=== PATIENT | female | born 1935 | race Caucasian/White ===

== ENCOUNTER 2022-10-01 07:19 | Inpatient (IN) ==
[2022-10-01] MEDS ORDERED: IOPAMIDOL 100 ML BOTTLE IV ONE (07:20)
--- NOTE | 2022-10-01 07:28 | Emergency Department Note ---
HPI General Chief complaint: Nausea/Vomiting/Diarrhea Stated complaint: n/v, abd pain Time Seen by Provider: 10/01/22 07:26 Source: patient, family and EMS Mode of arrival: wheelchair History of Present Illness HPI Narrative: Narrative: Patient is an 86-year-old female with a complex medical history who presents to the emergency department due to headache, nausea, vomiting, and abdominal pain. Patient's daughter is present and provides the majority of history. She states that she has had progressively worsening headaches. She states that she has had nausea, vomiting, and abdominal pain. She also states that she has not been eating very much. She has had generalized weakness as well. She also endorses some confusion. She denies any other symptoms. She states that she does not want any resuscitation, and they are looking just to help her be comfortable. Related Data Home Medications Medication Instructions Recorded Confirmed magnesium oxide 400 mg PO DAILY 03/22/18 10/01/22 timolol 0.25 % eye drops 5 ml OP BID 11/19/18 10/01/22 denosumab 60 mg/mL subcutaneous 60 mg subcut [id number] 11/11/19 09/27/22 syringe (Prolia) latanoprost 0.005 % eye drops 1 drp ophthalmic (eye) QPM 12/25/19 10/01/22 carvedilol 3.125 mg tablet 3.125 mg PO BID 09/27/22 10/01/22 lorazepam 0.5 mg tablet PO QD-BID PRN Anxiety 10/01/22 10/01/22 ondansetron 4 mg disintegrating mg PO 10/01/22 10/01/22 tablet Previous Rx's Medication Instructions Recorded furosemide 20 mg tablet 40 mg PO DAILY #60 tabs 01/05/21 spironolactone 25 mg tablet 25 mg PO .M W F #12 tabs 01/05/21 apixaban 5 mg tablet (Eliquis) 5 mg PO BID #180 tabs 11/22/21 pantoprazole 40 mg tablet,delayed 40 mg PO BIDAC #60 tabs 01/10/22 release lisinopril 5 mg tablet 5 mg PO QDAY #90 tabs 05/02/22 [id number]-evcdozurdxqmk-[id number] 1 cap PO Q4H PRN pain #100 caps 07/14/22 50 mg-325 mg-40 mg capsule epinephrine 0.3 mg/0.3 mL 0.3 mg (0.3 mL) IM Q5-15M PRN 08/29/22 injection, auto-injector (EpiPen anaphylaxis #2 ea 2-Nigel) lorazepam 0.5 mg tablet See Rx Instructions PO BID PRN 09/22/22 anxiety #20 tabs ondansetron 4 mg disintegrating 4 mg PO Q8H PRN nausea and 09/27/22 tablet vomiting 30 days #90 tabs oxycodone-acetaminophen 5 mg-325 1 tab PO Q6H PRN pain (scale score 09/27/22 mg tablet 4-6) 28 days #112 tabs sertraline 50 mg tablet 50 mg PO QDAY mood #30 tabs 09/27/22 Allergies Allergy/AdvReac Type Severity Reaction Status Date / Time amoxicillin [From Augmentin] AdvReac Lip Verified 10/01/22 07:20 swelling clavulanic acid AdvReac Lip Verified 10/01/22 07:20 [From Augmentin] swelling codeine AdvReac Vomiting Verified 10/01/22 07:20 Review of Systems ROS ROS Narrative: Narrative: Constitutional: Denies fever or weakness Eyes: Denies eye pain or vision change ENT ED: Denies throat pain, hearing loss or rhinorrhea Cardiovascular: Denies chest pain, dyspnea on exertion, orthopnea or edema Respiratory: Denies shortness of breath or cough Gastrointestinal: Reports abdominal pain, nausea and vomiting; Denies diarrhea, constipation, hematochezia or melena Musculoskeletal: Denies back pain or myalgia Integumentary: Denies rash or lesions Neurological: Reports headache and confusion; Denies weakness, numbness, abnormal gait or dizziness [facility] Narrative Patient History Narrative: Narrative: Medical/Surgical/Family History All Active Problems (Updated 10/01/22 @ 11:58 by Mick Mobley MD) Diverticulitis of intestine with abscess (Acute) Diverticulitis (Acute) Dysuria (Acute) Esophageal ulcer (Acute) Esophagitis (Acute) Hiatal hernia (Acute) Esophageal foreign body (Acute) Esophageal foreign body (Acute) Postmenopausal atrophic vaginitis (Acute) Urinary tract infection with hematuria (Acute) Hematuria (Acute) Yeast infection involving the vagina and surrounding area (Acute) Vaginal itching (Acute) UTI (urinary tract infection) (Acute) History of colonoscopy (Chronic 06/02/20) Status post ectopic (Chronic ~1955) Hx of right breast biopsy (Chronic ~05/2007) History of tonsillectomy (Chronic ~194) History of surgery (Chronic ~01/2006) 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) History of hysterectomy (Chronic ~1988) History of cholecystectomy (Chronic ~2003) History of appendectomy (Chronic ~1955) Organoaxial gastric volvulus (Chronic) Elevated parathyroid hormone (Chronic) Fungal rash of trunk (Chronic) Fatigue (Chronic) Pneumonia (Chronic) Allergies (Chronic) Encounter for long-term (current) use of other medications (Chronic) Hyperlipidemia (Chronic) Tension headache (Chronic) Rosacea (Chronic) Recently quit using tobacco (Chronic) Stress incontinence (Chronic) 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) Depression (Chronic) Vitamin D deficiency (Chronic) Ankle pain (Chronic) Congestive heart failure (Chronic) Melena (Chronic) Idiopathic cardiomyopathy (Chronic) Hypercalcemia (Chronic) Osteoporosis (Chronic) Smoker (Chronic) Anxiety (Chronic) Headache (Chronic) Benign neoplasm of sigmoid colon (Chronic) Diverticulosis of colon without hemorrhage (Chronic) Hemorrhoids (Chronic) Atrial fibrillation (Chronic) Screening breast examination (Chronic) Presence of cardiac pacemaker (Chronic) Knee joint pain (Chronic) Anemia, iron deficiency (Chronic) Shoulder strain (Chronic) Medical History Allergies Anemia, iron deficiency Ankle pain Anxiety Atrial fibrillation Benign neoplasm of sigmoid colon Congestive heart failure Depression start sertraline daily at 25 mg per day for 4 days, then increase to sertraline 50 mg per day as tolerated. Diverticulosis of colon without hemorrhage Elevated parathyroid hormone Encounter for long-term (current) use of other medications Fatigue Female proctocele without uterine prolapse Fungal rash of trunk Headache Hemorrhoids Hypercalcemia Hyperlipidemia Idiopathic cardiomyopathy Knee joint pain Melena Organoaxial gastric volvulus Osteoporosis Pneumonia Presence of cardiac pacemaker Recently quit using tobacco Rosacea Screening breast examination Shoulder strain Smoker Stress incontinence Tension headache Vitamin D deficiency Surgical History History of appendectomy (~1955) History of cholecystectomy (~2003) History of colonoscopy (06/02/20) 11/24/2016 - Dr. Rodríguez, Hemorrhoids, Diverticulitis, Sigmoid Colon Polyps 11/23/2016 - Dr. Rodríguez 07/10/2016 - Hyperplastic Polyp History of esophagogastroduodenoscopy (EGD) 01/09/2022 History of hysterectomy (~1988) History of permanent cardiac pacemaker placement (~06/2011) DEFIB, CHANGED TO BIVENTRICULAR PACEMAKER 07/30/17 History of squamous cell carcinoma excision (~05/2007) NOSE, DR MANCUSO History of surgery (~01/2006) EYE LIFT History of tonsillectomy (~1941) Hx of right breast biopsy (~05/2007) DR GERARDO, ATYPICAL DUCTAL HYPERLASIA WITH CALCIFICATIONS Status post ectopic (~1955) Family History Father , 88, [facility] Social History Smoking Status: Former smoker Exam Narrative Narrative: Narrative: General General appearance: Present alert and in no apparent distress; Absent anxious, appears intoxicated or sleepy Head Head: Present atraumatic and normocephalic Eye Eye: Present EOMI; Absent scleral icterus or nystagmus ENT ENT: Present mucous membranes moist; Absent nasal congestion Neck Neck: Present full ROM and trachea midline Chest Chest: Present normal inspection and symmetric chest wall rise Respiratory Respiratory: Present normal lung sounds bilaterally; Absent respiratory distress, rales/crackles, wheezes, stridor or accessory muscle use Cardiovascular Cardiovascular: Present regular rate, normal rhythm and normal heart sounds Adbominal Abdominal: Present soft, tenderness, guarding and normal bowel sounds; Absent distention, rebound or rigidity Extremities Extremities: Present normal inspection and full ROM Back Back: Present normal inspection and full ROM; Absent CVA tenderness (R) or CVA tenderness (L) Neurological Neurological: Present alert and oriented X3 Psychiatric Psychiatric: Present normal affect and normal mood Skin Skin: Present warm (WNL), dry and normal color Course Vital Signs Vital signs: Vital Signs Temperature 97.6 F 10/01/22 07:20 Pulse Rate 73 10/01/22 07:20 Respiratory Rate 18 10/01/22 07:20 Blood Pressure 132/64 10/01/22 07:20 Pulse Oximetry (%) 94 10/01/22 07:20 Oxygen Delivery Method Room Air 10/01/22 07:20 Temperature 97.6 F 10/01/22 11:42 Pulse Rate 78 10/01/22 11:42 Respiratory Rate 17 10/01/22 11:42 Blood Pressure 110/53 10/01/22 11:42 Pulse Oximetry (%) 96 10/01/22 11:42 Oxygen Delivery Method Room Air 10/01/22 07:20 MDM MDM Narrative Medical decision making narrative: Narrative: Patient is an 86-year-old female who presents to the emergency department due to abdominal pain, nausea, vomiting, decrease in appetite, and headache. Differential diagnosis for headache include intracranial bleed and headache syndrome. Differential diagnoses for nausea, vomiting, and abdominal pain include gastritis, peptic ulcer disease, gastroenteritis, colitis, diverticulitis, urinary tract infection. Patient's labs do demonstrate an elevated white blood cell count. CT scan shows diverticulitis with abscess. I spoke to Dr. Parnell who is agreed to see and evaluate patient but asked if I would speak to the hospitalist team to have them admit. I spoke to Dr. Rhoades who has agreed to see and evaluate patient for admission. Lab Data 10/01/22 07:35 Labs: Lab Results 10/01/22 10/01/22 10/01/22 Range/Units 07:35 07:35 07:35 WBC 16.4 H (4.5-11.0) K/mcL RBC 4.14 (3.59-5.38) M/mcL Hgb 13.2 (11.2-15.7) g/dL Hct 39.6 (34.1-44.9) % POC Hct 41.0 (36-48) MCV 95.7 (80.0-100.0) fL MCH 31.9 (26.0-34.0) pg MCHC 33.3 (31.0-36.0) g/dL RDW 12.1 (11.5-14.5) % Plt Count 490 H (140-440) K/mcL MPV 11.2 (8.8-12.5) fL Immature Gran % (Auto) 0.5 (0.0-0.5) % Neut % (Auto) 61.6 (38.0-78.0) % Lymph % (Auto) 29.6 (15.5-49.0) % [place] % (Auto) 6.4 (1.0-12.0) % Eos % (Auto) 1.5 (0.0-7.0) % Baso % (Auto) 0.4 (0.0-2.0) % Lymph # (Auto) 4.87 H (1.50-4.80) K/mcL [place] # (Auto) 1.05 H (0.10-0.90) K/mcL Eos # (Auto) 0.24 (0.00-0.70) K/mcL Baso # (Auto) 0.07 (0.00-0.30) K/mcL Immature Gran # 0.08 H (0.00-0.05) K/mcl Absolute Neutrophils 10.13 H (1.80-8.00) K/mcL POC Sodium 135 (133-145) POC Potassium 4.6 (3.3-5.1) POC Chloride 102 (96-108) POC Total CO2 25.0 (22-30) POC Anion Gap 13.0 (8.0-16.0) POC BUN 16 (6-20) POC Creatinine 1.1 (0.6-1.2) POC Glucose 100 (70-105) POC WB Ioniz Calcium 1.44 H (1.16-1.32) Total Bilirubin TNP Direct Bilirubin TNP AST TNP ALT TNP Alkaline Phosphatase TNP Total Protein TNP Albumin TNP Globulin TNP Lipase 20 (7-60) U/L 10/01/22 Range/Units 08:56 WBC (4.5-11.0) K/mcL RBC (3.59-5.38) M/mcL Hgb (11.2-15.7) g/dL Hct (34.1-44.9) % POC Hct (36-48) MCV (80.0-100.0) fL MCH (26.0-34.0) pg MCHC (31.0-36.0) g/dL RDW (11.5-14.5) % Plt Count (140-440) K/mcL MPV (8.8-12.5) fL Immature Gran % (Auto) (0.0-0.5) % Neut % (Auto) (38.0-78.0) % Lymph % (Auto) (15.5-49.0) % [place] % (Auto) (1.0-12.0) % Eos % (Auto) (0.0-7.0) % Baso % (Auto) (0.0-2.0) % Lymph # (Auto) (1.50-4.80) K/mcL [place] # (Auto) (0.10-0.90) K/mcL Eos # (Auto) (0.00-0.70) K/mcL Baso # (Auto) (0.00-0.30) K/mcL Immature Gran # (0.00-0.05) K/mcl Absolute Neutrophils (1.80-8.00) K/mcL POC Sodium (133-145) POC Potassium (3.3-5.1) POC Chloride (96-108) POC Total CO2 (22-30) POC Anion Gap (8.0-16.0) POC BUN (6-20) POC Creatinine (0.6-1.2) POC Glucose (70-105) POC WB Ioniz Calcium (1.16-1.32) Total Bilirubin 0.2 Direct Bilirubin < 0.2 AST 11 ALT 6 Alkaline Phosphatase 33 L Total Protein 6.5 Albumin 3.2 Globulin 3.3 Lipase (7-60) U/L Discharge Plan Patient/Caregiver Discharge Instructions Pt seen by BIOINFORMATICS ASSISTANT/PA only: No Clinical Impression: Diverticulitis of intestine with abscess Patient Disposition: Xfer As Inpt ([facility]) Condition: Good Discharge Date/Time: 10/01/22 11:35
[2022-10-01] MEDS ORDERED: 0.9 % SODIUM CHLORIDE 1,000 ML IV ONE (07:31)
[2022-10-01 07:39] LABS: POC Calcium, Ionized 1.44 (1.16-1.32); POC Creatinine 1.1 (0.6-1.2); POC Potassium 4.6 (3.3-5.1)
[2022-10-01] MEDS ORDERED: KETOROLAC 30 MG/ML VIAL IV ONE (07:41)
[2022-10-01] MEDS ORDERED: diphenhydrAMINE 50 MG/ML VIAL IV ONE (07:41)
[2022-10-01] MEDS ORDERED: METOCLOPRAMIDE 10 MG/2 ML VIAL IV ONE (07:41)
[2022-10-01 08:22] LABS: Basophils # (Auto) 0.07 K/mcL (0.00-0.30); Basophils % (Auto) 0.4 % (0.0-2.0); Eosinophils # (Auto) 0.24 K/mcL (0.00-0.70); Eosinophils % (Auto) 1.5 % (0.0-7.0); Hematocrit 39.6 % (34.1-44.9); Hemoglobin 13.2 g/dL (11.2-15.7); Lymphocytes # (Auto) 4.87 K/mcL (1.50-4.80); Lymphocytes % (Auto) 29.6 % (15.5-49.0); Mean Cell Volume 95.7 fL (80.0-100.0); Mean Corpuscular HGB Conc 33.3 g/dL (31.0-36.0); Mean Platelet Volume 11.2 fL (8.8-12.5); Monocytes # (Auto) 1.05 K/mcL (0.10-0.90); Monocytes % (Auto) 6.4 % (1.0-12.0); Neutrophils % (Auto) 61.6 % (38.0-78.0); Platelet Count 490 K/mcL (140-440); RBC 4.14 M/mcL (3.59-5.38); Red Cell Distribution Width 12.1 % (11.5-14.5); WBC 16.4 K/mcL (4.5-11.0)
--- NOTE | 2022-10-01 08:37 | Cat Scan Report ---
INDICATION: Worsening headaches COMPARISON: Previous CT scan dated 08/14/2016 TECHNIQUE: Axial noncontrast-enhanced images through the brain. Sagittally and coronally reformatted images. FINDINGS: Cerebral hemispheres:Negative. No intra-axial abnormality. No intra-axial hematoma. No localized mass effect. Brain volume is within normal limits for age. There is white matter abnormality consistent with small vessel ischemic change Brainstem and cerebellum:No intra-axial abnormality Extra-axial:No acute hemorrhage. No subdural or epidural hematoma. No subarachnoid hemorrhage. Basilar cisterns are normal Calvarial:No calvarial fracture. No lytic lesion Temporal bones are negative. No destructive lesions Soft tissue, orbits, sinuses:Mild mucosal thickening in a posterior left ethmoid sinus IMPRESSION: No acute abnormality. No intracranial hemorrhage The exam was performed using radiation dose optimization techniques including, but not limited to, automated exposure control, adjustment of the mA and/or kV according to patient size and use of iterative reconstruction technique. Interpreted and Authenticated by: Ray Tate 10/01/22
--- NOTE | 2022-10-01 08:58 | Cat Scan Report ---
INDICATION: R/L LLQ abdominal pain/tendernes COMPARISON: CT scan dated 09/05/2007 TECHNIQUE: Axial images were obtained through the abdomen and pelvis. Sagittally and coronally reformatted images. 80 mL Isovue 370 injected intravenously. Oral contrast material was not administered FINDINGS: Lung bases:Mild left basilar atelectasis or scarring. There is coronary artery calcification. No pleural fluid or pericardial fluid Liver:No focal hepatic mass. Liver contour is smooth. Gallbladder, bilary:Previous cholecystectomy. Dilated intra and extrahepatic bile ducts. Common bile duct measures approximately 16 mm maximally. No detectable choledocholithiasis Spleen:No splenomegaly. Normal enhancement of splenic and portal veins. Pancreas:No pancreatic mass. No peripancreatic abnormality Adrenal glands:Negative Kidneys,ureters,bladder:No solid renal mass. No hydronephrosis. No obstructing or nonobstructing calculi. No hydroureter. No ureteral calculus. No bladder stone. No detectable bladder mass. Gastrointestinal:Increased fecal material, especially in the cecum and ascending colon. Appearance is consistent with constipation. There is extensive sigmoid colon diverticulosis. There is wall thickening within the sigmoid colon and mild pericolonic inflammatory change. There is a low density abnormality which measures 16 x 16 x 14 mm and is consistent with a sigmoid colon wall diverticular abscess. There is no pneumoperitoneum. No intraperitoneal abscess. No significant free fluid. No detectable colonic mass Negative small bowel. No mechanical small bowel obstruction. No bowel wall thickening. No focal abnormality. There is a very large hiatal hernia with virtually the entire stomach with in the chest. This hiatal hernia has increased in size since 09/05/2007. There is mild dilatation of the esophagus. Appendix: The appendix is removed Vascular:There is atherosclerotic calcification. 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 There is calcification at the origins of the celiac trunk and superior mesenteric artery. There is no occlusion. No evidence for mesenteric ischemia. Lymphatic:No retroperitoneal or mesenteric adenopathy Mesentery, peritoneum: No free intraperitoneal fluid. No mesenteric or retroperitoneal mass. No intra-abdominal abscess. Reproductive:Previous hysterectomy and bilateral oophorectomy Musculoskeletal:No acute lumbar compression fracture. Bilateral L5 spondylolysis and grade 2 spondylolisthesis. Sacrum is negative. No insufficiency fracture. Pelvis and hips are negative No abdominal wall or inguinal hernia IMPRESSION: 1. Sigmoid colon diverticulitis. There is a small colonic wall abscess. 2. Prominent fecal material within the cecum and ascending colon consistent with constipation 3. Very large hiatal hernia with virtually the entire stomach in the chest. This has increased in size since 09/05/2007 4. Previous cholecystectomy. Intra and extrahepatic bile duct dilatation. No detectable choledocholithiasis 5. Previous appendectomy 6. Previous hysterectomy and bilateral oophorectomy 7. L5 spondylolysis and grade 2 spondylolisthesis The exam was performed using radiation dose optimization techniques including, but not limited to, automated exposure control, adjustment of the mA and/or kV according to patient size and use of iterative reconstruction technique. Interpreted and Authenticated by: Ray Tate 10/01/22
[2022-10-01] MEDS ORDERED: CIPROFLOXACIN 400 MG/200 ML BAG IV ONE (09:10)
[2022-10-01] MEDS ORDERED: metroNIDAZOLE 500 MG/100 ML BAG IV ONE (09:10)
[2022-10-01 09:59] LABS: ALT/SGPT 6 U/L (<40); AST/SGOT 11 U/L (<32); Albumin 3.2 gm/dL (3.2-5.2); Alkaline Phosphatase 33 U/L (39-117); Bilirubin,Direct < 0.2 mg/dL (0-0.3); Bilirubin,Total 0.2 mg/dL (0.1-1.0); Globulin 3.3 gm/dL (2.2-3.7)
--- NOTE | 2022-10-01 10:02 | Internal Med History&Physical ---
HPI History of Present Illness Patient information: Note initiated : 10/01/22 at 9:45 am Service Date, if different from initiated Date: [] Patient: Yadira Lemus a 86 y/o F admitted on for n/v, abd pain. Chief Complaint: [] History of present illness: Ms. Lemus is a 86 year old female with past medical history including hiatal hernia, sigmoid diverticulosis, migraine headaches, paroxysmal atrial fibrillation, idiopathic cardiomyopathy with preserved EF, CHF, LBBB status post biventricular pacemaker, anxiety and depression presented with constellation of symptoms which have been going on for about 2 to 3 weeks. Patient has chronic headaches due to migraine and chronic nausea and vomiting secondary to her big hiatal hernia. Her daughter is the main contributor to history. She convinced her today to present to ER. Patient presents with headache, nausea and vomiting with mild low abdominal pain and reduced appetite. Her daughter also reported generalized weakness. Patient reports no fever or chills. On presentation vitals are stable CT abdomen and pelvis with contrast showed acute sigmoid colon diverticulitis with a small around 2cm associated abscess. Prominent fecal matter within the cecum and ascending colon consistent with constipation. CBC with elevated WBC 16,000. Renal functions and electrolytes stable. Liver function pending. CT head without any acute finding. Review of system Constitutional: Denies fever or weakness, reports headache Eyes: Denies eye pain or vision change ENT ED: Denies throat pain, hearing loss or rhinorrhea Cardiovascular: Denies chest pain, dyspnea on exertion, orthopnea or edema Respiratory: Denies shortness of breath or cough Gastrointestinal: Reports abdominal pain, nausea, vomiting. No diarrhea, constipation, hematochezia or melena Musculoskeletal: Denies back pain or myalgia Integumentary: Denies rash or lesions Neurological: Positive for headache. No weakness, numbness, confusion, abnormal gait or dizziness Psychiatric: Denies anxiety, suicidal thoughts or homicidal thoughts Endocrine: Denies fatigue or polyuria Hematological/Lymphatic: Denies easy bleeding or easy bruising Physical examination General General appearance: Present alert and in no apparent distress; Absent anxious, appears intoxicated or sleepy Head Head: Present normocephalic; Absent atraumatic Eye Eye: Present PERRL, EOMI and visual erazo intact; Absent scleral icterus or nystagmus ENT ENT: Present mucous membranes moist; Absent nasal congestion Neck Neck: Present full ROM; Absent tenderness Chest Chest: Present normal inspection, symmetric chest wall rise and tenderness Respiratory Respiratory: Present normal lung sounds bilaterally; Absent respiratory distress or accessory muscle use Cardiovascular Cardiovascular: Present S1 and S2, regular rhythm, mild systolic murmur over mitral area, no JVD, no peripheral edema Adbominal Abdominal: Present soft and minimal lower abdominal tenderness, no rebound or rigidity, bowel sounds active Extremities Extremities: Present normal inspection and full ROM; Absent tenderness Back Back: Present normal inspection and full ROM; Absent tenderness Neurological Neurological: Present alert, oriented X3, CN II-XII intact, normal gait and reflexes normal; Absent motor sensory deficit Psychiatric Psychiatric: Present normal affect and normal mood Skin Skin: Present warm (WNL), dry and normal color Assessment and plan Acute sigmoid colon diverticulitis associated with small abscess. Dr Parnell consulted. IV ciprofloxacin and Flagyl. IV fluids. N.p.o. except meds as patient having nausea and vomiting Large hiatal hernia/GERD. Likely contributing to chronic nausea and vomiting. Very large hiatal hernia on CT scan which is increased from before. Change to IV Protonix. Severe migraine headaches continue home meds, fiorinal, also on Percocet, on topiramate CHF. Not in decompensated CHF. Hold Lasix and spironolactone today and aim to start from tomorrow, on Coreg, lisinopril Paroxysxamal A-fib. Rate controlled. Continue Eliquis Hypertension on lisinopril Anxiety and depression on Ativan as needed, on sertraline DVT prophylaxis, on Eliquis DNR/DNI Total time taken 75 minutes PFSH PFSH All Active Problems (Updated 10/01/22 @ 10:35 by Luis Antonio Parnell MD) Diverticulitis (Acute) Dysuria (Acute) Esophageal ulcer (Acute) Esophagitis (Acute) Hiatal hernia (Acute) Esophageal foreign body (Acute) Esophageal foreign body (Acute) Postmenopausal atrophic vaginitis (Acute) Urinary tract infection with hematuria (Acute) Hematuria (Acute) Yeast infection involving the vagina and surrounding area (Acute) Vaginal itching (Acute) UTI (urinary tract infection) (Acute) History of colonoscopy (Chronic 06/02/20) Status post ectopic (Chronic ~1955) Hx of right breast biopsy (Chronic ~05/2007) History of tonsillectomy (Chronic ~194) History of surgery (Chronic ~01/2006) 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) History of hysterectomy (Chronic ~1988) History of cholecystectomy (Chronic ~2003) History of appendectomy (Chronic ~1955) Organoaxial gastric volvulus (Chronic) Elevated parathyroid hormone (Chronic) Fungal rash of trunk (Chronic) Fatigue (Chronic) Pneumonia (Chronic) Allergies (Chronic) Encounter for long-term (current) use of other medications (Chronic) Hyperlipidemia (Chronic) Tension headache (Chronic) Rosacea (Chronic) Recently quit using tobacco (Chronic) Stress incontinence (Chronic) 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) Depression (Chronic) Vitamin D deficiency (Chronic) Ankle pain (Chronic) Congestive heart failure (Chronic) Melena (Chronic) Idiopathic cardiomyopathy (Chronic) Hypercalcemia (Chronic) Osteoporosis (Chronic) Smoker (Chronic) Anxiety (Chronic) Headache (Chronic) Benign neoplasm of sigmoid colon (Chronic) Diverticulosis of colon without hemorrhage (Chronic) Hemorrhoids (Chronic) Atrial fibrillation (Chronic) Screening breast examination (Chronic) Presence of cardiac pacemaker (Chronic) Knee joint pain (Chronic) Anemia, iron deficiency (Chronic) Shoulder strain (Chronic) Medical History Allergies Anemia, iron deficiency Ankle pain Anxiety Atrial fibrillation Benign neoplasm of sigmoid colon Congestive heart failure Depression Diverticulosis of colon without hemorrhage Elevated parathyroid hormone Encounter for long-term (current) use of other medications Fatigue Female proctocele without uterine prolapse Fungal rash of trunk Headache Hemorrhoids Hypercalcemia Hyperlipidemia Idiopathic cardiomyopathy Knee joint pain Melena Organoaxial gastric volvulus Osteoporosis Pneumonia Presence of cardiac pacemaker Recently quit using tobacco Rosacea Screening breast examination Shoulder strain Smoker Stress incontinence Tension headache Vitamin D deficiency Surgical History History of appendectomy (~1955) History of cholecystectomy (~2003) History of colonoscopy (06/02/20) 11/24/2016 - Dr. Rodríguez, Hemorrhoids, Diverticulitis, Sigmoid Colon Polyps 11/23/2016 - Dr. Rodríguez 07/10/2016 - Hyperplastic Polyp History of esophagogastroduodenoscopy (EGD) 01/09/2022 History of hysterectomy (~1988) History of permanent cardiac pacemaker placement (~06/2011) DEFIB, CHANGED TO BIVENTRICULAR PACEMAKER 07/30/17 History of squamous cell carcinoma excision (~05/2007) NOSE, DR MANCUSO History of surgery (~01/2006) EYE LIFT History of tonsillectomy (~194) Hx of right breast biopsy (~05/2007) DR GERARDO, ATYPICAL DUCTAL HYPERLASIA WITH CALCIFICATIONS Status post ectopic (~1955) Family History Father , 88, SHAE CELL CANCER Cancer Social History marital status: smoking status: Former smoker MEDS/ALLERGIES Home Medications and Allergies Home Medications Medication Instructions Recorded Confirmed Type magnesium oxide 400 mg PO DAILY 03/22/18 10/01/22 History timolol 0.25 % eye drops 5 ml OP BID 11/19/18 10/01/22 History denosumab 60 mg/mL subcutaneous 60 mg subcut [id number] 11/11/19 09/27/22 History syringe (Prolia) latanoprost 0.005 % eye drops 1 drp ophthalmic (eye) QPM 12/25/19 10/01/22 History furosemide 20 mg tablet 40 mg PO DAILY #60 tabs 01/05/21 10/01/22 Rx spironolactone 25 mg tablet 25 mg PO .M W F #12 tabs 01/05/21 10/01/22 Rx apixaban 5 mg tablet (Eliquis) 5 mg PO BID #180 tabs 11/22/21 10/01/22 Rx pantoprazole 40 mg tablet,delayed 40 mg PO BIDAC #60 tabs 01/10/22 10/01/22 Rx release lisinopril 5 mg tablet 5 mg PO QDAY #90 tabs 05/02/22 10/01/22 Rx zsfrrqwrjc-zkoludcqlxkzg-qdcptpso 1 cap PO Q4H PRN pain #100 caps 07/14/22 10/01/22 Rx 50 mg-325 mg-40 mg capsule epinephrine 0.3 mg/0.3 mL 0.3 mg (0.3 mL) IM Q5-15M PRN 08/29/22 10/01/22 Rx injection, auto-injector (EpiPen anaphylaxis #2 ea 2-Nigel) lorazepam 0.5 mg tablet See Rx Instructions PO BID PRN 09/22/22 10/01/22 Rx anxiety #20 tabs carvedilol 3.125 mg tablet 3.125 mg PO BID 09/27/22 10/01/22 History ondansetron 4 mg disintegrating 4 mg PO Q8H PRN nausea and 09/27/22 09/27/22 Rx tablet vomiting 30 days #90 tabs oxycodone-acetaminophen 5 mg-325 1 tab PO Q6H PRN pain (scale score 09/27/22 10/01/22 Rx mg tablet 4-6) 28 days #112 tabs sertraline 50 mg tablet 50 mg PO QDAY mood #30 tabs 09/27/22 09/27/22 Rx lorazepam 0.5 mg tablet PO QD-BID PRN Anxiety 10/01/22 10/01/22 History ondansetron 4 mg disintegrating mg PO 10/01/22 10/01/22 History tablet Allergies Allergy/AdvReac Type Severity Reaction Status Date / Time amoxicillin [From Augmentin] AdvReac Lip Verified 10/01/22 07:20 swelling clavulanic acid AdvReac Lip Verified 10/01/22 07:20 [From Augmentin] swelling codeine AdvReac Vomiting Verified 10/01/22 07:20 EXAM Constitutional Vitals: Temp Pulse Resp BP Pulse Ox O2 Del Method 97.6 F 78 17 117/51 96 Room Air 10/01/22 07:20 10/01/22 09:31 10/01/22 09:01 10/01/22 09:31 10/01/22 09:31 10/01/22 07:20 DATA Data Completed and Pending Labs: Labs from last 24 hours 10/01/22 10/01/22 10/01/22 08:56 07:35 07:35 WBC 16.4 H RBC 4.14 Hgb 13.2 Hct 39.6 POC Hct MCV 95.7 MCH 31.9 MCHC 33.3 RDW 12.1 Plt Count 490 H MPV 11.2 Immature Gran % (Auto) 0.5 Neut % (Auto) 61.6 Lymph % (Auto) 29.6 [place] % (Auto) 6.4 Eos % (Auto) 1.5 Baso % (Auto) 0.4 Lymph # (Auto) 4.87 H [place] # (Auto) 1.05 H Eos # (Auto) 0.24 Baso # (Auto) 0.07 Immature Gran # 0.08 H Absolute Neutrophils 10.13 H POC Sodium POC Potassium POC Chloride POC Total CO2 POC Anion Gap POC BUN POC Creatinine POC Glucose POC WB Ioniz Calcium Total Bilirubin Pending TNP Direct Bilirubin Pending TNP AST Pending TNP ALT Pending TNP Alkaline Phosphatase Pending TNP Total Protein Pending TNP Albumin Pending TNP Globulin Pending TNP Lipase 20 10/01/22 07:35 WBC RBC Hgb Hct POC Hct 41.0 MCV MCH MCHC RDW Plt Count MPV Immature Gran % (Auto) Neut % (Auto) Lymph % (Auto) [place] % (Auto) Eos % (Auto) Baso % (Auto) Lymph # (Auto) [place] # (Auto) Eos # (Auto) Baso # (Auto) Immature Gran # Absolute Neutrophils POC Sodium 135 POC Potassium 4.6 POC Chloride 102 POC Total CO2 25.0 POC Anion Gap 13.0 POC BUN 16 POC Creatinine 1.1 POC Glucose 100 POC WB Ioniz Calcium 1.44 H Total Bilirubin Direct Bilirubin AST ALT Alkaline Phosphatase Total Protein Albumin Globulin Lipase A/P Time Spent With Patient Time: Total time spent is greater than 50% in coordination of care (as documented) at patient's floor/unit and/or counseling patient:
--- NOTE | 2022-10-01 10:22 | General Surgery Consult Note ---
HPI Date of Consult Consult Date: 10/01/22 Requesting physician: Mick Mobley Primary Care Provider: TOMASZ Medina Consult Narrative Chief complaint: LLQ Pain Reason for consult: Sigmoid Diverticulitis History of present illness: Ms Lemus is seen in consultation after presenting to the ER today with a constellation of symptoms but predominantly a headache along with nausea, vomiting and a somewhat depressed appetite. An Abdominal CT was done which demonstrated extensive Sigmoid Diverticulosis with an area of inflammatory chowdhury e consistent with Sigmoid Diverticulitis and a what appears to be a small less than 2cm associated abscess. Her WBC was 16. She is accompanied by her daughter and really has very little complaint of lower abdominal pain but issues with nausea and regurgitation have been significant. 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 Per daughter, they have declined operative intervention for that in the past. She denies chest pain or any acute change in that area but always has issues with reflux, regurgitation, etc. She has a multitude of other medical issues well outlined in the EMR and is chronically anticoagulated on Eliquis. Most recent Colonoscopy was 06/13 cc:: CC: Constitutional Additional comments: see HPI EENT Additional comments: no recent changes Additional comments: no new issues Cardiovascular Additional comments: denies chest pain, history of A fib and on Eliquis Respiratory Additional comments: no cough or SOB Gastrointestinal Additional comments: see HPI Genitourinary Additional comments: no issues Neurological Additional comments: baseline cognitive issues Psychiatric Additional comments: no changes Hematologic/Lymphatic Additional comments: on eliquis PFSH PFSH All Active Problems (Updated 10/01/22 @ 11:58 by Mick Mobley MD) Diverticulitis of intestine with abscess (Acute) Diverticulitis (Acute) Dysuria (Acute) Esophageal ulcer (Acute) Esophagitis (Acute) Hiatal hernia (Acute) Esophageal foreign body (Acute) Esophageal foreign body (Acute) Postmenopausal atrophic vaginitis (Acute) Urinary tract infection with hematuria (Acute) Hematuria (Acute) Yeast infection involving the vagina and surrounding area (Acute) Vaginal itching (Acute) UTI (urinary tract infection) (Acute) History of colonoscopy (Chronic 06/02/20) Status post ectopic (Chronic ~1955) Hx of right breast biopsy (Chronic ~05/2007) History of tonsillectomy (Chronic ~194) History of surgery (Chronic ~01/2006) 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) History of hysterectomy (Chronic ~1988) History of cholecystectomy (Chronic ~2003) History of appendectomy (Chronic ~1955) Organoaxial gastric volvulus (Chronic) Elevated parathyroid hormone (Chronic) Fungal rash of trunk (Chronic) Fatigue (Chronic) Pneumonia (Chronic) Allergies (Chronic) Encounter for long-term (current) use of other medications (Chronic) Hyperlipidemia (Chronic) Tension headache (Chronic) Rosacea (Chronic) Recently quit using tobacco (Chronic) Stress incontinence (Chronic) 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) Depression (Chronic) Vitamin D deficiency (Chronic) Ankle pain (Chronic) Congestive heart failure (Chronic) Melena (Chronic) Idiopathic cardiomyopathy (Chronic) Hypercalcemia (Chronic) Osteoporosis (Chronic) Smoker (Chronic) Anxiety (Chronic) Headache (Chronic) Benign neoplasm of sigmoid colon (Chronic) Diverticulosis of colon without hemorrhage (Chronic) Hemorrhoids (Chronic) Atrial fibrillation (Chronic) Screening breast examination (Chronic) Presence of cardiac pacemaker (Chronic) Knee joint pain (Chronic) Anemia, iron deficiency (Chronic) Shoulder strain (Chronic) Medical History Allergies Anemia, iron deficiency Ankle pain Anxiety Atrial fibrillation Benign neoplasm of sigmoid colon Congestive heart failure Depression start sertraline daily at 25 mg per day for 4 days, then increase to sertraline 50 mg per day as tolerated. Diverticulosis of colon without hemorrhage Elevated parathyroid hormone Encounter for long-term (current) use of other medications Fatigue Female proctocele without uterine prolapse Fungal rash of trunk Headache Hemorrhoids Hypercalcemia Hyperlipidemia Idiopathic cardiomyopathy Knee joint pain Melena Organoaxial gastric volvulus Osteoporosis Pneumonia Presence of cardiac pacemaker Recently quit using tobacco Rosacea Screening breast examination Shoulder strain Smoker Stress incontinence Tension headache Vitamin D deficiency Surgical History History of appendectomy (~1955) History of cholecystectomy (~2003) History of colonoscopy (06/02/20) 11/24/2016 - Dr. Rodríguez, Hemorrhoids, Diverticulitis, Sigmoid Colon Polyps 11/23/2016 - Dr. Rodríguez 07/10/2016 - Hyperplastic Polyp History of esophagogastroduodenoscopy (EGD) 01/09/2022 History of hysterectomy (~1988) History of permanent cardiac pacemaker placement (~06/2011) DEFIB, CHANGED TO BIVENTRICULAR PACEMAKER 07/30/17 History of squamous cell carcinoma excision (~05/2007) NOSE, DR MANCUSO History of surgery (~01/2006) EYE LIFT History of tonsillectomy (~194) Hx of right breast biopsy (~05/2007) DR GERARDO, ATYPICAL DUCTAL HYPERLASIA WITH CALCIFICATIONS Status post ectopic (~1955) Family History Father , 88, SHAE CELL CANCER Cancer Social History marital status: smoking status: Never smoker MEDS/ALLERGIES Home Medications and Allergies Home Medications Medication Instructions Recorded Confirmed Type magnesium oxide 400 mg PO DAILY 03/22/18 10/01/22 History timolol 0.25 % eye drops 5 ml OP BID 11/19/18 10/01/22 History denosumab 60 mg/mL subcutaneous 60 mg subcut [id number] 11/11/19 09/27/22 History syringe (Prolia) latanoprost 0.005 % eye drops 1 drp ophthalmic (eye) QPM 12/25/19 10/01/22 History furosemide 20 mg tablet 40 mg PO DAILY #60 tabs 01/05/21 10/01/22 Rx spironolactone 25 mg tablet 25 mg PO .M W F #12 tabs 01/05/21 10/01/22 Rx apixaban 5 mg tablet (Eliquis) 5 mg PO BID #180 tabs 11/22/21 10/01/22 Rx pantoprazole 40 mg tablet,delayed 40 mg PO BIDAC #60 tabs 01/10/22 10/01/22 Rx release lisinopril 5 mg tablet 5 mg PO QDAY #90 tabs 05/02/22 10/01/22 Rx rqavmfumww-duhadjwjtwals-hcmqhtnj 1 cap PO Q4H PRN pain #100 caps 07/14/22 10/01/22 Rx 50 mg-325 mg-40 mg capsule epinephrine 0.3 mg/0.3 mL 0.3 mg (0.3 mL) IM Q5-15M PRN 08/29/22 10/01/22 Rx injection, auto-injector (EpiPen anaphylaxis #2 ea 2-Nigel) lorazepam 0.5 mg tablet See Rx Instructions PO BID PRN 09/22/22 10/01/22 Rx anxiety #20 tabs carvedilol 3.125 mg tablet 3.125 mg PO BID 09/27/22 10/01/22 History ondansetron 4 mg disintegrating 4 mg PO Q8H PRN nausea and 09/27/22 09/27/22 Rx tablet vomiting 30 days #90 tabs oxycodone-acetaminophen 5 mg-325 1 tab PO Q6H PRN pain (scale score 09/27/22 10/01/22 Rx mg tablet 4-6) 28 days #112 tabs sertraline 50 mg tablet 50 mg PO QDAY mood #30 tabs 09/27/22 09/27/22 Rx lorazepam 0.5 mg tablet PO QD-BID PRN Anxiety 10/01/22 10/01/22 History ondansetron 4 mg disintegrating mg PO 10/01/22 10/01/22 History tablet Allergies Allergy/AdvReac Type Severity Reaction Status Date / Time amoxicillin [From Augmentin] AdvReac Lip Verified 10/01/22 07:20 swelling clavulanic acid AdvReac Lip Verified 10/01/22 07:20 [From Augmentin] swelling codeine AdvReac Vomiting Verified 10/01/22 07:20 Physical Examination Vital Signs Vital signs: Temp Pulse Resp BP Pulse Ox O2 Del Method 97.6 F 77 17 120/55 97 Room Air 10/01/22 07:20 10/01/22 10:01 10/01/22 09:01 10/01/22 10:01 10/01/22 10:01 10/01/22 07:20 General physical appearance General physical exam: other (non toxic, NAD, conversant ) Eyes Eye exam: normal ocular movement; negative icteric ENT ENT exam: other (normal facial exam ) Head Head exam IM: Present atraumatic and normal inspection Cardiovascular Cardiovascular exam IM: Present normal rate and rhythm and RRR Respiratory Respiratory exam: normal respiratory effort Abdomen Abdomen: Present soft (belly is soft and overwhelmingly benign. She has minimal focal tenderness in the LLQ to deep palpation without peritoneal finding ) Integumentary Integumentary: Present other (normal appearing intact skin ) Neurologic Neurologic: Present other (grossly intact ) Psychiatric Psychiatric: Present oriented to time, oriented to person and oriented to place Results Labs 10/01/22 07:35 Labs: Abnormal lab results 10/01/22 10/01/22 10/01/22 Range/Units 07:35 07:35 08:56 WBC 16.4 H (4.5-11.0) K/mcL Plt Count 490 H (140-440) K/mcL Lymph # (Auto) 4.87 H (1.50-4.80) K/mcL [place] # (Auto) 1.05 H (0.10-0.90) K/mcL Immature Gran # 0.08 H (0.00-0.05) K/mcl Absolute Neutrophils 10.13 H (1.80-8.00) K/mcL POC WB Ioniz Calcium 1.44 H (1.16-1.32) Alkaline Phosphatase 33 L (39-117) U/L Diabetes panel 10/01/22 10/01/22 Range/Units 07:35 08:56 AST TNP 11 ALT TNP 6 Alkaline Phosphatase TNP 33 L Total Protein TNP 6.5 Albumin TNP 3.2 Calcium panel 10/01/22 10/01/22 Range/Units 07:35 08:56 Albumin TNP 3.2 Adrenal panel 10/01/22 10/01/22 Range/Units 07:35 08:56 Total Bilirubin TNP 0.2 AST TNP 11 ALT TNP 6 Alkaline Phosphatase TNP 33 L Total Protein TNP 6.5 Albumin TNP 3.2 All other labs normal. A/P Assessment and plan (1) Diverticulitis: Assessment and plan: Clinically mild Acute Sigmoid Diverticulitis with small associated abscess She looks very benign and could likely be discharged home on Oral ABs and follow up if they wished but certainly would be reasonable to bring her in for a period of IV ABs for 24-48 hours to assure she resolves Her other symptomatology is almost certainly related to the gastric herniation with exacerbation of chronic symptoms. There is no evidence on CT of any acute issue regarding her hiatal hernia although it is noted to have increased in size on comparison imaging Agree with Sierra IV, clears ok, recommending holding the Eliquis for now until clear no procedural intervention will be required Status: Acute Time Spent With Patient Time: Total time spent is greater than 50% in coordination of care (as documented) at patient's floor/unit and/or counseling patient:
[2022-10-01] MEDS ORDERED: LORazepam 0.5 MG TABLET PO PRN (11:50)
[2022-10-01] MEDS ORDERED: MAGNESIUM HYDROXIDE 30 ML ORAL.SUSP PO PRN (11:50)
[2022-10-01] MEDS: PANTOPRAZOLE 40 MG VIAL IV SCH (12:26)
[2022-10-01] MEDS: LACTATED RINGERS 1,000 ML IV SCH (12:26)
[2022-10-01] MEDS: 0.9 % SODIUM CHLORIDE 10 ML SYRINGE IV SCH ×2 (12:34→20:40)
--- NOTE | 2022-10-01 14:52 | Internal Med Progress Note ---
SUBJECTIVE Subjective Patient information: Note initiated : 10/01/22 at 2:42 pm Service Date, if different from initiated Date: [] Patient: Yadira Lemus a 86 y/o F admitted on 10/01/22 for n/v, abd pain. Chief Complaint: [] Interval history: History of present illness: Ms. Lemus is a 86 year old female with past medical history including hiatal hernia, sigmoid diverticulosis, migraine headaches, paroxysmal atrial fibrillation, idiopathic cardiomyopathy with preserved EF, CHF, LBBB status post biventricular pacemaker, anxiety and depression presented with constellation of symptoms which have been going on for about 2 to 3 weeks. Patient has chronic headaches due to migraine and chronic nausea and vomiting secondary to her big hiatal hernia. Her daughter is the main contributor to history. She convinced her today to present to ER. Patient presents with headache, nausea and vomiting with mild low abdominal pain and reduced appetite. Her daughter also reported generalized weakness. Patient reports no fever or chills. On presentation vitals are stable CT abdomen and pelvis with contrast showed acute sigmoid colon diverticulitis with a small around 2cm associated abscess. Prominent fecal matter within the cecum and ascending colon consistent with constipation. CBC with elevated WBC 16,000. Renal functions and electrolytes stable. Liver function pending. CT head without any acute finding. 10/02 Review of Systems: denies headache/fever/chills/nausea/vomiting/chest or abdominal pain/cough/dyspnea/diarrhea. Otherwise see above. PHYSICAL EXAM General: Alert, Awake, No acute Distress Eyes/N/T: EOMI, no scleral icterus, Head/Neck: neck supple, full ROM, CV: RRR, No murmurs, Pulm: Clear b/l, no wheezing/rhonchi/rales, no respiratory distress Abd: tender lower quads oft, nontender, +BS x4 Ext: no clubbing/cyanosis/edema, nontender Neuro: Alert, no focal deficits, moves all extremities, , sensations intact b/l upper/lower Psychiatric: Skin: warm/dry, normal color Constitutional Vitals: Vital Signs Temp Pulse Resp BP Pulse Ox O2 Del Method 97.1 F 72 16 121/64 96 Room Air 10/01/22 11:42 10/01/22 11:42 10/01/22 11:42 10/01/22 11:42 10/01/22 11:42 10/01/22 11:42 Period Temp Pulse Resp BP Sys/Regalado Pulse Ox O2 Del Method O2 Flow Rate Last 24 Hr 97.1 F-97.6 F 72-83 16-18 101-146/51-67 94-98 Room Air-Room Air Intake and Output 10/01/22 10/01/22 10/01/22 03:59 11:59 19:59 Intake Total 1300 Balance 1300 Weight 60.146 kg Patient Weight 10/02/22 03:59 Weight 60.146 kg Intake & Output: Intake & Output 10/01/22 10/01/22 10/01/22 03:59 11:59 19:59 Intake Total 1300 Balance 1300 Weight 60.146 kg Intake: IV 1300 Sodium Chloride 0.9% 1,000 ml @ 1000 Wide Open IV [facility] Rx#: [id number] Other: Urine Appearance Straight Clear Urine Color Straight Yellow OBJ DATA Labs 10/01/22 07:35 Labs: Abnormal Lab Results 10/01/22 10/01/22 10/01/22 08:56 07:35 07:35 WBC 16.4 H Plt Count 490 H Lymph # (Auto) 4.87 H [place] # (Auto) 1.05 H Immature Gran # 0.08 H Absolute Neutrophils 10.13 H POC WB Ioniz Calcium 1.44 H Alkaline Phosphatase 33 L Meds: Medications Acetaminophen/Butalbital/Caffeine (Butalb/Acetaminophen/Caffeine 1 Tablet) 1 tab PO Q4HP PRN PRN Reason: pain Apixaban (Apixaban 5 Mg Tablet) 5 mg PO BID [facility] Bisacodyl (Bisacodyl 10 Mg Supp.Rect) 10 mg [place] Q2-3DAYS PRN PRN Reason: Constipation Carvedilol (Carvedilol 3.125 Mg Tablet) 3.125 mg PO BID [facility] Furosemide (Furosemide 20 Mg Tablet) 40 mg PO DAILY [facility] Ciprofloxacin (Cipro) 400 mg in 200 mls @ 200 mls/hr IV Q12H [facility]; Protocol Metronidazole (Flagyl) 500 mg in 100 mls @ 100 mls/hr IV Q8H [facility]; Protocol Lactated Ringer's (Lactated Ringers) 1,000 mls @ 75 mls/hr IV .[id number] [facility] Last Admin: 10/01/22 12:26 Dose: 75 mls/hr Lisinopril (Lisinopril 5 Mg Tablet) 5 mg PO QDAY [facility] Lorazepam (Lorazepam 0.5 Mg Tablet) 0.5 mg PO BIDP PRN PRN Reason: Anxiety Magnesium Hydroxide (Magnesium Hydroxide 30 Ml Oral.Susp) 30 ml PO DAILYP PRN PRN Reason: Constipation Magnesium Oxide (Magnesium Oxide 400 Mg Tablet) 400 mg PO DAILY [facility] Ondansetron HCl (Ondansetron 4 Mg/2 Ml Vial) 4 mg IV Q6HP PRN PRN Reason: Nausea And Vomiting Oxycodone/Acetaminophen (Oxycodone/Apap 5/325mg Tablet) 1 tab PO Q6HP PRN; Protocol PRN Reason: pain (scale score 4-6) Pantoprazole Sodium (Pantoprazole 40 Mg Vial) 40 mg IV QAMAC [facility] Last Admin: 10/01/22 12:26 Dose: 40 mg Timolol 5 Ml Drops 1 dose OP BID [facility] Sodium Chloride (0.9 % Sodium Chloride 10 Ml Syringe) 10 ml IV Q8 [facility] Last Admin: 10/01/22 12:34 Dose: Not Given Spironolactone (Spironolactone 25 Mg Tablet) 25 mg PO MoWeFr [facility] A/P Narrative A/P Narrative: Assessment and plan: *Acute sigmoid colon diverticulitis w/abscess: -Dr Parnell following -IV ciprofloxacin and Flagyl -IV fluids -N.p.o. except meds as patient having nausea and vomiting *Large hiatal hernia/GERD: Likely contributing to chronic nausea and vomiting -Very large hiatal hernia on CT scan which is increased from before -Change to IV Protonix. *Severe migraine headaches: continue home meds, fiorinal, also on Percocet, on topiramate *h/o CHF: Not in decompensated CHF -Hold Lasix and spironolactone today and aim to start from tomorrow, on Coreg, lisinopril *Paroxysmal A-fib: Rate controlled. Continue Eliquis *Hypertension: on lisinopril *Anxiety/Depression: on Ativan as needed, on sertraline *DVT prophylaxis: on Eliquis DNR/DNI Time Spent With Patient Time: Total time spent is greater than 50% in coordination of care (as documented) at patient's floor/unit and/or counseling patient: QUALITY VTE Deep Vein Thrombosis/Pulmonary Embolism Present on Admission: No
[2022-10-01] MEDS: LORazepam 0.5 MG TABLET PO PRN (15:34)
[2022-10-01] MEDS: ONDANSETRON 4 MG/2 ML VIAL IV PRN ×2 (15:34→23:48)
[2022-10-01] MEDS: oxyCODONE/APAP 5/325MG TABLET PO PRN (16:35)
[2022-10-01] MEDS ORDERED: PROMETHAZINE 50 MG/ML AMPUL IM PRN (18:10)
[2022-10-01] MEDS: CIPROFLOXACIN 400 MG/200 ML BAG IV SCH (20:39)
[2022-10-01] MEDS: CARVEDILOL 3.125 MG TABLET PO SCH (20:39)
[2022-10-01] MEDS: TIMOLOL OP SCH (20:40)
[2022-10-01] MEDS ORDERED: APIXABAN 5 MG TABLET PO SCH (21:00)
[2022-10-02] MEDS: LACTATED RINGERS 1,000 ML IV SCH (01:53)
[2022-10-02] MEDS: PROCHLORPERAZINE 10 MG/2 ML VIAL IV PRN ×3 (03:25→19:25)
[2022-10-02] MEDS: oxyCODONE/APAP 5/325MG TABLET PO PRN ×3 (03:32→15:59)
[2022-10-02] MEDS: 0.9 % SODIUM CHLORIDE 10 ML SYRINGE IV SCH ×3 (04:01→20:22)
[2022-10-02] MEDS: LORazepam 0.5 MG TABLET PO PRN ×2 (06:11→13:45)
[2022-10-02 06:50] LABS: Basophils # (Auto) 0.05 K/mcL (0.00-0.30); Basophils % (Auto) 0.4 % (0.0-2.0); Eosinophils # (Auto) 0.18 K/mcL (0.00-0.70); Eosinophils % (Auto) 1.3 % (0.0-7.0); Hematocrit 35.2 % (34.1-44.9); Hemoglobin 11.5 g/dL (11.2-15.7); Mean Cell Volume 97.2 fL (80.0-100.0); Mean Corpuscular HGB Conc 32.7 g/dL (31.0-36.0); Mean Platelet Volume 10.3 fL (8.8-12.5); Monocytes # (Auto) 0.96 K/mcL (0.10-0.90); Monocytes % (Auto) 6.9 % (1.0-12.0); Platelet Count 343 K/mcL (140-440); RBC 3.62 M/mcL (3.59-5.38); Red Cell Distribution Width 12.4 % (11.5-14.5)
[2022-10-02] MEDS: PANTOPRAZOLE 40 MG VIAL IV SCH (07:27)
--- NOTE | 2022-10-02 07:27 | Internal Med Progress Note ---
SUBJECTIVE Subjective Patient information: Note initiated : 10/02/22 at 7:22 am Service Date, if different from initiated Date: [] Patient: Yadira Lemus 86 y/o F admitted on 10/01/22 for n/v, abd pain. Chief Complaint: [] Interval history: History of present illness: Ms. Lemus is a 86 year old female with past medical history including hiatal hernia, sigmoid diverticulosis, migraine headaches, paroxysmal atrial fibrillation, idiopathic cardiomyopathy with preserved EF, CHF, LBBB status post biventricular pacemaker, anxiety and depression presented with constellation of symptoms which have been going on for about 2 to 3 weeks. Patient has chronic headaches due to migraine and chronic nausea and vomiting secondary to her big hiatal hernia. Her daughter is the main contributor to history. She convinced her today to present to ER. Patient presents with headache, nausea and vomiting with mild low abdominal pain and reduced appetite. Her daughter also reported generalized weakness. Patient reports no fever or chills. On presentation vitals are stable CT abdomen and pelvis with contrast showed acute sigmoid colon diverticulitis with a small around 2cm associated abscess. Prominent fecal matter within the cecum and ascending colon consistent with constipation. CBC with elevated WBC 16,000. Renal functions and electrolytes stable. Liver function pending. CT head without any acute finding. 10/02 Patient states she slept okay. Abdominal pain present but improving, described as lower quadrants and crampy. She also feels constipated and says she does not have bowel movements at home unless she takes something. Leukocytosis present but mildly improved. Hypophosphatemia, trend and replete. Seen by surgery and will continue conservative management with antibiotics for now. Review of Systems: denies headache/fever/chills/nausea/vomiting/chest pain/cough/dyspnea/diarrhea. Otherwise see above. PHYSICAL EXAM General: Alert, Awake, No acute Distress Eyes/N/T: EOMI, no scleral icterus, Head/Neck: neck supple, full ROM, CV: irreg, 1/6SM, Pulm: Clear b/l, no wheezing/rhonchi/rales, no respiratory distress Abd: tender lower quads oft, nontender, +BS x4 Ext: no clubbing/cyanosis/edema, nontender Neuro: Alert, no focal deficits, moves all extremities, , sensations intact b/l upper/lower Psychiatric: Skin: warm/dry, normal color Constitutional Vitals: Vital Signs Temp Pulse Resp BP Pulse Ox O2 Del Method 98.7 F 75 22 126/55 97 Room Air 10/02/22 03:39 10/02/22 03:39 10/02/22 03:39 10/02/22 03:39 10/02/22 03:39 10/02/22 03:39 Period Temp Pulse Resp BP Sys/Regalado Pulse Ox O2 Del Method O2 Flow Rate Last 24 Hr 97.1 F-98.7 F 68-83 16-22 101-146/51-70 94-98 Room Air-Room Air Intake and Output 10/01/22 10/02/22 10/02/22 19:59 03:59 11:59 Intake Total 50 1260 Output Total 275 Balance 50 985 Weight 61.292 kg Intake & Output: Intake & Output 10/01/22 10/02/22 10/02/22 19:59 03:59 11:59 Intake Total 50 1260 Output Total 275 Balance 50 985 Weight 61.292 kg Intake: IV 1200 Lactated Ringers 1,000 ml @ 75 1000 mls/hr IV .[id number] [facility] Rx#: [id number] Oral 50 60 Output: Void Amount 275 Other: Urine Appearance Clear Clear Urine Color Yellow Yellow # Voids 1 1 OBJ DATA Labs 10/02/22 05:58 10/02/22 05:58 Labs: Abnormal Lab Results 10/02/22 10/01/22 10/01/22 05:58 08:56 07:35 WBC 14.0 H 16.4 H Plt Count 490 H Lymph % (Auto) 15.0 L Lymph # (Auto) 4.87 H [place] # (Auto) 0.96 H 1.05 H Immature Gran # 0.08 H Absolute Neutrophils 10.63 H 10.13 H POC WB Ioniz Calcium Alkaline Phosphatase 33 L 10/01/22 07:35 WBC Plt Count Lymph % (Auto) Lymph # (Auto) [place] # (Auto) Immature Gran # Absolute Neutrophils POC WB Ioniz Calcium 1.44 H Alkaline Phosphatase Meds: Medications Acetaminophen/Butalbital/Caffeine (Butalb/Acetaminophen/Caffeine 1 Tablet) 1 tab PO Q4HP PRN PRN Reason: pain Apixaban (Apixaban 5 Mg Tablet) 5 mg PO BID [facility] Last Admin: 10/01/22 20:39 Dose: 5 mg Bisacodyl (Bisacodyl 10 Mg Supp.Rect) 10 mg [place] Q2-3DAYS PRN PRN Reason: Constipation Carvedilol (Carvedilol 3.125 Mg Tablet) 3.125 mg PO BID [facility] Last Admin: 10/01/22 20:39 Dose: 3.125 mg Furosemide (Furosemide 20 Mg Tablet) 40 mg PO DAILY [facility] Ciprofloxacin (Cipro) 400 mg in 200 mls @ 200 mls/hr IV Q12H [facility]; Protocol Last Infusion: 10/01/22 21:45 Dose: Infused Metronidazole (Flagyl) 500 mg in 100 mls @ 100 mls/hr IV Q8H [facility]; Protocol Lactated Ringer's (Lactated Ringers) 1,000 mls @ 75 mls/hr IV .[id number] [facility] Last Admin: 10/02/22 01:53 Dose: 75 mls/hr Lisinopril (Lisinopril 5 Mg Tablet) 5 mg PO QDAY [facility] Lorazepam (Lorazepam 0.5 Mg Tablet) 0.5 mg PO BIDP PRN PRN Reason: Anxiety Last Admin: 10/02/22 06:11 Dose: 0.5 mg Magnesium Hydroxide (Magnesium Hydroxide 30 Ml Oral.Susp) 30 ml PO DAILYP PRN PRN Reason: Constipation Magnesium Oxide (Magnesium Oxide 400 Mg Tablet) 400 mg PO DAILY [facility] Ondansetron HCl (Ondansetron 4 Mg/2 Ml Vial) 4 mg IV Q6HP PRN PRN Reason: Nausea And Vomiting Last Admin: 10/01/22 23:48 Dose: 4 mg Oxycodone/Acetaminophen (Oxycodone/Apap 5/325mg Tablet) 1 tab PO Q6HP PRN; Protocol PRN Reason: pain (scale score 4-6) Last Admin: 10/02/22 03:32 Dose: 1 tab Pantoprazole Sodium (Pantoprazole 40 Mg Vial) 40 mg IV QAMAC [facility] Last Admin: 10/01/22 12:26 Dose: 40 mg Timolol 5 Ml Drops 1 dose OP BID [facility] Last Admin: 10/01/22 20:40 Dose: Not Given Prochlorperazine (Prochlorperazine 10 Mg/2 Ml Vial) 10 mg IV Q4-6HP PRN PRN Reason: Nausea And Vomiting Last Admin: 10/02/22 03:25 Dose: 10 mg Promethazine HCl (Promethazine 50 Mg/Ml Ampul) 12.5 mg IM Q6HP PRN PRN Reason: Nausea And Vomiting Sodium Chloride (0.9 % Sodium Chloride 10 Ml Syringe) 10 ml IV Q8 [facility] Last Admin: 10/02/22 04:01 Dose: Not Given Spironolactone (Spironolactone 25 Mg Tablet) 25 mg PO MoWeFr [facility] A/P Narrative A/P Narrative: Assessment and plan: *Acute sigmoid colon diverticulitis w/abscess: -Dr Parnell following, no need for surgery at this point -IV ciprofloxacin and Flagyl. Leukocytosis -IV fluids -start clear liquids *Large hiatal hernia/GERD: Likely contributing to chronic nausea and vomiting -Very large hiatal hernia on CT scan which is increased from before -Protonix. *Severe migraine headaches: continue home meds, fiorinal, also on Percocet, on topiramate *h/o CHF: Not in decompensated CHF -Hold Lasix and spironolactone today and aim to start from today, on Coreg, lisinopril *Paroxysmal A-fib: Rate controlled. Eliquis on hold until surgery ruled out *Hypertension: on lisinopril *Anxiety/Depression: on Ativan as needed, on sertraline *Hypophos: replete and trend *Constipation: takes meds at home to have a BM *DVT prophylaxis: lovenox (hold Eliquis until surgery r/o) DNR/DNI Time Spent With Patient Time: Total time spent is greater than 50% in coordination of care (as documented) at patient's floor/unit and/or counseling patient: Subsequent: Total time with patient: 50 - 65 Minutes QUALITY VTE Deep Vein Thrombosis/Pulmonary Embolism Present on Admission: No
[2022-10-02 07:36] LABS: ALT/SGPT 5 U/L (<40); AST/SGOT 11 U/L (<32); Albumin 2.8 gm/dL (3.2-5.2); Albumin/Globulin Ratio 0.9 (1.0-2.3); Alkaline Phosphatase 31 U/L (39-117); Bilirubin,Direct < 0.2 mg/dL (0-0.3); Bilirubin,Total 0.2 mg/dL (0.1-1.0); Blood Urea Nitrogen 12 mg/dL (8-23); Calcium 10.7 mg/dL (8.6-10.4); Carbon Dioxide 22 mmol/L (22-30); Chloride 102 mmol/L (96-108); Globulin 3.2 gm/dL (2.2-3.7); Glomerular Filtration Rate 57; Glucose 88 mg/dL (70-105); Lactate Dehydrogenase 146 U/L (135-225); Phosphorous 1.6 mg/dL (2.5-4.5); Triglycerides 99 mg/dL (<150); Uric Acid 5.9 mg/dL (2.5-8.0)
[2022-10-02] MEDS ORDERED: POTASSIUM PHOSPHATE 20 MEQ in DEXTROSE 5% IN WATER 250 ML IV ONE (08:02)
[2022-10-02] MEDS: LISINOPRIL 5 MG TABLET PO SCH (08:09)
[2022-10-02] MEDS: CARVEDILOL 3.125 MG TABLET PO SCH ×2 (08:10→20:21)
[2022-10-02] MEDS: FUROSEMIDE 20 MG TABLET PO SCH (08:12)
[2022-10-02] MEDS: ENOXAPARIN 60 MG/0.6 ML SYRINGE SQ SCH (08:12)
[2022-10-02] MEDS: PHOSPHORUS 250 MG TABLET PO SCH ×2 (08:13→20:21)
[2022-10-02] MEDS: MAGNESIUM OXIDE 400 MG TABLET PO SCH (08:13)
[2022-10-02] MEDS: TIMOLOL OP SCH ×2 (08:13→20:21)
[2022-10-02] MEDS: SPIRONOLACTONE 25 MG TABLET PO SCH (08:30)
[2022-10-02] MEDS: CIPROFLOXACIN 400 MG/200 ML BAG IV SCH ×2 (08:30→20:21)
[2022-10-02] MEDS ORDERED: SENNOSIDES 1 TABLET PO PRN (08:55)
[2022-10-02] MEDS ORDERED: SENNOSIDES 1 TABLET PO ONE (08:55)
[2022-10-02] MEDS ORDERED: POLYETHYLENE GLYCOL 3350 17 GM PACKET PO PRN (08:55)
[2022-10-02] MEDS: POLYETHYLENE GLYCOL 3350 17 GM PACKET PO SCH (09:14)
[2022-10-02] MEDS: ONDANSETRON 4 MG/2 ML VIAL IV PRN ×2 (12:53→22:25)
--- NOTE | 2022-10-02 23:43 | General Surgery Progress Note ---
SUBJECTIVE Subjective Patient information: Note initiated : 10/02/22 at 11:40 am Service Date, if different from initiated Date: [] Patient: Yadira Lemus 86 y/o F admitted on 10/01/22 for n/v, abd pain. Chief Complaint: [] Has some pain but seems overall well Constitutional Vitals: Vital Signs Temp Pulse Resp BP Pulse Ox O2 Del Method 98.2 F 75 16 130/63 96 Room Air 10/02/22 20:00 10/02/22 20:00 10/02/22 20:00 10/02/22 20:00 10/02/22 20:00 10/02/22 20:00 Period Temp Pulse Resp BP Sys/Regalado Pulse Ox O2 Del Method O2 Flow Rate Last 24 Hr 97.8 F-98.7 F 64-80 16-22 113-130/54-70 94-97 Room Air-Room Air Intake and Output 10/02/22 10/02/22 10/03/22 11:59 19:59 03:59 Intake Total 200 1834.5455 Output Total 400 1201 150 Balance -415 219.2729 -150 Weight 140 lb 8 oz Patient Weight 10/03/22 03:59 Weight 140 lb 8 oz Intake & Output: Intake & Output 10/02/22 10/02/22 10/03/22 11:59 19:59 03:59 Intake Total 200 1834.5455 Output Total 400 1201 150 Balance -818 214.4389 -150 Weight 140 lb 8 oz Intake: IV 200 1054.5455 Lactated Ringers 1,000 ml @ 75 800 mls/hr IV .[id number] [facility] Rx#: [id number] Potassium Phosphate 20 Meq In 254.5455 Dextrose 5% in Water 250 ml @ 127.273 mls/hr IV ONCE ONE Rx#: [id number] Oral 780 Output: Void Amount 400 1200 150 # of times incontinent of urine 1 Other: Meal Dinner Percent of Meal Consumed 25% Urine Appearance Clear Clear Urine Color Yellow Yellow Exam: looks nontoxic, NAD, no distress GI/Abdominal Additional comments: soft and non tender, non distended, no peritoneal findings A/P Assessment and plan (1) Diverticulitis of intestine with abscess: Assessment and plan: Acute Sigmoid Diverticulitis Seems clinically improved with WBC trending down and feeling ok Continue IV ABs for now and re check WBC in am Status: Acute Time Spent With Patient Time: Total time spent is greater than 50% in coordination of care (as documented) at patient's floor/unit and/or counseling patient:
[2022-10-03] MEDS: PROCHLORPERAZINE 10 MG/2 ML VIAL IV PRN ×4 (00:07→20:17)
[2022-10-03] MEDS: oxyCODONE/APAP 5/325MG TABLET PO PRN ×3 (00:07→20:18)
[2022-10-03] MEDS: 0.9 % SODIUM CHLORIDE 10 ML SYRINGE IV SCH ×3 (05:25→20:19)
[2022-10-03] MEDS: LORazepam 0.5 MG TABLET PO PRN ×2 (05:33→16:14)
[2022-10-03 06:35] LABS: Basophils # (Auto) 0.04 K/mcL (0.00-0.30); Basophils % (Auto) 0.3 % (0.0-2.0); Eosinophils # (Auto) 0.26 K/mcL (0.00-0.70); Eosinophils % (Auto) 1.8 % (0.0-7.0); Hematocrit 35.5 % (34.1-44.9); Hemoglobin 11.8 g/dL (11.2-15.7); Lymphocytes % (Auto) 19.9 % (15.5-49.0); Mean Cell Volume 93.7 fL (80.0-100.0); Mean Corpuscular HGB Conc 33.2 g/dL (31.0-36.0); Mean Platelet Volume 10.3 fL (8.8-12.5); Monocytes # (Auto) 0.96 K/mcL (0.10-0.90); Monocytes % (Auto) 6.8 % (1.0-12.0); Neutrophils % (Auto) 70.8 % (38.0-78.0); Platelet Count 379 K/mcL (140-440); RBC 3.79 M/mcL (3.59-5.38); Red Cell Distribution Width 12.2 % (11.5-14.5); WBC 14.1 K/mcL (4.5-11.0)
[2022-10-03 06:58] LABS: ALT/SGPT 6 U/L (<40); AST/SGOT 11 U/L (<32); Albumin 3.1 gm/dL (3.2-5.2); Alkaline Phosphatase 31 U/L (39-117); Bilirubin,Direct < 0.2 mg/dL (0-0.3); Bilirubin,Total 0.3 mg/dL (0.1-1.0); Blood Urea Nitrogen 10 mg/dL (8-23); Calcium 10.4 mg/dL (8.6-10.4); Carbon Dioxide 26 mmol/L (22-30); Chloride 97 mmol/L (96-108); Globulin 3.1 gm/dL (2.2-3.7); Glomerular Filtration Rate 57; Glucose 101 mg/dL (70-105); Lactate Dehydrogenase 173 U/L (135-225); Phosphorous 2.1 mg/dL (2.5-4.5); Triglycerides 117 mg/dL (<150); Uric Acid 6.2 mg/dL (2.5-8.0)
[2022-10-03] MEDS: PANTOPRAZOLE 40 MG VIAL IV SCH (07:11)
[2022-10-03] MEDS ORDERED: LACTULOSE 20 GM/30 ML ORAL.SOL PO ONE (07:28)
--- NOTE | 2022-10-03 07:29 | Internal Med Progress Note ---
SUBJECTIVE Subjective Patient information: Note initiated : 10/03/22 at 7:27 am Service Date, if different from initiated Date: [] Patient: Yadira Lemus 86 y/o F admitted on 10/01/22 for n/v, abd pain. Chief Complaint: [] Interval history: History of present illness: Ms. Lemus is a 86 year old female with past medical history including hiatal hernia, sigmoid diverticulosis, migraine headaches, paroxysmal atrial fibrillation, idiopathic cardiomyopathy with preserved EF, CHF, LBBB status post biventricular pacemaker, anxiety and depression presented with constellation of symptoms which have been going on for about 2 to 3 weeks. Patient has chronic headaches due to migraine and chronic nausea and vomiting secondary to her big hiatal hernia. Her daughter is the main contributor to history. She convinced her today to present to ER. Patient presents with headache, nausea and vomiting with mild low abdominal pain and reduced appetite. Her daughter also reported generalized weakness. Patient reports no fever or chills. On presentation vitals are stable CT abdomen and pelvis with contrast showed acute sigmoid colon diverticulitis with a small around 2cm associated abscess. Prominent fecal matter within the cecum and ascending colon consistent with constipation. CBC with elevated WBC 16,000. Renal functions and electrolytes stable. Liver function pending. CT head without any acute finding. 10/02 Patient states she slept okay. Abdominal pain present but improving, described as lower quadrants and crampy. She also feels constipated and says she does not have bowel movements at home unless she takes something. Leukocytosis present but mildly improved. Hypophosphatemia, trend and replete. Seen by surgery and will continue conservative management with antibiotics for now. 10/03 Patient sitting up in chair eating breakfast. Has abdominal pain but says it is slowly improving. Has some nausea but no vomiting. Persistent leukocytosis. Pending manual differential no fevers. Surgery following Review of Systems: denies headache/fever/chills/nausea/vomiting/chest pain/cough/dyspnea/diarrhea. Otherwise see above. PHYSICAL EXAM General: Alert, Awake, No acute Distress Eyes/N/T: EOMI, no scleral icterus, Head/Neck: neck supple, full ROM, CV: irreg, 2/6SM, Pulm: Clear b/l, no wheezing/rhonchi/rales, no respiratory distress Abd: tender lower quads mild, nontender, +BS x4 Ext: no clubbing/cyanosis/edema, nontender Neuro: Alert, no focal deficits, moves all extremities, , sensations intact b/l upper/lower Psychiatric: Skin: warm/dry, normal color Constitutional Vitals: Vital Signs Temp Pulse Resp BP Pulse Ox O2 Del Method 97.5 F 72 16 146/63 95 Room Air 10/03/22 04:00 10/03/22 04:00 10/03/22 04:00 10/03/22 04:00 10/03/22 04:00 10/03/22 04:00 Period Temp Pulse Resp BP Sys/Regalado Pulse Ox O2 Del Method O2 Flow Rate Last 24 Hr 97.5 F-98.2 F 64-80 16-20 113-146/54-70 94-98 Room Air-Room Air Intake and Output 10/02/22 10/03/22 10/03/22 19:59 03:59 11:59 Intake Total 1834.5455 200 250 Output Total 1201 575 325 Balance 633.5455 -375 -75 Weight 63.73 kg Intake & Output: Intake & Output 10/02/22 10/03/22 10/03/22 19:59 03:59 11:59 Intake Total 1834.5455 200 250 Output Total 1201 575 325 Balance 633.5455 -375 -75 Weight 63.73 kg Intake: IV 1054.5455 200 Lactated Ringers 1,000 ml @ 75 800 mls/hr IV .[id number] [facility] Rx#: [id number] Potassium Phosphate 20 Meq In 254.5455 Dextrose 5% in Water 250 ml @ 127.273 mls/hr IV ONCE ONE Rx#: [id number] Oral 780 250 Output: Void Amount 1200 575 325 # of times incontinent of urine 1 Other: Meal Dinner Percent of Meal Consumed 25% Urine Appearance Clear Clear Clear Urine Color Yellow Yellow Yellow OBJ DATA Labs 10/03/22 05:58 10/03/22 05:58 Labs: Abnormal Lab Results 10/03/22 10/03/22 10/02/22 05:58 05:58 05:58 WBC 14.1 H Plt Count Lymph % (Auto) Lymph # (Auto) [place] # (Auto) 0.96 H Immature Gran # 0.06 H Absolute Neutrophils 9.96 H Calcium 10.7 H POC WB Ioniz Calcium Phosphorus 2.1 L 1.6 L Alkaline Phosphatase 31 L 31 L Albumin 3.1 L 2.8 L Albumin/Globulin Ratio 0.9 L 10/02/22 10/01/22 10/01/22 05:58 08:56 07:35 WBC 14.0 H 16.4 H Plt Count 490 H Lymph % (Auto) 15.0 L Lymph # (Auto) 4.87 H [place] # (Auto) 0.96 H 1.05 H Immature Gran # 0.08 H Absolute Neutrophils 10.63 H 10.13 H Calcium POC WB Ioniz Calcium Phosphorus Alkaline Phosphatase 33 L Albumin Albumin/Globulin Ratio 10/01/22 07:35 WBC Plt Count Lymph % (Auto) Lymph # (Auto) [place] # (Auto) Immature Gran # Absolute Neutrophils Calcium POC WB Ioniz Calcium 1.44 H Phosphorus Alkaline Phosphatase Albumin Albumin/Globulin Ratio Meds: Medications Acetaminophen/Butalbital/Caffeine (Butalb/Acetaminophen/Caffeine 1 Tablet) 1 tab PO Q4HP PRN PRN Reason: pain Bisacodyl (Bisacodyl 10 Mg Supp.Rect) 10 mg [place] Q2-3DAYS PRN PRN Reason: Constipation Carvedilol (Carvedilol 3.125 Mg Tablet) 3.125 mg PO BID [facility] Last Admin: 10/02/22 20:21 Dose: 3.125 mg Enoxaparin Sodium (Enoxaparin 60 Mg/0.6 Ml Syringe) 60 mg SQ DAILY [facility] Last Admin: 10/02/22 08:12 Dose: 60 mg Furosemide (Furosemide 20 Mg Tablet) 40 mg PO DAILY [facility] Last Admin: 10/02/22 08:12 Dose: 40 mg Ciprofloxacin (Cipro) 400 mg in 200 mls @ 200 mls/hr IV Q12H [facility]; Protocol Last Infusion: 10/02/22 22:25 Dose: Infused Metronidazole (Flagyl) 500 mg in 100 mls @ 100 mls/hr IV Q8H [facility]; Protocol Lisinopril (Lisinopril 5 Mg Tablet) 5 mg PO QDAY [facility] Last Admin: 10/02/22 08:09 Dose: 5 mg Lorazepam (Lorazepam 0.5 Mg Tablet) 0.5 mg PO BIDP PRN PRN Reason: Anxiety Last Admin: 10/03/22 05:33 Dose: 0.5 mg Magnesium Hydroxide (Magnesium Hydroxide 30 Ml Oral.Susp) 30 ml PO DAILYP PRN PRN Reason: Constipation Magnesium Oxide (Magnesium Oxide 400 Mg Tablet) 400 mg PO DAILY [facility] Last Admin: 10/02/22 08:13 Dose: 400 mg Ondansetron HCl (Ondansetron 4 Mg/2 Ml Vial) 4 mg IV Q6HP PRN PRN Reason: Nausea And Vomiting Last Admin: 10/02/22 22:25 Dose: 4 mg Oxycodone/Acetaminophen (Oxycodone/Apap 5/325mg Tablet) 1 tab PO Q6HP [facility]; Protocol PRN Reason: pain (scale score 4-6) Last Admin: 10/03/22 00:07 Dose: 1 tab Pantoprazole Sodium (Pantoprazole 40 Mg Vial) 40 mg IV QAMAC [facility] Last Admin: 10/03/22 07:11 Dose: 40 mg Timolol 5 Ml Drops 1 dose OP BID [facility] Last Admin: 10/02/22 20:21 Dose: Not Given Polyethylene Glycol (Polyethylene Glycol 3350 17 Gm Packet) 17 gm PO DAILY [facility] Last Admin: 10/02/22 09:14 Dose: 17 gm Polyethylene Glycol (Polyethylene Glycol 3350 17 Gm Packet) 17 gm PO TIDP PRN PRN Reason: Constipation Prochlorperazine (Prochlorperazine 10 Mg/2 Ml Vial) 10 mg IV Q4-6HP PRN PRN Reason: Nausea And Vomiting Last Admin: 10/03/22 05:30 Dose: 10 mg Promethazine HCl (Promethazine 50 Mg/Ml Ampul) 12.5 mg IM Q6HP PRN PRN Reason: Nausea And Vomiting Senna (Sennosides 1 Tablet) 2 tab PO DAILY PRN PRN Reason: Constipation Sodium Chloride (0.9 % Sodium Chloride 10 Ml Syringe) 10 ml IV Q8 [facility] Last Admin: 10/03/22 05:25 Dose: 10 ml Spironolactone (Spironolactone 25 Mg Tablet) 25 mg PO MoWeFr [facility] Last Admin: 10/02/22 08:30 Dose: 25 mg A/P Narrative A/P Narrative: Assessment and plan: *Acute sigmoid colon diverticulitis w/abscess: -Dr Parnell following, no need for surgery at this point - continuing to monitor -IV ciprofloxacin and Flagyl. Leukocytosis persistent check diff -started clear liquids and tolerating *Large hiatal hernia/GERD: Likely contributing to chronic nausea and vomiting -Very large hiatal hernia on CT scan which is increased from before -Protonix. *Severe migraine headaches: continue home meds, fiorinal, also on Percocet, on topiramate *h/o CHF: Not in decompensated CHF -restarted home Lasix/spironolactone/Coreg/lisinopril *Paroxysmal A-fib: Rate controlled. Eliquis on hold until surgery ruled out *Hypertension: on lisinopril/coreg *Anxiety/Depression: on Ativan as needed, on sertraline *Hypophos: replete and trend *Constipation: takes meds at home to have a BM *DVT prophylaxis: lovenox (hold Eliquis until surgery r/o) DNR/DNI Time Spent With Patient Time: Total time spent is greater than 50% in coordination of care (as documented) at patient's floor/unit and/or counseling patient: Subsequent: Total time with patient: 50 - 65 Minutes QUALITY VTE Deep Vein Thrombosis/Pulmonary Embolism Present on Admission: No
[2022-10-03] MEDS: NEUTRA PHOS 1 PACKET PO SCH ×2 (08:07→20:17)
[2022-10-03] MEDS: ENOXAPARIN 60 MG/0.6 ML SYRINGE SQ SCH (08:07)
[2022-10-03] MEDS: POLYETHYLENE GLYCOL 3350 17 GM PACKET PO SCH (08:07)
[2022-10-03] MEDS: TIMOLOL OP SCH ×2 (08:08→20:18)
[2022-10-03] MEDS: PHOSPHORUS 250 MG TABLET PO SCH ×2 (08:08→20:18)
[2022-10-03] MEDS: MAGNESIUM OXIDE 400 MG TABLET PO SCH (08:08)
[2022-10-03] MEDS: CARVEDILOL 3.125 MG TABLET PO SCH ×2 (08:08→20:18)
[2022-10-03] MEDS: LISINOPRIL 5 MG TABLET PO SCH (08:08)
[2022-10-03] MEDS: FUROSEMIDE 20 MG TABLET PO SCH (08:08)
[2022-10-03] MEDS: CIPROFLOXACIN 400 MG/200 ML BAG IV SCH ×2 (08:16→20:25)
[2022-10-03 10:35] LABS: Band Neutrophils % 1 % (0-10); Eosinophils % (Manual) 2 % (0-7); Lymphocytes % 17 % (15-49); Monocytes % (Manual) 10 % (1-12); Platelet Estimate NORMAL (Normal); RBC Morphology NORMAL (Normal); Segmented Neutrophils % 70 % (38-78)
[2022-10-03] MEDS: ONDANSETRON 4 MG/2 ML VIAL IV PRN (10:46)
--- NOTE | 2022-10-03 10:55 | Discharge Summary ---
Discharge Provider Provider IMPORTANT FOLLOW-UP INFORMATION FOR PCP: Patient information: Note initiated : 10/03/22 at 10:52 am Service Date, if different from initiated Date: [] Patient: Yadira Lemus 86 y/o F admitted on 10/01/22 for n/v, abd pain. Chief Complaint: [] Date of admission: 10/01/22 11:42 Primary care physician: TOMASZ Medina Consults: 10/01/22 Consult to Physician [CONS] Stat Comment: Consulting Provider: Luis Antonio Parnell Reason For Exam: Physician to Consult 10/01/22 09:37 Consult to Physician [CONS] Stat Comment: Consulting Provider: Stefano Rhoades Reason For Exam: Physician to Consult COURSE Hospital Course Hospital course: History of present illness: Ms. Lemus is a 86 year old female with past medical history including hiatal hernia, sigmoid diverticulosis, migraine headaches, paroxysmal atrial fibrillation, idiopathic cardiomyopathy with preserved EF, CHF, LBBB status post biventricular pacemaker, anxiety and depression presented with constellation of symptoms which have been going on for about 2 to 3 weeks. Patient has chronic headaches due to migraine and chronic nausea and vomiting secondary to her big hiatal hernia. Her daughter is the main contributor to history. She convinced her today to present to ER. Patient presents with headache, nausea and vomiting with mild low abdominal pain and reduced appetite. Her daughter also reported generalized weakness. Patient reports no fever or chills. On presentation vitals are stable CT abdomen and pelvis with contrast showed acute sigmoid colon diverticulitis with a small around 2cm associated abscess. Prominent fecal matter within the cecum and ascending colon consistent with constipation. CBC with elevated WBC 16,000. Renal functions and electrolytes stable. Liver function pending. CT head without any acute finding. 10/02 Patient states she slept okay. Abdominal pain present but improving, described as lower quadrants and crampy. She also feels constipated and says she does not have bowel movements at home unless she takes something. Leukocytosis present but mildly improved. Hypophosphatemia, trend and replete. Seen by surgery and will continue conservative management with antibiotics for now. 10/03 Patient sitting up in chair eating breakfast. Has abdominal pain but says it is slowly improving. Has some nausea but no vomiting. Persistent leukocytosis. Pending manual differential > no bands, no fevers. Surgery following Assessment and plan: *Acute sigmoid colon diverticulitis w/abscess: -abx *Large hiatal hernia/GERD: Likely contributing to chronic nausea and vomiting -f/u with surgery *Severe migraine headaches: *h/o CHF: *Paroxysmal A-fib: *Hypertension: *Anxiety/Depression: *Hypophos: *Constipation: Discharge diagnosis: Acute sigmoid colon diverticulitis with small abscess Secondary discharge diagnosis: Large hiatal hernia GERD severe migraines history of heart failure paroxysmal A- fib hypertension depression anxiety hypophosphatemia constipation Time Spent with Patient Time attestation: Total time spent providing and/or coordinating discharge services: Time spent: Greater than 30 minutes EXAM Constitutional Vitals: Temp Pulse Resp BP Pulse Ox O2 Del Method 98.6 F 89 16 125/78 95 Room Air 10/03/22 08:00 10/03/22 08:00 10/03/22 08:00 10/03/22 08:00 10/03/22 08:00 10/03/22 08:00 Discharge Data Data Completed and Pending Labs on day of discharge: Labs from last 24 hours 10/03/22 10/03/22 10/03/22 05:58 05:58 05:58 WBC 14.1 H RBC 3.79 Hgb 11.8 Hct 35.5 MCV 93.7 MCH 31.1 MCHC 33.2 RDW 12.2 Plt Count 379 MPV 10.3 Immature Gran % (Auto) 0.4 Neut % (Auto) 70.8 Lymph % (Auto) 19.9 Tucker % (Auto) 6.8 Eos % (Auto) 1.8 Baso % (Auto) 0.3 Lymph # (Auto) 2.80 Tucker # (Auto) 0.96 H Eos # (Auto) 0.26 Baso # (Auto) 0.04 Seg Neutrophils % 70 Band Neutrophils % 1 Lymphocytes % 17 Monocytes % (Manual) 10 Eosinophils % (Manual) 2 Immature Gran # 0.06 H Absolute Neutrophils 9.96 H Platelet Estimate Normal RBC Morphology Normal Sodium 133 Potassium 3.5 Chloride 97 Carbon Dioxide 26 Anion Gap 10.0 BUN 10 Creatinine 0.9 GFR Calculation 57 Glucose 101 Uric Acid 6.2 Calcium 10.4 Phosphorus 2.1 L Magnesium 1.7 Total Bilirubin 0.3 Direct Bilirubin < 0.2 GGT 29 AST 11 ALT 6 Alkaline Phosphatase 31 L Lactate Dehydrogenase 173 Total Protein 6.2 Albumin 3.1 L Globulin 3.1 Albumin/Globulin Ratio 1.0 Triglycerides 117 Discharge Plan Patient/Caregiver Discharge Instructions Activity: increase activity as tolerated Diet: Regular Diet Prescriptions: Continued latanoprost 0.005 % drops 1 drp OPHTHALMIC QPM Prolia 60 mg/mL syringe 60 mg SUB-Q [id number] furosemide 20 mg tablet 40 mg PO DAILY Qty: 60 0RF spironolactone 25 mg tablet 25 mg PO .M W F Qty: 12 0RF Eliquis 5 mg tablet 5 mg PO BID Qty: 180 2RF lisinopril 5 mg tablet 5 mg PO QDAY Qty: 90 2RF ozmqdpljbn-qqjpoesglksjm-cxud 50-325-40 mg capsule 1 cap PO Q4H PRN (Reason: pain) Qty: 100 2RF epinephrine [EpiPen 2-Nigel] 0.3 mg/0.3 mL auto-injector 0.3 mg IM Q5-15M PRN (Reason: anaphylaxis) Qty: 2 0RF Rx Instructions: do not exceed 3 doses per episode lorazepam 0.5 mg tablet See Rx Instructions PO BID PRN (Reason: anxiety) Qty: 20 0RF Rx Instructions: take 1-2 PO twice a day PRN; carvedilol 3.125 mg tablet 3.125 mg PO BID Rx Instructions: must administer with a meal/food sertraline 50 mg tablet 50 mg PO QDAY Qty: 30 5RF ondansetron 4 mg tablet,disintegrating 4 mg PO Q8H PRN (Reason: nausea and vomiting) 30 Days Qty: 90 1RF oxycodone-acetaminophen 5-325 mg tablet 1 tab PO Q6H PRN (Reason: pain (scale score 4-6)) 28 Days Qty: 112 0RF magnesium oxide 400 MG tablet 400 mg PO DAILY timolol 5 ML drops 5 ml OP BID pantoprazole 40 mg tablet,delayed release (DR/EC) 40 mg PO BIDAC Qty: 60 3RF lorazepam 0.5 mg tablet PO QD-BID PRN (Reason: Anxiety) ondansetron 4 mg tablet,disintegrating PO Follow Up Plan Follow up with: Dalia Alvarez ARNP [Primary Care Provider] - Patient Disposition: Home, Self-Care Prognosis: Fair Overall status at discharge: patient is progressing back to baseline QUALITY VTE Deep Vein Thrombosis/Pulmonary Embolism Present on Admission: No
--- NOTE | 2022-10-03 11:23 | General Surgery Progress Note ---
SUBJECTIVE Subjective Patient information: Note initiated : 10/03/22 at 11:20 am Service Date, if different from initiated Date: [] Patient: Yadira Lemus 86 y/o F admitted on 10/01/22 for n/v, abd pain. Chief Complaint: [] States she feels significantly better than admission in terms of her lower abdominal pain and indicates she's hoping to be discharged today Constitutional Vitals: Vital Signs Temp Pulse Resp BP Pulse Ox O2 Del Method 98.6 F 89 16 125/78 95 Room Air 10/03/22 08:00 10/03/22 08:00 10/03/22 08:00 10/03/22 08:00 10/03/22 08:00 10/03/22 08:00 Period Temp Pulse Resp BP Sys/Regalado Pulse Ox O2 Del Method O2 Flow Rate Last 24 Hr 97.5 F-98.6 F 64-89 16-16 113-146/54-78 94-98 Room Air-Room Air Intake and Output 10/02/22 10/03/22 10/03/22 19:59 03:59 11:59 Intake Total 1834.5455 200 370 Output Total 1201 575 525 Balance 633.5455 -375 -155 Weight 140 lb 8 oz Intake & Output: Intake & Output 10/02/22 10/03/22 10/03/22 19:59 03:59 11:59 Intake Total 1834.5455 200 370 Output Total 1201 575 525 Balance 633.5455 -375 -155 Weight 140 lb 8 oz Intake: IV 1054.5455 200 Lactated Ringers 1,000 ml @ 75 800 mls/hr IV .[id number] [facility] Rx#: [id number] Potassium Phosphate 20 Meq In 254.5455 Dextrose 5% in Water 250 ml @ 127.273 mls/hr IV ONCE ONE Rx#: [id number] Oral 780 370 Output: Void Amount 1200 575 525 # of times incontinent of urine 1 Other: Meal Dinner Breakfast Percent of Meal Consumed 25% 0% Feeding Ability Independent Urine Appearance Clear Clear Clear Urine Color Yellow Yellow Yellow Exam: Looks well, non toxic, conversant GI/Abdominal Additional comments: belly seems soft and non distended with some mild tenderness remaining in the LLQ Extremities Exam Additional comments: well perfused A/P Assessment and plan (1) Sigmoid diverticulitis: Assessment and plan: Acute Sigmoid Diverticulitis Looks reasonably well from a clinical standpoint but she still has localized tenderness with an improved but still elevated WBC It remains uncertain if she'll resolve this episode with antibiotic management alone. Given that she feels better in general, it would be reasonable for her to go out on oral ABs but she will have to be watched very closely with prompt return to the ER if not doing well. Alternatively, she could stay in longer with AB adjustments as necessary along with follow up imaging to assure the abscess is resolving if tenderness worsens or does not resolve or if WBC remains elevated If she does elect to leave today, she would also need VERY close follow up I've attempted to reach her daughter Jack at her cell phone number and have left a VM asking her to call me back to discuss aforementioned issues prior to discharge Status: Acute Time Spent With Patient Time: Total time spent is greater than 50% in coordination of care (as documented) at patient's floor/unit and/or counseling patient:
[2022-10-04] MEDS: PROCHLORPERAZINE 10 MG/2 ML VIAL IV PRN ×2 (01:44→05:45)
[2022-10-04] MEDS: 0.9 % SODIUM CHLORIDE 10 ML SYRINGE IV SCH ×3 (04:42→20:40)
[2022-10-04] MEDS: LORazepam 0.5 MG TABLET PO PRN (04:44)
[2022-10-04 06:58] LABS: Basophils # (Auto) 0.03 K/mcL (0.00-0.30); Basophils % (Auto) 0.2 % (0.0-2.0); Eosinophils # (Auto) 0.05 K/mcL (0.00-0.70); Eosinophils % (Auto) 0.3 % (0.0-7.0); Hematocrit 40.2 % (34.1-44.9); Lymphocytes # (Auto) 4.76 K/mcL (1.50-4.80); Lymphocytes % (Auto) 24.5 % (15.5-49.0); Mean Cell Volume 90.5 fL (80.0-100.0); Mean Corpuscular HGB Conc 34.8 g/dL (31.0-36.0); Mean Platelet Volume 10.4 fL (8.8-12.5); Monocytes % (Auto) 4.1 % (1.0-12.0); Neutrophils % (Auto) 70.5 % (38.0-78.0); Platelet Count 472 K/mcL (140-440); RBC 4.44 M/mcL (3.59-5.38); Red Cell Distribution Width 12.3 % (11.5-14.5); WBC 19.4 K/mcL (4.5-11.0)
--- NOTE | 2022-10-04 07:37 | Internal Med Progress Note ---
SUBJECTIVE Subjective Patient information: Note initiated : 10/04/22 at 7:33 am Service Date, if different from initiated Date: [] Patient: Yadira Lemus a 86 y/o F admitted on 10/01/22 for n/v, abd pain. Chief Complaint: [] Interval history: History of present illness: Ms. Lemus is a 86 year old female with past medical history including hiatal hernia, sigmoid diverticulosis, migraine headaches, paroxysmal atrial fibrillation, idiopathic cardiomyopathy with preserved EF, CHF, LBBB status post biventricular pacemaker, anxiety and depression presented with constellation of symptoms which have been going on for about 2 to 3 weeks. Patient has chronic headaches due to migraine and chronic nausea and vomiting secondary to her big hiatal hernia. Her daughter is the main contributor to history. She convinced her today to present to ER. Patient presents with headache, nausea and vomiting with mild low abdominal pain and reduced appetite. Her daughter also reported generalized weakness. Patient reports no fever or chills. On presentation vitals are stable CT abdomen and pelvis with contrast showed acute sigmoid colon diverticulitis with a small around 2cm associated abscess. Prominent fecal matter within the cecum and ascending colon consistent with constipation. CBC with elevated WBC 16,000. Renal functions and electrolytes stable. Liver function pending. CT head without any acute finding. 10/02 Patient states she slept okay. Abdominal pain present but improving, described as lower quadrants and crampy. She also feels constipated and says she does not have bowel movements at home unless she takes something. Leukocytosis present but mildly improved. Hypophosphatemia, trend and replete. Seen by surgery and will continue conservative management with antibiotics for now. 10/03 Patient sitting up in chair eating breakfast. Has abdominal pain but says it is slowly improving. Has some nausea but no vomiting. Persistent leukocytosis. Pending manual differential no fevers. Surgery following 10/04 Patient states she feels similar to yesterday other than some continued nausea. And lower quadrant achy abdominal pain which she cannot relate whether it is worse or not from yesterday. Worsening leukocytosis. Repeat CT abdomen pelvis pending. Patient states she has not had a bowel movement yet. >>CT a/p did not demonstrate any abscess and did not note diverticulitis but did show a small bowel obstruction. Dr. barton aware and did order for NG tube placement and n.p.o. status for now. Review of Systems: denies headache/fever/chills/nausea/vomiting/chest pain/cough/dyspnea/diarrhea. Otherwise see above. PHYSICAL EXAM General: Alert, Awake, No acute Distress Eyes/N/T: EOMI, no scleral icterus, Head/Neck: neck supple, full ROM, CV: irreg, 2/6SM, Pulm: Clear b/l, no wheezing/rhonchi/rales, no respiratory distress Abd: tender lower quads mild, nontender, +BS x4 Ext: no clubbing/cyanosis/edema, nontender Neuro: Alert, no focal deficits, moves all extremities, , sensations intact b/l upper/lower Psychiatric: Skin: warm/dry, normal color Constitutional Vitals: Vital Signs Temp Pulse Resp BP Pulse Ox O2 Del Method 97.3 F 95 H 20 110/64 93 Room Air 10/04/22 03:08 10/04/22 03:08 10/04/22 03:08 10/04/22 03:08 10/04/22 03:08 10/04/22 03:08 Period Temp Pulse Resp BP Sys/Regalado Pulse Ox O2 Del Method O2 Flow Rate Last 24 Hr 97.0 F-98.6 F 82-95 16-24 107-130/59-79 93-96 Room Air-Room Air Intake and Output 10/03/22 10/04/22 10/04/22 19:59 03:59 11:59 Intake Total 480 680 Output Total 275 225 Balance 205 455 Weight 63.276 kg Intake & Output: Intake & Output 10/03/22 10/04/22 10/04/22 19:59 03:59 11:59 Intake Total 480 680 Output Total 275 225 Balance 205 455 Weight 63.276 kg Intake: IV 200 Oral 480 480 Output: Void Amount 275 225 Other: Meal Dinner Percent of Meal Consumed 25% Feeding Ability Independent Urine Appearance Clear Clear Urine Color Yellow Yellow Urine Odor Normal OBJ DATA Labs 10/04/22 06:04 10/04/22 06:03 Labs: Abnormal Lab Results 10/04/22 10/03/22 10/03/22 06:04 05:58 05:58 WBC 19.4 H 14.1 H Plt Count 472 H Lymph % (Auto) Lymph # (Auto) [place] # (Auto) 0.96 H Immature Gran # 0.08 H 0.06 H Absolute Neutrophils 13.67 H 9.96 H Calcium POC WB Ioniz Calcium Phosphorus 2.1 L Alkaline Phosphatase 31 L Albumin 3.1 L Albumin/Globulin Ratio 10/02/22 10/02/22 10/01/22 05:58 05:58 08:56 WBC 14.0 H Plt Count Lymph % (Auto) 15.0 L Lymph # (Auto) [place] # (Auto) 0.96 H Immature Gran # Absolute Neutrophils 10.63 H Calcium 10.7 H POC WB Ioniz Calcium Phosphorus 1.6 L Alkaline Phosphatase 31 L 33 L Albumin 2.8 L Albumin/Globulin Ratio 0.9 L 10/01/22 10/01/22 07:35 07:35 WBC 16.4 H Plt Count 490 H Lymph % (Auto) Lymph # (Auto) 4.87 H [place] # (Auto) 1.05 H Immature Gran # 0.08 H Absolute Neutrophils 10.13 H Calcium POC WB Ioniz Calcium 1.44 H Phosphorus Alkaline Phosphatase Albumin Albumin/Globulin Ratio Meds: Medications Acetaminophen/Butalbital/Caffeine (Butalb/Acetaminophen/Caffeine 1 Tablet) 1 tab PO Q4HP PRN PRN Reason: pain Bisacodyl (Bisacodyl 10 Mg Supp.Rect) 10 mg NC Q2-3DAYS PRN PRN Reason: Constipation Carvedilol (Carvedilol 3.125 Mg Tablet) 3.125 mg PO BID [facility] Last Admin: 10/03/22 20:18 Dose: 3.125 mg Enoxaparin Sodium (Enoxaparin 60 Mg/0.6 Ml Syringe) 60 mg SQ DAILY [facility] Last Admin: 10/03/22 08:07 Dose: 60 mg Furosemide (Furosemide 20 Mg Tablet) 40 mg PO DAILY [facility] Last Admin: 10/03/22 08:08 Dose: 40 mg Ciprofloxacin (Cipro) 400 mg in 200 mls @ 200 mls/hr IV Q12H [facility]; Protocol Last Infusion: 10/03/22 21:25 Dose: Infused Metronidazole (Flagyl) 500 mg in 100 mls @ 100 mls/hr IV Q8H [facility]; Protocol Lisinopril (Lisinopril 5 Mg Tablet) 5 mg PO QDAY [facility] Last Admin: 10/03/22 08:08 Dose: 5 mg Lorazepam (Lorazepam 0.5 Mg Tablet) 0.5 mg PO BIDP PRN PRN Reason: Anxiety Last Admin: 10/04/22 04:44 Dose: 0.5 mg Magnesium Hydroxide (Magnesium Hydroxide 30 Ml Oral.Susp) 30 ml PO DAILYP PRN PRN Reason: Constipation Magnesium Oxide (Magnesium Oxide 400 Mg Tablet) 400 mg PO DAILY [facility] Last Admin: 10/03/22 08:08 Dose: 400 mg Ondansetron HCl (Ondansetron 4 Mg/2 Ml Vial) 4 mg IV Q6HP PRN PRN Reason: Nausea And Vomiting Last Admin: 10/03/22 10:46 Dose: 4 mg Oxycodone/Acetaminophen (Oxycodone/Apap 5/325mg Tablet) 1 tab PO Q6HP PRN; Protocol PRN Reason: pain (scale score 4-6) Last Admin: 10/03/22 20:18 Dose: 1 tab Pantoprazole Sodium (Pantoprazole 40 Mg Vial) 40 mg IV QAMAC [facility] Last Admin: 10/03/22 07:11 Dose: 40 mg Timolol 5 Ml Drops 1 dose OP BID [facility] Last Admin: 10/03/22 20:18 Dose: Not Given Polyethylene Glycol (Polyethylene Glycol 3350 17 Gm Packet) 17 gm PO DAILY [facility] Last Admin: 10/03/22 08:07 Dose: 17 gm Polyethylene Glycol (Polyethylene Glycol 3350 17 Gm Packet) 17 gm PO TIDP PRN PRN Reason: Constipation Prochlorperazine (Prochlorperazine 10 Mg/2 Ml Vial) 10 mg IV Q4-6HP PRN PRN Reason: Nausea And Vomiting Last Admin: 10/04/22 05:45 Dose: 10 mg Promethazine HCl (Promethazine 50 Mg/Ml Ampul) 12.5 mg IM Q6HP PRN PRN Reason: Nausea And Vomiting Senna (Sennosides 1 Tablet) 2 tab PO DAILY PRN PRN Reason: Constipation Sodium Chloride (0.9 % Sodium Chloride 10 Ml Syringe) 10 ml IV Q8 [facility] Last Admin: 10/04/22 04:42 Dose: 10 ml Spironolactone (Spironolactone 25 Mg Tablet) 25 mg PO MoWeFr [facility] Last Admin: 10/02/22 08:30 Dose: 25 mg A/P Narrative A/P Narrative: Assessment and plan: *SBO: -NGT, npo, IVF's -serial imaging and diet per surgery *Acute sigmoid colon diverticulitis w/abscess: -Dr Barton following, no need for surgery at this point - continuing to monitor -IV ciprofloxacin and Flagyl. Leukocytosis worsened -f/u CT did not demonstrate an abscess *Large hiatal hernia/GERD: Likely contributing to chronic nausea and vomiting -Very large hiatal hernia on CT scan which is increased from before -Protonix. *Severe migraine headaches: continue home meds, fiorinal, also on Percocet, on topiramate *h/o CHF: Not in decompensated CHF -restarted home Lasix/spironolactone/Coreg/lisinopril *Paroxysmal A-fib: Rate controlled. Eliquis on hold until surgery ruled out *Hypertension: on lisinopril/coreg *Anxiety/Depression: on Ativan as needed, on sertraline *Hypophos: replete and trend *Constipation: takes meds at home to have a BM *DVT prophylaxis: lovenox (hold Eliquis until surgery r/o) DNR/DNI Time Spent With Patient Time: Total time spent is greater than 50% in coordination of care (as documented) at patient's floor/unit and/or counseling patient: Subsequent: Total time with patient: 50 - 65 Minutes QUALITY VTE Deep Vein Thrombosis/Pulmonary Embolism Present on Admission: No
[2022-10-04] MEDS: ONDANSETRON 4 MG/2 ML VIAL IV PRN ×2 (07:40→23:31)
[2022-10-04] MEDS: PANTOPRAZOLE 40 MG VIAL IV SCH (07:40)
[2022-10-04 07:43] LABS: ALT/SGPT 7 U/L (<40); AST/SGOT 14 U/L (<32); Albumin 3.2 gm/dL (3.2-5.2); Albumin/Globulin Ratio 0.9 (1.0-2.3); Alkaline Phosphatase 30 U/L (39-117); Bilirubin,Direct < 0.2 mg/dL (0-0.3); Bilirubin,Total 0.3 mg/dL (0.1-1.0); Blood Urea Nitrogen 17 mg/dL (8-23); Calcium 10.7 mg/dL (8.6-10.4); Carbon Dioxide 25 mmol/L (22-30); Chloride 93 mmol/L (96-108); Globulin 3.5 gm/dL (2.2-3.7); Glomerular Filtration Rate 44; Glucose 149 mg/dL (70-105); Lactate Dehydrogenase 234 U/L (135-225); Phosphorous 3.6 mg/dL (2.5-4.5); Triglycerides 134 mg/dL (<150)
[2022-10-04] MEDS ORDERED: 0.9 % SODIUM CHLORIDE 1,000 ML IV SCH (07:45)
[2022-10-04] MEDS ORDERED: IOPAMIDOL 100 ML BOTTLE IV ONE (08:53)
[2022-10-04] MEDS: CIPROFLOXACIN 400 MG/200 ML BAG IV SCH ×2 (10:18→20:23)
[2022-10-04] MEDS: morphine 2 MG/ML VIAL IV PRN ×3 (11:21→23:31)
--- NOTE | 2022-10-04 13:06 | Cat Scan Report ---
CLINICAL INFORMATION: Diverticulitis with abscess. Increasing white blood cell count COMPARISON: Abdomen and pelvic CT 09/08/2007 and 10/01/2022 TECHNIQUE: Following enteric contrast, 80 cc of Isovue-370 were injected intravenously, and 60 seconds later, 0.625 mm helical slices were obtained from the mid heart through the subtrochanteric regions. Following reconstruction, 2.5 mm sagittal, coronal and axial reformatted images were processed and reviewed at bone, lung and soft tissue windows. Five minutes later, 0.625 mm helical slices were obtained from the mid heart through the kidneys and viewed at soft tissue windows.The exam was performed using radiation dose optimization techniques including, but not limited to, automated exposure control, adjustment of the mA and/or kV according to patient size and use of iterative reconstruction technique. FINDINGS: The lung bases show subsegmental atelectasis in the left lower lobe due to a large hiatal hernia consisting of the entire stomach which has transmigrated into the middle mediastinum and undergone organoaxial volvulus. Heart is mildly enlarged with heavy calcific plaque in the coronary arteries. Pacemaker and leads in stable satisfactory position. Images through the abdomen show mild fatty change within the liver with scattered stable hepatic cysts. Cholecystectomy changes noted. Moderate dilatation of the common bile duct (9 mm) and also the pancreatic duct (4 mm) is compatible with post cholecystectomy papillary stenosis-no change. Pancreatic parenchyma is, otherwise, normal.. Both kidneys, adrenal glands, and spleen are normal in size, attenuation and configuration without focal lesion. Fusiform infrarenal abdominal aortic aneurysm diameter of 3 cm is unchanged. Scattered plaque seen within the aortic branches. No stenoses. Pelvic images show hysterectomy/oophorectomy changes. Urinary bladder is normal. The stomach and small bowel are moderately dilated to the level of the distal ileum where adhesions or stricture result in high-grade partial small bowel obstruction. The terminal ileum is the decompressed. The colon appears unremarkable with moderate stool. Multiple sigmoid diverticuli noted. Small of ascites is seen throughout the abdomen. There is no free air or adenopathy. Bone windows show chronic bilateral L5-S1 spondylolysis with grade 1 spondylolisthesis and broad disc protrusion resulting in severe IV foraminal narrowing. There is bilateral exiting L5 nerve root impingement. IMPRESSION: 1. Partial small bowel obstruction of the distal ileum due to adhesions or stricture. Small amount of ascites in the abdomen suggest early third spacing. 2. Large hiatal hernia consisting of the entire stomach which has transmigrated into the middle mediastinum and undergone organoaxial volvulus. 3. Moderate dilatation of the common bile and pancreatic ducts compatible with postcholecystectomy papillary stenosis-no change. 4. 3 cm fusiform infrarenal abdominal aortic aneurysm-stable. 5. Sigmoid diverticulosis no evidence of diverticulitis 6. Chronic bilateral L5-S1 spondylolysis and grade 1 spondylolisthesis resulting in severe IV foraminal narrowing and exiting L5 nerve root impingement Interpreted and Authenticated by: Ray Dotson 10/04/22
[2022-10-04] MEDS: FUROSEMIDE 20 MG TABLET PO SCH (13:57)
[2022-10-04] MEDS: SPIRONOLACTONE 25 MG TABLET PO SCH (13:57)
[2022-10-04] MEDS: ENOXAPARIN 60 MG/0.6 ML SYRINGE SQ SCH (13:57)
[2022-10-04] MEDS: CARVEDILOL 3.125 MG TABLET PO SCH ×2 (13:57→20:20)
[2022-10-04] MEDS: POLYETHYLENE GLYCOL 3350 17 GM PACKET PO SCH (13:58)
[2022-10-04] MEDS: TIMOLOL OP SCH ×2 (13:58→20:20)
[2022-10-04] MEDS: MAGNESIUM OXIDE 400 MG TABLET PO SCH (13:58)
[2022-10-04] MEDS: LISINOPRIL 5 MG TABLET PO SCH (13:58)
--- NOTE | 2022-10-04 15:58 | XRay Report ---
CLINICAL INFORMATION: Tube placement COMPARISON: None. FINDINGS: NG tube is seen in the large hiatal hernia. The hernia consistent of the entire stomach which has undergone organoaxial volvulus. The small bowel is moderately dilated bowel compatible with known distal small bowel obstruction. No free air. IMPRESSION: Malpositioned NG tube with the tip in the zafar hernia sac. Just copious insufflation with air and advance the tube Interpreted and Authenticated by: Ray Dtoson 10/04/22
--- NOTE | 2022-10-04 16:36 | XRay Report ---
CLINICAL INFORMATION: NG tube placement COMPARISON: None. FINDINGS: NG tube overlies the large hiatal hernia. Partial distal small bowel obstruction pattern again noted. IMPRESSION: NG tube overlying the large hiatal hernia. Interpreted and Authenticated by: Ray Dotson 10/04/22
[2022-10-04] MEDS: DEXTROSE 5%-1/2NS W/10MEQ KCL 1,000 ML IV SCH (18:07)
--- NOTE | 2022-10-04 19:57 | General Surgery Progress Note ---
SUBJECTIVE Subjective Patient information: Note initiated : 10/04/22 at 1400 pm Service Date, if different from initiated Date: [] Patient: Yadira Lemus a 86 y/o F admitted on 10/01/22 for n/v, abd pain. Chief Complaint: [] Yadira has had increasing abdominal distension with minimal pain and a WBC that's elevated to [address] scan demonstrates findings of partial SBO with resolution of the recent diverticulitis and associated small abscess. Constitutional Vitals: Vital Signs Temp Pulse Resp BP Pulse Ox O2 Del Method 98.4 F 93 H 14 113/61 93 Room Air 10/04/22 16:00 10/04/22 16:00 10/04/22 16:00 10/04/22 16:00 10/04/22 16:00 10/04/22 16:00 Period Temp Pulse Resp BP Sys/Regalado Pulse Ox O2 Del Method O2 Flow Rate Last 24 Hr 97.0 F-98.9 F 82-95 14-20 107-124/53-64 93-97 Room Air-Room Air Intake and Output 10/04/22 10/04/22 10/04/22 03:59 11:59 19:59 Intake Total 680 200 Output Total 225 300 Balance 455 200 -300 Intake & Output: Intake & Output 10/04/22 10/04/22 10/04/22 03:59 11:59 19:59 Intake Total 680 200 Output Total 225 300 Balance 455 200 -300 Intake: IV 200 200 Oral 480 Output: Gastric Drainage 150 Left Nare NG/OG 150 Void Amount 225 150 Other: Urine Appearance Clear Urine Color Yellow Urine Odor Normal Exam: awake and conversant GI/Abdominal Additional comments: soft but with mild distension and minimal tenderness A/P Assessment and plan (1) SBO (small bowel obstruction): Assessment and plan: Partial SBO in setting of resolving Acute Sigmoid Diverticulitis In all likelihood, she has an area of small bowel that has become adherent to the inflammatory change in and around the Sigmoid Colon Typically these will resolve as the Diverticulitis continues to improve with continued IV ABs, bowel rest, and ideally NGT decompression. Conservative management for now with hope that she won't require operative intervention - issues discussed and reviewed with her daughter by phone Status: Acute Time Spent With Patient Time: Total time spent is greater than 50% in coordination of care (as documented) at patient's floor/unit and/or counseling patient:
[2022-10-04] MEDS: metroNIDAZOLE 500 MG/100 ML BAG IV SCH (22:36)
[2022-10-05] MEDS: metroNIDAZOLE 500 MG/100 ML BAG IV SCH (05:03)
[2022-10-05] MEDS: 0.9 % SODIUM CHLORIDE 10 ML SYRINGE IV SCH ×3 (05:04→20:16)
[2022-10-05] MEDS: ONDANSETRON 4 MG/2 ML VIAL IV PRN ×2 (05:20→20:25)
[2022-10-05 06:36] LABS: Hematocrit 35.9 % (34.1-44.9); Hemoglobin 12.3 g/dL (11.2-15.7); Mean Cell Volume 92.3 fL (80.0-100.0); Mean Corpuscular HGB Conc 34.3 g/dL (31.0-36.0); Mean Platelet Volume 10.2 fL (8.8-12.5); Platelet Count 449 K/mcL (140-440); RBC 3.89 M/mcL (3.59-5.38); Red Cell Distribution Width 12.7 % (11.5-14.5); WBC 18.6 K/mcL (4.5-11.0)
[2022-10-05 06:55] LABS: ALT/SGPT 7 U/L (<40); AST/SGOT 13 U/L (<32); Albumin 2.8 gm/dL (3.2-5.2); Albumin/Globulin Ratio 0.9 (1.0-2.3); Alkaline Phosphatase 26 U/L (39-117); Bilirubin,Direct < 0.2 mg/dL (0-0.3); Bilirubin,Total 0.3 mg/dL (0.1-1.0); Blood Urea Nitrogen 18 mg/dL (8-23); Calcium 10.2 mg/dL (8.6-10.4); Carbon Dioxide 25 mmol/L (22-30); Chloride 96 mmol/L (96-108); Globulin 3.1 gm/dL (2.2-3.7); Glomerular Filtration Rate 50; Glucose 118 mg/dL (70-105); Lactate Dehydrogenase 192 U/L (135-225); Phosphorous 2.3 mg/dL (2.5-4.5); Triglycerides 113 mg/dL (<150); Uric Acid 7.4 mg/dL (2.5-8.0)
--- NOTE | 2022-10-05 07:25 | Internal Med Progress Note ---
SUBJECTIVE Subjective Patient information: Note initiated : 10/05/22 at 7:20 am Service Date, if different from initiated Date: [] Patient: Yadira Lemus a 86 y/o F admitted on 10/01/22 for n/v, abd pain. Chief Complaint: [] Interval history: History of present illness: Ms. Lemus is a 86 year old female with past medical history including hiatal hernia, sigmoid diverticulosis, migraine headaches, paroxysmal atrial fibrillation, idiopathic cardiomyopathy with preserved EF, CHF, LBBB status post biventricular pacemaker, anxiety and depression presented with constellation of symptoms which have been going on for about 2 to 3 weeks. Patient has chronic headaches due to migraine and chronic nausea and vomiting secondary to her big hiatal hernia. Her daughter is the main contributor to history. She convinced her today to present to ER. Patient presents with headache, nausea and vomiting with mild low abdominal pain and reduced appetite. Her daughter also reported generalized weakness. Patient reports no fever or chills. On presentation vitals are stable CT abdomen and pelvis with contrast showed acute sigmoid colon diverticulitis with a small around 2cm associated abscess. Prominent fecal matter within the cecum and ascending colon consistent with constipation. CBC with elevated WBC 16,000. Renal functions and electrolytes stable. Liver function pending. CT head without any acute finding. 10/02 Patient states she slept okay. Abdominal pain present but improving, described as lower quadrants and crampy. She also feels constipated and says she does not have bowel movements at home unless she takes something. Leukocytosis present but mildly improved. Hypophosphatemia, trend and replete. Seen by surgery and will continue conservative management with antibiotics for now. 10/03 Patient sitting up in chair eating breakfast. Has abdominal pain but says it is slowly improving. Has some nausea but no vomiting. Persistent leukocytosis. Pending manual differential no fevers. Surgery following 10/04 Patient states she feels similar to yesterday other than some continued nausea. And lower quadrant achy abdominal pain which she cannot relate whether it is worse or not from yesterday. Worsening leukocytosis. Repeat CT abdomen pelvis pending. Patient states she has not had a bowel movement yet. >>CT a/p did not demonstrate any abscess and did not note diverticulitis but did show a small bowel obstruction. Dr. barton aware and did order for NG tube placement and n.p.o. status for now. 10/05 Patient feels less nauseous than previously. Decreasing abdominal pain. She is not passing any gas or bowel movements yet however. NG tube in place. N.p.o. with IV fluids maintenance. Hyponatremia and change D5 half NS to D5 NS. Review of Systems: denies headache/fever/chills/nausea/vomiting/chest pain/cough/dyspnea/diarrhea. Otherwise see above. PHYSICAL EXAM General: Alert, Awake, No acute Distress Eyes/N/T: EOMI, no scleral icterus, Head/Neck: neck supple, full ROM, CV: regular today, 2/6SM, Pulm: Clear b/l, no wheezing/rhonchi/rales, no respiratory distress Abd: tender lower quads mild, decreased BS x4 Ext: no clubbing/cyanosis/edema, nontender Neuro: Alert, no focal deficits, moves all extremities, , sensations intact b/l upper/lower Psychiatric: Skin: warm/dry, normal color Constitutional Vitals: Vital Signs Temp Pulse Resp BP Pulse Ox O2 Del Method 97.7 F 84 16 126/62 94 Room Air 10/05/22 03:58 10/05/22 03:58 10/05/22 03:58 10/05/22 03:58 10/05/22 03:58 10/05/22 03:58 Period Temp Pulse Resp BP Sys/Regalado Pulse Ox O2 Del Method O2 Flow Rate Last 24 Hr 97.2 F-98.9 F 84-95 14-18 109-126/53-66 93-97 Room Air-Room Air Intake and Output 10/04/22 10/05/22 10/05/22 19:59 03:59 11:59 Intake Total 1300 100 Output Total 300 325 40 Balance -300 975 60 Weight 65.544 kg Intake & Output: Intake & Output 10/04/22 10/05/22 10/05/22 19:59 03:59 11:59 Intake Total 1300 100 Output Total 300 325 40 Balance -300 975 60 Weight 65.544 kg Intake: IV 1300 100 Sodium Chloride 0.9% 1,000 ml @ 1000 75 mls/hr IV .[id number] [facility] Rx#: [id number] Output: Gastric Drainage 150 40 Left Nare NG/OG 150 40 Void Amount 150 325 Other: Urine Appearance Clear Urine Color Yellow OBJ DATA Labs 10/05/22 05:57 10/05/22 05:57 Labs: Abnormal Lab Results 10/05/22 10/05/22 10/04/22 05:57 05:57 06:04 WBC 18.6 H 19.4 H Plt Count 449 H 472 H Person # (Auto) Immature Gran # 0.08 H Absolute Neutrophils 13.67 H Sodium 130 L Chloride Glucose 118 H Calcium Phosphorus 2.3 L Alkaline Phosphatase 26 L Lactate Dehydrogenase Albumin 2.8 L Albumin/Globulin Ratio 0.9 L 10/04/22 10/03/22 10/03/22 06:03 05:58 05:58 WBC 14.1 H Plt Count Person # (Auto) 0.96 H Immature Gran # 0.06 H Absolute Neutrophils 9.96 H Sodium Chloride 93 L Glucose 149 H Calcium 10.7 H Phosphorus 2.1 L Alkaline Phosphatase 30 L 31 L Lactate Dehydrogenase 234 H Albumin 3.1 L Albumin/Globulin Ratio 0.9 L 10/02/22 05:58 WBC Plt Count Person # (Auto) Immature Gran # Absolute Neutrophils Sodium Chloride Glucose Calcium 10.7 H Phosphorus 1.6 L Alkaline Phosphatase 31 L Lactate Dehydrogenase Albumin 2.8 L Albumin/Globulin Ratio 0.9 L Meds: Medications Acetaminophen/Butalbital/Caffeine (Butalb/Acetaminophen/Caffeine 1 Tablet) 1 tab PO Q4HP PRN PRN Reason: pain Bisacodyl (Bisacodyl 10 Mg Supp.Rect) 10 mg FL Q2-3DAYS PRN PRN Reason: Constipation Carvedilol (Carvedilol 3.125 Mg Tablet) 3.125 mg PO BID [facility] Last Admin: 10/04/22 20:20 Dose: Not Given Enoxaparin Sodium (Enoxaparin 60 Mg/0.6 Ml Syringe) 60 mg SQ DAILY [facility] Last Admin: 10/04/22 13:57 Dose: Not Given Furosemide (Furosemide 20 Mg Tablet) 40 mg PO DAILY [facility] Last Admin: 10/04/22 13:57 Dose: Not Given Ciprofloxacin (Cipro) 400 mg in 200 mls @ 200 mls/hr IV Q12H [facility]; Protocol Last Infusion: 10/04/22 21:28 Dose: Infused Metronidazole (Flagyl) 500 mg in 100 mls @ 100 mls/hr IV Q8H [facility]; Protocol Last Infusion: 10/05/22 06:06 Dose: Infused Potassium Chloride/Dextrose/Sod Cl (Dextrose 5%-1/2ns W/10meq Kcl) 1,000 mls @ 75 mls/hr IV .[id number] [facility] Last Admin: 10/04/22 18:07 Dose: 75 mls/hr Lisinopril (Lisinopril 5 Mg Tablet) 5 mg PO QDAY [facility] Last Admin: 10/04/22 13:58 Dose: Not Given Lorazepam (Lorazepam 0.5 Mg Tablet) 0.5 mg PO BIDP PRN PRN Reason: Anxiety Last Admin: 10/04/22 04:44 Dose: 0.5 mg Magnesium Hydroxide (Magnesium Hydroxide 30 Ml Oral.Susp) 30 ml PO DAILYP PRN PRN Reason: Constipation Magnesium Oxide (Magnesium Oxide 400 Mg Tablet) 400 mg PO DAILY [facility] Last Admin: 10/04/22 13:58 Dose: Not Given Morphine Sulfate (Morphine 2 Mg/Ml Vial) 0 mg IV Q3HP PRN; Protocol PRN Reason: Per Pain Protocol Last Admin: 10/04/22 23:31 Dose: 2 mg Ondansetron HCl (Ondansetron 4 Mg/2 Ml Vial) 4 mg IV Q6HP PRN PRN Reason: Nausea And Vomiting Last Admin: 10/05/22 05:20 Dose: 4 mg Oxycodone/Acetaminophen (Oxycodone/Apap 5/325mg Tablet) 1 tab PO Q6HP PRN; Protocol PRN Reason: pain (scale score 4-6) Last Admin: 10/03/22 20:18 Dose: 1 tab Pantoprazole Sodium (Pantoprazole 40 Mg Vial) 40 mg IV QAMAC [facility] Last Admin: 10/04/22 07:40 Dose: 40 mg Timolol 5 Ml Drops 1 dose OP BID [facility] Last Admin: 10/04/22 20:20 Dose: Not Given Polyethylene Glycol (Polyethylene Glycol 3350 17 Gm Packet) 17 gm PO DAILY [facility] Last Admin: 10/04/22 13:58 Dose: Not Given Polyethylene Glycol (Polyethylene Glycol 3350 17 Gm Packet) 17 gm PO TIDP PRN PRN Reason: Constipation Prochlorperazine (Prochlorperazine 10 Mg/2 Ml Vial) 10 mg IV Q4-6HP PRN PRN Reason: Nausea And Vomiting Last Admin: 10/04/22 05:45 Dose: 10 mg Promethazine HCl (Promethazine 50 Mg/Ml Ampul) 12.5 mg IM Q6HP PRN PRN Reason: Nausea And Vomiting Senna (Sennosides 1 Tablet) 2 tab PO DAILY PRN PRN Reason: Constipation Sodium Chloride (0.9 % Sodium Chloride 10 Ml Syringe) 10 ml IV Q8 [facility] Last Admin: 10/05/22 05:04 Dose: Not Given Spironolactone (Spironolactone 25 Mg Tablet) 25 mg PO MoWeFr [facility] Last Admin: 10/04/22 13:57 Dose: Not Given A/P Narrative A/P Narrative: Assessment and plan: *SBO: -NGT, npo, IVF's -serial imaging and diet per surgery *Acute sigmoid colon diverticulitis w/abscess: -Dr Barotn following, no need for surgery at this point - continuing to monitor -IV ciprofloxacin and Flagyl. -f/u CT did not demonstrate an abscess *Large hiatal hernia/GERD: Likely contributing to chronic nausea and vomiting -Very large hiatal hernia on CT scan which is increased from before -Protonix *Severe migraine headaches: continue home meds, fiorinal, also on Percocet, on topiramate *h/o CHF: Not in decompensated CHF -restarted home Lasix/spironolactone/Coreg/lisinopril *Paroxysmal A-fib: Rate controlled. Eliquis on hold until surgery ruled out *Hypertension: on lisinopril/coreg *Anxiety/Depression: on Ativan as needed, on sertraline *Hypophos/Hyponatremmia: replete and trend -change IVF maintenance to NS *Constipation: takes meds at home to have a BM *DVT prophylaxis: lovenox (hold Eliquis until surgery r/o) DNR/DNI Time Spent With Patient Time: Total time spent is greater than 50% in coordination of care (as documented) at patient's floor/unit and/or counseling patient: Subsequent: Total time with patient: 50 - 65 Minutes QUALITY VTE Deep Vein Thrombosis/Pulmonary Embolism Present on Admission: No
[2022-10-05] MEDS: PROCHLORPERAZINE 10 MG/2 ML VIAL IV PRN (07:34)
[2022-10-05 07:37] LABS: Lymphocytes % 22 % (15-49); Monocytes % (Manual) 7 % (1-12); Platelet Estimate INCREASED (Normal); RBC Morphology NORMAL (Normal); Segmented Neutrophils % 71 % (38-78)
[2022-10-05] MEDS: DEXTROSE 5%-1/2NS W/10MEQ KCL 1,000 ML IV SCH (07:48)
[2022-10-05] MEDS: CIPROFLOXACIN 400 MG/200 ML BAG IV SCH ×2 (09:06→20:12)
[2022-10-05] MEDS: PANTOPRAZOLE 40 MG VIAL IV SCH (09:07)
[2022-10-05] MEDS: oxyCODONE/APAP 5/325MG TABLET PO PRN ×3 (09:07→21:28)
[2022-10-05] MEDS: FUROSEMIDE 20 MG TABLET PO SCH (09:07)
[2022-10-05] MEDS: LISINOPRIL 5 MG TABLET PO SCH (09:07)
[2022-10-05] MEDS: LORazepam 0.5 MG TABLET PO PRN ×2 (09:07→21:28)
[2022-10-05] MEDS: morphine 2 MG/ML VIAL IV PRN ×5 (09:08→23:41)
[2022-10-05] MEDS: CARVEDILOL 3.125 MG TABLET PO SCH ×2 (09:08→20:13)
[2022-10-05] MEDS: ENOXAPARIN 60 MG/0.6 ML SYRINGE SQ SCH (09:08)
[2022-10-05] MEDS: TIMOLOL OP SCH ×2 (09:30→20:16)
[2022-10-05] MEDS: DEXTROSE 5%-NS W/20MEQ KCL 1,000 ML IV SCH (11:16)
--- NOTE | 2022-10-05 13:18 | General Surgery Progress Note ---
SUBJECTIVE Subjective Patient information: Note initiated : 10/05/22 at 1:13 pm Service Date, if different from initiated Date: [] Patient: Yadira Lemus 86 y/o F admitted on 10/01/22 for n/v, abd pain. Chief Complaint: [] Continues with some distension, denies any significant pain, has not had gas or stool Constitutional Vitals: Vital Signs Temp Pulse Resp BP Pulse Ox O2 Del Method 98.1 F 73 16 109/55 93 Room Air 10/05/22 12:00 10/05/22 12:00 10/05/22 12:00 10/05/22 12:00 10/05/22 12:00 10/05/22 12:00 Period Temp Pulse Resp BP Sys/Regalado Pulse Ox O2 Del Method O2 Flow Rate Last 24 Hr 97.2 F-98.4 F 73-95 14-16 109-128/55-66 91-94 Room Air-Room Air Intake and Output 10/05/22 10/05/22 10/05/22 03:59 11:59 19:59 Intake Total 1300 1300 Output Total 325 40 Balance 975 1260 Intake & Output: Intake & Output 10/05/22 10/05/22 10/05/22 03:59 11:59 19:59 Intake Total 1300 1300 Output Total 325 40 Balance 975 1260 Intake: IV 1300 1300 Sodium Chloride 0.9% 1,000 ml @ 1000 75 mls/hr IV .[id number] [facility] Rx#: [id number] Dextrose 5%-1/2Ns W/10Meq KCl 1 1000 ,000 ml @ 75 mls/hr IV .[id number] [facility] Rx#:[id number] Output: Gastric Drainage 40 Left Nare NG/OG 40 Void Amount 325 Other: Urine Appearance Clear Urine Color Yellow Exam: fully conversant, non toxic Respiratory Respiratory exam: Present normal respiratory exam GI/Abdominal Additional comments: soft, non tender, mild distension NGT in place but scant drainage A/P Assessment and plan (1) SBO (small bowel obstruction): Assessment and plan: Acute Sigmoid Diverticulitis with small associated Abscess Interval development of a partial SBO - these will typically resolve as the Diverticulitis subsides but possible surgery will be needed Continue NGT for now with attempts to advance further if able Re check plain films in AM Change to Meropenem given persistently elevated WBC Agree with PICC line and TPN as operative intervention may yet be needed Status: Acute (2) Sigmoid diverticulitis: Status: Acute Time Spent With Patient Time: Total time spent is greater than 50% in coordination of care (as documented) at patient's floor/unit and/or counseling patient:
[2022-10-05] MEDS: BISACODYL 10 MG SUPP.RECT PR ONE ×2 (16:17→16:28)
[2022-10-05] MEDS: MEROPENEM 0.5 GM in 0.9 % SODIUM CHLORIDE 50 ML IV SCH ×2 (16:18→21:29)
[2022-10-05] MEDS: BISACODYL 10 MG SUPP.RECT PR PRN (21:05)
[2022-10-06] MEDS: PROCHLORPERAZINE 10 MG/2 ML VIAL IV PRN ×2 (00:44→14:59)
[2022-10-06] MEDS: DEXTROSE 5%-NS W/20MEQ KCL 1,000 ML IV SCH ×2 (02:17→17:00)
[2022-10-06] MEDS: morphine 2 MG/ML VIAL IV PRN ×6 (02:49→23:30)
[2022-10-06] MEDS: ONDANSETRON 4 MG/2 ML VIAL IV PRN ×2 (03:03→09:55)
[2022-10-06] MEDS: oxyCODONE/APAP 5/325MG TABLET PO PRN ×3 (04:14→23:30)
[2022-10-06] MEDS: 0.9 % SODIUM CHLORIDE 10 ML SYRINGE IV SCH ×4 (04:15→23:05)
[2022-10-06] MEDS: MEROPENEM 0.5 GM in 0.9 % SODIUM CHLORIDE 50 ML IV SCH ×3 (05:19→23:04)
[2022-10-06 06:25] LABS: Basophils # (Auto) 0.07 K/mcL (0.00-0.30); Basophils % (Auto) 0.4 % (0.0-2.0); Eosinophils # (Auto) 0.18 K/mcL (0.00-0.70); Eosinophils % (Auto) 0.9 % (0.0-7.0); Hematocrit 35.8 % (34.1-44.9); Hemoglobin 11.6 g/dL (11.2-15.7); Lymphocytes # (Auto) 3.45 K/mcL (1.50-4.80); Lymphocytes % (Auto) 18.1 % (15.5-49.0); Mean Cell Volume 94.7 fL (80.0-100.0); Mean Corpuscular HGB Conc 32.4 g/dL (31.0-36.0); Mean Platelet Volume 10.1 fL (8.8-12.5); Monocytes % (Auto) 8.9 % (1.0-12.0); Neutrophils % (Auto) 71.3 % (38.0-78.0); Platelet Count 420 K/mcL (140-440); RBC 3.78 M/mcL (3.59-5.38); Red Cell Distribution Width 12.7 % (11.5-14.5); WBC 19.1 K/mcL (4.5-11.0)
[2022-10-06 07:01] LABS: ALT/SGPT 9 U/L (<40); AST/SGOT 16 U/L (<32); Albumin 2.7 gm/dL (3.2-5.2); Alkaline Phosphatase 24 U/L (39-117); Bilirubin,Direct < 0.2 mg/dL (0-0.3); Bilirubin,Total 0.3 mg/dL (0.1-1.0); Blood Urea Nitrogen 13 mg/dL (8-23); Calcium 9.4 mg/dL (8.6-10.4); Carbon Dioxide 25 mmol/L (22-30); Chloride 102 mmol/L (96-108); Globulin 2.8 gm/dL (2.2-3.7); Glomerular Filtration Rate 57; Glucose 120 mg/dL (70-105); Lactate Dehydrogenase 247 U/L (135-225); Phosphorous 1.5 mg/dL (2.5-4.5); Triglycerides 127 mg/dL (<150); Uric Acid 6.5 mg/dL (2.5-8.0)
[2022-10-06] MEDS: PANTOPRAZOLE 40 MG VIAL IV SCH (07:10)
--- NOTE | 2022-10-06 07:35 | Internal Med Progress Note ---
SUBJECTIVE Subjective Patient information: Note initiated : 10/06/22 at 7:32 am Service Date, if different from initiated Date: [] Patient: Yadira Lemus a 86 y/o F admitted on 10/01/22 for n/v, abd pain. Chief Complaint: [] Interval history: History of present illness: Ms. Lemus is a 86 year old female with past medical history including hiatal hernia, sigmoid diverticulosis, migraine headaches, paroxysmal atrial fibrillation, idiopathic cardiomyopathy with preserved EF, CHF, LBBB status post biventricular pacemaker, anxiety and depression presented with constellation of symptoms which have been going on for about 2 to 3 weeks. Patient has chronic headaches due to migraine and chronic nausea and vomiting secondary to her big hiatal hernia. Her daughter is the main contributor to history. She convinced her today to present to ER. Patient presents with headache, nausea and vomiting with mild low abdominal pain and reduced appetite. Her daughter also reported generalized weakness. Patient reports no fever or chills. On presentation vitals are stable CT abdomen and pelvis with contrast showed acute sigmoid colon diverticulitis with a small around 2cm associated abscess. Prominent fecal matter within the cecum and ascending colon consistent with constipation. CBC with elevated WBC 16,000. Renal functions and electrolytes stable. Liver function pending. CT head without any acute finding. 10/02 Patient states she slept okay. Abdominal pain present but improving, described as lower quadrants and crampy. She also feels constipated and says she does not have bowel movements at home unless she takes something. Leukocytosis present but mildly improved. Hypophosphatemia, trend and replete. Seen by surgery and will continue conservative management with antibiotics for now. 10/03 Patient sitting up in chair eating breakfast. Has abdominal pain but says it is slowly improving. Has some nausea but no vomiting. Persistent leukocytosis. Pending manual differential no fevers. Surgery following 10/04 Patient states she feels similar to yesterday other than some continued nausea. And lower quadrant achy abdominal pain which she cannot relate whether it is worse or not from yesterday. Worsening leukocytosis. Repeat CT abdomen pelvis pending. Patient states she has not had a bowel movement yet. >>CT a/p did not demonstrate any abscess and did not note diverticulitis but did show a small bowel obstruction. Dr. barton aware and did order for NG tube placement and n.p.o. status for now. 10/05 Patient feels less nauseous than previously. Decreasing abdominal pain. She is not passing any gas or bowel movements yet however. NG tube in place. N.p.o. with IV fluids maintenance. Hyponatremia and change D5 half NS to D5 NS. 10/06 Patient feels worse today with increased nausea abdominal pain and distention. No BMs or flatus overnight. Abdominal film follow-up pending. Hypophosphatemia will replace through IV. Surgery following. Review of Systems: denies headache/fever/chills/vomiting/chest pain/cough/dyspnea/diarrhea. Otherwise see above. PHYSICAL EXAM General: Alert, Awake, No acute Distress Eyes/N/T: EOMI, no scleral icterus, Head/Neck: neck supple, full ROM, CV: regular today, 2/6SM, Pulm: Clear b/l, no wheezing/rhonchi/rales, no respiratory distress Abd: tender throughout, distended, decreased BS x4 Ext: no clubbing/cyanosis/edema, nontender Neuro: Alert, no focal deficits, moves all extremities, sensations intact b/l upper/lower Psychiatric: Skin: warm/dry, normal color Constitutional Vitals: Vital Signs Temp Pulse Resp BP Pulse Ox O2 Del Method 98.6 F 86 14 122/61 92 Room Air 10/06/22 07:16 10/06/22 07:16 10/06/22 07:16 10/06/22 07:16 10/06/22 07:16 10/06/22 07:16 Period Temp Pulse Resp BP Sys/Regalado Pulse Ox O2 Del Method O2 Flow Rate Last 24 Hr 97.7 F-98.6 F 73-86 14-18 109-128/55-72 91-98 Room Air-Room Air Intake and Output 10/05/22 10/06/22 10/06/22 19:59 03:59 11:59 Intake Total 50 1250 50 Output Total 825 400 400 Balance -775 850 -350 Weight 65.544 kg Intake & Output: Intake & Output 10/05/22 10/06/22 10/06/22 19:59 03:59 11:59 Intake Total 50 1250 50 Output Total 825 400 400 Balance -775 850 -350 Weight 65.544 kg Intake: IV 50 1250 50 Dextrose 5%-Ns W/20Meq KCl 1, 1000 000 ml @ 75 mls/hr IV .[id number] [facility] Rx#:[id number] Merrem 0.5 gm In Sodium 50 50 50 Chloride 0.9% 50 ml @ 100 mls/ hr IV Q8H [facility] Rx#:[id number] Output: Void Amount 825 400 400 Other: Urine Appearance Clear Clear Clear Urine Color Yellow Yellow Yellow Urine Odor Normal Normal OBJ DATA Labs 10/06/22 05:50 10/06/22 14:11 Labs: Abnormal Lab Results 10/06/22 10/06/22 10/05/22 05:50 05:49 05:57 WBC 19.1 H Plt Count [place] # (Auto) 1.70 H Immature Gran # 0.08 H Absolute Neutrophils 13.58 H Platelet Estimate Sodium 130 L Chloride Glucose 120 H 118 H Calcium Phosphorus 1.5 L 2.3 L Alkaline Phosphatase 24 L 26 L Lactate Dehydrogenase 247 H Total Protein 5.5 L Albumin 2.7 L 2.8 L Albumin/Globulin Ratio 0.9 L 10/05/22 10/04/22 10/04/22 05:57 06:04 06:03 WBC 18.6 H 19.4 H Plt Count 449 H 472 H [place] # (Auto) Immature Gran # 0.08 H Absolute Neutrophils 13.67 H Platelet Estimate Increased A Sodium Chloride 93 L Glucose 149 H Calcium 10.7 H Phosphorus Alkaline Phosphatase 30 L Lactate Dehydrogenase 234 H Total Protein Albumin Albumin/Globulin Ratio 0.9 L Meds: Medications Acetaminophen/Butalbital/Caffeine (Butalb/Acetaminophen/Caffeine 1 Tablet) 1 tab PO Q4HP PRN PRN Reason: pain Bisacodyl (Bisacodyl 10 Mg Supp.Rect) 10 mg ID Q2-3DAYS PRN PRN Reason: Constipation Last Admin: 10/05/22 21:05 Dose: 10 mg Carvedilol (Carvedilol 3.125 Mg Tablet) 3.125 mg PO BID [facility] Last Admin: 10/05/22 20:13 Dose: 3.125 mg Enoxaparin Sodium (Enoxaparin 60 Mg/0.6 Ml Syringe) 60 mg SQ DAILY [facility] Last Admin: 10/05/22 09:08 Dose: 60 mg Furosemide (Furosemide 20 Mg Tablet) 40 mg PO DAILY [facility] Last Admin: 10/05/22 09:07 Dose: 40 mg Ciprofloxacin (Cipro) 400 mg in 200 mls @ 200 mls/hr IV Q12H [facility]; Protocol Last Infusion: 10/05/22 21:20 Dose: Infused Potassium Chloride/Dextrose/Sod Cl (Dextrose 5%-Ns W/20meq Kcl) 1,000 mls @ 75 mls/hr IV .[id number] [facility] Last Admin: 10/06/22 02:17 Dose: 75 mls/hr Meropenem 0.5 gm/ Sodium (Chloride) 50 mls @ 100 mls/hr IV Q8H [facility]; Protocol Last Infusion: 10/06/22 06:43 Dose: Infused Lisinopril (Lisinopril 5 Mg Tablet) 5 mg PO QDAY [facility] Last Admin: 10/05/22 09:07 Dose: 5 mg Lorazepam (Lorazepam 0.5 Mg Tablet) 0.5 mg PO BIDP PRN PRN Reason: Anxiety Last Admin: 10/05/22 21:28 Dose: 0.5 mg Magnesium Hydroxide (Magnesium Hydroxide 30 Ml Oral.Susp) 30 ml PO DAILYP PRN PRN Reason: Constipation Morphine Sulfate (Morphine 2 Mg/Ml Vial) 0 mg IV Q3HP PRN; Protocol PRN Reason: Per Pain Protocol Last Admin: 10/06/22 02:49 Dose: 2 mg Ondansetron HCl (Ondansetron 4 Mg/2 Ml Vial) 4 mg IV Q6HP PRN PRN Reason: Nausea And Vomiting Last Admin: 10/06/22 03:03 Dose: 4 mg Oxycodone/Acetaminophen (Oxycodone/Apap 5/325mg Tablet) 1 tab PO Q6HP PRN; Protocol PRN Reason: pain (scale score 4-6) Last Admin: 10/06/22 04:14 Dose: 1 tab Pantoprazole Sodium (Pantoprazole 40 Mg Vial) [facility] Last Admin: 10/06/22 07:10 Dose: 40 mg Timolol 5 Ml Drops 1 dose OP BID [facility] Last Admin: 10/05/22 20:16 Dose: Not Given Polyethylene Glycol (Polyethylene Glycol 3350 17 Gm Packet) 17 gm PO TIDP PRN PRN Reason: Constipation Prochlorperazine (Prochlorperazine 10 Mg/2 Ml Vial) 10 mg IV Q4-6HP PRN PRN Reason: Nausea And Vomiting Last Admin: 10/06/22 00:44 Dose: 10 mg Promethazine HCl (Promethazine 50 Mg/Ml Ampul) 12.5 mg IM Q6HP PRN PRN Reason: Nausea And Vomiting Last Admin: 10/06/22 04:38 Dose: 12.5 mg Senna (Sennosides 1 Tablet) 2 tab PO DAILY PRN PRN Reason: Constipation Sodium Chloride (0.9 % Sodium Chloride 10 Ml Syringe) 10 ml IV Q8 [facility] Last Admin: 10/06/22 04:15 Dose: Not Given A/P Narrative A/P Narrative: Assessment and plan: *SBO: no improvement yet -NGT, npo, IVF's -serial imaging and diet per surgery -discussed with Dr. Barton, will place picc and start TPN. *Acute sigmoid colon diverticulitis w/abscess: -Dr Barton following, no need for surgery at this point - continuing to monitor -abx per surgery -f/u CT did not demonstrate an abscess -leukocytosis suspect reactive from sbo, check bands *Large hiatal hernia/GERD: Likely contributing to chronic nausea and vomiting -Very large hiatal hernia on CT scan which is increased from before -Protonix *Severe migraine headaches: continue home meds, fiorinal, also on Percocet, on topiramate *h/o CHF: Not in decompensated CHF -restarted home Lasix/spironolactone/Coreg/lisinopril *Paroxysmal A-fib: Rate controlled. Eliquis on hold until surgery ruled out *Hypertension: on lisinopril/coreg *Anxiety/Depression: on Ativan as needed, on sertraline *Hypophos/Hyponatremmia: replete and trend -changed IVF maintenance to NS *Constipation: takes meds at home to have a BM *DVT prophylaxis: lovenox (hold Eliquis until surgery r/o) DNR/DNI Time Spent With Patient Time: Total time spent is greater than 50% in coordination of care (as documented) at patient's floor/unit and/or counseling patient: Subsequent: Total time with patient: 50 - 65 Minutes QUALITY VTE Deep Vein Thrombosis/Pulmonary Embolism Present on Admission: No
[2022-10-06] MEDS ORDERED: POTASSIUM PHOSPHATE 40 MEQ in DEXTROSE 5% IN WATER 500 ML IV SCH (08:00)
[2022-10-06] MEDS: CARVEDILOL 3.125 MG TABLET PO SCH ×2 (09:12→20:32)
[2022-10-06] MEDS: LISINOPRIL 5 MG TABLET PO SCH (09:12)
[2022-10-06] MEDS: FUROSEMIDE 20 MG TABLET PO SCH (09:12)
[2022-10-06] MEDS: ENOXAPARIN 60 MG/0.6 ML SYRINGE SQ SCH (09:13)
[2022-10-06] MEDS: BUTALB/ACETAMINOPHEN/CAFFEINE 1 TABLET PO PRN (09:17)
[2022-10-06 09:34] LABS: Eosinophils % (Manual) 1 % (0-7); Lymphocytes % 15 % (15-49); Monocytes % (Manual) 4 % (1-12); Platelet Estimate NORMAL (Normal); RBC Morphology NORMAL (Normal); Segmented Neutrophils % 80 % (38-78)
[2022-10-06] MEDS: CIPROFLOXACIN 400 MG/200 ML BAG IV SCH ×2 (10:09→20:17)
[2022-10-06] MEDS: TIMOLOL OP SCH ×2 (10:10→20:33)
--- NOTE | 2022-10-06 11:07 | XRay Report ---
CLINICAL INFORMATION: eval partial SBO COMPARISON: Abdomen and pelvic CT two days prior 10/04/2022 FINDINGS: NG tube tip overlies the gastric fundus. Moderate hiatal hernia noted. The stomach and small bowel are better decompressed and contain only modest gas. There is large amount of gas seen within the colon. IMPRESSION: Provement in the distal small bowel obstruction pattern. There is now a large amount of colonic gas. Moderate hiatal hernia Interpreted and Authenticated by: Ray Dotson 10/06/22
--- NOTE | 2022-10-06 12:34 | General Surgery Progress Note ---
SUBJECTIVE Subjective Patient information: Note initiated : 10/06/22 at 8:45am Service Date, if different from initiated Date: [] Patient: Yadira Lemus 86 y/o F admitted on 10/01/22 for n/v, abd pain. Chief Complaint: [] No obvious return of bowel function yet but has had good pain control and NGT has been functional, confused at time, pulling at things Constitutional Vitals: Vital Signs Temp Pulse Resp BP Pulse Ox O2 Del Method 98.6 F 86 14 122/61 92 Room Air 10/06/22 07:16 10/06/22 07:16 10/06/22 07:16 10/06/22 07:16 10/06/22 07:16 10/06/22 07:16 Period Temp Pulse Resp BP Sys/Regalado Pulse Ox O2 Del Method O2 Flow Rate Last 24 Hr 97.7 F-98.6 F 73-86 14-18 120-123/61-72 92-98 Room Air-Room Air Intake and Output 10/06/22 10/06/22 10/06/22 03:59 11:59 19:59 Intake Total 1250 641 200 Output Total 400 400 Balance 850 241 200 Weight 144 lb 8 oz 144 lb 8 oz Patient Weight 10/07/22 03:59 Weight 144 lb 8 oz Intake & Output: Intake & Output 10/06/22 10/06/22 10/06/22 03:59 11:59 19:59 Intake Total 1250 641 200 Output Total 400 400 Balance 850 241 200 Weight 144 lb 8 oz 144 lb 8 oz Intake: IV 1250 641 200 Dextrose 5%-Ns W/20Meq KCl 1, 1000 591 000 ml @ 75 mls/hr IV .[id number] [facility] Rx#:[id number] Merrem 0.5 gm In Sodium 50 50 Chloride 0.9% 50 ml @ 100 mls/ hr IV Q8H [facility] Rx#:[id number] Output: Void Amount 400 400 Other: Urine Appearance Clear Clear Urine Color Yellow Yellow Urine Odor Normal Exam: appears non toxic, NAD, some confusion GI/Abdominal Additional comments: belly soft, mild distension remains, some localized LLQ tenderness remains NGT in place A/P Assessment and plan (1) SBO (small bowel obstruction): Assessment and plan: Acute Sigmoid Diverticulitis with Interval partial SBO Plain films show improving bowel gas pattern with markedly improving amounts of colonic gas Continue IV ABs and NGT decompression for now. No operative indications at this time as SBO appears to be resolving but continued close observation for now Agree with plans for PICC line for TPN and plan to re check CT next 24-48 hours to assure no drainable abscess given persistently elevated WBC Status: Acute (2) Sigmoid diverticulitis: Status: Acute Time Spent With Patient Time: Total time spent is greater than 50% in coordination of care (as documented) at patient's floor/unit and/or counseling patient:
--- NOTE | 2022-10-06 13:26 | XRay Report ---
CLINICAL INFORMATION: PICC PLACEMENT COMPARISON: 10/04/2022 FINDINGS: Moderate cardiomegaly is unchanged. NG tube overlies the gastric fundus. Implantable cardioverter defibrillator in stable satisfactory position. PICC line tip is bent in the superior vena cava and right brachiocephalic vein. Fluid-filled moderate hiatal hernia hernia noted.. Lungs are clear effusions. IMPRESSION: Malpositioned right PICC line bed in the SVC/right brachiocephalic vein. Moderate hiatal hernia Moderate cardiomegaly. No acute disease Interpreted and Authenticated by: Ray Dotson 10/06/22
--- NOTE | 2022-10-06 13:27 | XRay Report ---
CLINICAL INFORMATION: PICC PLACEMENT COMPARISON: 10/04/2022 FINDINGS: Moderate cardiomegaly is unchanged. NG tube overlies the gastric fundus. Implantable cardioverter defibrillator in stable satisfactory position. PICC line tip is is now overlying the right atrium.Fluid-filled moderate hiatal hernia hernia noted.. Lungs are clear effusions. IMPRESSION: Right PICC line tip now overlies the right atrium. Moderate hiatal hernia Moderate cardiomegaly. No acute disease Interpreted and Authenticated by: Ray Dotson 10/06/22
[2022-10-06] MEDS ORDERED: TPN PER PHARMACY IV SCH (14:04)
[2022-10-06] MEDS ORDERED: MAGNESIUM SULFATE IV SCH (15:00)
[2022-10-06] MEDS ORDERED: [UNRECOGNIZED DRUG - OTHER] IV SCH (15:00)
[2022-10-06] MEDS ORDERED: SODIUM CHLORIDE IV SCH (15:00)
[2022-10-06] MEDS ORDERED: POTASSIUM CHLORIDE IV SCH (15:00)
[2022-10-06] MEDS ORDERED: FAT EMULSION 20% 250 ML IV SCH (16:00)
[2022-10-06 16:05] LABS: ALT/SGPT 9 U/L (<40); AST/SGOT 15 U/L (<32); Albumin 2.8 gm/dL (3.2-5.2); Albumin/Globulin Ratio 0.9 (1.0-2.3); Alkaline Phosphatase 27 U/L (39-117); Bilirubin,Direct < 0.2 mg/dL (0-0.3); Bilirubin,Total 0.4 mg/dL (0.1-1.0); Blood Urea Nitrogen 13 mg/dL (8-23); Calcium 9.6 mg/dL (8.6-10.4); Carbon Dioxide 27 mmol/L (22-30); Chloride 101 mmol/L (96-108); Glomerular Filtration Rate 57; Glucose 117 mg/dL (70-105); Lactate Dehydrogenase 244 U/L (135-225); Phosphorous 2.6 mg/dL (2.5-4.5); Triglycerides 108 mg/dL (<150); Uric Acid 6.6 mg/dL (2.5-8.0)
[2022-10-07] MEDS: BISACODYL 10 MG SUPP.RECT PR PRN (03:13)
[2022-10-07] MEDS: morphine 2 MG/ML VIAL IV PRN ×2 (03:13→11:28)
[2022-10-07] MEDS: ONDANSETRON 4 MG/2 ML VIAL IV PRN (03:18)
[2022-10-07] MEDS: 0.9 % SODIUM CHLORIDE 10 ML SYRINGE IV SCH ×5 (04:58→20:19)
[2022-10-07] MEDS: INSULIN LISPRO 1 UNIT/0.01 ML UNIT SQ SCH ×5 (04:58→20:18)
[2022-10-07] MEDS: oxyCODONE/APAP 5/325MG TABLET PO PRN ×3 (05:28→20:18)
[2022-10-07] MEDS: MEROPENEM 0.5 GM in 0.9 % SODIUM CHLORIDE 50 ML IV SCH ×2 (05:28→15:15)
[2022-10-07 06:48] LABS: Basophils # (Auto) 0.07 K/mcL (0.00-0.30); Basophils % (Auto) 0.3 % (0.0-2.0); Eosinophils % (Auto) 1.3 % (0.0-7.0); Hematocrit 39.1 % (34.1-44.9); Hemoglobin 12.8 g/dL (11.2-15.7); Lymphocytes # (Auto) 4.53 K/mcL (1.50-4.80); Lymphocytes % (Auto) 20.3 % (15.5-49.0); Mean Cell Volume 96.8 fL (80.0-100.0); Mean Corpuscular HGB Conc 32.7 g/dL (31.0-36.0); Mean Platelet Volume 10.3 fL (8.8-12.5); Monocytes % (Auto) 8.5 % (1.0-12.0); Neutrophils % (Auto) 69.1 % (38.0-78.0); Platelet Count 382 K/mcL (140-440); RBC 4.04 M/mcL (3.59-5.38); Red Cell Distribution Width 12.9 % (11.5-14.5); WBC 22.3 K/mcL (4.5-11.0)
[2022-10-07 07:16] LABS: ALT/SGPT 9 U/L (<40); AST/SGOT 16 U/L (<32); Albumin 2.7 gm/dL (3.2-5.2); Albumin/Globulin Ratio 0.8 (1.0-2.3); Alkaline Phosphatase 31 U/L (39-117); Bilirubin,Direct 0.3 mg/dL (<0.3); Bilirubin,Total 0.5 mg/dL (0.1-1.0); Blood Urea Nitrogen 12 mg/dL (8-23); Calcium 9.7 mg/dL (8.6-10.4); Carbon Dioxide 25 mmol/L (22-30); Chloride 99 mmol/L (96-108); Globulin 3.3 gm/dL (2.2-3.7); Glomerular Filtration Rate 57; Glucose 127 mg/dL (70-105); Lactate Dehydrogenase 276 U/L (135-225); Phosphorous 1.6 mg/dL (2.5-4.5); Triglycerides 102 mg/dL (<150); Uric Acid 5.5 mg/dL (2.5-8.0)
--- NOTE | 2022-10-07 07:49 | Internal Med Progress Note ---
SUBJECTIVE Subjective Patient information: Note initiated : 10/07/22 at 7:45 am Service Date, if different from initiated Date: [] Patient: Yadira Lemus a 86 y/o F admitted on 10/01/22 for n/v, abd pain. Chief Complaint: [] Interval history: History of present illness: Ms. Lemus is a 86 year old female with past medical history including hiatal hernia, sigmoid diverticulosis, migraine headaches, paroxysmal atrial fibrillation, idiopathic cardiomyopathy with preserved EF, CHF, LBBB status post biventricular pacemaker, anxiety and depression presented with constellation of symptoms which have been going on for about 2 to 3 weeks. Patient has chronic headaches due to migraine and chronic nausea and vomiting secondary to her big hiatal hernia. Her daughter is the main contributor to history. She convinced her today to present to ER. Patient presents with headache, nausea and vomiting with mild low abdominal pain and reduced appetite. Her daughter also reported generalized weakness. Patient reports no fever or chills. On presentation vitals are stable CT abdomen and pelvis with contrast showed acute sigmoid colon diverticulitis with a small around 2cm associated abscess. Prominent fecal matter within the cecum and ascending colon consistent with constipation. CBC with elevated WBC 16,000. Renal functions and electrolytes stable. Liver function pending. CT head without any acute finding. 10/02 Patient states she slept okay. Abdominal pain present but improving, described as lower quadrants and crampy. She also feels constipated and says she does not have bowel movements at home unless she takes something. Leukocytosis present but mildly improved. Hypophosphatemia, trend and replete. Seen by surgery and will continue conservative management with antibiotics for now. 10/03 Patient sitting up in chair eating breakfast. Has abdominal pain but says it is slowly improving. Has some nausea but no vomiting. Persistent leukocytosis. Pending manual differential no fevers. Surgery following 10/04 Patient states she feels similar to yesterday other than some continued nausea. And lower quadrant achy abdominal pain which she cannot relate whether it is worse or not from yesterday. Worsening leukocytosis. Repeat CT abdomen pelvis pending. Patient states she has not had a bowel movement yet. >>CT a/p did not demonstrate any abscess and did not note diverticulitis but did show a small bowel obstruction. Dr. barton aware and did order for NG tube placement and n.p.o. status for now. 10/05 Patient feels less nauseous than previously. Decreasing abdominal pain. She is not passing any gas or bowel movements yet however. NG tube in place. N.p.o. with IV fluids maintenance. Hyponatremia and change D5 half NS to D5 NS. 10/06 Patient feels worse today with increased nausea abdominal pain and distention. No BMs or flatus overnight. Abdominal film follow-up pending. Hypophosphatemia will replace through IV. Surgery following. 10/07 Patient states she thinks she feels a little bit better today but then says her nausea is the same as yesterday and her abdominal pain is same as yesterday. She has not had any bowel movements or flatus. Follow-up CT per surgery is pending. White blood cell count is elevated again. Review of Systems: denies headache/fever/chills/vomiting/chest pain/cough/dyspnea/diarrhea. Otherwise see above. PHYSICAL EXAM General: Alert, Awake, No acute Distress Eyes/N/T: EOMI, no scleral icterus, Head/Neck: neck supple, full ROM, CV: regular today, 2/6SM, Pulm: Clear b/l, no wheezing/rhonchi/rales, no respiratory distress Abd: tender throughout, distended, decreased BS x4 and a few tympanic sounds Ext: no clubbing/cyanosis/edema, nontender Neuro: Alert, no focal deficits, moves all extremities, sensations intact b/l upper/lower Psychiatric: Skin: warm/dry, normal color Constitutional Vitals: Vital Signs Temp Pulse Resp BP Pulse Ox O2 Del Method 97.1 F 89 18 123/65 93 Room Air 10/07/22 03:28 10/07/22 03:28 10/07/22 03:28 10/07/22 03:28 10/07/22 03:28 10/07/22 03:28 Period Temp Pulse Resp BP Sys/Regalado Pulse Ox O2 Del Method O2 Flow Rate Last 24 Hr 97.1 F-98.8 F 76-96 16-18 102-123/55-70 91-98 Room Air-Room Air Intake and Output 10/06/22 10/07/22 10/07/22 19:59 03:59 11:59 Intake Total 915.0909 317 Output Total 250 300 Balance 665.0909 317 -300 Weight 65.998 kg Intake & Output: Intake & Output 10/06/22 10/07/22 10/07/22 19:59 03:59 11:59 Intake Total 915.0909 317 Output Total 250 300 Balance 665.0909 317 -300 Weight 65.998 kg Intake: IV 915.0909 317 Dextrose 5%-Ns W/20Meq KCl 1, 156 000 ml @ 75 mls/hr IV .[id number] [facility] Rx#:[id number] Intralipid 20% 250 ml @ 20.833 67 mls/hr IV MoWeFr [facility] Rx#: [id number] Merrem 0.5 gm In Sodium 50 50 Chloride 0.9% 50 ml @ 100 mls/ hr IV Q8H [facility] Rx#:[id number] Potassium Phosphate 40 Meq In 509.0909 Dextrose 5% in Water 500 ml @ 127.273 mls/hr IV ONCE [facility] Rx#: [id number] Output: Gastric Drainage 100 Left Nare NG/OG 100 Void Amount 150 300 Other: Urine Appearance Clear Clear Urine Color Dark Yellow Dark Yellow OBJ DATA Labs 10/07/22 05:50 10/07/22 05:50 Labs: Abnormal Lab Results 10/07/22 10/07/22 10/06/22 05:50 05:50 14:11 WBC 22.3 H Plt Count Blaine # (Auto) 1.90 H Seg Neutrophils % Immature Gran # 0.11 H Absolute Neutrophils 15.36 H Platelet Estimate Sodium 131 L Anion Gap 7.0 L 7.0 L Glucose 127 H 117 H Phosphorus 1.6 L Direct Bilirubin 0.3 H GGT 40 H Alkaline Phosphatase 31 L 27 L Lactate Dehydrogenase 276 H 244 H Total Protein 5.8 L Albumin 2.7 L 2.8 L Albumin/Globulin Ratio 0.8 L 0.9 L 10/06/22 10/06/22 10/06/22 05:50 05:49 05:49 WBC 19.1 H Plt Count Blaine # (Auto) 1.70 H Seg Neutrophils % 80 H Immature Gran # 0.08 H Absolute Neutrophils 13.58 H Platelet Estimate Sodium Anion Gap Glucose 120 H Phosphorus 1.5 L Direct Bilirubin GGT Alkaline Phosphatase 24 L Lactate Dehydrogenase 247 H Total Protein 5.5 L Albumin 2.7 L Albumin/Globulin Ratio 10/05/22 10/05/22 05:57 05:57 WBC 18.6 H Plt Count 449 H Blaine # (Auto) Seg Neutrophils % Immature Gran # Absolute Neutrophils Platelet Estimate Increased A Sodium 130 L Anion Gap Glucose 118 H Phosphorus 2.3 L Direct Bilirubin GGT Alkaline Phosphatase 26 L Lactate Dehydrogenase Total Protein Albumin 2.8 L Albumin/Globulin Ratio 0.9 L Meds: Medications Acetaminophen/Butalbital/Caffeine (Butalb/Acetaminophen/Caffeine 1 Tablet) 1 tab PO Q4HP PRN PRN Reason: pain Last Admin: 10/06/22 09:17 Dose: 1 tab Bisacodyl (Bisacodyl 10 Mg Supp.Rect) 10 mg SD Q2-3DAYS PRN PRN Reason: Constipation Last Admin: 10/07/22 03:13 Dose: 10 mg Carvedilol (Carvedilol 3.125 Mg Tablet) 3.125 mg PO BID [facility] Last Admin: 10/06/22 20:32 Dose: 3.125 mg Diagnostic Test (Pha) (Accu-Chek 1 Each Strip) 1 each FS Q4 [facility]; Protocol Last Admin: 10/07/22 04:57 Dose: 1 each Enoxaparin Sodium (Enoxaparin 60 Mg/0.6 Ml Syringe) 60 mg SQ DAILY [facility] Last Admin: 10/06/22 09:13 Dose: 60 mg Furosemide (Furosemide 20 Mg Tablet) 40 mg PO DAILY [facility] Last Admin: 10/06/22 09:12 Dose: 40 mg Heparin Sodium (Porcine) (Heparin Flush 10 Units/Ml 5 Ml Syringe) 2 ml IV Q12 [facility] Last Admin: 10/06/22 20:33 Dose: 2 ml Ciprofloxacin (Cipro) 400 mg in 200 mls @ 200 mls/hr IV Q12H [facility]; Protocol Last Infusion: 10/06/22 21:40 Dose: Infused Meropenem 0.5 gm/ Sodium (Chloride) 50 mls @ 100 mls/hr IV Q8H [facility]; Protocol Last Admin: 10/07/22 05:28 Dose: 100 mls/hr Magnesium Sulfate 10 meq/Sodium Chloride 40 meq/Potassium Chloride 20 meq/Potassium Phosphate 20 meq/Multivitamins/Minerals 10 ml/Amino Acids 1,037.0085 mls @ 25 mls/hr IV DAILY@1500 [facility] Last Admin: 10/06/22 20:30 Dose: 25 mls/hr Fat Emulsion Intravenous (Intralipid 20%) 250 mls @ 20.833 mls/hr IV MoWeFr [facility] Last Infusion: 10/06/22 20:30 Dose: Infused Insulin Human Lispro (Insulin Lispro 1 Unit/0.01 Ml Unit) 0 unit SQ Q4 [facility]; Protocol Last Admin: 10/07/22 04:58 Dose: Not Given Lisinopril (Lisinopril 5 Mg Tablet) 5 mg PO QDAY [facility] Last Admin: 10/06/22 09:12 Dose: 5 mg Lorazepam (Lorazepam 0.5 Mg Tablet) 0.5 mg PO BIDP PRN PRN Reason: Anxiety Last Admin: 10/05/22 21:28 Dose: 0.5 mg Magnesium Hydroxide (Magnesium Hydroxide 30 Ml Oral.Susp) 30 ml PO DAILYP PRN PRN Reason: Constipation Morphine Sulfate (Morphine 2 Mg/Ml Vial) 0 mg IV Q3HP PRN; Protocol PRN Reason: Per Pain Protocol Last Admin: 10/07/22 03:13 Dose: 2 mg Ondansetron HCl (Ondansetron 4 Mg/2 Ml Vial) 4 mg IV Q6HP PRN PRN Reason: Nausea And Vomiting Last Admin: 10/07/22 03:18 Dose: 4 mg Oxycodone/Acetaminophen (Oxycodone/Apap 5/325mg Tablet) 1 tab PO Q6HP PRN; Protocol PRN Reason: pain (scale score 4-6) Last Admin: 10/07/22 05:28 Dose: 1 tab Pantoprazole Sodium (Pantoprazole 40 Mg Vial) [facility] Last Admin: 10/06/22 07:10 Dose: 40 mg Timolol 5 Ml Drops 1 dose OP BID [facility] Last Admin: 10/06/22 20:33 Dose: Not Given Polyethylene Glycol (Polyethylene Glycol 3350 17 Gm Packet) 17 gm PO TIDP PRN PRN Reason: Constipation Prochlorperazine (Prochlorperazine 10 Mg/2 Ml Vial) 10 mg IV Q4-6HP PRN PRN Reason: Nausea And Vomiting Last Admin: 10/06/22 14:59 Dose: 10 mg Promethazine HCl (Promethazine 50 Mg/Ml Ampul) 12.5 mg IM Q6HP PRN PRN Reason: Nausea And Vomiting Last Admin: 10/06/22 04:38 Dose: 12.5 mg Senna (Sennosides 1 Tablet) 2 tab PO DAILY PRN PRN Reason: Constipation Sodium Chloride (0.9 % Sodium Chloride 10 Ml Syringe) 10 ml IV Q8 [facility] Last Admin: 10/07/22 04:58 Dose: 10 ml Sodium Chloride (0.9 % Sodium Chloride 10 Ml Syringe) 10 ml IV UD PRN PRN Reason: FLUSH Sodium Chloride (0.9 % Sodium Chloride 10 Ml Syringe) 10 ml IV Q12 [facility] Last Admin: 10/06/22 20:33 Dose: 10 ml A/P Narrative A/P Narrative: Assessment and plan: *SBO: no improvement yet -NGT, npo, IVF's -serial imaging and diet per surgery -discussed with Dr. Barton, will place picc and started TPN. pending f/u CT *Acute sigmoid colon diverticulitis w/abscess: -Dr Barton following, no need for surgery at this point - continuing to monitor -abx per surgery -f/u CT did not demonstrate an abscess -leukocytosis worsening, on broad abx, ?reactive *Large hiatal hernia/GERD: Likely contributing to chronic nausea and vomiting -Very large hiatal hernia on CT scan which is increased from before -Protonix *Severe migraine headaches: continue home meds, fiorinal, also on Percocet, on topiramate *h/o CHF: Not in decompensated CHF -restarted home Lasix/spironolactone/Coreg/lisinopril *Paroxysmal A-fib: Rate controlled. Eliquis on hold until surgery ruled out *Hypertension: on lisinopril/coreg *Anxiety/Depression: on Ativan as needed, on sertraline *Hypophos/Hyponatremmia: replete and trend - *Constipation: takes meds at home to have a BM *DVT prophylaxis: lovenox (hold Eliquis until surgery r/o) DNR/DNI Time Spent With Patient Time: Total time spent is greater than 50% in coordination of care (as documented) at patient's floor/unit and/or counseling patient: Subsequent: Total time with patient: 50 - 65 Minutes QUALITY VTE Deep Vein Thrombosis/Pulmonary Embolism Present on Admission: No
[2022-10-07] MEDS: PANTOPRAZOLE 40 MG VIAL IV SCH (08:04)
[2022-10-07] MEDS: DEXTROSE 5%-NS 1,000 ML IV SCH (08:04)
[2022-10-07] MEDS ORDERED: POTASSIUM PHOSPHATE 40 MEQ in DEXTROSE 5% IN WATER 500 ML IV SCH (09:00)
[2022-10-07] MEDS ORDERED: IOPAMIDOL 100 ML BOTTLE IV ONE (09:33)
[2022-10-07] MEDS: CARVEDILOL 3.125 MG TABLET PO SCH ×2 (09:59→20:19)
[2022-10-07] MEDS: FUROSEMIDE 20 MG TABLET PO SCH (09:59)
[2022-10-07] MEDS: ENOXAPARIN 60 MG/0.6 ML SYRINGE SQ SCH (10:00)
[2022-10-07] MEDS: TIMOLOL OP SCH ×2 (10:01→20:00)
[2022-10-07] MEDS: LISINOPRIL 5 MG TABLET PO SCH (10:03)
[2022-10-07] MEDS: CIPROFLOXACIN 400 MG/200 ML BAG IV SCH ×2 (11:29→20:18)
--- NOTE | 2022-10-07 13:45 | Cat Scan Report ---
CLINICAL INFORMATION: Diverticulitis COMPARISON: 10/04/2022 TECHNIQUE: Following enteric contrast, 80 cc of Isovue-370 were injected intravenously, and 60 seconds later, 0.625 mm helical slices were obtained from the mid heart through the subtrochanteric regions. Following reconstruction, 2.5 mm sagittal, coronal and axial reformatted images were processed and reviewed at bone, lung and soft tissue windows. Five minutes later, 0.625 mm helical slices were obtained from the mid heart through the kidneys and viewed at soft tissue windows.The exam was performed using radiation dose optimization techniques including, but not limited to, automated exposure control, adjustment of the mA and/or kV according to patient size and use of iterative reconstruction technique. FINDINGS: Lung bases show small left and tiny right pleural effusions with atelectasis in the medial posterior basilar segment left lower lobe which are new since the comparison exam three days ago. NG tube is been placed and extends through the hernia sac into the distal gastric body. The large hiatal hernia consisting of the gastric fundus and body was undergone organoaxial volvulus is partially decompressed. Heart is mildly enlarged with heavy calcific plaque in the coronary arteries. Pacemaker and leads in stable satisfactory position. Images through the abdomen show mild fatty change within the liver with scattered stable hepatic cysts. Cholecystectomy changes noted. Moderate dilatation of the common bile duct (9 mm) and also the pancreatic duct (4 mm) is compatible with post cholecystectomy papillary stenosis-no change. Pancreatic parenchyma is, otherwise, normal.. Both kidneys, adrenal glands, and spleen are normal in size, attenuation and configuration without focal lesion. Fusiform infrarenal abdominal aortic aneurysm diameter of 3 cm is unchanged. Scattered plaque seen within the aortic branches. No stenoses. Pelvic images show hysterectomy/oophorectomy changes. Urinary bladder is normal. Following NG decompression, the stomach and small bowel are now decompressed and normal caliber. Sigmoid diverticulitis appreciated. The wall thickening of the sigmoid colon perisigmoid phlegmon. There is a 3.7 cm abscess in the left mid stomach sigmoid colon which traverses into the extracolonic fat. This is increased from 2 cm since the previous examination. The colon is moderately dilated suggesting partial distal colonic obstruction related to diverticulitis. Moderate ascites has increased from the previous examination now seen in the perisplenic perihepatic and the peripelvic region. There is no free air or adenopathy. Bone windows show chronic bilateral L5-S1 spondylolysis with grade 1 spondylolisthesis and broad disc protrusion resulting in severe IV foraminal narrowing. There is bilateral exiting L5 nerve root impingement. IMPRESSION: 1. Interval resolution of distal partial small bowel obstruction following NG decompression. 2. Large hiatal hernia consisting of the gastric fundus and body. It is decompressed following NG decompression. 3. Moderate dilatation of the common bile and pancreatic ducts compatible with postcholecystectomy papillary stenosis-no change. 4. 3 cm fusiform infrarenal abdominal aortic aneurysm-stable. 5. Moderate sigmoid diverticulitis with a 3.7 cm abscess in the posterior wall the mid sigmoid colon extending intracolonic fat. This is worsened from prior exam and now resulted in partial distal colonic obstruction Moderate ascites has increased 6. Chronic bilateral L5-S1 spondylolysis and grade 1 spondylolisthesis resulting in severe IV foraminal narrowing and exiting L5 nerve root impingement Interpreted and Authenticated by: Ray Dotson 10/07/22
--- NOTE | 2022-10-07 14:48 | General Surgery Progress Note ---
SUBJECTIVE Subjective Patient information: Note initiated : 10/07/22 at 2:39 pm Service Date, if different from initiated Date: [] Patient: Yadira Lemus 86 y/o F admitted on 10/01/22 for n/v, abd pain. 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 She has crampy abdominal pain and has more distention. She denies having any passage of gas over the past [address] performed earlier today shows high-grade inflammatory stricture in the distal sigmoid colon associated with increased in size of the previous abscess. She has some improvement in decompression of the small bowel with repositioning of the NG tube. It is likely that she will need primary resection but was procedure. Her antibiotics are increased to meropenem 1 g every 8 hours because of significant intraperitoneal infection. Constitutional Vitals: Vital Signs Temp Pulse Resp BP Pulse Ox O2 Del Method 98.6 F 74 20 97/49 94 Room Air 10/07/22 12:45 10/07/22 12:45 10/07/22 12:45 10/07/22 12:45 10/07/22 12:45 10/07/22 12:45 Period Temp Pulse Resp BP Sys/Regalado Pulse Ox O2 Del Method O2 Flow Rate Last 24 Hr 97.1 F-98.8 F 74-96 16-20 97-123/48-70 91-98 Room Air-Room Air Intake and Output 10/07/22 10/07/22 10/07/22 03:59 11:59 19:59 Intake Total 317 200 Output Total 500 700 Balance 317 -500 -500 Weight 145 lb 8 oz Intake & Output: Intake & Output 10/07/22 10/07/22 10/07/22 03:59 11:59 19:59 Intake Total 317 200 Output Total 500 700 Balance 317 -500 -500 Weight 145 lb 8 oz Intake: IV 317 200 Intralipid 20% 250 ml @ 20.833 67 mls/hr IV MoWeFr [facility] Rx#: [id number] Merrem 0.5 gm In Sodium 50 Chloride 0.9% 50 ml @ 100 mls/ hr IV Q8H [facility] Rx#:[id number] Output: Void Amount 500 700 Other: Urine Appearance Clear Clear Urine Color Yellow Yellow Urine Odor Normal Normal # Voids 1 Neck Neck exam: Present normal inspection; Absent lymphadenopathy Respiratory Respiratory exam: Present normal respiratory exam and CTAB Cardiovascular Cardiovascular exam: Present normal rate and rhythm, RRR, +S1 and +S2; Absent gallop GI/Abdominal GI/Abdominal exam: Present normal bowel sounds (Colitis bowel sounds), distended (Distended tenderness; lower abdominal tenderness and left lower quadrant tenderness are prominent) and guarding Extremities Exam Extremities exam: Present full ROM, normal inspection and neurovascular intact; Absent calf tenderness Neurological Exam Neurological exam: Present oriented X3; Absent motor sensory deficit A/P Assessment and plan (1) Diverticulitis of intestine with abscess: Status: Acute (2) Stricture of sigmoid colon: Status: Acute Plan Patient has not clinically improved in the past 2 days. Increased white blood count is worsening. Antibiotics are increased to more effective dose. It is probable that she is going to need Khalil's procedure for decompression of the colon. I will discuss this with Dr. Parnell. Time Spent With Patient Time: Total time spent is greater than 50% in coordination of care (as documented) at patient's floor/unit and/or counseling patient:
[2022-10-07] MEDS ORDERED: MAGNESIUM SULFATE IV SCH ×2 (15:00)
[2022-10-07] MEDS ORDERED: [UNRECOGNIZED DRUG - OTHER] IV SCH (15:00)
[2022-10-07] MEDS ORDERED: SODIUM CHLORIDE IV SCH ×2 (15:00)
[2022-10-07] MEDS ORDERED: [UNRECOGNIZED DRUG - OTHER] IV SCH (15:00)
[2022-10-07] MEDS ORDERED: POTASSIUM CHLORIDE IV SCH ×2 (15:00)
[2022-10-07] MEDS: MEROPENEM 1 GM in 0.9 % SODIUM CHLORIDE 50 ML IV SCH ×2 (15:33→21:43)
[2022-10-07] MEDS: FAT EMULSION 20% 250 ML IV SCH (16:08)
[2022-10-07] MEDS ORDERED: BENZOCAINE 20% 1 SPRAY EACH TOPICAL ONE (17:12)
[2022-10-07] MEDS ORDERED: LIDOCAINE 2% URO-JET 10 ML JEL.PF.APP UR ONE (17:12)
--- NOTE | 2022-10-07 18:58 | XRay Report ---
CLINICAL INFORMATION: NG tube placement COMPARISON: None. FINDINGS: NG tube overlies gastric body. Multiple loops of moderately dilated colon are compatible with partial distal clonic obstruction from known sigmoid diverticulitis. Stomach and small bowel grossly normal. No free air. Moderate hiatal hernia is seen as before. IMPRESSION: NG tube overlying the gastric body. Moderate colonic dilatation bowel compatible with partial distal colonic obstruction due to diverticulitis Interpreted and Authenticated by: Ray Dotson 10/07/22
[2022-10-08] MEDS: INSULIN LISPRO 1 UNIT/0.01 ML UNIT SQ SCH ×6 (01:20→21:09)
[2022-10-08] MEDS: morphine 2 MG/ML VIAL IV PRN ×3 (05:10→21:07)
[2022-10-08] MEDS: MEROPENEM 1 GM in 0.9 % SODIUM CHLORIDE 50 ML IV SCH ×3 (05:10→22:18)
[2022-10-08] MEDS: 0.9 % SODIUM CHLORIDE 10 ML SYRINGE IV SCH ×5 (05:13→20:55)
--- NOTE | 2022-10-08 05:17 | XRay Report ---
CLINICAL INFORMATION: NGT placement confirmation COMPARISON: 10/07/2022 FINDINGS: NG tube overlies the gastric body. Multiple loops of moderately dilated colon show slight decrease in caliber. Stomach and small bowel are decompressed. No free air. IMPRESSION: NG tube overlies the gastric body. Partial distal colonic obstruction pattern slight improvement Interpreted and Authenticated by: Ray Dotson 10/08/22
--- NOTE | 2022-10-08 05:18 | XRay Report ---
CLINICAL INFORMATION: NGT placement COMPARISON: 10/07/2022 FINDINGS: NG tube overlies the gastric body. Stomach and small bowel are decompressed. The colon is mildly dilated to the sigmoid level compatible with partial obstruction due to sigmoid diverticulitis and abscess. No free air. IMPRESSION: Partial distal colonic obstruction due to severe sigmoid diverticulitis no change. NG tube in satisfactory position Interpreted and Authenticated by: Ray Dotson 10/08/22
[2022-10-08] MEDS: DEXTROSE 5%-NS 1,000 ML IV SCH (05:37)
[2022-10-08 06:27] LABS: Basophils # (Auto) 0.05 K/mcL (0.00-0.30); Basophils % (Auto) 0.3 % (0.0-2.0); Eosinophils # (Auto) 0.48 K/mcL (0.00-0.70); Eosinophils % (Auto) 2.8 % (0.0-7.0); Hematocrit 33.5 % (34.1-44.9); Hemoglobin 11.2 g/dL (11.2-15.7); Lymphocytes # (Auto) 2.97 K/mcL (1.50-4.80); Lymphocytes % (Auto) 17.4 % (15.5-49.0); Mean Cell Volume 94.6 fL (80.0-100.0); Mean Corpuscular HGB Conc 33.4 g/dL (31.0-36.0); Mean Platelet Volume 10.4 fL (8.8-12.5); Monocytes # (Auto) 1.55 K/mcL (0.10-0.90); Monocytes % (Auto) 9.1 % (1.0-12.0); Platelet Count 305 K/mcL (140-440); RBC 3.54 M/mcL (3.59-5.38); WBC 17.1 K/mcL (4.5-11.0)
[2022-10-08 07:02] LABS: ALT/SGPT 10 U/L (<40); AST/SGOT 16 U/L (<32); Albumin 2.5 gm/dL (3.2-5.2); Albumin/Globulin Ratio 0.9 (1.0-2.3); Alkaline Phosphatase 29 U/L (39-117); Bilirubin,Direct < 0.2 mg/dL (0-0.3); Bilirubin,Total 0.2 mg/dL (0.1-1.0); Blood Urea Nitrogen 13 mg/dL (8-23); Calcium 8.9 mg/dL (8.6-10.4); Carbon Dioxide 24 mmol/L (22-30); Chloride 101 mmol/L (96-108); Globulin 2.8 gm/dL (2.2-3.7); Glomerular Filtration Rate 65; Glucose 143 mg/dL (70-105); Lactate Dehydrogenase 240 U/L (135-225); Triglycerides 93 mg/dL (<150); Uric Acid 5.1 mg/dL (2.5-8.0)
[2022-10-08] MEDS: PANTOPRAZOLE 40 MG VIAL IV SCH (07:13)
--- NOTE | 2022-10-08 07:24 | Internal Med Progress Note ---
SUBJECTIVE Subjective Patient information: Note initiated : 10/08/22 at 7:21 am Service Date, if different from initiated Date: [] Patient: Yadira Lemus a 86 y/o F admitted on 10/01/22 for n/v, abd pain. 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 Lemus is a 86 year old female with past medical history including hiatal hernia, sigmoid diverticulosis, migraine headaches, paroxysmal atrial fibrillation, idiopathic cardiomyopathy with preserved EF, CHF, LBBB status post biventricular pacemaker, anxiety and depression presented with constellation of symptoms which have been going on for about 2 to 3 weeks. Patient has chronic headaches due to migraine and chronic nausea and vomiting secondary to her big hiatal hernia. Her daughter is the main contributor to history. She convinced her today to present to ER. Patient presents with headache, nausea and vomiting with mild low abdominal pain and reduced appetite. Her daughter also reported generalized weakness. Patient reports no fever or chills. On presentation vitals are stable CT abdomen and pelvis with contrast showed acute sigmoid colon diverticulitis with a small around 2cm associated abscess. Prominent fecal matter within the cecum and ascending colon consistent with constipation. CBC with elevated WBC 16,000. Renal functions and electrolytes stable. Liver function pending. CT head without any acute finding. 10/02 Patient states she slept okay. Abdominal pain present but improving, described as lower quadrants and crampy. She also feels constipated and says she does not have bowel movements at home unless she takes something. Leukocytosis present but mildly improved. Hypophosphatemia, trend and replete. Seen by surgery and will continue conservative management with antibiotics for now. 10/03 Patient sitting up in chair eating breakfast. Has abdominal pain but says it is slowly improving. Has some nausea but no vomiting. Persistent leukocytosis. Pending manual differential no fevers. Surgery following 10/04 Patient states she feels similar to yesterday other than some continued nausea. And lower quadrant achy abdominal pain which she cannot relate whether it is worse or not from yesterday. Worsening leukocytosis. Repeat CT abdomen pelvis pending. Patient states she has not had a bowel movement yet. >>CT a/p did not demonstrate any abscess and did not note diverticulitis but did show a small bowel obstruction. Dr. barton aware and did order for NG tube placement and n.p.o. status for now. 10/05 Patient feels less nauseous than previously. Decreasing abdominal pain. She is not passing any gas or bowel movements yet however. NG tube in place. N.p.o. with IV fluids maintenance. Hyponatremia and change D5 half NS to D5 NS. 10/06 Patient feels worse today with increased nausea abdominal pain and distention. No BMs or flatus overnight. Abdominal film follow-up pending. Hypophosphatemia will replace through IV. Surgery following. 10/07 Patient states she thinks she feels a little bit better today but then says her nausea is the same as yesterday and her abdominal pain is same as yesterday. She has not had any bowel movements or flatus. Follow-up CT per surgery is pending. White blood cell count is elevated again. 10/08 Patient complains of nausea and feeling crummy abdominal pain but no worse than yesterday. Patient n.p.o. on maintenance fluids for likely surgical repair tomorrow. Daughter at bedside. Review of Systems: denies headache/fever/chills/vomiting/chest pain/cough/dyspnea/diarrhea. Otherwise see above. PHYSICAL EXAM General: Alert, Awake, No acute Distress Eyes/N/T: EOMI, no scleral icterus, Head/Neck: neck supple, full ROM, CV: regular today, 2/6SM, Pulm: Clear b/l, no wheezing/rhonchi/rales, no respiratory distress Abd: tender throughout, distended, decreased BS x4 but tympanic sounds Ext: no clubbing/cyanosis, mild b/l LE edema, nontender Neuro: Alert, no focal deficits, moves all extremities, sensations intact b/l upper/lower Psychiatric: Skin: warm/dry, normal color Constitutional Vitals: Vital Signs Temp Pulse Resp BP Pulse Ox O2 Del Method 97.3 F 83 18 111/52 94 Room Air 10/08/22 04:00 10/08/22 04:00 10/08/22 04:00 10/08/22 04:00 10/08/22 04:00 10/08/22 04:00 Period Temp Pulse Resp BP Sys/Regalado Pulse Ox O2 Del Method O2 Flow Rate Last 24 Hr 97.3 F-98.6 F 74-94 18-20 97-111/48-60 92-94 Room Air-Room Air Intake and Output 10/07/22 10/08/22 10/08/22 19:59 03:59 11:59 Intake Total 809.0909 300 250 Output Total 1700 350 20 Balance -890.9091 -50 230 Weight 65.998 kg Intake & Output: Intake & Output 10/07/22 10/08/22 10/08/22 19:59 03:59 11:59 Intake Total 809.0909 300 250 Output Total 1700 350 20 Balance -890.9091 -50 230 Weight 65.998 kg Intake: IV 759.0909 300 250 Intralipid 20% 250 ml @ 20.833 250 mls/hr IV Tu[facility]Sa [facility] Rx#: [id number] Merrem 0.5 gm In Sodium 50 100 Chloride 0.9% 50 ml @ 100 mls/ hr IV Q8H [facility] Rx#:[id number] Potassium Phosphate 40 Meq In 509.0909 Dextrose 5% in Water 500 ml @ 127.273 mls/hr IV ONCE [facility] Rx#: [id number] GI Tube Flush 50 Output: Void Amount 1700 350 20 Other: Meal npo Urine Appearance Clear Clear Clear Urine Color Yellow Yellow Yellow Urine Odor Normal OBJ DATA Labs 10/08/22 05:32 10/08/22 05:32 Labs: Abnormal Lab Results 10/08/22 10/08/22 10/07/22 05:32 05:32 05:50 WBC 17.1 H RBC 3.54 L Hct 33.5 L [place] # (Auto) 1.55 H Seg Neutrophils % Immature Gran # 0.06 H Absolute Neutrophils 11.99 H Platelet Estimate Sodium 131 L Anion Gap 7.0 L Glucose 143 H 127 H Phosphorus 2.0 L 1.6 L Direct Bilirubin 0.3 H GGT 40 H Alkaline Phosphatase 29 L 31 L Lactate Dehydrogenase 240 H 276 H Total Protein 5.3 L Albumin 2.5 L 2.7 L Albumin/Globulin Ratio 0.9 L 0.8 L 10/07/22 10/06/22 10/06/22 05:50 14:11 05:50 WBC 22.3 H 19.1 H RBC Hct [place] # (Auto) 1.90 H 1.70 H Seg Neutrophils % Immature Gran # 0.11 H 0.08 H Absolute Neutrophils 15.36 H 13.58 H Platelet Estimate Sodium Anion Gap 7.0 L Glucose 117 H Phosphorus Direct Bilirubin GGT Alkaline Phosphatase 27 L Lactate Dehydrogenase 244 H Total Protein 5.8 L Albumin 2.8 L Albumin/Globulin Ratio 0.9 L 10/06/22 10/06/22 10/05/22 05:49 05:49 05:57 WBC RBC Hct [place] # (Auto) Seg Neutrophils % 80 H Immature Gran # Absolute Neutrophils Platelet Estimate Increased A Sodium Anion Gap Glucose 120 H Phosphorus 1.5 L Direct Bilirubin GGT Alkaline Phosphatase 24 L Lactate Dehydrogenase 247 H Total Protein 5.5 L Albumin 2.7 L Albumin/Globulin Ratio Meds: Medications Acetaminophen/Butalbital/Caffeine (Butalb/Acetaminophen/Caffeine 1 Tablet) 1 tab PO Q4HP PRN PRN Reason: pain Last Admin: 10/06/22 09:17 Dose: 1 tab Bisacodyl (Bisacodyl 10 Mg Supp.Rect) 10 mg DE Q2-3DAYS PRN PRN Reason: Constipation Last Admin: 10/07/22 03:13 Dose: 10 mg Carvedilol (Carvedilol 3.125 Mg Tablet) 3.125 mg PO BID [facility] Last Admin: 10/07/22 20:19 Dose: 3.125 mg Diagnostic Test (Pha) (Accu-Chek 1 Each Strip) 1 each FS Q4 [facility]; Protocol Last Admin: 10/08/22 07:13 Dose: 1 each Furosemide (Furosemide 20 Mg Tablet) 40 mg PO DAILY [facility] Last Admin: 10/07/22 09:59 Dose: 40 mg Heparin Sodium (Porcine) (Heparin Flush 10 Units/Ml 5 Ml Syringe) 2 ml IV Q12 [facility] Last Admin: 10/07/22 19:47 Dose: Not Given Ciprofloxacin (Cipro) 400 mg in 200 mls @ 200 mls/hr IV Q12H [facility]; Protocol Last Infusion: 10/07/22 21:43 Dose: Infused Dextrose/Sodium Chloride (Dextrose 5%-Ns Iv Solution) 1,000 mls @ 50 mls/hr IV .Q20H [facility] Last Admin: 10/08/22 05:37 Dose: Not Given Fat Emulsion Intravenous (Intralipid 20%) 250 mls @ 20.833 mls/hr IV [facility] Last Infusion: 10/08/22 04:10 Dose: Infused Meropenem 1 gm/ Sodium (Chloride) 50 mls @ 100 mls/hr IV Q8H [facility]; Protocol Last Admin: 10/08/22 05:10 Dose: 100 mls/hr Magnesium Sulfate 10 meq/Sodium Chloride 40 meq/Potassium Chloride 20 meq/Potassium Phosphate 20 meq/Multivitamins/Minerals 10 ml/Amino Acids 1,037.0085 mls @ 40 mls/hr IV DAILY@1500 [facility] Last Admin: 10/07/22 15:34 Dose: 40 mls/hr Insulin Human Lispro (Insulin Lispro 1 Unit/0.01 Ml Unit) 0 unit SQ Q4 [facility]; Protocol Last Admin: 10/08/22 07:13 Dose: 1 unit Lisinopril (Lisinopril 5 Mg Tablet) 5 mg PO QDAY [facility] Last Admin: 10/07/22 10:03 Dose: 5 mg Lorazepam (Lorazepam 0.5 Mg Tablet) 0.5 mg PO BIDP PRN PRN Reason: Anxiety Last Admin: 10/05/22 21:28 Dose: 0.5 mg Magnesium Hydroxide (Magnesium Hydroxide 30 Ml Oral.Susp) 30 ml PO DAILYP PRN PRN Reason: Constipation Morphine Sulfate (Morphine 2 Mg/Ml Vial) 0 mg IV Q3HP PRN; Protocol PRN Reason: Per Pain Protocol Last Admin: 10/08/22 05:10 Dose: 2 mg Ondansetron HCl (Ondansetron 4 Mg/2 Ml Vial) 4 mg IV Q6HP PRN PRN Reason: Nausea And Vomiting Last Admin: 10/07/22 03:18 Dose: 4 mg Oxycodone/Acetaminophen (Oxycodone/Apap 5/325mg Tablet) 1 tab PO Q6HP PRN; Protocol PRN Reason: pain (scale score 4-6) Last Admin: 10/07/22 20:18 Dose: 1 tab Pantoprazole Sodium (Pantoprazole 40 Mg Vial) 40 mg IV QAMAC [facility] Last Admin: 10/08/22 07:13 Dose: 40 mg Timolol 5 Ml Drops 1 dose OP BID [facility] Last Admin: 10/07/22 20:00 Dose: Not Given Polyethylene Glycol (Polyethylene Glycol 3350 17 Gm Packet) 17 gm PO TIDP PRN PRN Reason: Constipation Prochlorperazine (Prochlorperazine 10 Mg/2 Ml Vial) 10 mg IV Q4-6HP PRN PRN Reason: Nausea And Vomiting Last Admin: 10/06/22 14:59 Dose: 10 mg Promethazine HCl (Promethazine 50 Mg/Ml Ampul) 12.5 mg IM Q6HP PRN PRN Reason: Nausea And Vomiting Last Admin: 10/06/22 04:38 Dose: 12.5 mg Senna (Sennosides 1 Tablet) 2 tab PO DAILY PRN PRN Reason: Constipation Sodium Chloride (0.9 % Sodium Chloride 10 Ml Syringe) 10 ml IV Q8 [facility] Last Admin: 10/08/22 05:13 Dose: Not Given Sodium Chloride (0.9 % Sodium Chloride 10 Ml Syringe) 10 ml IV UD PRN PRN Reason: FLUSH Sodium Chloride (0.9 % Sodium Chloride 10 Ml Syringe) 10 ml IV Q12 [facility] Last Admin: 10/07/22 20:19 Dose: Not Given A/P Narrative A/P Narrative: Assessment and plan: *SBO(?resolved) & now LBO: no improvement yet -NGT, npo, IVF's / TPN -serial imaging and diet per surgery -Surgery following, -possibly to OR today vs tomorrow *Acute sigmoid colon diverticulitis w/abscess: -Dr Barton following, no need for surgery at this point - continuing to monitor -abx per surgery -f/u CT with 3.7cm abscess -leukocytosis *Large hiatal hernia/GERD: Likely contributing to chronic nausea and vomiting -Very large hiatal hernia on CT scan which is increased from before -Protonix *Severe migraine headaches: continue home meds, fiorinal, also on Percocet, on topiramate *h/o CHF: Not in decompensated CHF -restarted home Lasix/spironolactone/Coreg/lisinopril *Paroxysmal A-fib: Rate controlled. Eliquis on hold until surgery ruled out *Hypertension: on lisinopril/coreg *Anxiety/Depression: on Ativan as needed, on sertraline *Hypophos/Hyponatremmia: replete and trend - *Constipation: takes meds at home to have a BM *DVT prophylaxis: SCD (chemical on hold for potential surgery) DNR/DNI Time Spent With Patient Time: Total time spent is greater than 50% in coordination of care (as documented) at patient's floor/unit and/or counseling patient: Subsequent: Total time with patient: 50 - 65 Minutes QUALITY VTE Deep Vein Thrombosis/Pulmonary Embolism Present on Admission: No
[2022-10-08] MEDS ORDERED: BENZOCAINE 20% 1 SPRAY EACH TOPICAL ONE (07:38)
[2022-10-08] MEDS ORDERED: LIDOCAINE 2% URO-JET 10 ML JEL.PF.APP UR ONE (07:38)
[2022-10-08] MEDS: 0.9 % SODIUM CHLORIDE 1,000 ML IV SCH (08:50)
[2022-10-08] MEDS: CARVEDILOL 3.125 MG TABLET PO SCH ×2 (09:00→20:53)
[2022-10-08] MEDS: CIPROFLOXACIN 400 MG/200 ML BAG IV SCH ×2 (09:00→20:58)
[2022-10-08] MEDS: FUROSEMIDE 20 MG TABLET PO SCH (09:01)
[2022-10-08] MEDS: LISINOPRIL 5 MG TABLET PO SCH (09:01)
[2022-10-08] MEDS: TIMOLOL OP SCH ×2 (09:01→20:55)
[2022-10-08] MEDS ORDERED: POTASSIUM PHOSPHATE 40 MEQ in DEXTROSE 5% IN WATER 500 ML IV SCH (13:45)
--- NOTE | 2022-10-08 14:12 | General Surgery Progress Note ---
SUBJECTIVE Subjective Patient information: Note initiated : 10/08/22 at 2:08 pm Service Date, if different from initiated Date: [] Patient: Yadira Lemus 86 y/o F admitted on 10/01/22 for n/v, abd pain. 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 Nasogastric tube output is minimal. She had misinterpretation of her x-rays last evening and nasogastric tube was removed because the reading radiologist stated that the nasogastric tube was in the lung. In retrospect the nasogastric tube was in her stomach that is part of hiatal hernia in the left chest. Patient is clinically stable otherwise. White blood count 17.1 hemoglobin 11.2 hematocrit 33.5. BUN/creatinine and potassium are normal. Phosphorus is mildly decreased at 2. Constitutional Vitals: Vital Signs Temp Pulse Resp BP Pulse Ox O2 Del Method 98.8 F 82 16 116/52 93 Room Air 10/08/22 12:00 10/08/22 12:00 10/08/22 12:00 10/08/22 12:00 10/08/22 12:00 10/08/22 12:00 Period Temp Pulse Resp BP Sys/Regalado Pulse Ox O2 Del Method O2 Flow Rate Last 24 Hr 97.3 F-99.2 F 82-94 16-20 99-116/52-62 92-94 Room Air-Room Air Intake and Output 10/08/22 10/08/22 10/08/22 03:59 11:59 19:59 Intake Total 300 1200 Output Total 350 370 Balance -50 830 Weight 145 lb 8 oz Intake & Output: Intake & Output 10/08/22 10/08/22 10/08/22 03:59 11:59 19:59 Intake Total 300 1200 Output Total 350 370 Balance -50 830 Weight 145 lb 8 oz Intake: IV 300 1200 Dextrose 5%-Ns IV Solution 1, 700 000 ml @ 50 mls/hr IV .Q20H [facility] Rx#:[id number] Intralipid 20% 250 ml @ 20.833 250 mls/hr IV TuThSa [facility] Rx#: [id number] Merrem 1 gm In Sodium Chloride 100 50 0.9% 50 ml @ 100 mls/hr IV Q8H [facility] Rx#:[id number] Output: Urine Catheter Amount 350 Void Amount 350 20 Other: Urine Appearance Clear Clear Uretheral (Peña) Clear Urine Color Yellow Yellow Uretheral (Peña) Yellow Neck Neck exam: Present normal inspection; Absent lymphadenopathy Respiratory Respiratory exam: Present normal respiratory exam and CTAB Cardiovascular Cardiovascular exam: Present normal rate and rhythm, RRR, +S1 and +S2; Absent gallop GI/Abdominal GI/Abdominal exam: Present normal bowel sounds (Colitis bowel sounds), distended (Distended tenderness; lower abdominal tenderness and left lower quadrant tenderness are prominent) and guarding Extremities Exam Extremities exam: Present full ROM, normal inspection and neurovascular intact; Absent calf tenderness Neurological Exam Neurological exam: Present oriented X3; Absent motor sensory deficit A/P Assessment and plan (1) Stricture of sigmoid colon: Status: Acute (2) Diverticulitis of intestine with abscess: Status: Acute (3) Hiatal hernia: Status: Acute Plan Patient is not clinically improved and will need to have Khalil's procedure during this admission. I will leave final decision up to Dr. Parnell will see her tomorrow. She is informed that she will probably need to have surgery. Potassium phosphate is replaced Sepsis Sepsis Identified: No Time Spent With Patient Time: Total time spent is greater than 50% in coordination of care (as documented) at patient's floor/unit and/or counseling patient:
--- NOTE | 2022-10-08 14:12 | XRay Report ---
CLINICAL INFORMATION: check placement of NG tube COMPARISON: 10/07/2022 FINDINGS: NG tube appears to traverse the known hiatal hernia within the tip within the expected gastric antral region below the diaphragm. The colon is moderately dilated compatible with partial obstruction due to sigmoid diverticulitis and/or ileus. Stomach and small bowel are decompressed. No free air. IMPRESSION: NG tube in satisfactory position in the expected location of the gastric antrum the subdiaphragmatic region. Mild colonic dilatation bowel compatible with partial colonic obstruction due to sigmoid diverticulitis and/ or ileus Interpreted and Authenticated by: Ray Dotson 10/08/22
[2022-10-08] MEDS ORDERED: MAGNESIUM SULFATE IV SCH (15:00)
[2022-10-08] MEDS ORDERED: [UNRECOGNIZED DRUG - OTHER] IV SCH (15:00)
[2022-10-08] MEDS ORDERED: POTASSIUM CHLORIDE IV SCH (15:00)
[2022-10-08] MEDS ORDERED: SODIUM CHLORIDE IV SCH (15:00)
--- NOTE | 2022-10-08 20:39 | EKG ---
[facility] Test Date: 2022-10-07 Pat Name: Yadira Lemus Department: [facility] Room: 111 Gender: Female Video Production Coordinator: : [id number] Requested By: Jon Pedraza Order Number: [id number] Reading MD: Louis Tapia Measurements Intervals [place] Rate: 84 P: 0 MN: 62 QRS: -5 QRSD: 153 T: 213 QT: 400 QTc: 472 Interpretive Statements Ventricular-paced rhythm No further analysis attempted due to paced rhythm Electronically Signed On 10-08-2022 20:38:51 PDT by Louis Tapia /store/[email or web address]/[id number]
[2022-10-09] MEDS: morphine 2 MG/ML VIAL IV PRN ×4 (00:56→22:44)
[2022-10-09] MEDS: INSULIN LISPRO 1 UNIT/0.01 ML UNIT SQ SCH ×6 (01:03→20:23)
[2022-10-09] MEDS: BUTALB/ACETAMINOPHEN/CAFFEINE 1 TABLET PO PRN (03:47)
[2022-10-09] MEDS: BISACODYL 10 MG SUPP.RECT PR PRN (04:10)
[2022-10-09] MEDS: ONDANSETRON 4 MG/2 ML VIAL IV PRN ×2 (04:17→22:01)
[2022-10-09] MEDS: 0.9 % SODIUM CHLORIDE 1,000 ML IV SCH ×3 (04:18→22:54)
[2022-10-09] MEDS: 0.9 % SODIUM CHLORIDE 10 ML SYRINGE IV SCH ×5 (04:18→20:10)
[2022-10-09] MEDS: MEROPENEM 1 GM in 0.9 % SODIUM CHLORIDE 50 ML IV SCH ×3 (05:19→21:58)
[2022-10-09 06:45] LABS: Basophils # (Auto) 0.06 K/mcL (0.00-0.30); Basophils % (Auto) 0.3 % (0.0-2.0); Eosinophils # (Auto) 0.31 K/mcL (0.00-0.70); Eosinophils % (Auto) 1.6 % (0.0-7.0); Hematocrit 34.8 % (34.1-44.9); Hemoglobin 11.5 g/dL (11.2-15.7); Lymphocytes # (Auto) 2.98 K/mcL (1.50-4.80); Lymphocytes % (Auto) 15.4 % (15.5-49.0); Mean Cell Volume 94.1 fL (80.0-100.0); Mean Platelet Volume 10.2 fL (8.8-12.5); Monocytes # (Auto) 1.75 K/mcL (0.10-0.90); Monocytes % (Auto) 9.1 % (1.0-12.0); Neutrophils % (Auto) 73.2 % (38.0-78.0); Platelet Count 320 K/mcL (140-440); Red Cell Distribution Width 12.8 % (11.5-14.5); WBC 19.3 K/mcL (4.5-11.0)
[2022-10-09 07:04] LABS: Prealbumin 9.1 mg/dL (20.0-40.0)
[2022-10-09 07:05] LABS: ALT/SGPT 11 U/L (<40); AST/SGOT 16 U/L (<32); Albumin 2.5 gm/dL (3.2-5.2); Albumin/Globulin Ratio 0.8 (1.0-2.3); Alkaline Phosphatase 34 U/L (39-117); Bilirubin,Direct < 0.2 mg/dL (0-0.3); Bilirubin,Total 0.4 mg/dL (0.1-1.0); Blood Urea Nitrogen 14 mg/dL (8-23); Carbon Dioxide 23 mmol/L (22-30); Chloride 100 mmol/L (96-108); Glomerular Filtration Rate 81; Glucose 154 mg/dL (70-105); Lactate Dehydrogenase 277 U/L (135-225); Phosphorous 2.1 mg/dL (2.5-4.5); Triglycerides 102 mg/dL (<150); Uric Acid 3.3 mg/dL (2.5-8.0)
[2022-10-09] MEDS: PANTOPRAZOLE 40 MG VIAL IV SCH (07:22)
[2022-10-09] MEDS: CIPROFLOXACIN 400 MG/200 ML BAG IV SCH ×2 (08:34→20:23)
[2022-10-09] MEDS: PROCHLORPERAZINE 10 MG/2 ML VIAL IV PRN (08:35)
--- NOTE | 2022-10-09 09:08 | XRay Report ---
HISTORY: Dental pain, nausea, vomiting, distended bowel FINDINGS: There is large amount of gas throughout the large intestine with dilatation of the cecum, which measures close to 15 cm in diameter. This does not have the appearance of a cecal volvulus. There is also gas in small intestine which is upper limits of normal caliber. There is some air and stool in the rectum. No gross free intra-abdominal air is seen on this supine study. Nasogastric tube is positioned within a decompressed stomach. There are clips in the gallbladder fossa. Comparison with the prior x-ray done on 10/08/22 shows little change. IMPRESSION: Distended large bowel and mildly distended small bowel. The pattern is more likely due to ileus rather than a distal large bowel obstruction. Interpreted and Authenticated by: Tirso Cannon 10/09/22
[2022-10-09] MEDS: FUROSEMIDE 20 MG TABLET PO SCH (09:28)
[2022-10-09] MEDS: CARVEDILOL 3.125 MG TABLET PO SCH ×2 (09:28→19:55)
[2022-10-09] MEDS: TIMOLOL OP SCH ×2 (09:29→19:55)
[2022-10-09] MEDS: LISINOPRIL 5 MG TABLET PO SCH (09:34)
--- NOTE | 2022-10-09 09:52 | General Surgery Progress Note ---
SUBJECTIVE Subjective Patient information: Note initiated : 10/09/22 at 9:48 am Service Date, if different from initiated Date: [] Patient: Yadira Lemus 86 y/o F admitted on 10/01/22 for n/v, abd pain. 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 Constitutional Vitals: Vital Signs Temp Pulse Resp BP Pulse Ox O2 Del Method 98.4 F 95 H 22 132/64 93 Room Air 10/09/22 07:56 10/09/22 07:56 10/09/22 07:56 10/09/22 07:56 10/09/22 07:56 10/09/22 07:56 Period Temp Pulse Resp BP Sys/Regalado Pulse Ox O2 Del Method O2 Flow Rate Last 24 Hr 97.9 F-99.5 F 82-100 16-22 114-132/52-69 91-93 Room Air-Room Air Intake and Output 10/08/22 10/09/22 10/09/22 19:59 03:59 11:59 Intake Total 1487.0085 250 Output Total 600 1100 Balance 887.0085 -850 Weight 144 lb 8 oz Intake & Output: Intake & Output 10/08/22 10/09/22 10/09/22 19:59 03:59 11:59 Intake Total 1487.0085 250 Output Total 600 1100 Balance 887.0085 -850 Weight 144 lb 8 oz Intake: IV 1087.0085 250 Magnesium Sulfate 10 Meq Sodium 1037.0085 Chloride 40 Meq Potassium Chloride 20 Meq Potassium Phosphate 20 Meq Infuvite Adult 10 ml In Clinimix 5%-20% Solution 1,000 ml @ 40 mls/hr IV DAILY@1500 [facility] Rx#:[id number] Merrem 1 gm In Sodium Chloride 50 50 0.9% 50 ml @ 100 mls/hr IV Q8H [facility] Rx#:[id number] TPN/PPN 400 Output: Gastric Drainage 125 Left Nare NG/OG 125 Urine Catheter Amount 475 1100 Other: Meal npo Percent of Meal Consumed npo Urine Appearance Clear Clear Uretheral (Peña) Clear Urine Color Yellow Yellow Uretheral (Peña) Yellow Urine Odor Normal Uretheral (Peña) Normal Exam: awake, conversant, NAD Respiratory Respiratory exam: Present normal respiratory exam Cardiovascular Cardiovascular exam: Present normal rate and rhythm and RRR GI/Abdominal Additional comments: distended, minimally tender, NGT in place Extremities Exam Additional comments: well perfused A/P Assessment and plan (1) Sigmoid diverticulitis: Assessment and plan: Sigmoid Diverticulitis with Abscess and associated Partial High Grade Colonic Obstruction In the absence of timely percutaneous abscess drainage options, I recommend proceeding to the OR [facility] today for Abdominal Exploration, Drainage, and Diverting Colostomy with or without Sigmoid Resection Risks, benefits, potential complications and alternative treatment options are all reviewed at length with her daughter today including need for almost certain permanent End Colostomy in this situation along with other issues such as bleeding, infection, injury to surrounding structures, possible need for additional procedures, drain placement and others as well along with option for transfer to a higher level of care but uncertainty with how expeditiously that might be able to happen They would like to proceed and we will alert the OR right away this AM Status: Acute Time Spent With Patient Time: Total time spent is greater than 50% in coordination of care (as documented) at patient's floor/unit and/or counseling patient:
[2022-10-09] MEDS ORDERED: 0.9 % SODIUM CHLORIDE 250 ML IV SCH (10:45)
--- NOTE | 2022-10-09 11:47 | Internal Med Progress Note ---
SUBJECTIVE Subjective Patient information: Note initiated : 10/09/22 at 11:44 am Service Date, if different from initiated Date: [] Patient: Yadira Lemus a 86 y/o F admitted on 10/01/22 for n/v, abd pain. 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 Lemus is a 86 year old female with past medical history including hiatal hernia, sigmoid diverticulosis, migraine headaches, paroxysmal atrial fibrillation, idiopathic cardiomyopathy with preserved EF, CHF, LBBB status post biventricular pacemaker, anxiety and depression presented with constellation of symptoms which have been going on for about 2 to 3 weeks. Patient has chronic headaches due to migraine and chronic nausea and vomiting secondary to her big hiatal hernia. Her daughter is the main contributor to history. She convinced her today to present to ER. Patient presents with headache, nausea and vomiting with mild low abdominal pain and reduced appetite. Her daughter also reported generalized weakness. Patient reports no fever or chills. On presentation vitals are stable CT abdomen and pelvis with contrast showed acute sigmoid colon diverticulitis with a small around 2cm associated abscess. Prominent fecal matter within the cecum and ascending colon consistent with constipation. CBC with elevated WBC 16,000. Renal functions and electrolytes stable. Liver function pending. CT head without any acute finding. 10/02 Patient states she slept okay. Abdominal pain present but improving, described as lower quadrants and crampy. She also feels constipated and says she does not have bowel movements at home unless she takes something. Leukocytosis present but mildly improved. Hypophosphatemia, trend and replete. Seen by surgery and will continue conservative management with antibiotics for now. 10/03 Patient sitting up in chair eating breakfast. Has abdominal pain but says it is slowly improving. Has some nausea but no vomiting. Persistent leukocytosis. Pending manual differential no fevers. Surgery following 10/04 Patient states she feels similar to yesterday other than some continued nausea. And lower quadrant achy abdominal pain which she cannot relate whether it is worse or not from yesterday. Worsening leukocytosis. Repeat CT abdomen pelvis pending. Patient states she has not had a bowel movement yet. >>CT a/p did not demonstrate any abscess and did not note diverticulitis but did show a small bowel obstruction. Dr. barton aware and did order for NG tube placement and n.p.o. status for now. 10/05 Patient feels less nauseous than previously. Decreasing abdominal pain. She is not passing any gas or bowel movements yet however. NG tube in place. N.p.o. with IV fluids maintenance. Hyponatremia and change D5 half NS to D5 NS. 10/06 Patient feels worse today with increased nausea abdominal pain and distention. No BMs or flatus overnight. Abdominal film follow-up pending. Hypophosphatemia will replace through IV. Surgery following. 10/07 Patient states she thinks she feels a little bit better today but then says her nausea is the same as yesterday and her abdominal pain is same as yesterday. She has not had any bowel movements or flatus. Follow-up CT per surgery is pending. White blood cell count is elevated again. 10/08 Patient complains of nausea and feeling crummy abdominal pain but no worse than yesterday. Patient n.p.o. on maintenance fluids for likely surgical repair frieda rrow. Daughter at bedside. 10/09 Patient reported she was waiting for surgery. She reported she has not had a bowel movement or passing gas since she is in the hospital. She reports no nausea or vomiting she does have NG tube in. Review of Systems: Reports constipation, denies headache/fever/chills/vomiting/chest pain/cough/dyspnea/diarrhea. Otherwise see above. PHYSICAL EXAM General: Alert, awake, sitting up, nontoxic appearance Eyes/N/T: EOMI, no scleral icterus, Head/Neck: neck supple, full ROM, CV: regular today, 2/6SM, Pulm: Clear b/l, no wheezing/rhonchi/rales, no respiratory distress Abd: Mild to moderately distended, mild diffuse tenderness, no rebound or rigidity, some bowel sounds present Ext: no clubbing/cyanosis, mild b/l LE edema, nontender Neuro: Alert, no focal deficits, moves all extremities, sensations intact b/l upper/lower Psychiatric: Appropriate mood and affect Skin: warm/dry, normal color *SBO(?resolved) & now LBO: no improvement yet -NGT, npo, IVF's / TPN -serial imaging and diet per surgery -Surgery following, possible OR today or tomorrow - *Acute sigmoid colon diverticulitis w/abscess: -Dr Barton following, no need for surgery at this point - continuing to monitor -abx per surgery -f/u CT with 3.7cm abscess -leukocytosis *Large hiatal hernia/GERD: Likely contributing to chronic nausea and vomiting -Very large hiatal hernia on CT scan which is increased from before -Protonix *Severe migraine headaches: continue home meds, fiorinal, also on Percocet, on topiramate *h/o CHF: Not in decompensated CHF -restarted home Lasix/spironolactone/Coreg/lisinopril *Paroxysmal A-fib: Rate controlled. Eliquis on hold until surgery ruled out *Hypertension: on lisinopril/coreg *Anxiety/Depression: on Ativan as needed, on sertraline *Hypophos/Hyponatremmia: replete and trend - *Constipation: takes meds at home to have a BM *DVT prophylaxis: SCD (chemical on hold for potential surgery) DNR/DNI Total time taken > 50 minutes Constitutional Vitals: Vital Signs Temp Pulse Resp BP Pulse Ox O2 Del Method 98.4 F 95 H 22 132/64 93 Room Air 10/09/22 07:56 10/09/22 07:56 10/09/22 07:56 10/09/22 07:56 10/09/22 07:56 10/09/22 07:56 Period Temp Pulse Resp BP Sys/Regalado Pulse Ox O2 Del Method O2 Flow Rate Last 24 Hr 97.9 F-99.5 F 82-100 16-22 114-132/52-69 91-93 Room Air-Room Air Intake and Output 10/08/22 10/09/22 10/09/22 19:59 03:59 11:59 Intake Total 1487.0085 250 250 Output Total 600 1100 Balance 887.0085 -850 250 Weight 65.544 kg Intake & Output: Intake & Output 10/08/22 10/09/22 10/09/22 19:59 03:59 11:59 Intake Total 1487.0085 250 250 Output Total 600 1100 Balance 887.0085 -850 250 Weight 65.544 kg Intake: IV 1087.0085 250 250 Magnesium Sulfate 10 Meq Sodium 1037.0085 Chloride 40 Meq Potassium Chloride 20 Meq Potassium Phosphate 20 Meq Infuvite Adult 10 ml In Clinimix 5%-20% Solution 1,000 ml @ 40 mls/hr IV DAILY@1500 [facility] Rx#:[id number] Merrem 1 gm In Sodium Chloride 50 50 50 0.9% 50 ml @ 100 mls/hr IV Q8H [facility] Rx#:[id number] TPN/PPN 400 Output: Gastric Drainage 125 Left Nare NG/OG 125 Urine Catheter Amount 475 1100 Other: Meal npo Percent of Meal Consumed npo Urine Appearance Clear Clear Uretheral (Peña) Clear Urine Color Yellow Yellow Uretheral (Peña) Yellow Urine Odor Normal Uretheral (Peña) Normal OBJ DATA Labs 10/09/22 05:29 10/09/22 05:29 Labs: Abnormal Lab Results 10/09/22 10/09/22 10/08/22 05:29 05:29 05:32 WBC 19.3 H 17.1 H RBC 3.54 L Hct 33.5 L Lymph % (Auto) 15.4 L Talbot # (Auto) 1.75 H 1.55 H Immature Gran # 0.08 H 0.06 H Absolute Neutrophils 14.11 H 11.99 H Sodium 130 L Anion Gap 7.0 L Glucose 154 H Phosphorus 2.1 L Direct Bilirubin GGT 43 H Alkaline Phosphatase 34 L Lactate Dehydrogenase 277 H Total Protein 5.5 L Albumin 2.5 L Albumin/Globulin Ratio 0.8 L Prealbumin 9.1 L 10/08/22 10/07/22 10/07/22 05:32 05:50 05:50 WBC 22.3 H RBC Hct Lymph % (Auto) Talbot # (Auto) 1.90 H Immature Gran # 0.11 H Absolute Neutrophils 15.36 H Sodium 131 L Anion Gap 7.0 L Glucose 143 H 127 H Phosphorus 2.0 L 1.6 L Direct Bilirubin 0.3 H GGT 40 H Alkaline Phosphatase 29 L 31 L Lactate Dehydrogenase 240 H 276 H Total Protein 5.3 L Albumin 2.5 L 2.7 L Albumin/Globulin Ratio 0.9 L 0.8 L Prealbumin 10/06/22 14:11 WBC RBC Hct Lymph % (Auto) Talbot # (Auto) Immature Gran # Absolute Neutrophils Sodium Anion Gap 7.0 L Glucose 117 H Phosphorus Direct Bilirubin GGT Alkaline Phosphatase 27 L Lactate Dehydrogenase 244 H Total Protein 5.8 L Albumin 2.8 L Albumin/Globulin Ratio 0.9 L Prealbumin Meds: Medications Acetaminophen/Butalbital/Caffeine (Butalb/Acetaminophen/Caffeine 1 Tablet) 1 tab PO Q4HP PRN PRN Reason: pain Last Admin: 10/09/22 03:47 Dose: 1 tab Bisacodyl (Bisacodyl 10 Mg Supp.Rect) 10 mg PA Q2-3DAYS PRN PRN Reason: Constipation Last Admin: 10/09/22 04:10 Dose: 10 mg Carvedilol (Carvedilol 3.125 Mg Tablet) 3.125 mg PO BID [facility] Last Admin: 10/09/22 09:28 Dose: Not Given Diagnostic Test (Pha) (Accu-Chek 1 Each Strip) 1 each FS Q4 [facility]; Protocol Last Admin: 10/09/22 11:05 Dose: 1 each Furosemide (Furosemide 20 Mg Tablet) 40 mg PO DAILY [facility] Last Admin: 10/09/22 09:28 Dose: Not Given Heparin Sodium (Porcine) (Heparin Flush 10 Units/Ml 5 Ml Syringe) 2 ml IV Q12 [facility] Last Admin: 10/09/22 08:34 Dose: 2 ml Ciprofloxacin (Cipro) 400 mg in 200 mls @ 200 mls/hr IV Q12H [facility]; Protocol Last Infusion: 10/09/22 10:47 Dose: Infused Fat Emulsion Intravenous (Intralipid 20%) 250 mls @ 20.833 mls/hr IV TuThSa [facility] Last Infusion: 10/08/22 04:10 Dose: Infused Meropenem 1 gm/ Sodium (Chloride) 50 mls @ 100 mls/hr IV Q8H [facility]; Protocol Last Infusion: 10/09/22 10:47 Dose: Infused Magnesium Sulfate 15 meq/Sodium Chloride 75 meq/Potassium Chloride 30 meq/Potassium Phosphate 45 meq/Multivitamins/Minerals 10 ml/Amino Acids 2,057 .6718 mls @ 55 mls/hr IV DAILY@1500 [facility] Stop: 10/09/22 13:00 Last Admin: 10/08/22 15:09 Dose: 55 mls/hr Sodium Chloride (Sodium Chloride 0.9%) 1,000 mls @ 50 mls/hr IV .Q20H [facility] Last Admin: 10/09/22 04:18 Dose: Not Given Magnesium Sulfate 15 meq/Sodium Chloride 80 meq/Potassium Chloride 22 meq/Potassium Phosphate 53 meq/Multivitamins/Minerals 10 ml/Amino Acids 2,056.74 mls @ 55 mls/hr IV DAILY@1500 [facility] Sodium Chloride (Sodium Chloride 0.9%) 250 mls @ 20 mls/hr IV .[id number] [facility] Stop: 10/09/22 23:14 Last Admin: 10/09/22 11:05 Dose: Not Given Insulin Human Lispro (Insulin Lispro 1 Unit/0.01 Ml Unit) 0 unit SQ Q4 [facility]; Protocol Last Admin: 10/09/22 11:04 Dose: Not Given Lisinopril (Lisinopril 5 Mg Tablet) 5 mg PO QDAY [facility] Last Admin: 10/09/22 09:34 Dose: Not Given Lorazepam (Lorazepam 0.5 Mg Tablet) 0.5 mg PO BIDP PRN PRN Reason: Anxiety Last Admin: 10/05/22 21:28 Dose: 0.5 mg Magnesium Hydroxide (Magnesium Hydroxide 30 Ml Oral.Susp) 30 ml PO DAILYP PRN PRN Reason: Constipation Morphine Sulfate (Morphine 2 Mg/Ml Vial) 0 mg IV Q3HP PRN; Protocol PRN Reason: Per Pain Protocol Last Admin: 10/09/22 08:35 Dose: 2 mg Ondansetron HCl (Ondansetron 4 Mg/2 Ml Vial) 4 mg IV Q6HP PRN PRN Reason: Nausea And Vomiting Last Admin: 10/09/22 04:17 Dose: 4 mg Oxycodone/Acetaminophen (Oxycodone/Apap 5/325mg Tablet) 1 tab PO Q6HP PRN; Protocol PRN Reason: pain (scale score 4-6) Last Admin: 10/07/22 20:18 Dose: 1 tab Pantoprazole Sodium ([facility] 40 Mg Vial) [facility] Last Admin: 10/09/22 07:22 Dose: 40 mg Timolol 5 Ml Drops 1 dose OP BID [facility] Last Admin: 10/09/22 09:29 Dose: Not Given Polyethylene Glycol (Polyethylene Glycol 3350 17 Gm Packet) 17 gm PO TIDP PRN PRN Reason: Constipation Prochlorperazine (Prochlorperazine 10 Mg/2 Ml Vial) 10 mg IV Q4-6HP PRN PRN Reason: Nausea And Vomiting Last Admin: 10/09/22 08:35 Dose: 10 mg Promethazine HCl (Promethazine 50 Mg/Ml Ampul) 12.5 mg IM Q6HP PRN PRN Reason: Nausea And Vomiting Last Admin: 10/06/22 04:38 Dose: 12.5 mg Senna (Sennosides 1 Tablet) 2 tab PO DAILY PRN PRN Reason: Constipation Sodium Chloride (0.9 % Sodium Chloride 10 Ml Syringe) 10 ml IV Q8 [facility] Last Admin: 10/09/22 04:18 Dose: Not Given Sodium Chloride (0.9 % Sodium Chloride 10 Ml Syringe) 10 ml IV UD PRN PRN Reason: FLUSH Sodium Chloride (0.9 % Sodium Chloride 10 Ml Syringe) 10 ml IV Q12 [facility] Last Admin: 10/09/22 10:47 Dose: Not Given A/P Time Spent With Patient Time: Total time spent is greater than 50% in coordination of care (as documented) at patient's floor/unit and/or counseling patient: QUALITY VTE Deep Vein Thrombosis/Pulmonary Embolism Present on Admission: No
[2022-10-09] MEDS ORDERED: fentaNYL 250 MCG/5 ML VIAL IV ONE (13:07)
[2022-10-09] MEDS ORDERED: PHENYLephrine 1 MG/10 ML SYRINGE (ANEST) ONE (13:07)
[2022-10-09] MEDS ORDERED: PROPOFOL 200 MG/20 ML VIAL IV ONE (13:07)
[2022-10-09] MEDS ORDERED: ePHEDrine 50 MG/5 ML SYRINGE (ANEST) IV ONE (13:07)
[2022-10-09] MEDS ORDERED: SUGAMMADEX SODIUM 200 MG/2 ML VIAL IV ONE (13:07)
[2022-10-09] MEDS ORDERED: ROCURONIUM 10 MG/ML ML IV ONE (13:07)
[2022-10-09] MEDS ORDERED: HYDROmorphone 1 MG/ML SYRINGE ONE (13:07)
[2022-10-09] MEDS ORDERED: MAGNESIUM SULFATE IV SCH (15:00)
[2022-10-09] MEDS ORDERED: POTASSIUM CHLORIDE IV SCH (15:00)
[2022-10-09] MEDS ORDERED: SODIUM CHLORIDE IV SCH (15:00)
[2022-10-09] MEDS ORDERED: [UNRECOGNIZED DRUG - OTHER] IV SCH (15:00)
[2022-10-09] MEDS ORDERED: HYDROmorphone 0.5 MG/0.5 ML SYRINGE IV PRN (15:15)
[2022-10-09] MEDS ORDERED: fentaNYL 100 MCG/2 ML VIAL IV PRN (15:15)
[2022-10-09] MEDS ORDERED: ONDANSETRON 4 MG/2 ML VIAL IV PRN (15:15)
[2022-10-09] MEDS ORDERED: IPRATROPIUM/ALBUTEROL 3 ML AMPUL.NEB NEB PRN (15:15)
[2022-10-09] MEDS ORDERED: BACITRACIN TOPICAL OINT 15 GM TUBE TOPICAL ONE (16:36)
[2022-10-09] MEDS ORDERED: MIDAZOLAM 2 MG/2 ML VIAL IV PRN (18:12)
[2022-10-09] MEDS ORDERED: DIAZEPAM 10 MG/2 ML SYRINGE ONE (18:13)
[2022-10-09] MEDS ORDERED: METOPROLOL TARTRATE 5 MG/5 ML VIAL IV PRN (19:49)
--- NOTE | 2022-10-09 20:48 | Brief Operative Note ---
Brief Operative Note Date of procedure: 10/09/22 Pre-op diagnosis: Sigmoid Diverticulitis with High Grade Colonic Obstruction Post-op diagnosis: other (Gangrenous but Non Perforated Right and Transverse Colon Necessitating Resection ) Procedure: 1. Exploratory Laparotomy with Extended Right Hemicolectomy 2. End Ileostomy 3. Mucous Fistula - Splenic Flexure LUQ Grafts/Implants: No (19 FR JPD LLQ ) Anesthesia: GETA Findings: High Grade Colonic Obstruction with Gangrenous Change throughout the Right and Transverse Colon with Severe Serosal splitting throughout the entire area with greatest severity in the Cecum necessitating resection - there was no perforation. The area of Sigmoid Diverticulitis was indurated and fully walled off without any evidence of visible abscess, active leak or intra peritoneal contamination and a 19FR JPD was left in the pelvis after extensive irrigation as an added precaution Complications: none Surgeon: Luis Antonio Parnell Estimated blood loss (cc): 25 Specimens Removed/Pathology: other (Right and Transverse Colon ) Condition: stable Disposition: PACU
[2022-10-09] MEDS ORDERED: VANCOMYCIN PER PHARMACY IV ONE (21:01)
[2022-10-09] MEDS ORDERED: 0.9 % SODIUM CHLORIDE 1,000 ML IV SCH (21:07)
[2022-10-09] MEDS ORDERED: VANCOMYCIN 1,000 MG in 0.9 % SODIUM CHLORIDE 250 ML IV SCH (21:45)
[2022-10-10] MEDS: INSULIN LISPRO 1 UNIT/0.01 ML UNIT SQ SCH ×7 (00:14→23:55)
[2022-10-10] MEDS: morphine 2 MG/ML VIAL IV PRN ×3 (03:17→10:37)
[2022-10-10] MEDS: MEROPENEM 1 GM in 0.9 % SODIUM CHLORIDE 50 ML IV SCH ×3 (05:11→21:56)
[2022-10-10] MEDS: 0.9 % SODIUM CHLORIDE 10 ML SYRINGE IV SCH ×5 (05:11→21:57)
[2022-10-10 06:24] LABS: Basophils # (Auto) 0.06 K/mcL (0.00-0.30); Basophils % (Auto) 0.3 % (0.0-2.0); Eosinophils # (Auto) 0.01 K/mcL (0.00-0.70); Eosinophils % (Auto) 0.1 % (0.0-7.0); Hemoglobin 10.7 g/dL (11.2-15.7); Lymphocytes # (Auto) 4.24 K/mcL (1.50-4.80); Lymphocytes % (Auto) 21.9 % (15.5-49.0); Mean Cell Volume 95.2 fL (80.0-100.0); Mean Corpuscular HGB Conc 33.4 g/dL (31.0-36.0); Mean Platelet Volume 10.3 fL (8.8-12.5); Monocytes # (Auto) 2.15 K/mcL (0.10-0.90); Monocytes % (Auto) 11.1 % (1.0-12.0); Neutrophils % (Auto) 66.1 % (38.0-78.0); Platelet Count 272 K/mcL (140-440); RBC 3.36 M/mcL (3.59-5.38); WBC 19.3 K/mcL (4.5-11.0)
[2022-10-10 06:37] LABS: ALT/SGPT 13 U/L (<40); AST/SGOT 17 U/L (<32); Albumin 1.8 gm/dL (3.2-5.2); Albumin/Globulin Ratio 0.8 (1.0-2.3); Alkaline Phosphatase 29 U/L (39-117); Bilirubin,Direct 0.2 mg/dL (<0.3); Bilirubin,Total 0.4 mg/dL (0.1-1.0); Blood Urea Nitrogen 19 mg/dL (8-23); Calcium 8.3 mg/dL (8.6-10.4); Carbon Dioxide 24 mmol/L (22-30); Chloride 105 mmol/L (96-108); Globulin 2.3 gm/dL (2.2-3.7); Glomerular Filtration Rate 81; Glucose 149 mg/dL (70-105); Lactate Dehydrogenase 248 U/L (135-225); Phosphorous 1.5 mg/dL (2.5-4.5); Triglycerides 67 mg/dL (<150); Uric Acid 2.4 mg/dL (2.5-8.0)
[2022-10-10] MEDS: PANTOPRAZOLE 40 MG VIAL IV SCH (06:44)
[2022-10-10] MEDS: 0.9 % SODIUM CHLORIDE 1,000 ML IV SCH ×3 (06:51→18:46)
[2022-10-10] MEDS ORDERED: VANCOMYCIN PER PHARMACY IV SCH (07:15)
[2022-10-10] MEDS: ONDANSETRON 4 MG/2 ML VIAL IV PRN (07:45)
--- NOTE | 2022-10-10 07:49 | Internal Med Progress Note ---
SUBJECTIVE Subjective Patient information: Note initiated : 10/10/22 at 7:49 am Service Date, if different from initiated Date: [] Patient: Yadira Lemus a 86 y/o F admitted on 10/01/22 for n/v, abd pain. 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 Lemus is a 86 year old female with past medical history including hiatal hernia, sigmoid diverticulosis, migraine headaches, paroxysmal atrial fibrillation, idiopathic cardiomyopathy with preserved EF, CHF, LBBB status post biventricular pacemaker, anxiety and depression presented with constellation of symptoms which have been going on for about 2 to 3 weeks. Patient has chronic headaches due to migraine and chronic nausea and vomiting secondary to her big hiatal hernia. Her daughter is the main contributor to history. She convinced her today to present to ER. Patient presents with headache, nausea and vomiting with mild low abdominal pain and reduced appetite. Her daughter also reported generalized weakness. Patient reports no fever or chills. On presentation vitals are stable CT abdomen and pelvis with contrast showed acute sigmoid colon diverticulitis with a small around 2cm associated abscess. Prominent fecal matter within the cecum and ascending colon consistent with constipation. CBC with elevated WBC 16,000. Renal functions and electrolytes stable. Liver function pending. CT head without any acute finding. 10/02 Patient states she slept okay. Abdominal pain present but improving, described as lower quadrants and crampy. She also feels constipated and says she does not have bowel movements at home unless she takes something. Leukocytosis present but mildly improved. Hypophosphatemia, trend and replete. Seen by surgery and will continue conservative management with antibiotics for now. 10/03 Patient sitting up in chair eating breakfast. Has abdominal pain but says it is slowly improving. Has some nausea but no vomiting. Persistent leukocytosis. Pending manual differential no fevers. Surgery following 10/04 Patient states she feels similar to yesterday other than some continued nausea. And lower quadrant achy abdominal pain which she cannot relate whether it is worse or not from yesterday. Worsening leukocytosis. Repeat CT abdomen pelvis pending. Patient states she has not had a bowel movement yet. >>CT a/p did not demonstrate any abscess and did not note diverticulitis but did show a small bowel obstruction. Dr. barton aware and did order for NG tube placement and n.p.o. status for now. 10/05 Patient feels less nauseous than previously. Decreasing abdominal pain. She is not passing any gas or bowel movements yet however. NG tube in place. N.p.o. with IV fluids maintenance. Hyponatremia and change D5 half NS to D5 NS. 10/06 Patient feels worse today with increased nausea abdominal pain and distention. No BMs or flatus overnight. Abdominal film follow-up pending. Hypophosphatemia will replace through IV. Surgery following. 10/07 Patient states she thinks she feels a little bit better today but then says her nausea is the same as yesterday and her abdominal pain is same as yesterday. She has not had any bowel movements or flatus. Follow-up CT per surgery is pending. White blood cell count is elevated again. 10/08 Patient complains of nausea and feeling crummy abdominal pain but no worse than yesterday. Patient n.p.o. on maintenance fluids for likely surgical repair tomorrow. Daughter at bedside. 10/09 Patient reported she was waiting for surgery. She reported she has not had a bowel movement or passing gas since she is in the hospital. She reports no nausea or vomiting she does have NG tube in. 10/10. Patient is status post exploratory laparotomy with extended right hemicolectomy, end ileostomy, mucous fistula-splenic flexure LUQ. She was found to have high-grade colonic obstruction with gangrenous change throughout the right and transverse colon including cecum necessitating resection. There was no perforation. The area of sigmoid diverticulitis was indurated and fully walled off without any evidence of visible abscess active leak or contamination. A KODY drain has been left in which is draining. Patient reports she is feeling nauseous and received Zofran. No vomiting. She has output in her ileostomy. PHYSICAL EXAM General: Alert, awake, sitting up, nontoxic appearance Eyes/N/T: EOMI, no scleral icterus, Head/Neck: neck supple, full ROM, CV: regular today, 2/6SM, Pulm: Clear b/l, no wheezing/rhonchi/rales, no respiratory distress Abd: Mild tenderness expected following surgery. Surgical midline incision is covered in dressing which is clean, dry and intact. Serosanguineous KODY drainage. No rebound or rigidity, diminished bowel sounds Ext: no clubbing/cyanosis, mild b/l LE edema, nontender Neuro: Alert, no focal deficits, moves all extremities, sensations intact b/l upper/lower Psychiatric: Appropriate mood and affect Skin: warm/dry, normal color High-grade colonic obstruction status post exploratory laparotomy, with extended right hemicolectomy, end ileostomy, mucous fistula- splenic flexure LUQ. Patient on TPN. Surgery is following. KODY drain in place. Hypophosphatemia. We will replace *Acute sigmoid colon diverticulitis w/abscess: -f/u CT with 3.7cm abscess -During laparotomy the area of sigmoid diverticulitis was indurated and fully walled off without any evidence of visible abscess active leak or contamination. *Large hiatal hernia/GERD: Likely contributing to chronic nausea and vomiting -Very large hiatal hernia on CT scan which is increased from before -Protonix *Severe migraine headaches: continue home meds, fiorinal, also on Percocet, on topiramate *h/o CHF: Not in decompensated CHF -restarted home Lasix/spironolactone/Coreg/lisinopril *Paroxysmal A-fib: Rate controlled. Eliquis on hold until surgery ruled out *Hypertension: on lisinopril/coreg *Anxiety/Depression: on Ativan as needed, on sertraline *Hypophos/Hyponatremmia: replete and trend - *Constipation: takes meds at home to have a BM *DVT prophylaxis: SCD DNR/DNI Total time taken > 50 minutes Constitutional Vitals: Vital Signs Temp Pulse Resp BP Pulse Ox O2 Del Method 96.7 F L 100 H 20 99/47 93 Room Air 10/10/22 07:01 10/10/22 07:01 10/10/22 07:01 10/10/22 07:01 10/10/22 07:01 10/10/22 06:54 Period Temp Pulse Resp BP Sys/Regalado Pulse Ox O2 Del Method O2 Flow Rate Last 24 Hr 96.7 F-99.3 F 88-125 12-25 79-132/47-89 92-96 Room Air-Room Air Intake and Output 10/09/22 10/10/22 10/10/22 19:59 03:59 11:59 Intake Total 4832 633 917 Output Total 1045 980 Balance 3787 633 -63 Weight 69.4 kg Intake & Output: Intake & Output 10/09/22 10/10/22 10/10/22 19:59 03:59 11:59 Intake Total 4832 633 917 Output Total 1045 980 Balance 3787 633 -63 Weight 69.4 kg Intake: IV 1532 633 917 Sodium Chloride 0.9% 1,000 ml @ 133 867 50 mls/hr IV .Q20H [facility] Rx#: [id number] Magnesium Sulfate 15 Meq Sodium 1532 Chloride 75 Meq Potassium Chloride 30 Meq Potassium Phosphate 45 Meq Infuvite Adult 10 ml In Clinimix 5%-20% Solution 2,000 ml @ 55 mls/hr IV DAILY@1500 [facility] Rx#:[id number] Merrem 1 gm In Sodium Chloride 50 50 0.9% 50 ml @ 100 mls/hr IV Q8H [facility] Rx#:[id number] Vancomycin 1,000 mg In Sodium 250 Chloride 0.9% 250 ml @ 250 mls/ hr IV ONCE [facility] Rx#:[id number] IV - Manual Only 3300 Output: Gastric Drainage 200 Left Nare NG/OG 200 Drainage 295 30 Left KODY Drain 295 30 Urine Catheter Amount 500 550 Stool 100 200 Estimated Blood Loss 150 Other: Urine Appearance Clear Clear Clear Urine Color Light Sailaja Light Sailaja Light Sailaja Uretheral (Peña) Light Sailaja Stool Color Brown Brown Stool Consistency Liquid Liquid OBJ DATA Labs 10/10/22 05:23 10/10/22 05:23 Labs: Abnormal Lab Results 10/10/22 10/10/22 10/10/22 05:23 05:23 05:23 WBC 19.3 H RBC 3.36 L Hgb 10.7 L Hct 32.0 L Lymph % (Auto) Bartholomew # (Auto) 2.15 H Immature Gran # 0.10 H Absolute Neutrophils 12.78 H Sodium Anion Gap 4.0 L Glucose 149 H Uric Acid 2.4 L Calcium 8.3 L Phosphorus 1.5 L GGT 45 H Alkaline Phosphatase 29 L Lactate Dehydrogenase 248 H Total Protein 4.1 L Albumin 1.8 L Albumin/Globulin Ratio 0.8 L Prealbumin 5.6 L 10/09/22 10/09/22 10/08/22 05:29 05:29 05:32 WBC 19.3 H 17.1 H RBC 3.54 L Hgb Hct 33.5 L Lymph % (Auto) 15.4 L Bartholomew # (Auto) 1.75 H 1.55 H Immature Gran # 0.08 H 0.06 H Absolute Neutrophils 14.11 H 11.99 H Sodium 130 L Anion Gap 7.0 L Glucose 154 H Uric Acid Calcium Phosphorus 2.1 L GGT 43 H Alkaline Phosphatase 34 L Lactate Dehydrogenase 277 H Total Protein 5.5 L Albumin 2.5 L Albumin/Globulin Ratio 0.8 L Prealbumin 9.1 L 10/08/22 05:32 WBC RBC Hgb Hct Lymph % (Auto) Bartholomew # (Auto) Immature Gran # Absolute Neutrophils Sodium Anion Gap Glucose 143 H Uric Acid Calcium Phosphorus 2.0 L GGT Alkaline Phosphatase 29 L Lactate Dehydrogenase 240 H Total Protein 5.3 L Albumin 2.5 L Albumin/Globulin Ratio 0.9 L Prealbumin Meds: Medications Acetaminophen/Butalbital/Caffeine (Butalb/Acetaminophen/Caffeine 1 Tablet) 1 tab PO Q4HP PRN PRN Reason: pain Last Admin: 10/09/22 03:47 Dose: 1 tab Bisacodyl (Bisacodyl 10 Mg Supp.Rect) 10 mg SD Q2-3DAYS PRN PRN Reason: Constipation Last Admin: 10/09/22 04:10 Dose: 10 mg Carvedilol (Carvedilol 3.125 Mg Tablet) 3.125 mg PO BID [facility] Last Admin: 10/09/22 19:55 Dose: Not Given Diagnostic Test (Pha) (Accu-Chek 1 Each Strip) 1 each FS Q4 [facility]; Protocol Last Admin: 10/10/22 04:35 Dose: 1 each Furosemide (Furosemide 20 Mg Tablet) 40 mg PO DAILY [facility] Last Admin: 10/09/22 09:28 Dose: Not Given Heparin Sodium (Porcine) (Heparin Flush 10 Units/Ml 5 Ml Syringe) 2 ml IV Q12 [facility] Last Admin: 10/09/22 20:10 Dose: Not Given Ciprofloxacin (Cipro) 400 mg in 200 mls @ 200 mls/hr IV Q12H [facility]; Protocol Last Infusion: 10/09/22 22:15 Dose: Infused Fat Emulsion Intravenous (Intralipid 20%) 250 mls @ 20.833 mls/hr IV TuThSa [facility] Last Infusion: 10/08/22 04:10 Dose: Infused Meropenem 1 gm/ Sodium (Chloride) 50 mls @ 100 mls/hr IV Q8H [facility]; Protocol Last Infusion: 10/10/22 06:15 Dose: Infused Magnesium Sulfate 15 meq/Sodium Chloride 80 meq/Potassium Chloride 22 meq/Potassium Phosphate 53 meq/Multivitamins/Minerals 10 ml/Amino Acids 2,056.74 mls @ 55 mls/hr IV DAILY@1500 [facility] Stop: 10/10/22 13:00 Last Admin: 10/09/22 18:54 Dose: 55 mls/hr Sodium Chloride (Sodium Chloride 0.9%) 1,000 mls @ 125 mls/hr IV .Q8H [facility] Last Admin: 10/10/22 06:51 Dose: 125 mls/hr Vancomycin HCl 1,000 mg/ (Sodium Chloride) 250 mls @ 250 mls/hr IV Q24H [facility] Magnesium Sulfate 15 meq/Sodium Chloride 75 meq/Potassium Chloride 7.5 meq/ Potassium Phosphate 53 meq/Multivitamins/Minerals 10 ml/Sodium Phosphate 15 mmol/Amino Acids 2,053.24 mls @ 55 mls/hr IV DAILY@1500 [facility] Insulin Human Lispro (Insulin Lispro 1 Unit/0.01 Ml Unit) 0 unit SQ Q4 [facility]; Protocol Last Admin: 10/10/22 04:35 Dose: 1 unit Lisinopril (Lisinopril 5 Mg Tablet) 5 mg PO QDAY [facility] Last Admin: 10/09/22 09:34 Dose: Not Given Lorazepam (Lorazepam 0.5 Mg Tablet) 0.5 mg PO BIDP PRN PRN Reason: Anxiety Last Admin: 10/05/22 21:28 Dose: 0.5 mg Magnesium Hydroxide (Magnesium Hydroxide 30 Ml Oral.Susp) 30 ml PO DAILYP PRN PRN Reason: Constipation Metoprolol Tartrate (Metoprolol Tartrate 5 Mg/5 Ml Vial) 5 mg IV Q6HP PRN PRN Reason: Tachyarrhythmias Morphine Sulfate (Morphine 2 Mg/Ml Vial) 0 mg IV Q3HP PRN; Protocol PRN Reason: Per Pain Protocol Last Admin: 10/10/22 06:44 Dose: 2 mg Ondansetron HCl (Ondansetron 4 Mg/2 Ml Vial) 4 mg IV Q6HP PRN PRN Reason: Nausea And Vomiting Last Admin: 10/09/22 22:01 Dose: 4 mg Oxycodone/Acetaminophen (Oxycodone/Apap 5/325mg Tablet) 1 tab PO Q6HP PRN; Protocol PRN Reason: pain (scale score 4-6) Last Admin: 10/07/22 20:18 Dose: 1 tab Pantoprazole Sodium (Pantoprazole 40 Mg Vial) 40 mg IV QAMAC [facility] Last Admin: 10/10/22 06:44 Dose: 40 mg Timolol 5 Ml Drops 1 dose OP BID [facility] Last Admin: 10/09/22 19:55 Dose: Not Given Polyethylene Glycol (Polyethylene Glycol 3350 17 Gm Packet) 17 gm PO TIDP PRN PRN Reason: Constipation Prochlorperazine (Prochlorperazine 10 Mg/2 Ml Vial) 10 mg IV Q4-6HP PRN PRN Reason: Nausea And Vomiting Last Admin: 10/09/22 08:35 Dose: 10 mg Promethazine HCl (Promethazine 50 Mg/Ml Ampul) 12.5 mg IM Q6HP PRN PRN Reason: Nausea And Vomiting Last Admin: 10/06/22 04:38 Dose: 12.5 mg Senna (Sennosides 1 Tablet) 2 tab PO DAILY PRN PRN Reason: Constipation Sodium Chloride (0.9 % Sodium Chloride 10 Ml Syringe) 10 ml IV Q8 [facility] Last Admin: 10/10/22 05:11 Dose: 10 ml Sodium Chloride (0.9 % Sodium Chloride 10 Ml Syringe) 10 ml IV UD PRN PRN Reason: FLUSH Sodium Chloride (0.9 % Sodium Chloride 10 Ml Syringe) 10 ml IV Q12 [facility] Last Admin: 10/09/22 20:10 Dose: Not Given Vancomycin HCl (Vancomycin Per Pharmacy) 1 order IV UD [facility]; Protocol A/P Time Spent With Patient Time: Total time spent is greater than 50% in coordination of care (as documented) at patient's floor/unit and/or counseling patient: QUALITY VTE Deep Vein Thrombosis/Pulmonary Embolism Present on Admission: No
[2022-10-10] MEDS: PROCHLORPERAZINE 10 MG/2 ML VIAL IV PRN (08:27)
[2022-10-10] MEDS: ACETAMINOPHEN 1,000 MG/100 ML BAG IV PRN ×2 (08:28→13:55)
[2022-10-10] MEDS: TIMOLOL OP SCH ×2 (08:37→20:37)
[2022-10-10] MEDS: FUROSEMIDE 20 MG TABLET PO SCH (08:45)
[2022-10-10] MEDS: CARVEDILOL 3.125 MG TABLET PO SCH ×2 (08:46→20:37)
[2022-10-10] MEDS: CIPROFLOXACIN 400 MG/200 ML BAG IV SCH ×2 (09:42→20:37)
[2022-10-10] MEDS ORDERED: PROMETHAZINE 25 MG/ML VIAL ONE (10:21)
[2022-10-10] MEDS: LISINOPRIL 5 MG TABLET PO SCH (10:25)
[2022-10-10] MEDS ORDERED: PROMETHAZINE 25 MG/ML VIAL IM PRN (10:30)
[2022-10-10] MEDS: SODIUM PHOSPHATE 30 MMOL in DEXTROSE 5% IN WATER 500 ML IV SCH ×2 (10:54→16:33)
[2022-10-10] MEDS ORDERED: SODIUM CHLORIDE IV SCH (15:00)
[2022-10-10] MEDS ORDERED: [UNRECOGNIZED DRUG - OTHER] IV SCH (15:00)
[2022-10-10] MEDS ORDERED: POTASSIUM CHLORIDE IV SCH (15:00)
[2022-10-10] MEDS ORDERED: MAGNESIUM SULFATE IV SCH (15:00)
[2022-10-10] MEDS: FAT EMULSION 20% 250 ML IV SCH (15:31)
[2022-10-10] MEDS: VANCOMYCIN 1,000 MG in 0.9 % SODIUM CHLORIDE 250 ML IV SCH (16:37)
--- NOTE | 2022-10-10 19:04 | General Surgery Progress Note ---
SUBJECTIVE Subjective Patient information: Note initiated : 10/10/22 at 1030 am Service Date, if different from initiated Date: [] Patient: Yadira Lemus 86 y/o F admitted on 10/01/22 for n/v, abd pain. 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 Constitutional Vitals: Vital Signs Temp Pulse Resp BP Pulse Ox O2 Del Method 98.2 F 81 16 104/48 94 Room Air 10/10/22 16:01 10/10/22 18:01 10/10/22 18:01 10/10/22 18:01 10/10/22 18:01 10/10/22 17:01 Period Temp Pulse Resp BP Sys/Regalado Pulse Ox O2 Del Method O2 Flow Rate Last 24 Hr 96.7 F-99.3 F 78-125 15-25 80-115/40-78 90-96 Room Air-Room Air Intake and Output 10/10/22 10/10/22 10/10/22 03:59 11:59 19:59 Intake Total 633 1217 1880 Output Total 1080 2570 Balance 633 137 -690 Intake & Output: Intake & Output 10/10/22 10/10/22 10/10/22 03:59 11:59 19:59 Intake Total 633 1217 1880 Output Total 1080 2570 Balance 633 137 -690 Intake: IV 633 1217 1880 Sodium Chloride 0.9% 1,000 ml @ 348 619 6916 125 mls/hr IV .Q8H [facility] Rx#: [id number] Merrem 1 gm In Sodium Chloride 50 50 50 0.9% 50 ml @ 100 mls/hr IV Q8H [facility] Rx#:[id number] Sodium Phosphate 30 Mmol In 480 Dextrose 5% in Water 500 ml @ 85 mls/hr IV Q6H [facility] Rx#: [id number] Vancomycin 1,000 mg In Sodium 250 250 Chloride 0.9% 250 ml @ 250 mls/ hr IV Q24H [facility] Rx#:[id number] Output: Gastric Drainage 200 110 Left Nare NG/OG 200 110 Drainage 130 180 Left KODY Drain 130 180 Urine Catheter Amount 550 2230 Stool 200 50 Other: Urine Appearance Clear Clear Clear Urine Color Light Sailaja Light Sailaja Yellow Green Stool Color Brown Brown Stool Consistency Liquid Liquid Exam: awake, conversant, non toxic Respiratory Respiratory exam: Present normal respiratory exam Cardiovascular Cardiovascular exam: Present normal rate and rhythm GI/Abdominal Additional comments: soft and non distended, dressing dry, drain in place, NGT functional ostomies both well perfused with some drainage Additional comments: fry in place Extremities Exam Additional comments: well perfused A/P Assessment and plan (1) Sigmoid diverticulitis: Assessment and plan: POD #1 Ex Lap with Extended Right Colectomy, End Ileostomy, and Mucous Fistula Doing Well at this time Continue current IV ABs and TPN NGT out once has stomal function Check drain fluid for gram stain and culture Re check labs in AM Status: Acute Time Spent With Patient Time: Total time spent is greater than 50% in coordination of care (as documented) at patient's floor/unit and/or counseling patient:
[2022-10-10] MEDS: 0.9 % SODIUM CHLORIDE 10 ML SYRINGE IV PRN (21:56)
[2022-10-11] MEDS: 0.9 % SODIUM CHLORIDE 1,000 ML IV SCH ×4 (01:35→13:45)
[2022-10-11] MEDS: ONDANSETRON 4 MG/2 ML VIAL IV PRN ×3 (02:25→14:27)
[2022-10-11] MEDS: ACETAMINOPHEN 1,000 MG/100 ML BAG IV PRN ×3 (03:54→17:00)
[2022-10-11] MEDS: PROCHLORPERAZINE 10 MG/2 ML VIAL IV PRN ×2 (04:05→16:00)
[2022-10-11] MEDS: INSULIN LISPRO 1 UNIT/0.01 ML UNIT SQ SCH ×5 (04:24→19:59)
[2022-10-11] MEDS: MEROPENEM 1 GM in 0.9 % SODIUM CHLORIDE 50 ML IV SCH ×3 (05:29→22:11)
[2022-10-11] MEDS: 0.9 % SODIUM CHLORIDE 10 ML SYRINGE IV SCH ×5 (05:30→21:00)
[2022-10-11 06:30] LABS: Hematocrit 28.2 % (34.1-44.9); Hemoglobin 9.2 g/dL (11.2-15.7); Mean Cell Volume 95.9 fL (80.0-100.0); Mean Corpuscular HGB Conc 32.6 g/dL (31.0-36.0); Mean Platelet Volume 10.3 fL (8.8-12.5); Platelet Count 227 K/mcL (140-440); RBC 2.94 M/mcL (3.59-5.38); Red Cell Distribution Width 13.2 % (11.5-14.5); WBC 15.3 K/mcL (4.5-11.0)
[2022-10-11 07:02] LABS: ALT/SGPT 11 U/L (<40); AST/SGOT 16 U/L (<32); Albumin 1.7 gm/dL (3.2-5.2); Albumin/Globulin Ratio 0.7 (1.0-2.3); Alkaline Phosphatase 36 U/L (39-117); Bilirubin,Direct < 0.2 mg/dL (0-0.3); Bilirubin,Total 0.3 mg/dL (0.1-1.0); Blood Urea Nitrogen 15 mg/dL (8-23); Calcium 8.4 mg/dL (8.6-10.4); Carbon Dioxide 24 mmol/L (22-30); Chloride 105 mmol/L (96-108); Globulin 2.4 gm/dL (2.2-3.7); Glomerular Filtration Rate 86; Glucose 128 mg/dL (70-105); Lactate Dehydrogenase 211 U/L (135-225); Phosphorous 3.2 mg/dL (2.5-4.5); Triglycerides 76 mg/dL (<150); Uric Acid 2.2 mg/dL (2.5-8.0)
[2022-10-11] MEDS: PANTOPRAZOLE 40 MG VIAL IV SCH (07:17)
[2022-10-11] MEDS: morphine 2 MG/ML VIAL IV PRN ×2 (08:26→15:52)
[2022-10-11] MEDS: CARVEDILOL 3.125 MG TABLET PO SCH ×2 (10:05→20:59)
[2022-10-11] MEDS: FUROSEMIDE 20 MG TABLET PO SCH (10:05)
[2022-10-11] MEDS: SERTRALINE 50 MG TABLET PO SCH (10:05)
[2022-10-11] MEDS: CIPROFLOXACIN 400 MG/200 ML BAG IV SCH ×2 (10:20→20:59)
[2022-10-11] MEDS: TIMOLOL OP SCH (10:37)
[2022-10-11] MEDS: LISINOPRIL 5 MG TABLET PO SCH (11:42)
--- NOTE | 2022-10-11 11:48 | Operative Note ---
DATE OF OPERATION: 10/09/2022 DATE OF PROCEDURE: 10/09/2022 PREOPERATIVE DIAGNOSIS: Acute sigmoid diverticulitis with associated high-grade colonic obstruction. POSTOPERATIVE DIAGNOSIS: Acute sigmoid diverticulitis with associated high-grade colonic obstruction. PROCEDURES: 1. Exploratory laparotomy. 2. Extended right hemicolectomy with removal of the right and transverse colon. 3. End Ileostomy 4. Mucous Fistula SURGEON: Luis Antonio Parnell M.D. ANESTHESIA: General. PREOPERATIVE MEDICATIONS: Cipro 400 mg IV and meropenem 1 gram IV. INDICATIONS: The patient is an 86-year-old female who presented to the ER roughly a week ago with what initially appeared to be relatively mild case of sigmoid diverticulitis. She had some localized tenderness in the left lower quadrant and a CT scan finding that demonstrated perhaps a small, roughly 1 to 1.5 cm intracolonic abscess. At that time, she was locally tender. She had normal vital signs and looked otherwise completely well. Options were discussed with her and her daughter at length and ultimately we elected to bring her in for IV antibiotics and observational management. No attempt was made to send her for drainage, given the small size of the potential abscess. She initially improved on IV Cipro and Flagyl, but then began to develop some distention. Initial imaging suggested partial small-bowel obstruction with perhaps some adhesions of the small bowel down to the area of inflammation. This was treated with NG tube placement and bowel rest and resolved. She once again seemed to be subsequently improving, but then began recurrently distended again and follow-up CT 48 hours ago demonstrated findings consistent with fairly high-grade colonic obstruction, presumably from the diverticulitis. When I saw her on rounds this morning, she was extremely distended. Her white count remained elevated and I recommended we proceed to the operating room for exploration with plans at that time for a probable sigmoid resection and colostomy based on what we knew in terms of her preprocedural imaging. Risks, benefits, potential complications, and alternative treatment options were all discussed at length and they wished to proceed. We discussed issues of infection, bleeding, and drain placement, potential for need for additional surgeries, potential for bowel resection, stoma placement and other concerns. They gave full informed consent and wished to proceed. DESCRIPTION OF PROCEDURE: The patient was taken to the OR and placed supine on the OR table, placed under general anesthesia and intubated. A Peña catheter was already in place as was a nasogastric tube. Her arms were positioned comfortably on arm boards under the direction of the OR team and all pressure sensitive areas were carefully padded. The abdomen was then widely prepped and draped in a sterile fashion. Procedure began with a vertical midline incision extending from the mid epigastric region down to just above the pubic symphysis. We then dissected down to the abdominal wall fascia, which was opened along the full length of the incision. We entered the peritoneum sharply and then carefully extended this along the entire length of the incision as well. We then obtained exposure with handheld retraction to begin with and immediately identified a massively distended cecum that was roughly 18 cm in maximal dimension and appeared to be markedly distended with gangrenous change and occupying not only the cecum but the entire right and transverse colons as well with multiple areas of serosal splitting down to mucosa. There was no perforation. There was no gross contamination, but the right and transverse colons did not look viable or suitable for salvage and therefore, we proceeded with an extended right colectomy. We identified the terminal ileum coursing into the markedly distended cecum and roughly 5 cm proximal to this transected the distal small bowel with a single firing of the NELLY-75 stapler. Much of the right colon was already mobilized up off the retroperitoneum due to the distention, but we went ahead and completed this and mobilized the colon further up into the wound. We took down the hepatic flexure and mobilized this further as well. Also, of note, we brought in the Omni self-retaining retractor to provide better exposure as we worked along and ultimately delivered the entire right and transverse colons up and out of the abdomen. I then identified the ileocolic artery and vein and transected these with a single firing of the 35 mm endovascular NELLY stapler and then we took down the remaining mesentery, including the right and middle colic vessels with firings of the LigaSure device. Great care was taken to identify the duodenum, sweep it down and away. We identified the bare area in the colonic mesentery just above this and proceeded through this in a proximal and distal fashion to mobilize the entire colon. We then chose a point on the distal transverse colon past the area of what appeared to be gangrenous change and serosal splitting and transected the colon here distally with a single firing once again the NELLY-75 stapler. This liberated the specimen in its entirety and was sent to pathology as right and transverse colon extended right colectomy. We then irrigated the area out extensively to make sure there was no active bleeding or hemorrhage; none was seen. I then examined her options for reconstruction. The pelvis was examined carefully after retracting the small bowel up and out of the way. There was no contamination here. There was a tremendous amount of induration of the sigmoid colon, but the entire area appeared to be sufficiently walled off without any intraperitoneal contamination and no evidence of any visible abscess. given the fact that we just had to resect her entire proximal two-thirds of her colon and potential desire later on for reestablishment of intestinal continuity, which I felt would not be possible for her if she were just left with the rectal stump, I elected to bring up a left upper quadrant mucous fistula along with the end ileostomy that she would clearly need as it was not safe to proceed with any anastomoses, and in this urgent setting in my opinion, given the amount of edema present throughout both the proximal and distal enteric limbs. We irrigated out. I brought a drain in through one of the left lower quadrant stab incision and positioned in the pelvis for any future contamination, although again, none was seen. We then made an opening in the left upper quadrant to accommodate a mucous fistula in standard fashion. A circular section of skin and underlying adipose tissue were removed and taken down to the fascia, which was opened with an anterior cruciate incision and we then retracted the rectus musculature one side or the other open up the posterior sheath behind of the peritoneal cavity and then delivered the mucous fistula up through this without difficulty. Likewise, we then proceeded to the right lower quadrant and once again identified a location that I felt was suitable for the end ileostomy and once again a circular paddle of skin and underlying adipose tissue removed en bloc down to the level of the fascia, which was opened. Once again, it with an anterior cruciate incision. The rectus musculature was once again retracted out of sight to permit entry into the posterior fascia and peritoneum and delivery of the terminal ileum up through this opening without difficulty. We then irrigated out a final time and made sure all of our sponge, needle and instrument counts were correct. We secured our drain in place with 3-0 silk stitch and then preparations for fascial closure. Just prior to this, I checked all of our vascular pedicles on the mesocolon to make sure there was no evidence of active bleeding, none was seen. Finally, prior to closure, we positioned the NG tube back down in the distal stomach that had previously been up above the diaphragm in the upper stomach and up in the hiatal hernia, but the stomach was manually delivered back down to the peritoneal cavity and I was able to bring the NG tube down into the mid to distal gastric location that appeared to be residing firmly below the diaphragm. Next, we closed the fascia with a running looped 0 PDS suture from above and below and tied in the midline. Great care was taken to make sure that the underlying bowel was protected at all times. The FISH retractor was utilized and then removed without difficulty and, again, sponge, needle and instrument counts were correct multiple times to assure that they were correct and we were sure they were. A cursory inspection of the peritoneal cavity failed to reveal any retained laparotomy pads or other findings. Next, we irrigated out the subcutaneous tissues extending extensively and closed the skin with josselyn. Bacitracin ointment and a sterile silver-impregnated dressing was applied. Next, we directed our attention towards maturation of the stoma. We began with the end ileostomy. The transected staple line was oversewn with lemberted 3-0 silk sutures and then after delivering of an adequate amount of small bowel up to the anterior abdominal wall we opened this up in a somewhat longitudinal antimesenteric fashion and then matured this to the surrounding mucocutaneous junction with a combination of interrupted 3-0 silk and 3-0 Vicryl sutures. We then digitally probed the area to make sure that the afferent limb was wide open below the level of fascia, which appeared to be. Once this was completed, a stomal appliance was situated in standard fashion utilizing standard technique. We then directed our attention towards maturation of the mucous fistula in the left upper abdomen. Again, I oversewed the staple line with lemberted 3-0 silk sutures and then opened up the antimesenteric surface of the bowel with cautery, without difficulty and matured the mucocutaneous junction with again a combination of interrupted 3-0 silk and 3-0 Vicryl sutures and then utilized suction to decompress as much of the colon as we could on the left side, utilizing suction to aspirate out as much liquid stools as we were able to. A stomal appliance was applied here. This completed the procedure. FINDINGS: As discussed above, extremely distended cecum, right colon, transverse colon with a gangrenous edematous change and cirrhosis, bleeding throughout and impending perforation, although no jimmy perforation was encountered. No other significant findings to report. Beyond indurated walled off sigmoid colon with no evidence of abscess that was left undisturbed based on the discussion mentioned above. COMPLICATIONS: None apparent. BLOOD LOSS: Roughly 50-100 mL. DRAINS: A single 19-Wallisian round Sandeep. BW:judie Job ID: [id number] Doc ID: [id number] Luis Antonio Parnell M.D. MTDGlenn
--- NOTE | 2022-10-11 12:19 | General Surgery Progress Note ---
SUBJECTIVE Subjective Patient information: Note initiated : 10/11/22 at 1045am Service Date, if different from initiated Date: [] Patient: Yadira Lemus 86 y/o F admitted on 10/01/22 for n/v, abd pain. 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 Constitutional Vitals: Vital Signs Temp Pulse Resp BP Pulse Ox O2 Del Method O2 Flow Rate 97.2 F 77 22 112/50 95 Nasal Cannula 2 10/11/22 07:00 10/11/22 11:01 10/11/22 11:01 10/11/22 11:01 10/11/22 11:01 10/11/22 11:01 10/11/22 11:01 Period Temp Pulse Resp BP Sys/Regalado Pulse Ox O2 Del Method O2 Flow Rate Last 24 Hr 97.1 F-98.7 F 77-103 15-25 81-115/40-89 90-96 Nasal Cannula- Room Air 2 Intake and Output 10/11/22 10/11/22 10/11/22 03:59 11:59 19:59 Intake Total 2009 1371 Output Total 1520 1585 Balance 490 -214 Intake & Output: Intake & Output 10/11/22 10/11/22 10/11/22 03:59 11:59 19:59 Intake Total 2009 1371 Output Total 1520 1585 Balance 490 -214 Intake: IV 2009 1371 Sodium Chloride 0.9% 1,000 ml @ 1000 921 125 mls/hr IV .Q8H [facility] Rx#: [id number] Intralipid 20% 250 ml @ 20.833 250 mls/hr IV TuThSa [facility] Rx#: [id number] Merrem 1 gm In Sodium Chloride 50 50 0.9% 50 ml @ 100 mls/hr IV Q8H [facility] Rx#:[id number] Sodium Phosphate 30 Mmol In 510 Dextrose 5% in Water 500 ml @ 85 mls/hr IV Q6H [facility] Rx#: [id number] Output: Gastric Drainage 250 Left Nare NG/OG 250 Drainage 0 Left KODY Drain 0 Drainage 70 210 Left KODY Drain 70 210 Urine Catheter Amount 1450 1000 Stool 125 Other: Urine Appearance Clear Clear Urine Color Yellow Yellow Bright Yellow Urine Odor Normal Stool Size Smear Stool Color Brown Brown Stool Consistency Liquid Exam: awake, conversant, NAD GI/Abdominal Additional comments: soft, non distended, dressing dry and in place, JPD light pink, increasing ileostomy output, NGT in place and functional A/P Assessment and plan (1) Sigmoid diverticulitis: Assessment and plan: POD #2 Extended Right Colectomy, End Ileostomy and Mucous Fistula Doing Well Continue IV ABs and TPN Continue NGT for now but can likely d/c soon Would recommend staying in ICU another night Status: Acute Time Spent With Patient Time: Total time spent is greater than 50% in coordination of care (as documented) at patient's floor/unit and/or counseling patient:
--- NOTE | 2022-10-11 14:06 | Internal Med Progress Note ---
SUBJECTIVE Subjective Patient information: Note initiated : 10/11/22 at 2:02 pm Service Date, if different from initiated Date: [] Patient: Yadira Lemus a 86 y/o F admitted on 10/01/22 for n/v, abd pain. 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 Lemus is a 86 year old female with past medical history including hiatal hernia, sigmoid diverticulosis, migraine headaches, paroxysmal atrial fibrillation, idiopathic cardiomyopathy with preserved EF, CHF, LBBB status post biventricular pacemaker, anxiety and depression presented with constellation of symptoms which have been going on for about 2 to 3 weeks. Patient has chronic headaches due to migraine and chronic nausea and vomiting secondary to her big hiatal hernia. Her daughter is the main contributor to history. She convinced her today to present to ER. Patient presents with headache, nausea and vomiting with mild low abdominal pain and reduced appetite. Her daughter also reported generalized weakness. Patient reports no fever or chills. On presentation vitals are stable CT abdomen and pelvis with contrast showed acute sigmoid colon diverticulitis with a small around 2cm associated abscess. Prominent fecal matter within the cecum and ascending colon consistent with constipation. CBC with elevated WBC 16,000. Renal functions and electrolytes stable. Liver function pending. CT head without any acute finding. 10/02 Patient states she slept okay. Abdominal pain present but improving, described as lower quadrants and crampy. She also feels constipated and says she does not have bowel movements at home unless she takes something. Leukocytosis present but mildly improved. Hypophosphatemia, trend and replete. Seen by surgery and will continue conservative management with antibiotics for now. 10/03 Patient sitting up in chair eating breakfast. Has abdominal pain but says it is slowly improving. Has some nausea but no vomiting. Persistent leukocytosis. Pending manual differential no fevers. Surgery following 10/04 Patient states she feels similar to yesterday other than some continued nausea. And lower quadrant achy abdominal pain which she cannot relate whether it is worse or not from yesterday. Worsening leukocytosis. Repeat CT abdomen pelvis pending. Patient states she has not had a bowel movement yet. >>CT a/p did not demonstrate any abscess and did not note diverticulitis but did show a small bowel obstruction. Dr. barton aware and did order for NG tube placement and n.p.o. status for now. 10/05 Patient feels less nauseous than previously. Decreasing abdominal pain. She is not passing any gas or bowel movements yet however. NG tube in place. N.p.o. with IV fluids maintenance. Hyponatremia and change D5 half NS to D5 NS. 10/06 Patient feels worse today with increased nausea abdominal pain and distention. No BMs or flatus overnight. Abdominal film follow-up pending. Hypophosphatemia will replace through IV. Surgery following. 10/07 Patient states she thinks she feels a little bit better today but then says her nausea is the same as yesterday and her abdominal pain is same as yesterday. She has not had any bowel movements or flatus. Follow-up CT per surgery is pending. White blood cell count is elevated again. 10/08 Patient complains of nausea and feeling crummy abdominal pain but no worse than yesterday. Patient n.p.o. on maintenance fluids for likely surgical repair tomorrow. Daughter at bedside. 10/09 Patient reported she was waiting for surgery. She reported she has not had a bowel movement or passing gas since she is in the hospital. She reports no nausea or vomiting she does have NG tube in. 10/10. Patient is status post exploratory laparotomy with extended right hemicolectomy, end ileostomy, mucous fistula-splenic flexure LUQ. She was found to have high-grade colonic obstruction with gangrenous change throughout the right and transverse colon including cecum necessitating resection. There was no perforation. The area of sigmoid diverticulitis was indurated and fully walled off without any evidence of visible abscess active leak or contamination. A KODY drain has been left in which is draining. Patient reports she is feeling nauseous and received Zofran. No vomiting. She has output in her ileostomy. 10/11. Feels better. No nausea or vomiting. Pain is controlled. She had some ostomy output. Surgery note was reviewed. PHYSICAL EXAM General: Alert, awake, sitting up, nontoxic appearance Eyes/N/T: EOMI, no scleral icterus, Head/Neck: neck supple, full ROM, CV: regular today, 2/6SM, Pulm: Clear b/l, no wheezing/rhonchi/rales, no respiratory distress Abd: Soft with mild tenderness. Surgical dressing C/d/I 0Serosanguineous KODY drainage. No rebound or rigidity, diminished bowel sounds Ext: no clubbing/cyanosis, mild b/l LE edema, nontender Neuro: Alert, no focal deficits, moves all extremities, sensations intact b/l upper/lower Psychiatric: Appropriate mood and affect Skin: warm/dry, normal color Assessment and plan High-grade colonic obstruction status post exploratory laparotomy, with extended right hemicolectomy, end ileostomy, mucous fistula- splenic flexure LUQ. Continue IV antibiotics. Continue TPN. Continue NGT and if bowel functions return can DC soon. Hypophosphatemia. Replaced *Acute sigmoid colon diverticulitis w/abscess: -f/u CT with 3.7cm abscess -During laparotomy the area of sigmoid diverticulitis was indurated and fully walled off without any evidence of visible abscess active leak or contamination. -Continue antibiotics *Large hiatal hernia/GERD: Likely contributing to chronic nausea and vomiting -Very large hiatal hernia on CT scan which is increased from before -Protonix *Severe migraine headaches: continue home meds, fiorinal, also on Percocet, on topiramate *h/o CHF: Not in decompensated CHF -restarted home Lasix/spironolactone/Coreg/lisinopril *Paroxysmal A-fib: Rate controlled. Eliquis on hold until surgery ruled out *Hypertension: on lisinopril/coreg *Anxiety/Depression: on Ativan as needed, on sertraline *Hypophos/Hyponatremmia: replete and trend - *Constipation: takes meds at home to have a BM *DVT prophylaxis: SCD DNR/DNI supervisor shaving and splitting informed me that surgery is okay to downgrade patient to PCU status but can stay in the same room. Total time taken > 50 minutes Constitutional Vitals: Vital Signs Temp Pulse Resp BP Pulse Ox O2 Del Method O2 Flow Rate 97.2 F 76 20 97/53 92 Nasal Cannula 2 10/11/22 12:01 10/11/22 12:01 10/11/22 12:01 10/11/22 12:01 10/11/22 12:01 10/11/22 11:01 10/11/22 11:01 Period Temp Pulse Resp BP Sys/Regalado Pulse Ox O2 Del Method O2 Flow Rate Last 24 Hr 97.1 F-98.7 F 76-103 16-22 90-115/40-89 92-96 Nasal Cannula- Room Air 2 Intake and Output 10/11/22 10/11/22 10/11/22 03:59 11:59 19:59 Intake Total 2009 1371 79 Output Total 1520 1585 Balance 490 -214 79 Intake & Output: Intake & Output 10/11/22 10/11/22 10/11/22 03:59 11:59 19:59 Intake Total 2009 1370 79 Output Total 1520 1585 Balance 490 -214 79 Intake: IV 2009 1370 79 Sodium Chloride 0.9% 1,000 ml @ 1000 921 79 125 mls/hr IV .Q8H [facility] Rx#: [id number] Intralipid 20% 250 ml @ 20.833 250 mls/hr IV TuThSa [facility] Rx#: [id number] Merrem 1 gm In Sodium Chloride 50 50 0.9% 50 ml @ 100 mls/hr IV Q8H [facility] Rx#:[id number] Sodium Phosphate 30 Mmol In 510 Dextrose 5% in Water 500 ml @ 85 mls/hr IV Q6H [facility] Rx#: [id number] Output: Gastric Drainage 250 Left Nare NG/OG 250 Drainage 0 Left KODY Drain 0 Drainage 70 210 Left KODY Drain 70 210 Urine Catheter Amount 1450 1000 Stool 125 Other: Urine Appearance Clear Clear Urine Color Yellow Yellow Bright Yellow Urine Odor Normal Stool Size Smear Stool Color Brown Brown Stool Consistency Liquid OBJ DATA Labs 10/11/22 05:24 10/11/22 05:34 Labs: Abnormal Lab Results 10/11/22 10/11/22 10/11/22 05:34 05:24 05:24 WBC 15.3 H RBC 2.94 L Hgb 9.2 L Hct 28.2 L Lymph % (Auto) Worth # (Auto) Immature Gran # Absolute Neutrophils Sodium Anion Gap 6.0 L Creatinine 0.5 L Glucose 128 H Uric Acid 2.2 L Calcium 8.4 L Phosphorus GGT Alkaline Phosphatase 36 L Lactate Dehydrogenase Total Protein 4.1 L Albumin 1.7 L Albumin/Globulin Ratio 0.7 L Prealbumin 5.2 L 10/10/22 10/10/22 10/10/22 05:23 05:23 05:23 WBC 19.3 H RBC 3.36 L Hgb 10.7 L Hct 32.0 L Lymph % (Auto) Worth # (Auto) 2.15 H Immature Gran # 0.10 H Absolute Neutrophils 12.78 H Sodium Anion Gap 4.0 L Creatinine Glucose 149 H Uric Acid 2.4 L Calcium 8.3 L Phosphorus 1.5 L GGT 45 H Alkaline Phosphatase 29 L Lactate Dehydrogenase 248 H Total Protein 4.1 L Albumin 1.8 L Albumin/Globulin Ratio 0.8 L Prealbumin 5.6 L 10/09/22 10/09/22 05:29 05:29 WBC 19.3 H RBC Hgb Hct Lymph % (Auto) 15.4 L Worth # (Auto) 1.75 H Immature Gran # 0.08 H Absolute Neutrophils 14.11 H Sodium 130 L Anion Gap 7.0 L Creatinine Glucose 154 H Uric Acid Calcium Phosphorus 2.1 L GGT 43 H Alkaline Phosphatase 34 L Lactate Dehydrogenase 277 H Total Protein 5.5 L Albumin 2.5 L Albumin/Globulin Ratio 0.8 L Prealbumin 9.1 L Meds: Medications Acetaminophen/Butalbital/Caffeine (Butalb/Acetaminophen/Caffeine 1 Tablet) 1 tab PO Q4HP PRN PRN Reason: pain Last Admin: 10/09/22 03:47 Dose: 1 tab Bisacodyl (Bisacodyl 10 Mg Supp.Rect) 10 mg ND Q2-3DAYS PRN PRN Reason: Constipation Last Admin: 10/09/22 04:10 Dose: 10 mg Carvedilol (Carvedilol 3.125 Mg Tablet) 3.125 mg PO BID [facility] Last Admin: 10/11/22 10:05 Dose: 3.125 mg Diagnostic Test (Pha) (Accu-Chek 1 Each Strip) 1 each FS Q4 [facility]; Protocol Last Admin: 10/11/22 12:16 Dose: 1 each Furosemide (Furosemide 20 Mg Tablet) 40 mg PO DAILY [facility] Last Admin: 10/11/22 10:05 Dose: 40 mg Heparin Sodium (Porcine) (Heparin Flush 10 Units/Ml 5 Ml Syringe) 2 ml IV Q12 [facility] Last Admin: 10/11/22 09:35 Dose: Not Given Ciprofloxacin (Cipro) 400 mg in 200 mls @ 200 mls/hr IV Q12H [facility]; Protocol Last Infusion: 10/11/22 11:25 Dose: Infused Fat Emulsion Intravenous (Intralipid 20%) 250 mls @ 20.833 mls/hr IV TuThSa [facility] Last Infusion: 10/11/22 03:53 Dose: Infused Meropenem 1 gm/ Sodium (Chloride) 50 mls @ 100 mls/hr IV Q8H [facility]; Protocol Last Admin: 10/11/22 14:01 Dose: 100 mls/hr Vancomycin HCl 1,000 mg/ (Sodium Chloride) 250 mls @ 250 mls/hr IV Q24H [facility] Last Infusion: 10/10/22 17:53 Dose: Infused Magnesium Sulfate 15 meq/Sodium Chloride 75 meq/Potassium Chloride 7.5 meq/Potassium Phosphate 53 meq/Multivitamins/Minerals 10 ml/Sodium Phosphate 15 mmol/Amino Acids 2,053.24 mls @ 55 mls/hr IV DAILY@1500 [facility] Stop: 10/11/22 14:59 Last Admin: 10/10/22 15:31 Dose: 55 mls/hr Acetaminophen (Ofirmev) 1,000 mg in 100 mls @ 200 mls/hr IV Q6HP PRN; Protocol PRN Reason: PAIN/FEVER > 101 Last Infusion: 10/11/22 11:20 Dose: Infused Magnesium Sulfate 16.24 meq/Sodium Chloride 75 meq/Potassium Chloride 20 meq/Potassium Phosphate 60 meq/Multivitamins/Minerals 10 ml/Sodium Phosphate 60 mmol/Amino Acids 2,076.3864 mls @ 55 mls/hr IV DAILY@1500 [facility] Sodium Chloride (Sodium Chloride 0.9%) 1,000 mls @ 100 mls/hr IV .Q10H [facility] Last Admin: 10/11/22 13:45 Dose: 100 mls/hr Insulin Human Lispro (Insulin Lispro 1 Unit/0.01 Ml Unit) 0 unit SQ Q4 [facility]; Protocol Last Admin: 10/11/22 12:16 Dose: 1 unit Latanoprost (Latanoprost Ophth Drops 2.5ml Bottle) 1 gtt OU HS [facility] Lisinopril (Lisinopril 5 Mg Tablet) 5 mg PO QDAY [facility] Last Admin: 10/11/22 11:42 Dose: 5 mg Lorazepam (Lorazepam 0.5 Mg Tablet) 0.5 mg PO BIDP PRN PRN Reason: Anxiety Last Admin: 10/05/22 21:28 Dose: 0.5 mg Magnesium Hydroxide (Magnesium Hydroxide 30 Ml Oral.Susp) 30 ml PO DAILYP PRN PRN Reason: Constipation Metoprolol Tartrate (Metoprolol Tartrate 5 Mg/5 Ml Vial) 5 mg IV Q6HP PRN PRN Reason: Tachyarrhythmias Morphine Sulfate (Morphine 2 Mg/Ml Vial) 0 mg IV Q3HP PRN; Protocol PRN Reason: Per Pain Protocol Last Admin: 10/11/22 08:26 Dose: 2 mg Ondansetron HCl (Ondansetron 4 Mg/2 Ml Vial) 4 mg IV Q6HP PRN PRN Reason: Nausea And Vomiting Last Admin: 10/11/22 08:54 Dose: 4 mg Oxycodone/Acetaminophen (Oxycodone/Apap 5/325mg Tablet) 1 tab PO Q6HP PRN; Protocol PRN Reason: pain (scale score 4-6) Last Admin: 10/07/22 20:18 Dose: 1 tab Pantoprazole Sodium (Pantoprazole 40 Mg Vial) 40 mg IV QAMAC [facility] Last Admin: 10/11/22 07:17 Dose: 40 mg Timolol 5 Ml Drops 1 dose OP BID [facility] Last Admin: 10/11/22 10:37 Dose: Not Given Polyethylene Glycol (Polyethylene Glycol 3350 17 Gm Packet) 17 gm PO TIDP PRN PRN Reason: Constipation Prochlorperazine (Prochlorperazine 10 Mg/2 Ml Vial) 10 mg IV Q4-6HP PRN PRN Reason: Nausea And Vomiting Last Admin: 10/11/22 04:05 Dose: 10 mg Promethazine HCl (Promethazine 25 Mg/Ml Vial) 12.5 mg IM Q6HP PRN PRN Reason: Nausea And Vomiting Last Admin: 10/10/22 10:37 Dose: 12.5 mg Senna (Sennosides 1 Tablet) 2 tab PO DAILY PRN PRN Reason: Constipation Sertraline HCl (Sertraline 50 Mg Tablet) 50 mg PO DAILY [facility] Last Admin: 10/11/22 10:05 Dose: 50 mg Sodium Chloride (0.9 % Sodium Chloride 10 Ml Syringe) 10 ml IV Q8 [facility] Last Admin: 10/11/22 13:59 Dose: Not Given Sodium Chloride (0.9 % Sodium Chloride 10 Ml Syringe) 10 ml IV UD PRN PRN Reason: FLUSH Last Admin: 10/10/22 21:56 Dose: 10 ml Sodium Chloride (0.9 % Sodium Chloride 10 Ml Syringe) 10 ml IV Q12 [facility] Last Admin: 10/11/22 10:06 Dose: Not Given Vancomycin HCl (Vancomycin Per Pharmacy) 1 order IV UD [facility]; Protocol A/P Time Spent With Patient Time: Total time spent is greater than 50% in coordination of care (as documented) at patient's floor/unit and/or counseling patient: QUALITY VTE Deep Vein Thrombosis/Pulmonary Embolism Present on Admission: No
[2022-10-11] MEDS: BUTALB/ACETAMINOPHEN/CAFFEINE 1 TABLET PO PRN (14:27)
[2022-10-11] MEDS: MAGNESIUM SULFATE IV SCH (15:33)
[2022-10-11] MEDS: [UNRECOGNIZED DRUG - OTHER] IV SCH (15:33)
[2022-10-11] MEDS: POTASSIUM CHLORIDE IV SCH (15:33)
[2022-10-11] MEDS: SODIUM CHLORIDE IV SCH (15:33)
[2022-10-11] MEDS: VANCOMYCIN 1,000 MG in 0.9 % SODIUM CHLORIDE 250 ML IV SCH (16:31)
[2022-10-11] MEDS: oxyCODONE/APAP 5/325MG TABLET PO PRN (20:02)
[2022-10-11] MEDS: LATANOPROST OPHTH DROPS 2.5ML BOTTLE OU SCH (20:59)
[2022-10-11] MEDS: TIMOLOL 0.5% OPHTH DROPS BOTTLE 5ML OU SCH (21:00)
[2022-10-12] MEDS: ACETAMINOPHEN 1,000 MG/100 ML BAG IV PRN ×2 (00:32→12:36)
[2022-10-12] MEDS: INSULIN LISPRO 1 UNIT/0.01 ML UNIT SQ SCH ×6 (00:38→20:22)
[2022-10-12] MEDS: 0.9 % SODIUM CHLORIDE 1,000 ML IV SCH ×3 (00:39→21:41)
[2022-10-12] MEDS: MEROPENEM 1 GM in 0.9 % SODIUM CHLORIDE 50 ML IV SCH ×3 (05:32→23:02)
[2022-10-12] MEDS: 0.9 % SODIUM CHLORIDE 10 ML SYRINGE IV PRN (05:33)
[2022-10-12] MEDS: 0.9 % SODIUM CHLORIDE 10 ML SYRINGE IV SCH ×5 (06:20→21:51)
[2022-10-12 06:39] LABS: Hematocrit 28.7 % (34.1-44.9); Hemoglobin 9.3 g/dL (11.2-15.7); Mean Cell Volume 95.7 fL (80.0-100.0); Mean Corpuscular HGB Conc 32.4 g/dL (31.0-36.0); Mean Platelet Volume 10.6 fL (8.8-12.5); Platelet Count 248 K/mcL (140-440); Red Cell Distribution Width 13.2 % (11.5-14.5)
[2022-10-12 07:13] LABS: Blood Urea Nitrogen 13 mg/dL (8-23); Calcium 8.8 mg/dL (8.6-10.4); Carbon Dioxide 27 mmol/L (22-30); Chloride 106 mmol/L (96-108); Glomerular Filtration Rate 81; Glucose 124 mg/dL (70-105)
[2022-10-12] MEDS: IPRATROPIUM/ALBUTEROL 3 ML AMPUL.NEB NEB PRN ×2 (08:50→20:33)
[2022-10-12] MEDS: CARVEDILOL 3.125 MG TABLET PO SCH ×2 (08:52→21:46)
[2022-10-12] MEDS: PANTOPRAZOLE 40 MG VIAL IV SCH (08:52)
[2022-10-12] MEDS: SERTRALINE 50 MG TABLET PO SCH (08:52)
[2022-10-12] MEDS: TIMOLOL 0.5% OPHTH DROPS BOTTLE 5ML OU SCH ×2 (08:52→20:51)
[2022-10-12] MEDS: FUROSEMIDE 20 MG TABLET PO SCH (08:52)
[2022-10-12] MEDS: oxyCODONE/APAP 5/325MG TABLET PO PRN (08:52)
[2022-10-12] MEDS: LISINOPRIL 5 MG TABLET PO SCH (08:52)
[2022-10-12] MEDS: CIPROFLOXACIN 400 MG/200 ML BAG IV SCH (08:53)
--- NOTE | 2022-10-12 09:17 | XRay Report ---
HISTORY: Short of breath FINDINGS: There is consolidation of the lung parenchyma medially in the left lung base, behind the left heart border. Subtle increased interstitial lung markings are present above the right diaphragm. There is minor blunting of the right costophrenic sulcus. Heart size is normal. There is a dual-chamber pacemaker. NG tube passes through the esophagus into the stomach. Patient has a hiatus hernia which is better seen on prior chest CT. Right side PICC line is positioned in the superior vena cava. Comparison with the prior exam from 10/06/22 shows relatively little change. IMPRESSION: Atelectasis or pneumonia in the left lower lobe and subtle interstitial lung disease in the right lower lobe Interpreted and Authenticated by: Tirso Cannon 10/12/22
[2022-10-12] MEDS: morphine 2 MG/ML VIAL IV PRN ×2 (10:08→20:12)
[2022-10-12] MEDS: ENOXAPARIN 80 MG/0.8 ML SYRINGE SQ SCH ×2 (10:42→20:46)
--- NOTE | 2022-10-12 11:10 | General Surgery Progress Note ---
SUBJECTIVE Subjective Patient information: Note initiated : 10/12/22 at 11:04 am Service Date, if different from initiated Date: [] Patient: Yadira Lemus 86 y/o F admitted on 10/01/22 for Diverticulitis. 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 Constitutional Vitals: Vital Signs Temp Pulse Resp BP Pulse Ox O2 Del Method O2 Flow Rate 98 F 65 19 108/50 91 Room Air 2 10/12/22 08:01 10/12/22 10:01 10/12/22 10:01 10/12/22 10:01 10/12/22 10:01 10/12/22 10:01 10/11/22 11:01 Period Temp Pulse Resp BP Sys/Regalado Pulse Ox O2 Del Method O2 Flow Rate Last 24 Hr 97.2 F-98.5 F 65-79 15-22 94-126/41-55 91-95 Room Air-Room Air Intake and Output 10/11/22 10/12/22 10/12/22 19:59 03:59 11:59 Intake Total 479 1350 1210 Output Total 3455 980 305 Balance -2976 370 905 Weight 155 lb 3.2 oz Intake & Output: Intake & Output 10/11/22 10/12/22 10/12/22 19:59 03:59 11:59 Intake Total 479 1350 1210 Output Total 3455 980 305 Balance -2976 370 905 Weight 155 lb 3.2 oz Intake: IV 479 1350 1210 Sodium Chloride 0.9% 1,000 ml @ 79 1000 960 100 mls/hr IV .Q10H [facility] Rx#: [id number] Merrem 1 gm In Sodium Chloride 50 50 50 0.9% 50 ml @ 100 mls/hr IV Q8H [facility] Rx#:[id number] Vancomycin 1,000 mg In Sodium 250 Chloride 0.9% 250 ml @ 250 mls/ hr IV Q24H [facility] Rx#:[id number] Tube Feeding 0 Output: Gastric Drainage 375 200 5 Left Nare NG/OG 375 200 5 Drainage 130 230 50 Left KODY Drain 130 230 50 Urine Catheter Amount 2250 550 250 Stool 700 Other: Urine Appearance Clear Clear Clear Urine Color Yellow Yellow Yellow Urine Odor Normal Normal Stool Color Brown Stool Consistency Liquid Exam: looks well, nontoxic, NAD Respiratory Respiratory exam: Present normal respiratory exam Cardiovascular Cardiovascular exam: Present normal rate and rhythm GI/Abdominal Additional comments: soft and non distended, drain is clear, ostomy's working well, dressing dry and in place Extremities Exam Additional comments: well perfused A/P Assessment and plan (1) Stricture of sigmoid colon: Assessment and plan: POD #3 Extended Right Colectomy with End Ileostomy and Mucous Fistula Doing Well Ok for Unit Transfer from Surgical Standpoint Clamp NGT and remove tomorrow if tolerating well Continue TPN and IV ABs for now Continue to hold Eliquis - will defer Lovenox usage to Medicine Status: Acute Time Spent With Patient Time: Total time spent is greater than 50% in coordination of care (as documented) at patient's floor/unit and/or counseling patient:
--- NOTE | 2022-10-12 11:29 | Internal Med Progress Note ---
SUBJECTIVE Subjective Patient information: Note initiated : 10/12/22 at 11:26 am Service Date, if different from initiated Date: [] Patient: Yadira Lemus a 86 y/o F admitted on 10/01/22 for Diverticulitis. 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 Lemus is a 86 year old female with past medical history including hiatal hernia, sigmoid diverticulosis, migraine headaches, paroxysmal atrial fibrillation, idiopathic cardiomyopathy with preserved EF, CHF, LBBB status post biventricular pacemaker, anxiety and depression presented with constellation of symptoms which have been going on for about 2 to 3 weeks. Patient has chronic headaches due to migraine and chronic nausea and vomiting secondary to her big hiatal hernia. Her daughter is the main contributor to history. She convinced her today to present to ER. Patient presents with headache, nausea and vomiting with mild low abdominal pain and reduced appetite. Her daughter also reported generalized weakness. Patient reports no fever or chills. On presentation vitals are stable CT abdomen and pelvis with contrast showed acute sigmoid colon diverticulitis with a small around 2cm associated abscess. Prominent fecal matter within the cecum and ascending colon consistent with constipation. CBC with elevated WBC 16,000. Renal functions and electrolytes stable. Liver function pending. CT head without any acute finding. 10/02 Patient states she slept okay. Abdominal pain present but improving, described as lower quadrants and crampy. She also feels constipated and says she does not have bowel movements at home unless she takes something. Leukocytosis present but mildly improved. Hypophosphatemia, trend and replete. Seen by surgery and will continue conservative management with antibiotics for now. 10/03 Patient sitting up in chair eating breakfast. Has abdominal pain but says it is slowly improving. Has some nausea but no vomiting. Persistent leukocytosis. Pending manual differential no fevers. Surgery following 10/04 Patient states she feels similar to yesterday other than some continued nausea. And lower quadrant achy abdominal pain which she cannot relate whether it is worse or not from yesterday. Worsening leukocytosis. Repeat CT abdomen pelvis pending. Patient states she has not had a bowel movement yet. >>CT a/p did not demonstrate any abscess and did not note diverticulitis but did show a small bowel obstruction. Dr. barton aware and did order for NG tube placement and n.p.o. status for now. 10/05 Patient feels less nauseous than previously. Decreasing abdominal pain. She is not passing any gas or bowel movements yet however. NG tube in place. N.p.o. with IV fluids maintenance. Hyponatremia and change D5 half NS to D5 NS. 10/06 Patient feels worse today with increased nausea abdominal pain and distention. No BMs or flatus overnight. Abdominal film follow-up pending. Hypophosphatemia will replace through IV. Surgery following. 10/07 Patient states she thinks she feels a little bit better today but then says her nausea is the same as yesterday and her abdominal pain is same as yesterday. She has not had any bowel movements or flatus. Follow-up CT per surgery is pending. White blood cell count is elevated again. 10/08 Patient complains of nausea and feeling crummy abdominal pain but no worse than yesterday. Patient n.p.o. on maintenance fluids for likely surgical repair acacia orrow. Daughter at bedside. 10/09 Patient reported she was waiting for surgery. She reported she has not had a bowel movement or passing gas since she is in the hospital. She reports no nausea or vomiting she does have NG tube in. 10/10. Patient is status post exploratory laparotomy with extended right hemicolectomy, end ileostomy, mucous fistula-splenic flexure LUQ. She was found to have high-grade colonic obstruction with gangrenous change throughout the right and transverse colon including cecum necessitating resection. There was no perforation. The area of sigmoid diverticulitis was indurated and fully walled off without any evidence of visible abscess active leak or contamination. A KODY drain has been left in which is draining. Patient reports she is feeling nauseous and received Zofran. No vomiting. She has output in her ileostomy. 10/11. Feels better. No nausea or vomiting. Pain is controlled. She had some ostomy output. Surgery note was reviewed. 10/12. Continues to improve, some expected abdominal pain, no nausea or vomiting. Surgery note reviewed PHYSICAL EXAM General: Alert, awake, appears comfortable Eyes/N/T: EOMI, no scleral icterus, Head/Neck: neck supple, full ROM, CV: regular today, 2/6SM, Pulm: Clear b/l, no wheezing/rhonchi/rales, no respiratory distress Abd: Soft with mild tenderness. Surgical dressing in place, no peritoneal signs Ext: no clubbing/cyanosis, mild b/l LE edema, nontender Neuro: Alert, no focal deficits, moves all extremities, sensations intact b/l upper/lower Psychiatric: Appropriate mood and affect Skin: warm/dry, normal color Assessment and plan High-grade colonic obstruction status post exploratory laparotomy, extended right hemicolectomy, end ileostomy, mucous fistula- splenic flexure LUQ. Doing well. Continue IV antibiotics. Continue TPN. Clamp NGT and if tolerating will be removed tomorrow. Downgrade to MedSurg. Surgery okay with resuming anticoagulation with Lovenox Hypophosphatemia. Replaced *Acute sigmoid colon diverticulitis w/abscess: -f/u CT with 3.7cm abscess -During laparotomy the area of sigmoid diverticulitis was indurated and fully walled off without any evidence of visible abscess active leak or contamination. -Continue antibiotics *Large hiatal hernia/GERD: Likely contributing to chronic nausea and vomiting -Very large hiatal hernia on CT scan which is increased from before -Protonix *Severe migraine headaches: continue home meds, fiorinal, also on Percocet, on topiramate *h/o CHF: Not in decompensated CHF -restarted home Lasix/spironolactone/Coreg/lisinopril *Paroxysmal A-fib: Rate controlled. Eliquis on hold, will start Lovenox 1 mg/kg, surgery okay with resuming anticoagulation *Hypertension: on lisinopril/coreg *Anxiety/Depression: on Ativan as needed, on sertraline *Hypophos/Hyponatremmia: replete and trend - *Constipation: takes meds at home to have a BM *DVT prophylaxis: SCD DNR/DNI Increase ambulation Downgrade to MedSurg Total time taken > 50 minutes Constitutional Vitals: Vital Signs Temp Pulse Resp BP Pulse Ox O2 Del Method O2 Flow Rate 98 F 65 19 108/50 91 Room Air 2 10/12/22 08:01 10/12/22 10:01 10/12/22 10:01 10/12/22 10:01 10/12/22 10:01 10/12/22 10:01 10/11/22 11:01 Period Temp Pulse Resp BP Sys/[place] Pulse Ox O2 Del Method O2 Flow Rate Last 24 Hr 97.2 F-98.5 F 65-79 15-22 94-126/41-55 91-95 Room Air-Room Air Intake and Output 10/11/22 10/12/22 10/12/22 19:59 03:59 11:59 Intake Total 479 1350 1210 Output Total 3455 980 305 Balance -2976 370 905 Weight 70.398 kg Intake & Output: Intake & Output 10/11/22 10/12/22 10/12/22 19:59 03:59 11:59 Intake Total 479 1350 1210 Output Total 3455 980 305 Balance -2976 370 905 Weight 70.398 kg Intake: IV 479 1350 1210 Sodium Chloride 0.9% 1,000 ml @ 79 1000 960 100 mls/hr IV .Q10H [facility] Rx#: [id number] Merrem 1 gm In Sodium Chloride 50 50 50 0.9% 50 ml @ 100 mls/hr IV Q8H [facility] Rx#:[id number] Vancomycin 1,000 mg In Sodium 250 Chloride 0.9% 250 ml @ 250 mls/ hr IV Q24H [facility] Rx#:[id number] Tube Feeding 0 Output: Gastric Drainage 375 200 5 Left Nare NG/OG 375 200 5 Drainage 130 230 50 Left KODY Drain 130 230 50 Urine Catheter Amount 2250 550 250 Stool 700 Other: Urine Appearance Clear Clear Clear Urine Color Yellow Yellow Yellow Urine Odor Normal Normal Stool Color Brown Stool Consistency Liquid OBJ DATA Labs 10/12/22 05:30 10/12/22 05:30 Labs: Abnormal Lab Results 10/12/22 10/12/22 10/11/22 05:30 05:30 05:34 WBC 12.0 H RBC 3.00 L Hgb 9.3 L Hct 28.7 L [place] # (Auto) Immature Gran # Absolute Neutrophils Anion Gap 5.0 L 6.0 L Creatinine 0.5 L Glucose 124 H 128 H Uric Acid 2.2 L Calcium 8.4 L Phosphorus GGT Alkaline Phosphatase 36 L Lactate Dehydrogenase Total Protein 4.1 L Albumin 1.7 L Albumin/Globulin Ratio 0.7 L Prealbumin 10/11/22 10/11/22 10/10/22 05:24 05:24 05:23 WBC 15.3 H 19.3 H RBC 2.94 L 3.36 L Hgb 9.2 L 10.7 L Hct 28.2 L 32.0 L [place] # (Auto) 2.15 H Immature Gran # 0.10 H Absolute Neutrophils 12.78 H Anion Gap Creatinine Glucose Uric Acid Calcium Phosphorus GGT Alkaline Phosphatase Lactate Dehydrogenase Total Protein Albumin Albumin/Globulin Ratio Prealbumin 5.2 L 10/10/22 10/10/22 05:23 05:23 WBC RBC Hgb Hct [place] # (Auto) Immature Gran # Absolute Neutrophils Anion Gap 4.0 L Creatinine Glucose 149 H Uric Acid 2.4 L Calcium 8.3 L Phosphorus 1.5 L GGT 45 H Alkaline Phosphatase 29 L Lactate Dehydrogenase 248 H Total Protein 4.1 L Albumin 1.8 L Albumin/Globulin Ratio 0.8 L Prealbumin 5.6 L Meds: Medications Acetaminophen/Butalbital/Caffeine (Butalb/Acetaminophen/Caffeine 1 Tablet) 1 tab PO Q4HP PRN PRN Reason: pain Last Admin: 10/11/22 14:27 Dose: 1 tab Albuterol/Ipratropium (Ipratropium/Albuterol 3 Ml Ampul.Neb) 3 ml NEB Q4HRT PRN PRN Reason: Shortness of breath/wheezing Last Admin: 10/12/22 08:50 Dose: 3 ml Bisacodyl (Bisacodyl 10 Mg Supp.Rect) 10 mg FL Q2-3DAYS PRN PRN Reason: Constipation Last Admin: 10/09/22 04:10 Dose: 10 mg Carvedilol (Carvedilol 3.125 Mg Tablet) 3.125 mg PO BID [facility] Last Admin: 10/12/22 08:52 Dose: 3.125 mg Diagnostic Test (Pha) (Accu-Chek 1 Each Strip) 1 each FS Q4 [facility]; Protocol Last Admin: 10/12/22 08:38 Dose: 1 each Enoxaparin Sodium (Enoxaparin 80 Mg/0.8 Ml Syringe) 70 mg SQ BID [facility] Last Admin: 10/12/22 10:42 Dose: 70 mg Furosemide (Furosemide 20 Mg Tablet) 40 mg PO DAILY [facility] Last Admin: 10/12/22 08:52 Dose: 40 mg Heparin Sodium (Porcine) (Heparin Flush 10 Units/Ml 5 Ml Syringe) 2 ml IV Q12 [facility] Last Admin: 10/12/22 08:53 Dose: Not Given Ciprofloxacin (Cipro) 400 mg in 200 mls @ 200 mls/hr IV Q12H [facility]; Protocol Last Infusion: 10/12/22 10:00 Dose: Infused Fat Emulsion Intravenous (Intralipid 20%) 250 mls @ 20.833 mls/hr IV TuThSa [facility] Last Infusion: 10/11/22 03:53 Dose: Infused Meropenem 1 gm/ Sodium (Chloride) 50 mls @ 100 mls/hr IV Q8H [facility]; Protocol Last Infusion: 10/12/22 06:05 Dose: Infused Vancomycin HCl 1,000 mg/ (Sodium Chloride) 250 mls @ 250 mls/hr IV Q24H [facility] Last Infusion: 10/11/22 17:48 Dose: Infused Acetaminophen (Ofirmev) 1,000 mg in 100 mls @ 200 mls/hr IV Q6HP PRN; Protocol PRN Reason: PAIN/FEVER > 101 Last Infusion: 10/12/22 01:09 Dose: Infused Magnesium Sulfate 16.24 meq/Sodium Chloride 75 meq/Potassium Chloride 20 meq/Potassium Phosphate 60 meq/Multivitamins/Minerals 10 ml/Sodium Phosphate 60 mmol/Amino Acids 2,076.3864 mls @ 55 mls/hr IV DAILY@1500 [facility] Last Admin: 10/11/22 15:33 Dose: 55 mls/hr Sodium Chloride (Sodium Chloride 0.9%) 1,000 mls @ 100 mls/hr IV .Q10H [facility] Last Admin: 10/12/22 10:15 Dose: 100 mls/hr Insulin Human Lispro (Insulin Lispro 1 Unit/0.01 Ml Unit) 0 unit SQ Q4 [facility]; Protocol Last Admin: 10/12/22 08:39 Dose: Not Given Latanoprost (Latanoprost Ophth Drops 2.5ml Bottle) 1 gtt OU HS [facility] Last Admin: 10/11/22 20:59 Dose: 1 gtt Lisinopril (Lisinopril 5 Mg Tablet) 5 mg PO QDAY [facility] Last Admin: 10/12/22 08:52 Dose: 5 mg Lorazepam (Lorazepam 0.5 Mg Tablet) 0.5 mg PO BIDP PRN PRN Reason: Anxiety Last Admin: 10/05/22 21:28 Dose: 0.5 mg Magnesium Hydroxide (Magnesium Hydroxide 30 Ml Oral.Susp) 30 ml PO DAILYP PRN PRN Reason: Constipation Metoprolol Tartrate (Metoprolol Tartrate 5 Mg/5 Ml Vial) 5 mg IV Q6HP PRN PRN Reason: Tachyarrhythmias Morphine Sulfate (Morphine 2 Mg/Ml Vial) 0 mg IV Q3HP PRN; Protocol PRN Reason: Per Pain Protocol Last Admin: 10/12/22 10:08 Dose: 2 mg Ondansetron HCl (Ondansetron 4 Mg/2 Ml Vial) 4 mg IV Q6HP PRN PRN Reason: Nausea And Vomiting Last Admin: 10/11/22 14:27 Dose: 4 mg Oxycodone/Acetaminophen (Oxycodone/Apap 5/325mg Tablet) 1 tab PO Q6HP PRN; Protocol PRN Reason: pain (scale score 4-6) Last Admin: 10/12/22 08:52 Dose: 1 tab Pantoprazole Sodium (Pantoprazole 40 Mg Vial) 40 mg IV QAMAC [facility] Last Admin: 10/12/22 08:52 Dose: 40 mg Polyethylene Glycol (Polyethylene Glycol 3350 17 Gm Packet) 17 gm PO TIDP PRN PRN Reason: Constipation Prochlorperazine (Prochlorperazine 10 Mg/2 Ml Vial) 10 mg IV Q4-6HP PRN PRN Reason: Nausea And Vomiting Last Admin: 10/11/22 16:00 Dose: 10 mg Promethazine HCl (Promethazine 25 Mg/Ml Vial) 12.5 mg IM Q6HP PRN PRN Reason: Nausea And Vomiting Last Admin: 10/10/22 10:37 Dose: 12.5 mg Senna (Sennosides 1 Tablet) 2 tab PO DAILY PRN PRN Reason: Constipation Sertraline HCl (Sertraline 50 Mg Tablet) 50 mg PO DAILY [facility] Last Admin: 10/12/22 08:52 Dose: 50 mg Sodium Chloride (0.9 % Sodium Chloride 10 Ml Syringe) 10 ml IV Q8 [facility] Last Admin: 10/12/22 06:20 Dose: Not Given Sodium Chloride (0.9 % Sodium Chloride 10 Ml Syringe) 10 ml IV UD PRN PRN Reason: FLUSH Last Admin: 10/12/22 05:33 Dose: 10 ml Sodium Chloride (0.9 % Sodium Chloride 10 Ml Syringe) 10 ml IV Q12 [facility] Last Admin: 10/12/22 08:53 Dose: Not Given Timolol Maleate (Timolol 0.5% Ophth Drops Bottle 5ml) 1 gtt OU BID [facility] Last Admin: 10/12/22 08:52 Dose: 1 gtt Vancomycin HCl (Vancomycin Per Pharmacy) 1 order IV UD [facility]; Protocol A/P Time Spent With Patient Time: Total time spent is greater than 50% in coordination of care (as documented) at patient's floor/unit and/or counseling patient: QUALITY VTE Deep Vein Thrombosis/Pulmonary Embolism Present on Admission: No
[2022-10-12] MEDS: PROCHLORPERAZINE 10 MG/2 ML VIAL IV PRN (12:36)
[2022-10-12] MEDS: SODIUM CHLORIDE IV SCH (15:16)
[2022-10-12] MEDS: POTASSIUM CHLORIDE IV SCH (15:16)
[2022-10-12] MEDS: [UNRECOGNIZED DRUG - OTHER] IV SCH (15:16)
[2022-10-12] MEDS: MAGNESIUM SULFATE IV SCH (15:16)
[2022-10-12] MEDS: FAT EMULSION 20% 250 ML IV SCH (16:16)
[2022-10-12] MEDS: ONDANSETRON 4 MG/2 ML VIAL IV PRN (16:48)
--- NOTE | 2022-10-12 17:40 | Internal Med Progress Note ---
SUBJECTIVE Subjective Patient information: Note initiated : 10/12/22 at 5:40 pm Service Date, if different from initiated Date: [] Patient: Yadira Lemus a 86 y/o F admitted on 10/01/22 for Diverticulitis. 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 Lemus is a 86 year old female with past medical history including hiatal hernia, sigmoid diverticulosis, migraine headaches, paroxysmal atrial fibrillation, idiopathic cardiomyopathy with preserved EF, CHF, LBBB status post biventricular pacemaker, anxiety and depression presented with constellation of symptoms which have been going on for about 2 to 3 weeks. Patient has chronic headaches due to migraine and chronic nausea and vomiting secondary to her big hiatal hernia. Her daughter is the main contributor to history. She convinced her today to present to ER. Patient presents with headache, nausea and vomiting with mild low abdominal pain and reduced appetite. Her daughter also reported generalized weakness. Patient reports no fever or chills. On presentation vitals are stable CT abdomen and pelvis with contrast showed acute sigmoid colon diverticulitis with a small around 2cm associated abscess. Prominent fecal matter within the cecum and ascending colon consistent with constipation. CBC with elevated WBC 16,000. Renal functions and electrolytes stable. Liver function pending. CT head without any acute finding. 10/02 Patient states she slept okay. Abdominal pain present but improving, described as lower quadrants and crampy. She also feels constipated and says she does not have bowel movements at home unless she takes something. Leukocytosis present but mildly improved. Hypophosphatemia, trend and replete. Seen by surgery and will continue conservative management with antibiotics for now. 10/03 Patient sitting up in chair eating breakfast. Has abdominal pain but says it is slowly improving. Has some nausea but no vomiting. Persistent leukocytosis. Pending manual differential no fevers. Surgery following 10/04 Patient states she feels similar to yesterday other than some continued nausea. And lower quadrant achy abdominal pain which she cannot relate whether it is worse or not from yesterday. Worsening leukocytosis. Repeat CT abdomen pelvis pending. Patient states she has not had a bowel movement yet. >>CT a/p did not demonstrate any abscess and did not note diverticulitis but did show a small bowel obstruction. Dr. barton aware and did order for NG tube placement and n.p.o. status for now. 10/05 Patient feels less nauseous than previously. Decreasing abdominal pain. She is not passing any gas or bowel movements yet however. NG tube in place. N.p.o. with IV fluids maintenance. Hyponatremia and change D5 half NS to D5 NS. 10/06 Patient feels worse today with increased nausea abdominal pain and distention. No BMs or flatus overnight. Abdominal film follow-up pending. Hypophosphatemia will replace through IV. Surgery following. 10/07 Patient states she thinks she feels a little bit better today but then says her nausea is the same as yesterday and her abdominal pain is same as yesterday. She has not had any bowel movements or flatus. Follow-up CT per surgery is pending. White blood cell count is elevated again. 10/08 Patient complains of nausea and feeling crummy abdominal pain but no worse than yesterday. Patient n.p.o. on maintenance fluids for likely surgical repair frieda rrow. Daughter at bedside. 10/09 Patient reported she was waiting for surgery. She reported she has not had a bowel movement or passing gas since she is in the hospital. She reports no nausea or vomiting she does have NG tube in. 10/10. Patient is status post exploratory laparotomy with extended right hemicolectomy, end ileostomy, mucous fistula-splenic flexure LUQ. She was found to have high-grade colonic obstruction with gangrenous change throughout the right and transverse colon including cecum necessitating resection. There was no perforation. The area of sigmoid diverticulitis was indurated and fully walled off without any evidence of visible abscess active leak or contamination. A KODY drain has been left in which is draining. Patient reports she is feeling nauseous and received Zofran. No vomiting. She has output in her ileostomy. 10/11. Feels better. No nausea or vomiting. Pain is controlled. She had some ostomy output. Surgery note was reviewed. 10/12. Continues to improve, some expected abdominal pain, no nausea or vomiting. Surgery note reviewed 10/13. Patient feeling tired today. Reports no nausea or vomiting, abdominal pain improving. Vitals are stable, no fever. Labs reviewed. Sodium 131, potassium 3.3 creatinine 0.4. CBC not available this morning. Patient tolerating meropenem and Lovenox which was resumed for anticoagulation in the context of A-fib, reports no hematuria, hematemesis or hematochezia PHYSICAL EXAM General: 86 years old female, resting in bed, appears tired Eyes/N/T: EOMI, no scleral icterus, Head/Neck: neck supple, full ROM, CV: S1 and S2, regular rate and rhythm, 2/6 systolic murmur, Pulm: Clear b/l, no wheezing/rhonchi/rales, no respiratory distress Abd: Soft with mild tenderness. Surgical dressing in place, no peritoneal signs Ext: no clubbing/cyanosis, mild b/l LE edema, nontender Neuro: No new findings, no focal deficits, moves all extremities, sensations intact b/l upper/lower Psychiatric: Appropriate mood and affect Skin: warm/dry, normal color Assessment and plan High-grade colonic obstruction status post exploratory laparotomy, extended right hemicolectomy, end ileostomy, mucous fistula- splenic flexure LUQ. Doing well. Continue IV antibiotics. Continue TPN. NG tube in place. Diet advancement per surgery Hypophosphatemia. Replaced *Acute sigmoid colon diverticulitis w/abscess: -f/u CT with 3.7cm abscess -During laparotomy the area of sigmoid diverticulitis was indurated and fully walled off without any evidence of visible abscess active leak or contamination. -Continue antibiotics *Large hiatal hernia/GERD: Likely contributing to chronic nausea and vomiting -Very large hiatal hernia on CT scan which is increased from before -Protonix *Severe migraine headaches: continue home meds, fiorinal, also on Percocet, on topiramate *h/o CHF: Not in decompensated CHF -restarted home Lasix/spironolactone/Coreg/lisinopril *Paroxysmal A-fib: Rate controlled. Eliquis on hold, will start Lovenox 1 mg/kg, surgery okay with resuming anticoagulation *Hypertension: on lisinopril/coreg *Anxiety/Depression: on Ativan as needed, on sertraline *Hypophos/Hyponatremmia: replete and trend - *Constipation: takes meds at home to have a BM *DVT prophylaxis: SCD DNR/DNI Increase ambulation Downgrade to MedSur Total time taken > 50 minutes Constitutional Vitals: Vital Signs Temp Pulse Resp BP Pulse Ox O2 Del Method O2 Flow Rate 98.1 F 75 18 115/56 92 Room Air 2 10/12/22 16:01 10/12/22 16:01 10/12/22 16:01 10/12/22 16:01 10/12/22 16:01 10/12/22 16:01 10/11/22 11:01 Period Temp Pulse Resp BP Sys/Regalado Pulse Ox O2 Del Method O2 Flow Rate Last 24 Hr 97.2 F-98.1 F 65-79 - 94-126/41-56 91-95 Room Air-Room Air Intake and Output 10/12/22 10/12/22 10/12/22 03:59 11:59 19:59 Intake Total 1350 1210 1454 Output Total 258 003 9256 Balance 370 905 -971 Weight 70.398 kg 70.398 kg Patient Weight 10/13/22 03:59 Weight 70.398 kg Intake & Output: Intake & Output 10/12/22 10/12/22 10/12/22 03:59 11:59 19:59 Intake Total 1350 1210 1454 Output Total 055 619 5360 Balance 370 905 -971 Weight 70.398 kg 70.398 kg Intake: IV 1350 1210 1454 Sodium Chloride 0.9% 1,000 ml @ 1000 960 100 mls/hr IV .Q10H [facility] Rx#: [id number] Magnesium Sulfate 16.24 Meq 1304 Sodium Chloride 75 Meq Potassium Chloride 20 Meq Potassium Phosphate 60 Meq Infuvite Adult 10 ml Sodium Phosphate 60 Mmol In Clinimix 5 %-20% Solution 2,000 ml @ 55 mls/hr IV DAILY@1500 [facility] Rx#: [id number] Merrem 1 gm In Sodium Chloride 50 50 50 0.9% 50 ml @ 100 mls/hr IV Q8H [facility] Rx#:[id number] Tube Feeding 0 0 Output: Gastric Drainage 200 5 275 Left Nare NG/OG 200 5 275 Drainage 230 50 200 Left KODY Drain 230 50 200 Urine Catheter Amount 610 392 0589 Stool 150 Other: Urine Appearance Clear Clear Clear Urine Color Yellow Yellow Yellow Pale Urine Odor Normal Normal Stool Color Brown Stool Consistency Liquid OBJ DATA Labs 10/12/22 05:30 10/13/22 05:58 Labs: Abnormal Lab Results 10/12/22 10/12/22 10/11/22 05:30 05:30 05:34 WBC 12.0 H RBC 3.00 L Hgb 9.3 L Hct 28.7 L [place] # (Auto) Immature Gran # Absolute Neutrophils Anion Gap 5.0 L 6.0 L Creatinine 0.5 L Glucose 124 H 128 H Uric Acid 2.2 L Calcium 8.4 L Phosphorus GGT Alkaline Phosphatase 36 L Lactate Dehydrogenase Total Protein 4.1 L Albumin 1.7 L Albumin/Globulin Ratio 0.7 L Prealbumin 10/11/22 10/11/22 10/10/22 05:24 05:24 05:23 WBC 15.3 H 19.3 H RBC 2.94 L 3.36 L Hgb 9.2 L 10.7 L Hct 28.2 L 32.0 L [place] # (Auto) 2.15 H Immature Gran # 0.10 H Absolute Neutrophils 12.78 H Anion Gap Creatinine Glucose Uric Acid Calcium Phosphorus GGT Alkaline Phosphatase Lactate Dehydrogenase Total Protein Albumin Albumin/Globulin Ratio Prealbumin 5.2 L 10/10/22 10/10/22 05:23 05:23 WBC RBC Hgb Hct [place] # (Auto) Immature Gran # Absolute Neutrophils Anion Gap 4.0 L Creatinine Glucose 149 H Uric Acid 2.4 L Calcium 8.3 L Phosphorus 1.5 L GGT 45 H Alkaline Phosphatase 29 L Lactate Dehydrogenase 248 H Total Protein 4.1 L Albumin 1.8 L Albumin/Globulin Ratio 0.8 L Prealbumin 5.6 L Meds: Medications Acetaminophen/Butalbital/Caffeine (Butalb/Acetaminophen/Caffeine 1 Tablet) 1 tab PO Q4HP PRN PRN Reason: pain Last Admin: 10/11/22 14:27 Dose: 1 tab Albuterol/Ipratropium (Ipratropium/Albuterol 3 Ml Ampul.Neb) 3 ml NEB Q4HRT PRN PRN Reason: Shortness of breath/wheezing Last Admin: 10/12/22 08:50 Dose: 3 ml Bisacodyl (Bisacodyl 10 Mg Supp.Rect) 10 mg OH Q2-3DAYS PRN PRN Reason: Constipation Last Admin: 10/09/22 04:10 Dose: 10 mg Carvedilol (Carvedilol 3.125 Mg Tablet) 3.125 mg PO BID [facility] Last Admin: 10/12/22 08:52 Dose: 3.125 mg Diagnostic Test (Pha) (Accu-Chek 1 Each Strip) 1 each FS Q4 [facility]; Protocol Last Admin: 10/12/22 16:41 Dose: 1 each Enoxaparin Sodium (Enoxaparin 80 Mg/0.8 Ml Syringe) 70 mg SQ BID [facility] Last Admin: 10/12/22 10:42 Dose: 70 mg Furosemide (Furosemide 20 Mg Tablet) 40 mg PO DAILY [facility] Last Admin: 10/12/22 08:52 Dose: 40 mg Heparin Sodium (Porcine) (Heparin Flush 10 Units/Ml 5 Ml Syringe) 2 ml IV Q12 [facility] Last Admin: 10/12/22 08:53 Dose: Not Given Fat Emulsion Intravenous (Intralipid 20%) 250 mls @ 20.833 mls/hr IV TuThSa [facility] Last Admin: 10/12/22 16:16 Dose: 20.833 mls/hr Meropenem 1 gm/ Sodium (Chloride) 50 mls @ 100 mls/hr IV Q8H [facility]; Protocol Last Infusion: 10/12/22 15:35 Dose: Infused Acetaminophen (Ofirmev) 1,000 mg in 100 mls @ 200 mls/hr IV Q6HP PRN; Protocol PRN Reason: PAIN/FEVER > 101 Last Infusion: 10/12/22 13:09 Dose: Infused Magnesium Sulfate 16.24 meq/Sodium Chloride 75 meq/Potassium Chloride 20 meq/Potassium Phosphate 60 meq/Multivitamins/Minerals 10 ml/Sodium Phosphate 60 mmol/Amino Acids 2,076.3864 mls @ 55 mls/hr IV DAILY@1500 [facility] Last Admin: 10/12/22 15:16 Dose: 55 mls/hr Sodium Chloride (Sodium Chloride 0.9%) 1,000 mls @ 100 mls/hr IV .Q10H [facility] Last Admin: 10/12/22 10:15 Dose: 100 mls/hr Insulin Human Lispro (Insulin Lispro 1 Unit/0.01 Ml Unit) 0 unit SQ Q4 [facility]; Protocol Last Admin: 10/12/22 16:42 Dose: Not Given Latanoprost (Latanoprost Ophth Drops 2.5ml Bottle) 1 gtt OU HS [facility] Last Admin: 10/11/22 20:59 Dose: 1 gtt Lorazepam (Lorazepam 0.5 Mg Tablet) 0.5 mg PO BIDP PRN PRN Reason: Anxiety Last Admin: 10/05/22 21:28 Dose: 0.5 mg Magnesium Hydroxide (Magnesium Hydroxide 30 Ml Oral.Susp) 30 ml PO DAILYP PRN PRN Reason: Constipation Metoprolol Tartrate (Metoprolol Tartrate 5 Mg/5 Ml Vial) 5 mg IV Q6HP PRN PRN Reason: Tachyarrhythmias Morphine Sulfate (Morphine 2 Mg/Ml Vial) 0 mg IV Q3HP PRN; Protocol PRN Reason: Per Pain Protocol Last Admin: 10/12/22 10:08 Dose: 2 mg Ondansetron HCl (Ondansetron 4 Mg/2 Ml Vial) 4 mg IV Q6HP PRN PRN Reason: Nausea And Vomiting Last Admin: 10/12/22 16:48 Dose: 4 mg Oxycodone/Acetaminophen (Oxycodone/Apap 5/325mg Tablet) 1 tab PO Q6HP PRN; Protocol PRN Reason: pain (scale score 4-6) Last Admin: 10/12/22 08:52 Dose: 1 tab Pantoprazole Sodium (Pantoprazole 40 Mg Vial) 40 mg IV QAMAC [facility] Last Admin: 10/12/22 08:52 Dose: 40 mg Polyethylene Glycol (Polyethylene Glycol 3350 17 Gm Packet) 17 gm PO TIDP PRN PRN Reason: Constipation Prochlorperazine (Prochlorperazine 10 Mg/2 Ml Vial) 10 mg IV Q4-6HP PRN PRN Reason: Nausea And Vomiting Last Admin: 10/12/22 12:36 Dose: 10 mg Promethazine HCl (Promethazine 25 Mg/Ml Vial) 12.5 mg IM Q6HP PRN PRN Reason: Nausea And Vomiting Last Admin: 10/10/22 10:37 Dose: 12.5 mg Senna (Sennosides 1 Tablet) 2 tab PO DAILY PRN PRN Reason: Constipation Sertraline HCl (Sertraline 50 Mg Tablet) 50 mg PO DAILY [facility] Last Admin: 10/12/22 08:52 Dose: 50 mg Sodium Chloride (0.9 % Sodium Chloride 10 Ml Syringe) 10 ml IV Q8 [facility] Last Admin: 10/12/22 14:54 Dose: Not Given Sodium Chloride (0.9 % Sodium Chloride 10 Ml Syringe) 10 ml IV UD PRN PRN Reason: FLUSH Last Admin: 10/12/22 05:33 Dose: 10 ml Sodium Chloride (0.9 % Sodium Chloride 10 Ml Syringe) 10 ml IV Q12 [facility] Last Admin: 10/12/22 08:53 Dose: Not Given Timolol Maleate (Timolol 0.5% Ophth Drops Bottle 5ml) 1 gtt OU BID [facility] Last Admin: 10/12/22 08:52 Dose: 1 gtt A/P Time Spent With Patient Time: Total time spent is greater than 50% in coordination of care (as documented) at patient's floor/unit and/or counseling patient: QUALITY VTE Deep Vein Thrombosis/Pulmonary Embolism Present on Admission: No
[2022-10-12] MEDS: LATANOPROST OPHTH DROPS 2.5ML BOTTLE OU SCH (20:47)
[2022-10-13] MEDS: INSULIN LISPRO 1 UNIT/0.01 ML UNIT SQ SCH ×7 (00:50→23:52)
[2022-10-13] MEDS: BUTALB/ACETAMINOPHEN/CAFFEINE 1 TABLET PO PRN (02:05)
[2022-10-13] MEDS: MEROPENEM 1 GM in 0.9 % SODIUM CHLORIDE 50 ML IV SCH ×3 (06:30→22:31)
[2022-10-13] MEDS: ONDANSETRON 4 MG/2 ML VIAL IV PRN (07:20)
[2022-10-13] MEDS: PANTOPRAZOLE 40 MG VIAL IV SCH (07:20)
[2022-10-13 07:28] LABS: ALT/SGPT 12 U/L (<40); AST/SGOT 17 U/L (<32); Albumin 1.7 gm/dL (3.2-5.2); Albumin/Globulin Ratio 0.6 (1.0-2.3); Alkaline Phosphatase 42 U/L (39-117); Bilirubin,Direct < 0.2 mg/dL (0-0.3); Bilirubin,Total < 0.2 mg/dL (0.1-1.0); Blood Urea Nitrogen 11 mg/dL (8-23); Calcium 8.6 mg/dL (8.6-10.4); Carbon Dioxide 28 mmol/L (22-30); Chloride 100 mmol/L (96-108); Globulin 2.7 gm/dL (2.2-3.7); Glomerular Filtration Rate 92; Glucose 205 mg/dL (70-105); Lactate Dehydrogenase 180 U/L (135-225); Phosphorous 4.2 mg/dL (2.5-4.5); Triglycerides 98 mg/dL (<150)
[2022-10-13] MEDS: 0.9 % SODIUM CHLORIDE 10 ML SYRINGE IV SCH ×5 (09:13→21:04)
[2022-10-13] MEDS: SERTRALINE 50 MG TABLET PO SCH (09:13)
[2022-10-13] MEDS: FUROSEMIDE 20 MG TABLET PO SCH (09:13)
[2022-10-13] MEDS: CARVEDILOL 3.125 MG TABLET PO SCH ×2 (09:13→20:52)
[2022-10-13] MEDS: 0.9 % SODIUM CHLORIDE 1,000 ML IV SCH ×4 (09:19→22:24)
[2022-10-13 09:22] LABS: Basophils # (Auto) 0.05 K/mcL (0.00-0.30); Basophils % (Auto) 0.4 % (0.0-2.0); Eosinophils # (Auto) 0.46 K/mcL (0.00-0.70); Eosinophils % (Auto) 3.7 % (0.0-7.0); Hematocrit 28.5 % (34.1-44.9); Hemoglobin 9.2 g/dL (11.2-15.7); Lymphocytes # (Auto) 3.11 K/mcL (1.50-4.80); Lymphocytes % (Auto) 25.2 % (15.5-49.0); Mean Cell Volume 96.9 fL (80.0-100.0); Mean Corpuscular HGB Conc 32.3 g/dL (31.0-36.0); Mean Platelet Volume 10.5 fL (8.8-12.5); Monocytes # (Auto) 0.87 K/mcL (0.10-0.90); Neutrophils % (Auto) 63.2 % (38.0-78.0); Platelet Count 277 K/mcL (140-440); RBC 2.94 M/mcL (3.59-5.38); Red Cell Distribution Width 13.3 % (11.5-14.5); WBC 12.4 K/mcL (4.5-11.0)
[2022-10-13] MEDS: ENOXAPARIN 80 MG/0.8 ML SYRINGE SQ SCH ×2 (09:30→20:52)
[2022-10-13] MEDS: TIMOLOL 0.5% OPHTH DROPS BOTTLE 5ML OU SCH ×2 (09:46→20:53)
[2022-10-13] MEDS: morphine 2 MG/ML VIAL IV PRN (10:49)
[2022-10-13] MEDS: PROCHLORPERAZINE 10 MG/2 ML VIAL IV PRN (10:49)
[2022-10-13] MEDS: LORazepam 0.5 MG TABLET PO PRN (10:50)
--- NOTE | 2022-10-13 11:04 | General Surgery Progress Note ---
SUBJECTIVE Subjective Patient information: Note initiated : 10/13/22 at 10:58 am Service Date, if different from initiated Date: [] Patient: Yadira Lemus 86 y/o F admitted on 10/01/22 for Diverticulitis. Chief Complaint: [] Some nausea with NGT clamped - will return to suction to see if this improves. 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 Constitutional Vitals: Vital Signs Temp Pulse Resp BP Pulse Ox O2 Del Method O2 Flow Rate 98.1 F 85 18 133/57 92 Room Air 2 10/13/22 08:02 10/13/22 08:02 10/13/22 08:02 10/13/22 08:02 10/13/22 08:02 10/13/22 08:02 10/11/22 11:01 Period Temp Pulse Resp BP Sys/Regalado Pulse Ox O2 Del Method O2 Flow Rate Last 24 Hr 97.5 F-98.4 F 71-88 16- 97-133/44-66 91-95 Room Air-Room Air Intake and Output 10/12/22 10/13/22 10/13/22 19:59 03:59 11:59 Intake Total 3507.24 1050 1250 Output Total 2425 1130 820 Balance 1082.24 -80 430 Weight 155 lb 3.2 oz 159 lb 2 oz Intake & Output: Intake & Output 10/12/22 10/13/22 10/13/22 19:59 03:59 11:59 Intake Total 3507.24 1050 1250 Output Total 2425 1130 820 Balance 1082.24 -80 430 Weight 155 lb 3.2 oz 159 lb 2 oz Intake: IV 3507.24 1050 1250 Sodium Chloride 0.9% 1,000 ml @ 1000 1000 100 mls/hr IV .Q10H [facility] Rx#: [id number] Intralipid 20% 250 ml @ 20.833 250 mls/hr IV TuThSa [facility] Rx#: [id number] Magnesium Sulfate 16.24 Meq 3357.24 Sodium Chloride 75 Meq Potassium Chloride 20 Meq Potassium Phosphate 60 Meq Infuvite Adult 10 ml Sodium Phosphate 60 Mmol In Clinimix 5 %-20% Solution 2,000 ml @ 55 mls/hr IV DAILY@1500 [facility] Rx#: [id number] Merrem 1 gm In Sodium Chloride 50 50 0.9% 50 ml @ 100 mls/hr IV Q8H [facility] Rx#:[id number] Tube Feeding 0 0 0 Output: Gastric Drainage 275 Left Nare NG/OG 275 Drainage 200 180 170 Left KODY Drain 200 180 170 Urine Catheter Amount 1800 950 425 Stool 150 225 Other: Urine Appearance Clear Clear Clear Urine Color Yellow Yellow Yellow Pale Pale Uretheral (Peña) Yellow Urine Odor Normal Stool Size Small Stool Color Green Stool Consistency Liquid Exam: Looks non toxic, sitting up, no distress GI/Abdominal Additional comments: soft and non distended, dressings in place, stoma function present, JPD is light serosang and non enteric A/P Assessment and plan (1) Sigmoid diverticulitis: Status: Acute Plan POD #4 Extended Right Colectomy, End Ileostomy, Mucous Fistula Will return NGT to suction, likely has ileus still, continue TPN, IV ABs, and otherwise NPO Continues to do well overall but sluggish recovery thus far - will re check CT scan to rule out drainable abscess in the coming days if does not continue to improve Time Spent With Patient Time: Total time spent is greater than 50% in coordination of care (as documented) at patient's floor/unit and/or counseling patient:
[2022-10-13] MEDS ORDERED: MAGNESIUM SULFATE IV SCH (15:00)
[2022-10-13] MEDS ORDERED: [UNRECOGNIZED DRUG - OTHER] IV SCH (15:00)
[2022-10-13] MEDS ORDERED: POTASSIUM CHLORIDE IV SCH (15:00)
[2022-10-13] MEDS ORDERED: SODIUM CHLORIDE IV SCH (15:00)
[2022-10-13] MEDS: LATANOPROST OPHTH DROPS 2.5ML BOTTLE OU SCH (20:53)
[2022-10-14] MEDS: INSULIN LISPRO 1 UNIT/0.01 ML UNIT SQ SCH ×5 (03:55→20:20)
[2022-10-14] MEDS: MEROPENEM 1 GM in 0.9 % SODIUM CHLORIDE 50 ML IV SCH ×3 (06:10→22:41)
[2022-10-14 06:39] LABS: Basophils # (Auto) 0.04 K/mcL (0.00-0.30); Basophils % (Auto) 0.4 % (0.0-2.0); Eosinophils # (Auto) 0.47 K/mcL (0.00-0.70); Eosinophils % (Auto) 4.1 % (0.0-7.0); Hemoglobin 9.3 g/dL (11.2-15.7); Lymphocytes # (Auto) 3.45 K/mcL (1.50-4.80); Lymphocytes % (Auto) 30.5 % (15.5-49.0); Mean Cell Volume 95.4 fL (80.0-100.0); Mean Corpuscular HGB Conc 32.1 g/dL (31.0-36.0); Mean Platelet Volume 10.4 fL (8.8-12.5); Monocytes # (Auto) 0.85 K/mcL (0.10-0.90); Monocytes % (Auto) 7.5 % (1.0-12.0); Platelet Count 306 K/mcL (140-440); RBC 3.04 M/mcL (3.59-5.38); Red Cell Distribution Width 13.2 % (11.5-14.5); WBC 11.3 K/mcL (4.5-11.0)
[2022-10-14 07:00] LABS: ALT/SGPT 24 U/L (<40); AST/SGOT 38 U/L (<32); Albumin 1.7 gm/dL (3.2-5.2); Albumin/Globulin Ratio 0.6 (1.0-2.3); Alkaline Phosphatase 53 U/L (39-117); Bilirubin,Direct < 0.2 mg/dL (0-0.3); Bilirubin,Total 0.2 mg/dL (0.1-1.0); Blood Urea Nitrogen 12 mg/dL (8-23); Calcium 8.7 mg/dL (8.6-10.4); Carbon Dioxide 28 mmol/L (22-30); Chloride 108 mmol/L (96-108); Globulin 2.7 gm/dL (2.2-3.7); Glomerular Filtration Rate 92; Glucose 108 mg/dL (70-105); Lactate Dehydrogenase 207 U/L (135-225); Phosphorous 2.2 mg/dL (2.5-4.5); Triglycerides 124 mg/dL (<150); Uric Acid 1.9 mg/dL (2.5-8.0)
[2022-10-14] MEDS: FUROSEMIDE 20 MG TABLET PO SCH (08:20)
[2022-10-14] MEDS: ENOXAPARIN 80 MG/0.8 ML SYRINGE SQ SCH ×2 (08:21→20:53)
[2022-10-14] MEDS: CARVEDILOL 3.125 MG TABLET PO SCH ×2 (08:21→20:53)
[2022-10-14] MEDS: 0.9 % SODIUM CHLORIDE 10 ML SYRINGE IV SCH ×5 (08:21→20:21)
[2022-10-14] MEDS: PANTOPRAZOLE 40 MG VIAL IV SCH (08:21)
[2022-10-14] MEDS: TIMOLOL 0.5% OPHTH DROPS BOTTLE 5ML OU SCH ×2 (08:21→20:21)
[2022-10-14] MEDS: SERTRALINE 50 MG TABLET PO SCH (08:21)
[2022-10-14] MEDS: oxyCODONE/APAP 5/325MG TABLET PO PRN (09:14)
[2022-10-14] MEDS: 0.9 % SODIUM CHLORIDE 1,000 ML IV SCH (12:08)
--- NOTE | 2022-10-14 13:22 | Internal Med Progress Note ---
SUBJECTIVE Subjective Patient information: Note initiated : 10/14/22 at 1:20 pm Service Date, if different from initiated Date: [] Patient: Yadira Lemus a 86 y/o F admitted on 10/01/22. 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 Lemus is a 86 year old female with past medical history including hiatal hernia, sigmoid diverticulosis, migraine headaches, paroxysmal atrial fibrillation, idiopathic cardiomyopathy with preserved EF, CHF, LBBB status post biventricular pacemaker, anxiety and depression presented with constellation of symptoms which have been going on for about 2 to 3 weeks. Patient has chronic headaches due to migraine and chronic nausea and vomiting secondary to her big hiatal hernia. Her daughter is the main contributor to history. She convinced her today to present to ER. Patient presents with headache, nausea and vomiting with mild low abdominal pain and reduced appetite. Her daughter also reported generalized weakness. Patient reports no fever or chills. On presentation vitals are stable CT abdomen and pelvis with contrast showed acute sigmoid colon diverticulitis with a small around 2cm associated abscess. Prominent fecal matter within the cecum and ascending colon consistent with constipation. CBC with elevated WBC 16,000. Renal functions and electrolytes stable. Liver function pending. CT head without any acute finding. 10/02 Patient states she slept okay. Abdominal pain present but improving, described as lower quadrants and crampy. She also feels constipated and says she does not have bowel movements at home unless she takes something. Leukocytosis present but mildly improved. Hypophosphatemia, trend and replete. Seen by surgery and will continue conservative management with antibiotics for now. 10/03 Patient sitting up in chair eating breakfast. Has abdominal pain but says it is slowly improving. Has some nausea but no vomiting. Persistent leukocytosis. Pending manual differential no fevers. Surgery following 10/04 Patient states she feels similar to yesterday other than some continued nausea. And lower quadrant achy abdominal pain which she cannot relate whether it is worse or not from yesterday. Worsening leukocytosis. Repeat CT abdomen pelvis pending. Patient states she has not had a bowel movement yet. >>CT a/p did not demonstrate any abscess and did not note diverticulitis but did show a small bowel obstruction. Dr. barton aware and did order for NG tube placement and n.p.o. status for now. 10/05 Patient feels less nauseous than previously. Decreasing abdominal pain. She is not passing any gas or bowel movements yet however. NG tube in place. N.p.o. with IV fluids maintenance. Hyponatremia and change D5 half NS to D5 NS. 10/06 Patient feels worse today with increased nausea abdominal pain and distention. No BMs or flatus overnight. Abdominal film follow-up pending. Hypophosphatemia will replace through IV. Surgery following. 10/07 Patient states she thinks she feels a little bit better today but then says her nausea is the same as yesterday and her abdominal pain is same as yesterday. She has not had any bowel movements or flatus. Follow-up CT per surgery is pending. White blood cell count is elevated again. 10/08 Patient complains of nausea and feeling crummy abdominal pain but no worse than yesterday. Patient n.p.o. on maintenance fluids for likely surgical repair tomorrow. Daughter at bedside. 10/09 Patient reported she was waiting for surgery. She reported she has not had a bowel movement or passing gas since she is in the hospital. She reports no nausea or vomiting she does have NG tube in. 10/10. Patient is status post exploratory laparotomy with extended right hemicolectomy, end ileostomy, mucous fistula-splenic flexure LUQ. She was found to have high-grade colonic obstruction with gangrenous change throughout the right and transverse colon including cecum necessitating resection. There was no perforation. The area of sigmoid diverticulitis was indurated and fully walled off without any evidence of visible abscess active leak or contamination. A KODY drain has been left in which is draining. Patient reports she is feeling nauseous and received Zofran. No vomiting. She has output in her ileostomy. 10/11. Feels better. No nausea or vomiting. Pain is controlled. She had some ostomy output. Surgery note was reviewed. 10/12. Continues to improve, some expected abdominal pain, no nausea or vomiting. Surgery note reviewed 10/13. Patient feeling tired today. Reports no nausea or vomiting, abdominal pain improving. Vitals are stable, no fever. Labs reviewed. Sodium 131, potassium 3.3 creatinine 0.4. CBC not available this morning. Patient tolerating meropenem and Lovenox which was resumed for anticoagulation in the context of A-fib, reports no hematuria, hematemesis or hematochezia 10/14 No significant events reported overnight. Vitals stable. Morning labs show sodium 140. Labs otherwise similar to yesterday. Patient continues on TPN, n.p.o. status. There is gas in the ileostomy bag, no bowel movement yet. Pain control satisfactory. Physical exam Head: Atraumatic, normal inspection. Eyes: normal appearance, no scleral icterus. Neck: full ROM Respiratory: no respiratory distress. Cardiovascular: normal rate and rhythm, S1, S2. GI/Abdominal: Ileostomy present, mucous fistula bag,laparotomy incision covered with clean bandage, abdominal drain present, mild tenderness, no guarding. Extremities: PICC line present, full range of motion, nontender. Neurological: CN II-XII intact, intact motor, intact sensation. Psychiatric: normal mood. Skin: warm, normal color Constitutional Vitals: Vital Signs Temp Pulse Resp BP Pulse Ox O2 Del Method O2 Flow Rate 97.5 F 70 16 118/55 90 Room Air 2 10/14/22 12:10/14/22 12:10/14/22 12:10/14/22 12:10/14/22 12:10/14/22 12:10/11/22 11:01 Period Temp Pulse Resp BP Sys/Regalado Pulse Ox O2 Del Method O2 Flow Rate Last 24 Hr 97.5 F-99.2 F 70-82 12-24 112-142/46-68 90-92 Room Air-Room Air Intake and Output 10/14/22 10/14/22 10/14/22 03:59 11:59 19:59 Intake Total 352 1000 Output Total 1550 200 Balance -1198 800 Weight 72.206 kg Intake & Output: Intake & Output 10/14/22 10/14/22 10/14/22 03:59 11:59 19:59 Intake Total 352 1000 Output Total 1550 200 Balance -1198 800 Weight 72.206 kg Intake: IV 352 1000 Sodium Chloride 0.9% 1,000 ml @ 302 1000 75 mls/hr IV .[id number] [facility] Rx#: [id number] Merrem 1 gm In Sodium Chloride 50 0.9% 50 ml @ 100 mls/hr IV Q8H [facility] Rx#:[id number] Tube Feeding 0 0 Output: Gastric Drainage 300 Left Nare NG/OG 300 Drainage 150 100 Left KODY Drain 150 100 Urine Catheter Amount 900 Stool 200 100 Other: Urine Appearance Clear Uretheral (Peña) Clear Urine Color Yellow Uretheral (Peña) Yellow Yellow Urine Odor Normal Stool Size Large Stool Color Brown Stool Consistency Loose # Bowel Movements 1 # of times incontinent of 1 Bowels OBJ DATA Labs 10/14/22 05:21 10/14/22 05:22 Labs: Abnormal Lab Results 10/14/22 10/14/22 10/13/22 05:22 05:21 05:58 WBC 11.3 H 12.4 H RBC 3.04 L 2.94 L Hgb 9.3 L 9.2 L Hct 29.0 L 28.5 L Immature Gran # 0.06 H 0.06 H Sodium Anion Gap 4.0 L Creatinine 0.4 L Glucose 108 H Uric Acid 1.9 L Phosphorus 2.2 L GGT 93 H AST 38 H Total Protein 4.4 L Albumin 1.7 L Albumin/Globulin Ratio 0.6 L 10/13/22 10/12/22 10/12/22 05:58 05:30 05:30 WBC 12.0 H RBC 3.00 L Hgb 9.3 L Hct 28.7 L Immature Gran # Sodium 131 L Anion Gap 3.0 L 5.0 L Creatinine 0.4 L Glucose 205 H 124 H Uric Acid 2.0 L Phosphorus GGT 52 H AST Total Protein 4.4 L Albumin 1.7 L Albumin/Globulin Ratio 0.6 L Meds: Medications Acetaminophen/Butalbital/Caffeine (Butalb/Acetaminophen/Caffeine 1 Tablet) 1 tab PO Q4HP PRN PRN Reason: pain Last Admin: 10/13/22 02:05 Dose: 1 tab Albuterol/Ipratropium (Ipratropium/Albuterol 3 Ml Ampul.Neb) 3 ml NEB Q4HRT PRN PRN Reason: Shortness of breath/wheezing Last Admin: 10/12/22 20:33 Dose: 3 ml Bisacodyl (Bisacodyl 10 Mg Supp.Rect) 10 mg VT Q2-3DAYS PRN PRN Reason: Constipation Last Admin: 10/09/22 04:10 Dose: 10 mg Carvedilol (Carvedilol 3.125 Mg Tablet) 3.125 mg PO BID [facility] Last Admin: 10/14/22 08:21 Dose: 3.125 mg Diagnostic Test (Pha) (Accu-Chek 1 Each Strip) 1 each FS Q4 [facility]; Protocol Last Admin: 10/14/22 12:00 Dose: 1 each Enoxaparin Sodium (Enoxaparin 80 Mg/0.8 Ml Syringe) 70 mg SQ BID [facility] Last Admin: 10/14/22 08:21 Dose: 70 mg Furosemide (Furosemide 20 Mg Tablet) 40 mg PO DAILY [facility] Last Admin: 10/14/22 08:20 Dose: 40 mg Heparin Sodium (Porcine) (Heparin Flush 10 Units/Ml 5 Ml Syringe) 2 ml IV Q12 [facility] Last Admin: 10/14/22 08:21 Dose: Not Given Fat Emulsion Intravenous (Intralipid 20%) 250 mls @ 20.833 mls/hr IV TuThSa [facility] Last Infusion: 10/13/22 04:20 Dose: Infused Meropenem 1 gm/ Sodium (Chloride) 50 mls @ 100 mls/hr IV Q8H [facility]; Protocol Last Admin: 10/14/22 06:10 Dose: 100 mls/hr Acetaminophen (Ofirmev) 1,000 mg in 100 mls @ 200 mls/hr IV Q6HP PRN; Protocol PRN Reason: PAIN/FEVER > 101 Last Infusion: 10/12/22 13:09 Dose: Infused Magnesium Sulfate 16.24 meq/Sodium Chloride 100 meq/Potassium Chloride 80 meq/Potassium Phosphate 30 meq/Multivitamins/Minerals 10 ml/Sodium Phosphate 30 mmol/Amino Acids 2,095.8182 mls @ 55 mls/hr IV DAILY@1500 [facility] Stop: 10/14/22 14:59 Last Admin: 10/13/22 15:33 Dose: 55 mls/hr Sodium Chloride (Sodium Chloride 0.9%) 1,000 mls @ 75 mls/hr IV .[id number] [facility] Last Admin: 10/14/22 12:08 Dose: 75 mls/hr Magnesium Sulfate 16.24 meq/Sodium Chloride 80 meq/Potassium Chloride 80 meq/Po tassium Phosphate 40 meq/Multivitamins/Minerals 10 ml/Sodium Phosphate 40 mmol/Amino Acids 2,096.4242 mls @ 55 mls/hr IV DAILY@1500 [facility] Insulin Human Lispro (Insulin Lispro 1 Unit/0.01 Ml Unit) 0 unit SQ Q4 [facility]; Protocol Last Admin: 10/14/22 12:43 Dose: Not Given Latanoprost (Latanoprost Ophth Drops 2.5ml Bottle) 1 gtt OU HS [facility] Last Admin: 10/13/22 20:53 Dose: 1 gtt Lorazepam (Lorazepam 0.5 Mg Tablet) 0.5 mg PO BIDP PRN PRN Reason: Anxiety Last Admin: 10/13/22 10:50 Dose: 0.5 mg Magnesium Hydroxide (Magnesium Hydroxide 30 Ml Oral.Susp) 30 ml PO DAILYP PRN PRN Reason: Constipation Metoprolol Tartrate (Metoprolol Tartrate 5 Mg/5 Ml Vial) 5 mg IV Q6HP PRN PRN Reason: Tachyarrhythmias Morphine Sulfate (Morphine 2 Mg/Ml Vial) 0 mg IV Q3HP PRN; Protocol PRN Reason: Per Pain Protocol Last Admin: 10/13/22 10:49 Dose: 2 mg Ondansetron HCl (Ondansetron 4 Mg/2 Ml Vial) 4 mg IV Q6HP PRN PRN Reason: Nausea And Vomiting Last Admin: 10/13/22 07:20 Dose: 4 mg Oxycodone/Acetaminophen (Oxycodone/Apap 5/325mg Tablet) 1 tab PO Q6HP PRN; Protocol PRN Reason: pain (scale score 4-6) Last Admin: 10/14/22 09:14 Dose: 1 tab Pantoprazole Sodium (Pantoprazole 40 Mg Vial) [facility] Last Admin: 10/14/22 08:21 Dose: 40 mg Polyethylene Glycol (Polyethylene Glycol 3350 17 Gm Packet) 17 gm PO TIDP PRN PRN Reason: Constipation Prochlorperazine (Prochlorperazine 10 Mg/2 Ml Vial) 10 mg IV Q4-6HP PRN PRN Reason: Nausea And Vomiting Last Admin: 10/13/22 10:49 Dose: 10 mg Promethazine HCl (Promethazine 25 Mg/Ml Vial) 12.5 mg IM Q6HP PRN PRN Reason: Nausea And Vomiting Last Admin: 10/10/22 10:37 Dose: 12.5 mg Senna (Sennosides 1 Tablet) 2 tab PO DAILY PRN PRN Reason: Constipation Sertraline HCl (Sertraline 50 Mg Tablet) 50 mg PO DAILY [facility] Last Admin: 10/14/22 08:21 Dose: 50 mg Sodium Chloride (0.9 % Sodium Chloride 10 Ml Syringe) 10 ml IV Q8 [facility] Last Admin: 10/14/22 08:21 Dose: Not Given Sodium Chloride (0.9 % Sodium Chloride 10 Ml Syringe) 10 ml IV UD PRN PRN Reason: FLUSH Last Admin: 10/12/22 05:33 Dose: 10 ml Sodium Chloride (0.9 % Sodium Chloride 10 Ml Syringe) 10 ml IV Q12 [facility] Last Admin: 10/14/22 08:22 Dose: Not Given Timolol Maleate (Timolol 0.5% Ophth Drops Bottle 5ml) 1 gtt OU BID [facility] Last Admin: 10/14/22 08:21 Dose: 1 gtt A/P Narrative A/P Narrative: Assessment: Acute sigmoid colon diverticulitis complicated by abscess and high- grade colonic obstruction status post exploratory laparotomy, extended right hemicolectomy, end ileostomy, colonic mucous fistula at the splenic flexure. Postoperative course complicated by ileus. Continues on TPN, antibiotics, NG tube for decompression. Diet per surgery. Acute sigmoid colon diverticulitis w/abscess: -f/u CT with 3.7cm abscess -During laparotomy the area of sigmoid diverticulitis was indurated and fully walled off without any evidence of visible abscess active leak or contamination . -Antibiotics per general surgery. *Large hiatal hernia/GERD: Likely contributing to chronic nausea and vomiting -Very large hiatal hernia on CT scan which is increased from before -Protonix *Severe migraine headaches: continue home meds, fiorinal, also on Percocet, on topiramate *h/o CHF: Not in decompensated CHF -home Lasix/spironolactone/Coreg/lisinopril *Paroxysmal A-fib: Rate controlled. Eliquis on hold, on Lovenox 1 mg/kg for now. Surgery okay with resuming anticoagulation *Hypertension: on lisinopril/coreg *Anxiety/Depression: on Ativan as needed, on sertraline *DVT prophylaxis: Lovenox *CODE STATUS: DNR/DNI Time Spent With Patient Time: Total time spent is greater than 50% in coordination of care (as documented) at patient's floor/unit and/or counseling patient: QUALITY VTE Deep Vein Thrombosis/Pulmonary Embolism Present on Admission: No
[2022-10-14] MEDS: POTASSIUM CHLORIDE IV SCH (15:04)
[2022-10-14] MEDS: MAGNESIUM SULFATE IV SCH (15:04)
[2022-10-14] MEDS: FAT EMULSION 20% 250 ML IV SCH (15:04)
[2022-10-14] MEDS: [UNRECOGNIZED DRUG - OTHER] IV SCH (15:04)
[2022-10-14] MEDS: SODIUM CHLORIDE IV SCH (15:04)
[2022-10-14] MEDS: morphine 2 MG/ML VIAL IV PRN (16:06)
--- NOTE | 2022-10-14 16:55 | General Surgery Progress Note ---
SUBJECTIVE Subjective Patient information: Note initiated : 10/14/22 at 745am pm Service Date, if different from initiated Date: [] Patient: Yadira Lemus 86 y/o F admitted on 10/01/22. Chief Complaint: [] Fatigued but otherwise feels ok, quiet night, no major issues. Constitutional Vitals: Vital Signs Temp Pulse Resp BP Pulse Ox O2 Del Method O2 Flow Rate 98.2 F 69 16 136/62 90 Room Air 2 10/14/22 16:00 10/14/22 16:00 10/14/22 12:00 10/14/22 16:00 10/14/22 16:00 10/14/22 16:00 10/11/22 11:01 Period Temp Pulse Resp BP Sys/Regalado Pulse Ox O2 Del Method O2 Flow Rate Last 24 Hr 97.9 F-99.2 F 69-82 12-20 112-142/46-68 90-92 Room Air-Room Air Intake and Output 10/14/22 10/14/22 10/14/22 03:59 11:59 19:59 Intake Total 352 1050 50 Output Total 8414 455 2694 Balance -1198 790 -1260 Weight 159 lb 3 oz Intake & Output: Intake & Output 10/14/22 10/14/22 10/14/22 03:59 11:59 19:59 Intake Total 352 1050 50 Output Total 7199 069 7790 Balance -1198 790 -1260 Weight 159 lb 3 oz Intake: IV 352 1050 50 Sodium Chloride 0.9% 1,000 ml @ 302 1000 75 mls/hr IV .[id number] [facility] Rx#: [id number] Merrem 1 gm In Sodium Chloride 50 50 50 0.9% 50 ml @ 100 mls/hr IV Q8H [facility] Rx#:[id number] Tube Feeding 0 0 0 Output: Gastric Drainage 300 400 Left Nare NG/OG 300 400 Drainage 150 160 60 Left KODY Drain 150 160 60 Urine Catheter Amount 900 600 Stool 200 100 250 Other: Urine Appearance Clear Uretheral (Peña) Clear Urine Color Yellow Yellow Uretheral (Peña) Yellow Yellow Urine Odor Normal Stool Size Large Small Stool Color Brown Brown Stool Consistency Loose Loose # Bowel Movements 1 # of times incontinent of 1 1 Bowels Exam: non toxic, no distress GI/Abdominal Additional comments: belly seems soft, non distended, non tender, dressing intact, ostomies functional drain is serosang, non enteric A/P Assessment and plan (1) Stricture of sigmoid colon: Assessment and plan: POD #5 Extended Right Colectomy, End Ileostomy and Mucous Fistula with washout and drain placement Continues slow improvement overall - did not tolerate NGT clamping earlier, will check SBFT in coming days to assure patency to ileostomy prior to NGT removal Continue IV ABs, TPN and NGT for now Status: Acute Time Spent With Patient Time: Total time spent is greater than 50% in coordination of care (as documented) at patient's floor/unit and/or counseling patient:
[2022-10-14] MEDS: ONDANSETRON 4 MG/2 ML VIAL IV PRN (19:02)
[2022-10-14] MEDS: LATANOPROST OPHTH DROPS 2.5ML BOTTLE OU SCH (20:53)
[2022-10-15] MEDS: INSULIN LISPRO 1 UNIT/0.01 ML UNIT SQ SCH ×6 (00:25→19:42)
[2022-10-15] MEDS: ONDANSETRON 4 MG/2 ML VIAL IV PRN (00:32)
[2022-10-15] MEDS: 0.9 % SODIUM CHLORIDE 1,000 ML IV SCH ×2 (02:01→14:58)
[2022-10-15] MEDS: BUTALB/ACETAMINOPHEN/CAFFEINE 1 TABLET PO PRN ×2 (05:17→15:16)
[2022-10-15] MEDS: MEROPENEM 1 GM in 0.9 % SODIUM CHLORIDE 50 ML IV SCH ×3 (05:52→21:48)
[2022-10-15] MEDS: 0.9 % SODIUM CHLORIDE 10 ML SYRINGE IV SCH ×5 (06:12→21:49)
[2022-10-15 06:38] LABS: Basophils # (Auto) 0.03 K/mcL (0.00-0.30); Basophils % (Auto) 0.2 % (0.0-2.0); Eosinophils % (Auto) 5.6 % (0.0-7.0); Hematocrit 28.6 % (34.1-44.9); Hemoglobin 9.3 g/dL (11.2-15.7); Lymphocytes # (Auto) 3.51 K/mcL (1.50-4.80); Lymphocytes % (Auto) 28.3 % (15.5-49.0); Mean Corpuscular HGB Conc 32.5 g/dL (31.0-36.0); Mean Platelet Volume 10.4 fL (8.8-12.5); Monocytes # (Auto) 0.89 K/mcL (0.10-0.90); Monocytes % (Auto) 7.2 % (1.0-12.0); Neutrophils % (Auto) 58.2 % (38.0-78.0); Platelet Count 321 K/mcL (140-440); RBC 2.98 M/mcL (3.59-5.38); Red Cell Distribution Width 13.4 % (11.5-14.5); WBC 12.4 K/mcL (4.5-11.0)
[2022-10-15 06:57] LABS: ALT/SGPT 51 U/L (<40); AST/SGOT 53 U/L (<32); Albumin/Globulin Ratio 0.8 (1.0-2.3); Alkaline Phosphatase 58 U/L (39-117); Bilirubin,Direct < 0.2 mg/dL (0-0.3); Bilirubin,Total < 0.2 mg/dL (0.1-1.0); Blood Urea Nitrogen 14 mg/dL (8-23); Calcium 8.8 mg/dL (8.6-10.4); Carbon Dioxide 29 mmol/L (22-30); Chloride 107 mmol/L (96-108); Globulin 2.6 gm/dL (2.2-3.7); Glomerular Filtration Rate 86; Glucose 112 mg/dL (70-105); Lactate Dehydrogenase 185 U/L (135-225); Phosphorous 2.4 mg/dL (2.5-4.5); Triglycerides 105 mg/dL (<150); Uric Acid 2.1 mg/dL (2.5-8.0)
[2022-10-15] MEDS: FUROSEMIDE 20 MG TABLET PO SCH (08:30)
[2022-10-15] MEDS: PANTOPRAZOLE 40 MG VIAL IV SCH (08:30)
[2022-10-15] MEDS: SERTRALINE 50 MG TABLET PO SCH (08:30)
[2022-10-15] MEDS: CARVEDILOL 3.125 MG TABLET PO SCH ×2 (08:30→20:47)
[2022-10-15] MEDS: TIMOLOL 0.5% OPHTH DROPS BOTTLE 5ML OU SCH ×2 (08:31→20:48)
[2022-10-15] MEDS: ENOXAPARIN 80 MG/0.8 ML SYRINGE SQ SCH ×2 (08:31→20:46)
--- NOTE | 2022-10-15 09:06 | General Surgery Progress Note ---
SUBJECTIVE Subjective Patient information: Note initiated : 10/15/22 at 9:03 am Service Date, if different from initiated Date: [] Patient: Yadira Lemus 86 y/o F admitted on 10/01/22. 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 Constitutional Vitals: Vital Signs Temp Pulse Resp BP Pulse Ox O2 Del Method O2 Flow Rate 99.5 F H 71 16 111/59 91 Room Air 2 10/15/22 08:40 10/15/22 08:40 10/15/22 08:40 10/15/22 08:40 10/15/22 08:40 10/15/22 08:40 10/11/22 11:01 Period Temp Pulse Resp BP Sys/Regalado Pulse Ox O2 Del Method O2 Flow Rate Last 24 Hr 97.5 F-99.5 F 69-79 16-20 111-136/47-62 90-91 Room Air-Room Air Intake and Output 10/14/22 10/15/22 10/15/22 19:59 03:59 11:59 Intake Total 50 1300 0 Output Total 1310 1665 600 Balance -1260 -365 -600 Weight 154 lb 9.6 oz Intake & Output: Intake & Output 10/14/22 10/15/22 10/15/22 19:59 03:59 11:59 Intake Total 50 1300 0 Output Total 1310 1665 600 Balance -1260 -365 -600 Weight 154 lb 9.6 oz Intake: IV 50 1300 Sodium Chloride 0.9% 1,000 ml @ 1000 75 mls/hr IV .[id number] [facility] Rx#: [id number] Intralipid 20% 250 ml @ 20.833 250 mls/hr IV TuThSa [facility] Rx#: [id number] Merrem 1 gm In Sodium Chloride 50 50 0.9% 50 ml @ 100 mls/hr IV Q8H [facility] Rx#:[id number] Tube Feeding 0 0 0 Output: Gastric Drainage 400 600 Left Nare NG/OG 400 600 Drainage 60 150 Left KODY Drain 60 150 Urine Catheter Amount 600 1000 Stool 250 515 Other: Urine Appearance Clear Uretheral (Peña) Clear Urine Color Yellow Yellow Uretheral (Peña) Yellow Stool Size Small Moderate Stool Color Brown Brown Stool Consistency Loose Soft # of times incontinent of 1 Bowels Exam: looks well, non toxic, no distress GI/Abdominal Additional comments: belly soft and non tender, seems non distended, stomal function good, drain benign and non enteric A/P Assessment and plan (1) Stricture of sigmoid colon: Status: Acute Plan POD #6 post Right Extended Colectomy with End Ileostomy and Mucous Fistula Continues to slowly improve and looks better overall this am Will Clamp NGT and start clears today Change midline dressing tomorrow to assure no evidence of infection Time Spent With Patient Time: Total time spent is greater than 50% in coordination of care (as documented) at patient's floor/unit and/or counseling patient:
--- NOTE | 2022-10-15 10:42 | Internal Med Progress Note ---
SUBJECTIVE Subjective Patient information: Note initiated : 10/15/22 at 10:40 am Service Date, if different from initiated Date: [] Patient: Yadira Lemus a 86 y/o F admitted on 10/01/22. 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 Lemus is a 86 year old female with past medical history including hiatal hernia, sigmoid diverticulosis, migraine headaches, paroxysmal atrial fibrillation, idiopathic cardiomyopathy with preserved EF, CHF, LBBB status post biventricular pacemaker, anxiety and depression presented with constellation of symptoms which have been going on for about 2 to 3 weeks. Patient has chronic headaches due to migraine and chronic nausea and vomiting secondary to her big hiatal hernia. Her daughter is the main contributor to history. She convinced her today to present to ER. Patient presents with headache, nausea and vomiting with mild low abdominal pain and reduced appetite. Her daughter also reported generalized weakness. Patient reports no fever or chills. On presentation vitals are stable CT abdomen and pelvis with contrast showed acute sigmoid colon diverticulitis with a small around 2cm associated abscess. Prominent fecal matter within the cecum and ascending colon consistent with constipation. CBC with elevated WBC 16,000. Renal functions and electrolytes stable. Liver function pending. CT head without any acute finding. 10/02 Patient states she slept okay. Abdominal pain present but improving, described as lower quadrants and crampy. She also feels constipated and says she does not have bowel movements at home unless she takes something. Leukocytosis present but mildly improved. Hypophosphatemia, trend and replete. Seen by surgery and will continue conservative management with antibiotics for now. 10/03 Patient sitting up in chair eating breakfast. Has abdominal pain but says it is slowly improving. Has some nausea but no vomiting. Persistent leukocytosis. Pending manual differential no fevers. Surgery following 10/04 Patient states she feels similar to yesterday other than some continued nausea. And lower quadrant achy abdominal pain which she cannot relate whether it is worse or not from yesterday. Worsening leukocytosis. Repeat CT abdomen pelvis pending. Patient states she has not had a bowel movement yet. >>CT a/p did not demonstrate any abscess and did not note diverticulitis but did show a small bowel obstruction. Dr. barton aware and did order for NG tube placement and n.p.o. status for now. 10/05 Patient feels less nauseous than previously. Decreasing abdominal pain. She is not passing any gas or bowel movements yet however. NG tube in place. N.p.o. with IV fluids maintenance. Hyponatremia and change D5 half NS to D5 NS. 10/06 Patient feels worse today with increased nausea abdominal pain and distention. No BMs or flatus overnight. Abdominal film follow-up pending. Hypophosphatemia will replace through IV. Surgery following. 10/07 Patient states she thinks she feels a little bit better today but then says her nausea is the same as yesterday and her abdominal pain is same as yesterday. She has not had any bowel movements or flatus. Follow-up CT per surgery is pending. White blood cell count is elevated again. 10/08 Patient complains of nausea and feeling crummy abdominal pain but no worse than yesterday. Patient n.p.o. on maintenance fluids for likely surgical repair tomorrow. Daughter at bedside. 10/09 Patient reported she was waiting for surgery. She reported she has not had a bowel movement or passing gas since she is in the hospital. She reports no nausea or vomiting she does have NG tube in. 10/10. Patient is status post exploratory laparotomy with extended right hemicolectomy, end ileostomy, mucous fistula-splenic flexure LUQ. She was found to have high-grade colonic obstruction with gangrenous change throughout the right and transverse colon including cecum necessitating resection. There was no perforation. The area of sigmoid diverticulitis was indurated and fully walled off without any evidence of visible abscess active leak or contamination. A KODY drain has been left in which is draining. Patient reports she is feeling nauseous and received Zofran. No vomiting. She has output in her ileostomy. 10/11. Feels better. No nausea or vomiting. Pain is controlled. She had some ostomy output. Surgery note was reviewed. 10/12. Continues to improve, some expected abdominal pain, no nausea or vomiting. Surgery note reviewed 10/13. Patient feeling tired today. Reports no nausea or vomiting, abdominal pain improving. Vitals are stable, no fever. Labs reviewed. Sodium 131, potassium 3.3 creatinine 0.4. CBC not available this morning. Patient tolerating meropenem and Lovenox which was resumed for anticoagulation in the context of A-fib, reports no hematuria, hematemesis or hematochezia 10/14 No significant events reported overnight. Vitals stable. Morning labs show sodium 140. Labs otherwise similar to yesterday. Patient continues on TPN, n.p.o. status. There is gas in the ileostomy bag, no bowel movement yet. Pain control satisfactory. 10/15 General surgery starting a clear liquid diet, clamped NG tube. Patient is having some bowel movements. Overall seems to have improved somewhat since yesterday. LFTs have increased mildly, will continue to monitor. Physical exam Head: Atraumatic, normal inspection. Eyes: normal appearance, no scleral icterus. Neck: full ROM Respiratory: no respiratory distress. Cardiovascular: normal rate and rhythm, S1, S2. GI/Abdominal: Ileostomy present, mucous fistula bag,laparotomy incision covered with clean bandage, abdominal drain present, mild tenderness, no guarding. Extremities: PICC line present, full range of motion, nontender. Neurological: CN II-XII intact, intact motor, intact sensation. Psychiatric: normal mood. Skin: warm, normal color Constitutional Vitals: Vital Signs Temp Pulse Resp BP Pulse Ox O2 Del Method O2 Flow Rate 99.5 F H 71 16 111/59 91 Room Air 2 10/15/22 08:40 10/15/22 08:40 10/15/22 08:40 10/15/22 08:40 10/15/22 08:40 10/15/22 08:40 10/11/22 11:01 Period Temp Pulse Resp BP Sys/Regalado Pulse Ox O2 Del Method O2 Flow Rate Last 24 Hr 97.5 F-99.5 F 69-79 16-20 111-136/47-62 90-91 Room Air-Room Air Intake and Output 10/14/22 10/15/22 10/15/22 19:59 03:59 11:59 Intake Total 50 1300 50 Output Total 1310 1665 600 Balance -1260 365 -550 Weight 70.125 kg Intake & Output: Intake & Output 10/14/22 10/15/22 10/15/22 19:59 03:59 11:59 Intake Total 50 1300 50 Output Total 1310 1665 600 Balance -1260 -365 -550 Weight 70.125 kg Intake: IV 50 1300 50 Sodium Chloride 0.9% 1,000 ml @ 1000 75 mls/hr IV .[id number] [facility] Rx#: [id number] Intralipid 20% 250 ml @ 20.833 250 mls/hr IV TuThSa [facility] Rx#: [id number] Merrem 1 gm In Sodium Chloride 50 50 50 0.9% 50 ml @ 100 mls/hr IV Q8H [facility] Rx#:[id number] Tube Feeding 0 0 0 Output: Gastric Drainage 400 600 Left Nare NG/OG 400 600 Drainage 60 150 Left KODY Drain 60 150 Urine Catheter Amount 600 1000 Stool 250 515 Other: Urine Appearance Clear Uretheral (Peña) Clear Clear Urine Color Yellow Yellow Uretheral (Peña) Yellow Yellow Stool Size Small Moderate Stool Color Brown Brown Stool Consistency Loose Soft # of times incontinent of 1 Bowels OBJ DATA Labs 10/15/22 05:08 10/15/22 05:08 Labs: Abnormal Lab Results 10/15/22 10/15/22 10/14/22 05:08 05:08 05:22 WBC 12.4 H RBC 2.98 L Hgb 9.3 L Hct 28.6 L Immature Gran # 0.06 H Sodium Anion Gap 4.0 L 4.0 L Creatinine 0.5 L 0.4 L Glucose 112 H 108 H Uric Acid 2.1 L 1.9 L Phosphorus 2.4 L 2.2 L GGT 114 H 93 H AST 53 H 38 H ALT 51 H Total Protein 4.6 L 4.4 L Albumin 2.0 L 1.7 L Albumin/Globulin Ratio 0.8 L 0.6 L 10/14/22 10/13/22 10/13/22 05:21 05:58 05:58 WBC 11.3 H 12.4 H RBC 3.04 L 2.94 L Hgb 9.3 L 9.2 L Hct 29.0 L 28.5 L Immature Gran # 0.06 H 0.06 H Sodium 131 L Anion Gap 3.0 L Creatinine 0.4 L Glucose 205 H Uric Acid 2.0 L Phosphorus GGT 52 H AST ALT Total Protein 4.4 L Albumin 1.7 L Albumin/Globulin Ratio 0.6 L Meds: Medications Acetaminophen/Butalbital/Caffeine (Butalb/Acetaminophen/Caffeine 1 Tablet) 1 tab PO Q4HP PRN PRN Reason: pain Last Admin: 10/15/22 05:17 Dose: 1 tab Albuterol/Ipratropium (Ipratropium/Albuterol 3 Ml Ampul.Neb) 3 ml NEB Q4HRT PRN PRN Reason: Shortness of breath/wheezing Last Admin: 10/12/22 20:33 Dose: 3 ml Bisacodyl (Bisacodyl 10 Mg Supp.Rect) 10 mg WV Q2-3DAYS PRN PRN Reason: Constipation Last Admin: 10/09/22 04:10 Dose: 10 mg Carvedilol (Carvedilol 3.125 Mg Tablet) 3.125 mg PO BID [facility] Last Admin: 10/15/22 08:30 Dose: 3.125 mg Diagnostic Test (Pha) (Accu-Chek 1 Each Strip) 1 each FS Q4 [facility]; Protocol Last Admin: 10/15/22 08:40 Dose: 1 each Enoxaparin Sodium (Enoxaparin 80 Mg/0.8 Ml Syringe) 70 mg SQ BID [facility] Last Admin: 10/15/22 08:31 Dose: 70 mg Furosemide (Furosemide 20 Mg Tablet) 40 mg PO DAILY [facility] Last Admin: 10/15/22 08:30 Dose: 40 mg Heparin Sodium (Porcine) (Heparin Flush 10 Units/Ml 5 Ml Syringe) 2 ml IV Q12 [facility] Last Admin: 10/15/22 08:30 Dose: Not Given Fat Emulsion Intravenous (Intralipid 20%) 250 mls @ 20.833 mls/hr IV TuThSa [facility] Last Infusion: 10/15/22 03:21 Dose: Infused Meropenem 1 gm/ Sodium (Chloride) 50 mls @ 100 mls/hr IV Q8H [facility]; Protocol Last Infusion: 10/15/22 06:22 Dose: Infused Acetaminophen (Ofirmev) 1,000 mg in 100 mls @ 200 mls/hr IV Q6HP PRN; Protocol PRN Reason: PAIN/FEVER > 101 Last Infusion: 10/12/22 13:09 Dose: Infused Sodium Chloride (Sodium Chloride 0.9%) 1,000 mls @ 75 mls/hr IV .[id number] [facility] Last Admin: 10/15/22 02:01 Dose: 75 mls/hr Magnesium Sulfate 16.24 meq/Sodium Chloride 80 meq/Potassium Chloride 80 meq/Potassium Phosphate 40 meq/Multivitamins/Minerals 10 ml/Sodium Phosphate 40 mmol/Amino Acids 2,096.4242 mls @ 55 mls/hr IV DAILY@1500 [facility] Last Admin: 10/14/22 15:04 Dose: 55 mls/hr Insulin Human Lispro (Insulin Lispro 1 Unit/0.01 Ml Unit) 0 unit SQ Q4 [facility]; Protocol Last Admin: 10/15/22 08:40 Dose: Not Given Latanoprost (Latanoprost Ophth Drops 2.5ml Bottle) 1 gtt OU HS [facility] Last Admin: 10/14/22 20:53 Dose: 1 gtt Lorazepam (Lorazepam 0.5 Mg Tablet) 0.5 mg PO BIDP PRN PRN Reason: Anxiety Last Admin: 10/13/22 10:50 Dose: 0.5 mg Magnesium Hydroxide (Magnesium Hydroxide 30 Ml Oral.Susp) 30 ml PO DAILYP PRN PRN Reason: Constipation Metoprolol Tartrate (Metoprolol Tartrate 5 Mg/5 Ml Vial) 5 mg IV Q6HP PRN PRN Reason: Tachyarrhythmias Morphine Sulfate (Morphine 2 Mg/Ml Vial) 0 mg IV Q3HP PRN; Protocol PRN Reason: Per Pain Protocol Last Admin: 10/14/22 16:06 Dose: 2 mg Ondansetron HCl (Ondansetron 4 Mg/2 Ml Vial) 4 mg IV Q6HP PRN PRN Reason: Nausea And Vomiting Last Admin: 10/15/22 00:32 Dose: 4 mg Oxycodone/Acetaminophen (Oxycodone/Apap 5/325mg Tablet) 1 tab PO Q6HP PRN; Protocol PRN Reason: pain (scale score 4-6) Last Admin: 10/14/22 09:14 Dose: 1 tab Pantoprazole Sodium (Pantoprazole 40 Mg Vial) [facility] Last Admin: 10/15/22 08:30 Dose: 40 mg Polyethylene Glycol (Polyethylene Glycol 3350 17 Gm Packet) 17 gm PO TIDP PRN PRN Reason: Constipation Prochlorperazine (Prochlorperazine 10 Mg/2 Ml Vial) 10 mg IV Q4-6HP PRN PRN Reason: Nausea And Vomiting Last Admin: 10/13/22 10:49 Dose: 10 mg Promethazine HCl (Promethazine 25 Mg/Ml Vial) 12.5 mg IM Q6HP PRN PRN Reason: Nausea And Vomiting Last Admin: 10/10/22 10:37 Dose: 12.5 mg Senna (Sennosides 1 Tablet) 2 tab PO DAILY PRN PRN Reason: Constipation Sertraline HCl (Sertraline 50 Mg Tablet) 50 mg PO DAILY [facility] Last Admin: 10/15/22 08:30 Dose: 50 mg Sodium Chloride (0.9 % Sodium Chloride 10 Ml Syringe) 10 ml IV Q8 [facility] Last Admin: 10/15/22 06:12 Dose: Not Given Sodium Chloride (0.9 % Sodium Chloride 10 Ml Syringe) 10 ml IV UD PRN PRN Reason: FLUSH Last Admin: 10/12/22 05:33 Dose: 10 ml Sodium Chloride (0.9 % Sodium Chloride 10 Ml Syringe) 10 ml IV Q12 [facility] Last Admin: 10/15/22 08:31 Dose: Not Given Timolol Maleate (Timolol 0.5% Ophth Drops Bottle 5ml) 1 gtt OU BID [facility] Last Admin: 10/15/22 08:31 Dose: 1 gtt A/P Narrative A/P Narrative: Assessment: Acute sigmoid colon diverticulitis complicated by abscess and high- grade colonic obstruction status post exploratory laparotomy, extended right hemicolectomy, end ileostomy, colonic mucous fistula at the splenic flexure. Postoperative course complicated by ileus. Continues on TPN, antibiotics, NG tube for decompression. Diet per surgery. *Acute sigmoid colon diverticulitis w/abscess: -f/u CT with 3.7cm abscess -During laparotomy the area of sigmoid diverticulitis was indurated and fully walled off without any evidence of visible abscess active leak or contamination. -Antibiotics per general surgery. -Clear liquid diet started by general surgery, clamp NG tube. *Elevated LFTs, mild -Monitor. *Large hiatal hernia/GERD: Likely contributing to chronic nausea and vomiting -Very large hiatal hernia on CT scan which is increased from before -Protonix *Severe migraine headaches: continue home meds, fiorinal, also on Percocet, on topiramate *h/o CHF: Not in decompensated CHF -home Lasix/spironolactone/Coreg/lisinopril *Paroxysmal A-fib: Rate controlled. Eliquis on hold, on Lovenox 1 mg/kg for now. Surgery okay with resuming anticoagulation *Hypertension: on lisinopril/coreg *Anxiety/Depression: on Ativan as needed, on sertraline *DVT prophylaxis: Lovenox *CODE STATUS: DNR/DNI Time Spent With Patient Time: Total time spent is greater than 50% in coordination of care (as documented) at patient's floor/unit and/or counseling patient: QUALITY VTE Deep Vein Thrombosis/Pulmonary Embolism Present on Admission: No
[2022-10-15] MEDS: morphine 2 MG/ML VIAL IV PRN ×2 (12:25→19:36)
[2022-10-15] MEDS: [UNRECOGNIZED DRUG - OTHER] IV SCH (15:04)
[2022-10-15] MEDS: POTASSIUM CHLORIDE IV SCH (15:04)
[2022-10-15] MEDS: SODIUM CHLORIDE IV SCH (15:04)
[2022-10-15] MEDS: MAGNESIUM SULFATE IV SCH (15:04)
[2022-10-15] MEDS: LATANOPROST OPHTH DROPS 2.5ML BOTTLE OU SCH (20:47)
[2022-10-15] MEDS: oxyCODONE/APAP 5/325MG TABLET PO PRN (20:47)
[2022-10-16] MEDS: INSULIN LISPRO 1 UNIT/0.01 ML UNIT SQ SCH ×6 (00:06→19:25)
[2022-10-16] MEDS: morphine 2 MG/ML VIAL IV PRN ×3 (03:17→17:12)
[2022-10-16] MEDS: 0.9 % SODIUM CHLORIDE 1,000 ML IV SCH (04:57)
[2022-10-16] MEDS: MEROPENEM 1 GM in 0.9 % SODIUM CHLORIDE 50 ML IV SCH ×3 (05:00→21:46)
[2022-10-16] MEDS: 0.9 % SODIUM CHLORIDE 10 ML SYRINGE IV SCH ×5 (05:11→20:10)
[2022-10-16 07:03] LABS: Basophils # (Auto) 0.05 K/mcL (0.00-0.30); Basophils % (Auto) 0.4 % (0.0-2.0); Eosinophils # (Auto) 0.72 K/mcL (0.00-0.70); Eosinophils % (Auto) 6.5 % (0.0-7.0); Hematocrit 30.1 % (34.1-44.9); Hemoglobin 9.5 g/dL (11.2-15.7); Lymphocytes # (Auto) 3.57 K/mcL (1.50-4.80); Mean Cell Volume 96.8 fL (80.0-100.0); Mean Corpuscular HGB Conc 31.6 g/dL (31.0-36.0); Mean Platelet Volume 10.3 fL (8.8-12.5); Monocytes # (Auto) 0.79 K/mcL (0.10-0.90); Monocytes % (Auto) 7.1 % (1.0-12.0); Neutrophils % (Auto) 53.6 % (38.0-78.0); Platelet Count 342 K/mcL (140-440); RBC 3.11 M/mcL (3.59-5.38); Red Cell Distribution Width 13.6 % (11.5-14.5); WBC 11.1 K/mcL (4.5-11.0)
[2022-10-16 07:42] LABS: ALT/SGPT 44 U/L (<40); AST/SGOT 36 U/L (<32); Albumin 1.8 gm/dL (3.2-5.2); Albumin/Globulin Ratio 0.7 (1.0-2.3); Alkaline Phosphatase 54 U/L (39-117); Bilirubin,Direct < 0.2 mg/dL (0-0.3); Bilirubin,Total < 0.2 mg/dL (0.1-1.0); Blood Urea Nitrogen 16 mg/dL (8-23); Calcium 8.7 mg/dL (8.6-10.4); Carbon Dioxide 29 mmol/L (22-30); Chloride 104 mmol/L (96-108); Globulin 2.6 gm/dL (2.2-3.7); Glomerular Filtration Rate 86; Glucose 109 mg/dL (70-105); Lactate Dehydrogenase 175 U/L (135-225); Phosphorous 2.5 mg/dL (2.5-4.5); Triglycerides 123 mg/dL (<150); Uric Acid 1.9 mg/dL (2.5-8.0)
[2022-10-16] MEDS: PANTOPRAZOLE 40 MG VIAL IV SCH (08:09)
[2022-10-16] MEDS: CARVEDILOL 3.125 MG TABLET PO SCH ×2 (10:09→20:10)
[2022-10-16] MEDS: SERTRALINE 50 MG TABLET PO SCH (10:09)
[2022-10-16] MEDS: FUROSEMIDE 20 MG TABLET PO SCH (10:09)
[2022-10-16] MEDS: ONDANSETRON 4 MG/2 ML VIAL IV PRN ×2 (10:23→16:24)
--- NOTE | 2022-10-16 11:14 | General Surgery Progress Note ---
SUBJECTIVE Subjective Patient information: Note initiated : 10/16/22 at 11:11 am Service Date, if different from initiated Date: [] Patient: Yadira Lemus 86 y/o F admitted on 10/01/22. 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 Constitutional Vitals: Vital Signs Temp Pulse Resp BP Pulse Ox O2 Del Method O2 Flow Rate 99.3 F H 74 22 111/51 92 Room Air 2 10/16/22 08:00 10/16/22 08:00 10/16/22 08:00 10/16/22 08:00 10/16/22 08:00 10/16/22 08:00 10/11/22 11:01 Period Temp Pulse Resp BP Sys/Regalado Pulse Ox O2 Del Method O2 Flow Rate Last 24 Hr 98.1 F-99.8 F 66-77 16-22 108-117/46-52 90-93 Room Air-Room Air Intake and Output 10/15/22 10/16/22 10/16/22 19:59 03:59 11:59 Intake Total 2341 50 1050 Output Total 2920 1835 Balance -579 -1785 1050 Weight 154 lb 6.4 oz Intake & Output: Intake & Output 10/15/22 10/16/22 10/16/22 19:59 03:59 11:59 Intake Total 2341 50 1050 Output Total 2920 1835 Balance -579 -1785 1050 Weight 154 lb 6.4 oz Intake: IV 2341 50 1050 Sodium Chloride 0.9% 1,000 ml @ 971 1000 75 mls/hr IV .[id number] [facility] Rx#: [id number] Magnesium Sulfate 16.24 Meq 1320 Sodium Chloride 80 Meq Potassium Chloride 80 Meq Potassium Phosphate 40 Meq Infuvite Adult 10 ml Sodium Phosphate 40 Mmol In Clinimix 5 %-20% Solution 2,000 ml @ 55 mls/hr IV DAILY@1500 [facility] Rx#: [id number] Merrem 1 gm In Sodium Chloride 50 50 50 0.9% 50 ml @ 100 mls/hr IV Q8H [facility] Rx#:[id number] Tube Feeding 0 0 Output: Gastric Drainage 200 0 Left Nare NG/OG 200 0 Drainage 110 360 Left KODY Drain 110 360 Urine Catheter Amount 2435 1375 Stool 175 100 Other: Urine Appearance Clear Clear Urine Color Yellow Yellow Stool Color Green Stool Consistency Liquid Exam: looks well, fully conversant, NAD GI/Abdominal Additional comments: belly soft and non distended, non tender, ostomy working well, drain benign Extremities Exam Additional comments: well perfused A/P Assessment and plan (1) Stricture of sigmoid colon: Assessment and plan: POD #7 Extended Right Colectomy with End Ileostomy and Mucous Fistula Doing Well - NGT removed and will advance to full liquids Peña removal per Medicine and Nursing Continue IV ABs and TPN for now Increase Activity as tolerated Status: Acute Time Spent With Patient Time: Total time spent is greater than 50% in coordination of care (as documented) at patient's floor/unit and/or counseling patient:
--- NOTE | 2022-10-16 11:59 | Internal Med Progress Note ---
SUBJECTIVE Subjective Patient information: Note initiated : 10/16/22 at 11:57 am Service Date, if different from initiated Date: [] Patient: Yadira Lemus a 86 y/o F admitted on 10/01/22. 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 Lemus is a 86 year old female with past medical history including hiatal hernia, sigmoid diverticulosis, migraine headaches, paroxysmal atrial fibrillation, idiopathic cardiomyopathy with preserved EF, CHF, LBBB status post biventricular pacemaker, anxiety and depression presented with constellation of symptoms which have been going on for about 2 to 3 weeks. Patient has chronic headaches due to migraine and chronic nausea and vomiting secondary to her big hiatal hernia. Her daughter is the main contributor to history. She convinced her today to present to ER. Patient presents with headache, nausea and vomiting with mild low abdominal pain and reduced appetite. Her daughter also reported generalized weakness. Patient reports no fever or chills. On presentation vitals are stable CT abdomen and pelvis with contrast showed acute sigmoid colon diverticulitis with a small around 2cm associated abscess. Prominent fecal matter within the cecum and ascending colon consistent with constipation. CBC with elevated WBC 16,000. Renal functions and electrolytes stable. Liver function pending. CT head without any acute finding. 10/02 Patient states she slept okay. Abdominal pain present but improving, described as lower quadrants and crampy. She also feels constipated and says she does not have bowel movements at home unless she takes something. Leukocytosis present but mildly improved. Hypophosphatemia, trend and replete. Seen by surgery and will continue conservative management with antibiotics for now. 10/03 Patient sitting up in chair eating breakfast. Has abdominal pain but says it is slowly improving. Has some nausea but no vomiting. Persistent leukocytosis. Pending manual differential no fevers. Surgery following 10/04 Patient states she feels similar to yesterday other than some continued nausea. And lower quadrant achy abdominal pain which she cannot relate whether it is worse or not from yesterday. Worsening leukocytosis. Repeat CT abdomen pelvis pending. Patient states she has not had a bowel movement yet. >>CT a/p did not demonstrate any abscess and did not note diverticulitis but did show a small bowel obstruction. Dr. barton aware and did order for NG tube placement and n.p.o. status for now. 10/05 Patient feels less nauseous than previously. Decreasing abdominal pain. She is not passing any gas or bowel movements yet however. NG tube in place. N.p.o. with IV fluids maintenance. Hyponatremia and change D5 half NS to D5 NS. 10/06 Patient feels worse today with increased nausea abdominal pain and distention. No BMs or flatus overnight. Abdominal film follow-up pending. Hypophosphatemia will replace through IV. Surgery following. 10/07 Patient states she thinks she feels a little bit better today but then says her nausea is the same as yesterday and her abdominal pain is same as yesterday. She has not had any bowel movements or flatus. Follow-up CT per surgery is pending. White blood cell count is elevated again. 10/08 Patient complains of nausea and feeling crummy abdominal pain but no worse than yesterday. Patient n.p.o. on maintenance fluids for likely surgical repair tomorrow. Daughter at bedside. 10/09 Patient reported she was waiting for surgery. She reported she has not had a bowel movement or passing gas since she is in the hospital. She reports no nausea or vomiting she does have NG tube in. 10/10. Patient is status post exploratory laparotomy with extended right hemicolectomy, end ileostomy, mucous fistula-splenic flexure LUQ. She was found to have high-grade colonic obstruction with gangrenous change throughout the right and transverse colon including cecum necessitating resection. There was no perforation. The area of sigmoid diverticulitis was indurated and fully walled off without any evidence of visible abscess active leak or contamination. A KODY drain has been left in which is draining. Patient reports she is feeling nauseous and received Zofran. No vomiting. She has output in her ileostomy. 10/11. Feels better. No nausea or vomiting. Pain is controlled. She had some ostomy output. Surgery note was reviewed. 10/12. Continues to improve, some expected abdominal pain, no nausea or vomiting. Surgery note reviewed 10/13. Patient feeling tired today. Reports no nausea or vomiting, abdominal pain improving. Vitals are stable, no fever. Labs reviewed. Sodium 131, potassium 3.3 creatinine 0.4. CBC not available this morning. Patient tolerating meropenem and Lovenox which was resumed for anticoagulation in the context of A-fib, reports no hematuria, hematemesis or hematochezia 10/14 No significant events reported overnight. Vitals stable. Morning labs show sodium 140. Labs otherwise similar to yesterday. Patient continues on TPN, n.p.o. status. There is gas in the ileostomy bag, no bowel movement yet. Pain control satisfactory. 10/15 General surgery starting a clear liquid diet, clamped NG tube. Patient is having some bowel movements. Overall seems to have improved somewhat since yesterday. LFTs have increased mildly, will continue to monitor. 10/16 No significant events reported overnight, patient is now on a clear liquid diet per general surgery. Nutrition monitoring caloric intake, continues on TPN for now. Remove Peña catheter today. Surgery planning to remove NG tube. Gradually progressing towards discharge. Plan for discharge as long as everything keeps improving for the patient will be transitioning to swing bed. Care conference held with family today. Physical exam Head: Atraumatic, normal inspection. Eyes: normal appearance, no scleral icterus. Neck: full ROM Respiratory: no respiratory distress. Cardiovascular: normal rate and rhythm, S1, S2. GI/Abdominal: Ileostomy present, mucous fistula bag,laparotomy incision covered with clean bandage, abdominal drain present, mild tenderness, no guarding. Extremities: PICC line present, full range of motion, nontender. Neurological: CN II-XII intact, intact motor, intact sensation. Psychiatric: normal mood. Skin: warm, normal color Constitutional Vitals: Vital Signs Temp Pulse Resp BP Pulse Ox O2 Del Method O2 Flow Rate 99.3 F H 74 22 111/51 92 Room Air 2 10/16/22 08:00 10/16/22 08:00 10/16/22 08:00 10/16/22 08:00 10/16/22 08:00 10/16/22 08:00 10/11/22 11:01 Period Temp Pulse Resp BP Sys/Regalado Pulse Ox O2 Del Method O2 Flow Rate Last 24 Hr 98.1 F-99.3 F 68-77 16-22 108-117/46-52 90-93 Room Air-Room Air Intake and Output 10/15/22 10/16/22 10/16/22 19:59 03:59 11:59 Intake Total 2341 50 1050 Output Total 2920 1835 Balance -579 1785 1050 Weight 70.035 kg Intake & Output: Intake & Output 10/15/22 10/16/22 10/16/22 19:59 03:59 11:59 Intake Total 2341 50 1050 Output Total 2920 1835 Balance -579 -1785 1050 Weight 70.035 kg Intake: IV 2341 50 1050 Sodium Chloride 0.9% 1,000 ml @ 971 1000 75 mls/hr IV .[id number] [facility] Rx#: [id number] Magnesium Sulfate 16.24 Meq 1320 Sodium Chloride 80 Meq Potassium Chloride 80 Meq Potassium Phosphate 40 Meq Infuvite Adult 10 ml Sodium Phosphate 40 Mmol In Clinimix 5 %-20% Solution 2,000 ml @ 55 mls/hr IV DAILY@1500 [facility] Rx#: [id number] Merrem 1 gm In Sodium Chloride 50 50 50 0.9% 50 ml @ 100 mls/hr IV Q8H [facility] Rx#:[id number] Tube Feeding 0 0 Output: Gastric Drainage 200 0 Left Nare NG/OG 200 0 Drainage 110 360 Left KODY Drain 110 360 Urine Catheter Amount 2435 1375 Stool 175 100 Other: Urine Appearance Clear Clear Urine Color Yellow Yellow Stool Color Green Stool Consistency Liquid OBJ DATA Labs 10/16/22 06:06 10/16/22 06:06 Labs: Abnormal Lab Results 10/16/22 10/16/22 10/15/22 06:06 06:06 05:08 WBC 11.1 H RBC 3.11 L Hgb 9.5 L Hct 30.1 L Eos # (Auto) 0.72 H Immature Gran # Anion Gap 6.0 L 4.0 L Creatinine 0.5 L 0.5 L Glucose 109 H 112 H Uric Acid 1.9 L 2.1 L Phosphorus 2.4 L GGT 107 H 114 H AST 36 H 53 H ALT 44 H 51 H Total Protein 4.4 L 4.6 L Albumin 1.8 L 2.0 L Albumin/Globulin Ratio 0.7 L 0.8 L 10/15/22 10/14/22 10/14/22 05:08 05:22 05:21 WBC 12.4 H 11.3 H RBC 2.98 L 3.04 L Hgb 9.3 L 9.3 L Hct 28.6 L 29.0 L Eos # (Auto) Immature Gran # 0.06 H 0.06 H Anion Gap 4.0 L Creatinine 0.4 L Glucose 108 H Uric Acid 1.9 L Phosphorus 2.2 L GGT 93 H AST 38 H ALT Total Protein 4.4 L Albumin 1.7 L Albumin/Globulin Ratio 0.6 L Meds: Medications Acetaminophen/Butalbital/Caffeine (Butalb/Acetaminophen/Caffeine 1 Tablet) 1 tab PO Q4HP PRN PRN Reason: pain Last Admin: 10/15/22 15:16 Dose: 1 tab Albuterol/Ipratropium (Ipratropium/Albuterol 3 Ml Ampul.Neb) 3 ml NEB Q4HRT PRN PRN Reason: Shortness of breath/wheezing Last Admin: 10/12/22 20:33 Dose: 3 ml Bisacodyl (Bisacodyl 10 Mg Supp.Rect) 10 mg NJ Q2-3DAYS PRN PRN Reason: Constipation Last Admin: 10/09/22 04:10 Dose: 10 mg Carvedilol (Carvedilol 3.125 Mg Tablet) 3.125 mg PO BID KEYA Last Admin: 10/16/22 10:09 Dose: 3.125 mg Diagnostic Test (Pha) (Accu-Chek 1 Each Strip) 1 each FS Q4 KEYA; Protocol Last Admin: 10/16/22 08:13 Dose: 1 each Enoxaparin Sodium (Enoxaparin 80 Mg/0.8 Ml Syringe) 70 mg SQ BID KEYA Last Admin: 10/15/22 20:46 Dose: 70 mg Furosemide (Furosemide 20 Mg Tablet) 40 mg PO DAILY KEYA Last Admin: 10/16/22 10:09 Dose: 40 mg Heparin Sodium (Porcine) (Heparin Flush 10 Units/Ml 5 Ml Syringe) 2 ml IV Q12 [facility] Last Admin: 10/15/22 19:42 Dose: Not Given Fat Emulsion Intravenous (Intralipid 20%) 250 mls @ 20.833 mls/hr IV TuThSa [facility] Last Infusion: 10/15/22 03:21 Dose: Infused Meropenem 1 gm/ Sodium (Chloride) 50 mls @ 100 mls/hr IV Q8H KEYA; Protocol Last Infusion: 10/16/22 05:35 Dose: Infused Acetaminophen (Ofirmev) 1,000 mg in 100 mls @ 200 mls/hr IV Q6HP PRN; Protocol PRN Reason: PAIN/FEVER > 101 Last Infusion: 10/12/22 13:09 Dose: Infused Sodium Chloride (Sodium Chloride 0.9%) 1,000 mls @ 75 mls/hr IV .[id number] [facility] Last Admin: 10/16/22 04:57 Dose: 75 mls/hr Magnesium Sulfate 16.24 meq/Sodium Chloride 80 meq/Potassium Chloride 80 meq/Potassium Phosphate 40 meq/Multivitamins/Minerals 10 ml/Sodium Phosphate 40 mmol/Amino Acids 2,096.4242 mls @ 55 mls/hr IV DAILY@1500 [facility] Stop: 10/16/22 14:59 Last Admin: 10/15/22 15:04 Dose: 55 mls/hr Magnesium Sulfate 16.24 meq/Sodium Chloride 80 meq/Potassium Chloride 60 meq/Potassium Phosphate 60 meq/Multivitamins/Minerals 10 ml/Sodium Phosphate 40 mmol/Amino Acids 2,090.9697 mls @ 55 mls/hr IV DAILY@1500 [facility] Insulin Human Lispro (Insulin Lispro 1 Unit/0.01 Ml Unit) 0 unit SQ Q4 [facility]A; Protocol Last Admin: 10/16/22 08:13 Dose: Not Given Latanoprost (Latanoprost Ophth Drops 2.5ml Bottle) 1 gtt OU HS KEYA Last Admin: 10/15/22 20:47 Dose: 1 gtt Lorazepam (Lorazepam 0.5 Mg Tablet) 0.5 mg PO BIDP PRN PRN Reason: Anxiety Last Admin: 10/13/22 10:50 Dose: 0.5 mg Magnesium Hydroxide (Magnesium Hydroxide 30 Ml Oral.Susp) 30 ml PO DAILYP PRN PRN Reason: Constipation Metoprolol Tartrate (Metoprolol Tartrate 5 Mg/5 Ml Vial) 5 mg IV Q6HP PRN PRN Reason: Tachyarrhythmias Morphine Sulfate (Morphine 2 Mg/Ml Vial) 0 mg IV Q3HP PRN; Protocol PRN Reason: Per Pain Protocol Last Admin: 10/16/22 10:23 Dose: 2 mg Ondansetron HCl (Ondansetron 4 Mg/2 Ml Vial) 4 mg IV Q6HP PRN PRN Reason: Nausea And Vomiting Last Admin: 10/16/22 10:23 Dose: 4 mg Oxycodone/Acetaminophen (Oxycodone/Apap 5/325mg Tablet) 1 tab PO Q6HP PRN; Protocol PRN Reason: pain (scale score 4-6) Last Admin: 10/15/22 20:47 Dose: 1 tab Pantoprazole Sodium (Pantoprazole 40 Mg Vial) 40 mg IV QAMAC [facility] Last Admin: 10/16/22 08:09 Dose: 40 mg Polyethylene Glycol (Polyethylene Glycol 3350 17 Gm Packet) 17 gm PO TIDP PRN PRN Reason: Constipation Prochlorperazine (Prochlorperazine 10 Mg/2 Ml Vial) 10 mg IV Q4-6HP PRN PRN Reason: Nausea And Vomiting Last Admin: 10/13/22 10:49 Dose: 10 mg Promethazine HCl (Promethazine 25 Mg/Ml Vial) 12.5 mg IM Q6HP PRN PRN Reason: Nausea And Vomiting Last Admin: 10/10/22 10:37 Dose: 12.5 mg Senna (Sennosides 1 Tablet) 2 tab PO DAILY PRN PRN Reason: Constipation Sertraline HCl (Sertraline 50 Mg Tablet) 50 mg PO DAILY [facility] Last Admin: 10/16/22 10:09 Dose: 50 mg Sodium Chloride (0.9 % Sodium Chloride 10 Ml Syringe) 10 ml IV Q8 [facility] Last Admin: 10/16/22 05:11 Dose: Not Given Sodium Chloride (0.9 % Sodium Chloride 10 Ml Syringe) 10 ml IV UD PRN PRN Reason: FLUSH Last Admin: 10/12/22 05:33 Dose: 10 ml Sodium Chloride (0.9 % Sodium Chloride 10 Ml Syringe) 10 ml IV Q12 [facility] Last Admin: 10/15/22 19:42 Dose: Not Given Timolol Maleate (Timolol 0.5% Ophth Drops Bottle 5ml) 1 gtt OU BID [facility] Last Admin: 10/15/22 20:48 Dose: 1 gtt A/P Narrative A/P Narrative: Assessment: Acute sigmoid colon diverticulitis complicated by abscess and high- grade colonic obstruction status post exploratory laparotomy, extended right hemicolectomy, end ileostomy, colonic mucous fistula at the splenic flexure. Postoperative course complicated by ileus. Continues on TPN, antibiotics, NG tube removed. Diet per surgery. *Acute sigmoid colon diverticulitis w/abscess: -f/u CT with 3.7cm abscess -During laparotomy the area of sigmoid diverticulitis was indurated and fully walled off without any evidence of visible abscess active leak or contaminat ion. -Antibiotics per general surgery. -Clear liquid diet started by general surgery, clamp NG tube. *Elevated LFTs, mild -Monitor. *Large hiatal hernia/GERD: Likely contributing to chronic nausea and vomiting -Very large hiatal hernia on CT scan which is increased from before -Protonix *Severe migraine headaches: continue home meds, fiorinal, also on Percocet, on topiramate *h/o CHF: Not in decompensated CHF -home Lasix/spironolactone/Coreg/lisinopril *Paroxysmal A-fib: Rate controlled. Eliquis on hold, on Lovenox 1 mg/kg for now. Surgery okay with resuming anticoagulation *Hypertension: on lisinopril/coreg *Anxiety/Depression: on Ativan as needed, on sertraline *DVT prophylaxis: Lovenox *CODE STATUS: DNR/DNI Time Spent With Patient Time: Total time spent is greater than 50% in coordination of care (as documented) at patient's floor/unit and/or counseling patient: QUALITY VTE Deep Vein Thrombosis/Pulmonary Embolism Present on Admission: No
[2022-10-16] MEDS: ENOXAPARIN 80 MG/0.8 ML SYRINGE SQ SCH ×2 (12:30→21:46)
[2022-10-16] MEDS: TIMOLOL 0.5% OPHTH DROPS BOTTLE 5ML OU SCH ×2 (12:39→21:46)
[2022-10-16] MEDS ORDERED: POTASSIUM CHLORIDE IV SCH (15:00)
[2022-10-16] MEDS ORDERED: MAGNESIUM SULFATE IV SCH (15:00)
[2022-10-16] MEDS ORDERED: SODIUM CHLORIDE IV SCH (15:00)
[2022-10-16] MEDS ORDERED: [UNRECOGNIZED DRUG - OTHER] IV SCH (15:00)
[2022-10-16] MEDS ORDERED: 0.9 % SODIUM CHLORIDE 1,000 ML IV SCH (15:47)
[2022-10-16] MEDS: oxyCODONE/APAP 5/325MG TABLET PO PRN (19:25)
[2022-10-16] MEDS: LATANOPROST OPHTH DROPS 2.5ML BOTTLE OU SCH (21:46)
[2022-10-17] MEDS: ACETAMINOPHEN 1,000 MG/100 ML BAG IV PRN (00:10)
[2022-10-17] MEDS: INSULIN LISPRO 1 UNIT/0.01 ML UNIT SQ SCH ×3 (00:55→08:14)
[2022-10-17] MEDS: morphine 2 MG/ML VIAL IV PRN ×2 (04:46→12:01)
[2022-10-17] MEDS: MEROPENEM 1 GM in 0.9 % SODIUM CHLORIDE 50 ML IV SCH (05:18)
[2022-10-17] MEDS: 0.9 % SODIUM CHLORIDE 10 ML SYRINGE IV SCH (05:18)
[2022-10-17 07:01] LABS: Basophils # (Auto) 0.03 K/mcL (0.00-0.30); Basophils % (Auto) 0.3 % (0.0-2.0); Eosinophils # (Auto) 0.72 K/mcL (0.00-0.70); Eosinophils % (Auto) 6.5 % (0.0-7.0); Hemoglobin 9.4 g/dL (11.2-15.7); Lymphocytes % (Auto) 35.4 % (15.5-49.0); Mean Cell Volume 97.4 fL (80.0-100.0); Mean Corpuscular HGB Conc 31.3 g/dL (31.0-36.0); Mean Platelet Volume 10.7 fL (8.8-12.5); Monocytes # (Auto) 0.74 K/mcL (0.10-0.90); Monocytes % (Auto) 6.7 % (1.0-12.0); Neutrophils % (Auto) 50.5 % (38.0-78.0); Platelet Count 353 K/mcL (140-440); RBC 3.08 M/mcL (3.59-5.38); Red Cell Distribution Width 13.7 % (11.5-14.5)
[2022-10-17 07:58] LABS: ALT/SGPT 38 U/L (<40); AST/SGOT 29 U/L (<32); Albumin/Globulin Ratio 0.7 (1.0-2.3); Alkaline Phosphatase 53 U/L (39-117); Bilirubin,Direct < 0.2 mg/dL (0-0.3); Bilirubin,Total 0.2 mg/dL (0.1-1.0); Blood Urea Nitrogen 19 mg/dL (8-23); Calcium 9.1 mg/dL (8.6-10.4); Carbon Dioxide 27 mmol/L (22-30); Chloride 101 mmol/L (96-108); Globulin 2.7 gm/dL (2.2-3.7); Glomerular Filtration Rate 86; Glucose 101 mg/dL (70-105); Lactate Dehydrogenase 199 U/L (135-225); Phosphorous 3.3 mg/dL (2.5-4.5); Triglycerides 137 mg/dL (<150); Uric Acid 1.9 mg/dL (2.5-8.0)
[2022-10-17] MEDS: PANTOPRAZOLE 40 MG VIAL IV SCH (08:13)
[2022-10-17] MEDS: oxyCODONE/APAP 5/325MG TABLET PO PRN (10:24)
[2022-10-17] MEDS: FUROSEMIDE 20 MG TABLET PO SCH (10:24)
[2022-10-17] MEDS: SERTRALINE 50 MG TABLET PO SCH (10:24)
[2022-10-17] MEDS: ENOXAPARIN 80 MG/0.8 ML SYRINGE SQ SCH (10:31)
[2022-10-17] MEDS: TIMOLOL 0.5% OPHTH DROPS BOTTLE 5ML OU SCH (10:31)
--- NOTE | 2022-10-17 11:04 | Discharge Summary ---
Discharge Provider Provider IMPORTANT FOLLOW-UP INFORMATION FOR PCP: Patient information: Note initiated : 10/17/22 at 11:01 am Service Date, if different from initiated Date: [] Patient: Yadira Lemus 86 y/o F admitted on 10/01/22. Chief Complaint: [] Date of admission: 10/01/22 11:42 Discharge date: 10/17/22 Primary care physician: TOMASZ Medina Consults: 10/01/22 Consult to Physician [CONS] Stat Comment: Consulting Provider: Luis Antonio Barton Reason For Exam: Physician to Consult 10/01/22 09:37 Consult to Physician [CONS] Stat Comment: Consulting Provider: Stefano Rhoades Reason For Exam: Physician to Consult COURSE Hospital Course Hospital course: Ms. Lemus is a 86 year old female with past medical history including hiatal hernia, sigmoid diverticulosis, migraine headaches, paroxysmal atrial fibrillation, idiopathic cardiomyopathy with preserved EF, CHF, LBBB status post biventricular pacemaker, anxiety and depression presented with constellation of symptoms which have been going on for about 2 to 3 weeks. Patient has chronic headaches due to migraine and chronic nausea and vomiting secondary to her big hiatal hernia. Her daughter is the main contributor to history. She convinced her today to present to ER. Patient presents with headache, nausea and vomiting with mild low abdominal pain and reduced appetite. Her daughter also reported generalized weakness. Patient reports no fever or chills. On presentation vitals are stable CT abdomen and pelvis with contrast showed acute sigmoid colon diverticulitis with a small around 2cm associated abscess. Prominent fecal matter within the cecum and ascending colon consistent with constipation. CBC with elevated WBC 16,000. Renal functions and electrolytes stable. Liver function pending. CT head without any acute finding. 10/02 Patient states she slept okay. Abdominal pain present but improving, described as lower quadrants and crampy. She also feels constipated and says she does not have bowel movements at home unless she takes something. Leukocytosis present but mildly improved. Hypophosphatemia, trend and replete. Seen by surgery and will continue conservative management with antibiotics for now. 10/03 Patient sitting up in chair eating breakfast. Has abdominal pain but says it is slowly improving. Has some nausea but no vomiting. Persistent leukocytosis. Pending manual differential no fevers. Surgery following 10/04 Patient states she feels similar to yesterday other than some continued nausea. And lower quadrant achy abdominal pain which she cannot relate whether it is worse or not from yesterday. Worsening leukocytosis. Repeat CT abdomen pelvis pending. Patient states she has not had a bowel movement yet. >>CT a/p did not demonstrate any abscess and did not note diverticulitis but did show a small bowel obstruction. Dr. barton aware and did order for NG tube placement and n.p.o. status for now. 10/05 Patient feels less nauseous than previously. Decreasing abdominal pain. She is not passing any gas or bowel movements yet however. NG tube in place. N.p.o. with IV fluids maintenance. Hyponatremia and change D5 half NS to D5 NS. 10/06 Patient feels worse today with increased nausea abdominal pain and distention. No BMs or flatus overnight. Abdominal film follow-up pending. Hypophosphatemia will replace through IV. Surgery following. 10/07 Patient states she thinks she feels a little bit better today but then says her nausea is the same as yesterday and her abdominal pain is same as yesterday. She has not had any bowel movements or flatus. Follow-up CT per surgery is pending. White blood cell count is elevated again. 10/08 Patient complains of nausea and feeling crummy abdominal pain but no worse than yesterday. Patient n.p.o. on maintenance fluids for likely surgical repair tomorrow. Daughter at bedside. 10/09 Patient reported she was waiting for surgery. She reported she has not had a bowel movement or passing gas since she is in the hospital. She reports no nausea or vomiting she does have NG tube in. 10/10. Patient is status post exploratory laparotomy with extended right hemicolectomy, end ileostomy, mucous fistula-splenic flexure LUQ. She was found to have high-grade colonic obstruction with gangrenous change throughout the right and transverse colon including cecum necessitating resection. There was no perforation. The area of sigmoid diverticulitis was indurated and fully walled off without any evidence of visible abscess active leak or contamination. A KODY drain has been left in which is draining. Patient reports she is feeling nauseous and received Zofran. No vomiting. She has output in her ileostomy. 10/11. Feels better. No nausea or vomiting. Pain is controlled. She had some ostomy output. Surgery note was reviewed. 10/12. Continues to improve, some expected abdominal pain, no nausea or vomiting. Surgery note reviewed 10/13. Patient feeling tired today. Reports no nausea or vomiting, abdominal pain improving. Vitals are stable, no fever. Labs reviewed. Sodium 131, potassium 3.3 creatinine 0.4. CBC not available this morning. Patient tolerating meropenem and Lovenox which was resumed for anticoagulation in the context of A-fib, reports no hematuria, hematemesis or hematochezia 10/14 No significant events reported overnight. Vitals stable. Morning labs show sodium 140. Labs otherwise similar to yesterday. Patient continues on TPN, n.p.o. status. There is gas in the ileostomy bag, no bowel movement yet. Pain control satisfactory. 10/15 General surgery starting a clear liquid diet, clamped NG tube. Patient is having some bowel movements. Overall seems to have improved somewhat since yesterday. LFTs have increased mildly, will continue to monitor. 10/16 No significant events reported overnight, patient is now on a clear liquid diet per general surgery. Nutrition monitoring caloric intake, continues on TPN for now. Remove Peña catheter today. Surgery planning to remove NG tube. Gradually progressing towards discharge. Plan for discharge as long as everything keeps improving for the patient will be transitioning to swing bed. Care conference held with family today. 10/17 Vital stable overnight, tolerating a liquid diet well however not meeting nutritional goals yet. Continues on TPN for now. Discharged to swing bed s tatus today. Physical exam Head: Atraumatic, normal inspection. Eyes: normal appearance, no scleral icterus. Neck: full ROM Respiratory: no respiratory distress. Cardiovascular: normal rate and rhythm, S1, S2. GI/Abdominal: Ileostomy present, mucous fistula bag,laparotomy incision covered with clean bandage, abdominal drain present, mild tenderness, no guarding. Extremities: PICC line present, full range of motion, nontender. Neurological: CN II-XII intact, intact motor, intact sensation. Psychiatric: normal mood. Skin: warm, normal color Discharge diagnosis: Colonic obstruction status post right hemicolectomy Secondary discharge diagnosis: Sigmoid colon diverticulitis complicated by abscess Time Spent with Patient Time attestation: Total time spent providing and/or coordinating discharge services: Time spent: Greater than 30 minutes EXAM Constitutional Vitals: Temp Pulse Resp BP Pulse Ox O2 Del Method O2 Flow Rate 97.8 F 67 18 105/46 93 Room Air 2 10/17/22 08:00 10/17/22 08:00 10/17/22 08:00 10/17/22 08:00 10/17/22 04:10 10/17/22 08:00 10/11/22 11:01 Discharge Data Data Completed and Pending Labs on day of discharge: Labs from last 24 hours 10/17/22 10/17/22 05:17 05:17 WBC 11.0 RBC 3.08 L Hgb 9.4 L Hct 30.0 L MCV 97.4 MCH 30.5 MCHC 31.3 RDW 13.7 Plt Count 353 MPV 10.7 Immature Gran % (Auto) 0.6 H Neut % (Auto) 50.5 Lymph % (Auto) 35.4 Ford % (Auto) 6.7 Eos % (Auto) 6.5 Baso % (Auto) 0.3 Lymph # (Auto) 3.90 Ford # (Auto) 0.74 Eos # (Auto) 0.72 H Baso # (Auto) 0.03 Immature Gran # 0.07 H Absolute Neutrophils 5.55 Sodium 134 Potassium 4.4 Chloride 101 Carbon Dioxide 27 Anion Gap 6.0 L BUN 19 Creatinine 0.5 L GFR Calculation 86 Glucose 101 Uric Acid 1.9 L Calcium 9.1 Phosphorus 3.3 Magnesium 2.2 Total Bilirubin 0.2 Direct Bilirubin < 0.2 GGT 103 H AST 29 ALT 38 Alkaline Phosphatase 53 Lactate Dehydrogenase 199 Total Protein 4.7 L Albumin 2.0 L Globulin 2.7 Albumin/Globulin Ratio 0.7 L Triglycerides 137 Discharge Plan Patient/Caregiver Discharge Instructions Instructions: Diverticulitis (GEN), Ileostomy Care (GEN), Exploratory Laparotomy (GEN), Colectomy (GEN) Activity Restrictions/Additional Instructions: Please order her ostomy supplies from her pharmacy at discharge. Prescriptions: Continued latanoprost 0.005 % drops 1 drp OPHTHALMIC QPM Prolia 60 mg/mL syringe 60 mg SUB-Q [id number] furosemide 20 mg tablet 40 mg PO DAILY Qty: 60 0RF spironolactone 25 mg tablet 25 mg PO .M W F Qty: 12 0RF Eliquis 5 mg tablet 5 mg PO BID Qty: 180 2RF lisinopril 5 mg tablet 5 mg PO QDAY Qty: 90 2RF [id number] 50-325-40 mg capsule 1 cap PO Q4H PRN (Reason: pain) Qty: 100 2RF epinephrine [EpiPen 2-Nigel] 0.3 mg/0.3 mL auto-injector 0.3 mg IM Q5-15M PRN (Reason: anaphylaxis) Qty: 2 0RF Rx Instructions: do not exceed 3 doses per episode lorazepam 0.5 mg tablet See Rx Instructions PO BID PRN (Reason: anxiety) Qty: 20 0RF Rx Instructions: take 1-2 PO twice a day PRN; carvedilol 3.125 mg tablet 3.125 mg PO BID Rx Instructions: must administer with a meal/food sertraline 50 mg tablet 50 mg PO QDAY Qty: 30 5RF ondansetron 4 mg tablet,disintegrating 4 mg PO Q8H PRN (Reason: nausea and vomiting) 30 Days Qty: 90 1RF oxycodone-acetaminophen 5-325 mg tablet 1 tab PO Q6H PRN (Reason: pain (scale score 4-6)) 28 Days Qty: 112 0RF magnesium oxide 400 MG tablet 400 mg PO DAILY timolol 5 ML drops 5 ml OP BID pantoprazole 40 mg tablet,delayed release (DR/EC) 40 mg PO BIDAC Qty: 60 3RF Follow Up Plan Follow up with: Dalia Alvarez ARNP [Primary Care Provider] - Patient Disposition: Home, Self-Care Prognosis: Fair Overall status at discharge: patient is progressing back to baseline QUALITY VTE Deep Vein Thrombosis/Pulmonary Embolism Present on Admission: No
[2022-10-17] MEDS ORDERED: INSULIN LISPRO 1 UNIT/0.01 ML UNIT SQ SCH ×2 (11:30)
[2022-10-17] MEDS: CARVEDILOL 3.125 MG TABLET PO SCH (12:58)
[2022-10-17] MEDS ORDERED: SODIUM CHLORIDE IV SCH (15:00)
[2022-10-17] MEDS ORDERED: POTASSIUM CHLORIDE IV SCH (15:00)
[2022-10-17] MEDS ORDERED: MAGNESIUM SULFATE IV SCH (15:00)
[2022-10-17] MEDS ORDERED: [UNRECOGNIZED DRUG - OTHER] IV SCH (15:00)
== END 2022-10-17 13:06 | disposition home or self-care (01) | DRG 329 ==
LOC: ED 07:19 → MEDSUR 11:42 → ICU 10-09 19:00 → MEDSUR 10-12 17:20
PROVIDERS: ADMIT Internal Medicine; ATTEND Internal Medicine